=== PATIENT | female | born 1930 | race Caucasian/White ===

== ENCOUNTER 2016-12-04 17:34 | Inpatient (IN) | payer OTHER ==
[~2016-12-04] VITALS: Ht 157.5 cm; Wt 87.0 kg
[~2016-12-04 17:34] MED LIST: CHOL1TAB4 PO; FURO-85 PO; LOSA100T26 PO; MULT-506 PO; POTA10CA28 PO; PRED1SUS3; ZOLE5INJ SC
[2016-12-04] MEDS ORDERED: ACETAMINOPHEN 500 MG TAB PO STA (17:54)
[2016-12-04] MEDS ORDERED: SODIUM CHLORIDE 0.9% 1000ML 1,000 ML IV ONE (17:54)
[2016-12-04 18:06] LABS: URINE APPEARANCE CLEAR (CLEAR); URINE BILIRUBIN NEG (NEG); URINE COLOR DK YELLOW; URINE NITRITE NEG (NEG); URINE SPECIFIC GRAVITY 1.019 (1.000-1.030); UROBILINOGEN NEG (NEG); ZZURINE CULT IF INDIC CATH NO
[2016-12-04 18:07] LABS: MANUAL MICROSCOPIC REQUIRED? NO; REVIEW REQ? NO
[2016-12-04 18:23] LABS: VEN BLD GAS O2 SATURATION < 60.0 %; VEN BLOOD GAS BASE EXCESS -0.9 mmol/L; VENOUS BLOOD GAS PCO2 30 mmHg (38.0-50.0); VENOUS BLOOD GAS PO2 29 mmHg
--- NOTE | 2016-12-04 18:29 | DIAGNOSTIC IMAGING REPORT ---
SINGLE VIEW CHEST CLINICAL HISTORY: Sepsis. Vomiting. FINDINGS: An AP, portable, upright chest radiograph is compared to study dated 02/28/2012 and correlated with chest CT dated 12/13/11. The examination is degraded by portable technique and patient rotation. The heart is enlarged and there is atherosclerotic calcification of the thoracic aorta. There is prominence of the central pulmonary vessels. No airspace consolidation or large pleural effusion is identified. Minimal dependent atelectasis is observed. No pneumothorax is seen. The skeletal structures are osteopenic. The bony thorax is grossly intact. Arthritic change is present in the shoulders. IMPRESSION: 1. Cardiomegaly with prominence of the central pulmonary vessels. Correlate clinically for evidence of mild congestive failure. 2. No airspace consolidation or large pleural effusion is seen. Electronically signed by: Pablo Yeung M.D. 12/04/2016 6:28 PM Dictated Date/Time: 12/04/2016 6:26 PM
[2016-12-04] MEDS ORDERED: OSELTAMIVIR PHOSPHATE 75 MG CAP PO STA (18:43)
[2016-12-04 18:47] LABS: INR 1.3 (0.9-1.1); PROTHROMBIN TIME (PATIENT) 13.6 SECONDS (9.0-12.0)
[2016-12-04 18:55] LABS: ALT/SGPT 26 U/L (12-78); BLOOD UREA NITROGEN 25 mg/dl (7-18); C-REACTIVE PROTEIN 1.36 mg/dl (0-0.29); CALCIUM 8.7 mg/dl (8.5-10.1); CARBON DIOXIDE 21 mmol/L (21-32); CHLORIDE 106 mmol/L (98-107); GLUCOSE 212 mg/dl (70-99); MAGNESIUM 1.4 mg/dl (1.8-2.4); POTASSIUM 4.2 mmol/L (3.5-5.1); SODIUM 138 mmol/L (136-145)
[2016-12-04 18:58] LABS: ALB/GLOB RATIO 0.9 (0.9-2); ALKALINE PHOSPHATASE 130 U/L (45-117); AST/SGOT 32 U/L (15-37); PHOSPHORUS 1.6 mg/dl (2.5-4.9)
[2016-12-04 19:05] LABS: HEMATOCRIT 28.7 % (37-47); MEAN CELL VOLUME 78.2 fL (80-100); MEAN CORPUSCULAR HEMOGLOBIN 24.8 pg (25-34); MEAN CORPUSCULAR HGB CONC 31.7 g/dl (32-36); PLATELET COUNT 29 K/uL (130-400); RED BLOOD COUNT 3.67 M/uL (4.2-5.4); WHITE BLOOD COUNT 6.79 K/uL (4.8-10.8)
[2016-12-04 19:06] LABS: COMPLETE YES; IG% 0.3 %; LYMPH % 3.8 %; LYMPH ABS # 0.26 K/uL (1.2-3.4); MICROCYTOSIS PRESENT; MONO % 7.1 %; NEUT % 88.8 %; OVALOCYTES 1+; PLT ESTIMATE DECREASED; POLYCHROMASIA 1+
[2016-12-04] MEDS ORDERED: MAGNESIUM SULFATE 1GM / D5W 1 GM BAG IV STA (19:10)
[2016-12-04] MEDS ORDERED: MULTIVITAMIN IV (19:29)
[2016-12-04] MEDS ORDERED: PHYTONADIONE IV (19:29)
[2016-12-04] MEDS ORDERED: ALBINS/ INH (19:29)
[2016-12-04] MEDS ORDERED: GLIM2TAB2 PO (19:29)
[2016-12-04] MEDS ORDERED: DENO60SO INH (19:29)
[2016-12-04] MEDS ORDERED: CHOL1TAB42 PO (19:29)
[2016-12-04] MEDS ORDERED: ALUMINUM/MAGNESIUM/SIMETH (MAALOX MAX) 30 ML UDC PO PRN (20:30)
[2016-12-04] MEDS ORDERED: ONDANSETRON INJ 2 MG/ML 2 ML VIAL IV PRN (20:30)
[2016-12-04] MEDS ORDERED: ENOXAPARIN 40 MG/0.4 ML SYR SQ SCH (20:30)
--- NOTE | 2016-12-04 20:34 | EMERGENCY ROOM VISIT NOTE ---
History Report prepared by Lisseth: Tamra Tbaor Under the Supervision of: Dr. Wily Tenorio D.O. First contact with patient: 17:43 Chief Complaint: ILLNESS Stated Complaint: ILLNESS, VOMITING History of Present Illness The patient is an 85 year old female who presents to the Emergency Room via EMS to be evaluated for a persistent fever and weakness with onset 17 hours ago. The patient is a resident at [facility]. From midnight onward, the patient has been short of breath and nursing staff at [facility] reported that she had a fever of 103.1. The patient states that she has been having mid-back pain. She notes that she has not had much to eat or drink today. The patient has a history of diabetes and liver issues, per daughters. They note that the patient is coughing frequently but that this is not new for the patient. The patient denies vomiting, nausea, chest pain. Source of History: patient, family Onset: 17 hours ago Position: other (global) Quality: other (fever) Timing: other (persistent) Associated Symptoms: + SOB, + back pain, No chest pain, No nausea, No vomiting Review of Systems See HPI for pertinent positives & negatives. A total of 10 systems reviewed and were otherwise negative. Past Medical & Surgical Medical Problems: (1) NGHIA (acute kidney injury) (2) Benign hypertension (3) Hyperlipidemia (4) Influenza (5) Osteoporosis Family History No pertinent family history Social History Smoking Status: Never Smoker Alcohol Use: none Drug Use: none Marital Status: Housing Status: lives with family Occupation Status: retired Current/Historical Medications Scheduled Cholecalciferol (Vitamin D), 5,000 UNITS PO DAILY Denosumab (Prolia), 1 DOSE INH [id number] Furosemide (Lasix), 20 MG PO QAM Glimepiride (Glimepiride), 1 TAB PO BID Losartan Potassium & Hydrochlo (Losartan Potassium/Hydroc), 1 TAB PO QAM Potassium Chloride (Micro-K Ext Rel), 10 MEQ PO BID [Mvi, Vit K], 1 DOSE IV DAILY Scheduled PRN Albuterol Sulf (Proventil 0.083% 2.5MG/3ML), 2.5 MG INH QID PRN for COUGH, WHEEZE Allergies Coded Allergies: Alendronate (Verified Adverse Reaction, Unknown, dizziness, 01/09/16) Uncoded Allergies: SEAFOOD (Allergy, Unknown, GI UPSET, 09/12/15) Physical Exam Vital Signs Date Time Temp Pulse Resp B/P Pulse Ox O2 Delivery O2 Flow Rate FiO2 12/04/16 20:46 38.0 79 26 126/44 96 Room Air 12/04/16 19:03 39.5 86 28 139/57 97 Room Air 12/04/16 17:56 80 12/04/16 17:56 96 Room Air 12/04/16 17:42 39.3 82 30 160/55 96 Room Air Physical Exam GENERAL: Patient is awake, alert, and in no acute distress. Patient is resting comfortably and showing no signs of anxiety EYES: The conjunctivae are clear. The pupils are round and reactive. EARS, NOSE, MOUTH AND THROAT: The nose is without any evidence of any deformity. Mucous membranes are dry, tongue is midline NECK: The neck is nontender and supple. RESPIRATORY: Lung sounds are diminished throughout with scattered rhonchi, some diminished breath sounds in the left base. CARDIOVASCULAR: Regular rate and rhythm noted there no murmurs rubs or gallops normal S1 normal S2 GASTROINTESTINAL: The abdomen is soft. Bowel sounds are present in all quadrants. Abdomen is nontender MUSCULOSKELETAL/EXTREMITIES: There is no evidence of gross deformity full range of motion is noted in the hips and shoulders, trace pedal edema in the bilateral lower extremities SKIN: There is no obvious evidence of any rash. There are no petechiae, pallor or cyanosis noted. NEUROLOGIC: Patient is awake alert, answering questions, appears to be at baseline according to family members Medical Decision & Procedures ER Provider Diagnostic Interpretation: X-ray results as stated below per interpretation by me and the radiologist. SINGLE VIEW CHEST CLINICAL HISTORY: Sepsis. Vomiting. FINDINGS: An AP, portable, upright chest radiograph is compared to study dated 02/28/2012 and correlated with chest CT dated 12/13/11. The examination is degraded by portable technique and patient rotation. The heart is enlarged and there is atherosclerotic calcification of the thoracic aorta. There is prominence of the central pulmonary vessels. No airspace consolidation or large pleural effusion is identified. Minimal dependent atelectasis is observed. No pneumothorax is seen. The skeletal structures are osteopenic. The bony thorax is grossly intact. Arthritic change is present in the shoulders. IMPRESSION: 1. Cardiomegaly with prominence of the central pulmonary vessels. Correlate clinically for evidence of mild congestive failure. 2. No airspace consolidation or large pleural effusion is seen. Electronically signed by: Pablo Yeung M.D. 12/04/2016 6:28 PM Dictated Date/Time: 12/04/2016 6:26 PM Laboratory Results 12/04/16 18:12 Red Blood Count 3.67, Mean Corpuscular Volume 78.2, Mean Corpuscular Hemoglobin 24.8, Mean Corpuscular Hemoglobin Concent 31.7, Neutrophils (%) (Auto) 88.8, Lymphocytes (%) (Auto) 3.8, Monocytes (%) (Auto) 7.1, Eosinophils (%) (Auto) 0.0 , Basophils (%) (Auto) 0.0, Neutrophils # (Auto) 6.03, Lymphocytes # (Auto) 0.26 , Monocytes # (Auto) 0.48, Eosinophils # (Auto) 0.00, Basophils # (Auto) 0.00 12/04/16 18:12 Test 12/04/16 17:55 12/04/16 18:00 12/04/16 18:11 12/04/16 18:12 Urine Color DK YELLOW Urine Appearance CLEAR (CLEAR) Urine pH 5.0 (4.5-7.5) Urine Specific [place] 1.019 (1.000-1.030) Urine Protein NEG (NEG) Urine Glucose (UA) NEG (NEG) Urine Ketones NEG (NEG) Urine Occult Blood 1+ (NEG) Urine Nitrite NEG (NEG) Urine Bilirubin NEG (NEG) Urine Urobilinogen NEG (NEG) Urine Leukocyte Esterase NEG (NEG) Urine WBC (Auto) 1-5 /hpf (0-5) Urine RBC (Auto) 5-10 /hpf (0-4) Urine Hyaline Casts (Auto) 1-5 /lpf (0-5) Urine Epithelial Cells (Auto) 10-20 /lpf (0-5) Urine Bacteria (Auto) NEG (NEG) Influenza Type A Antigen POS for Influ A (NEG) Influenza Type B Antigen Neg for Influ B (NEG) Bedside Lactic Acid Venous 3.00 mmol/L (0.90-1.70) White Blood Count 6.79 K/uL (4.8-10.8) Red Blood Count 3.67 M/uL (4.2-5.4) Hemoglobin 9.1 g/dL (12.0-16.0) Hematocrit 28.7 % (37-47) Mean Corpuscular Volume 78.2 fL (80-100) Mean Corpuscular Hemoglobin 24.8 pg (25-34) Mean Corpuscular Hemoglobin Concent 31.7 g/dl (32-36) Platelet Count 29 K/uL (130-400) Neutrophils (%) (Auto) 88.8 % Lymphocytes (%) (Auto) 3.8 % Monocytes (%) (Auto) 7.1 % Eosinophils (%) (Auto) 0.0 % Basophils (%) (Auto) 0.0 % Neutrophils # (Auto) 6.03 K/uL (1.4-6.5) Lymphocytes # (Auto) 0.26 K/uL (1.2-3.4) Monocytes # (Auto) 0.48 K/uL (0.11-0.59) Eosinophils # (Auto) 0.00 K/uL (0-0.5) Basophils # (Auto) 0.00 K/uL (0-0.2) RDW Standard Deviation 48.1 fL (36.4-46.3) RDW Coefficient of Variation 16.8 % (11.5-14.5) Immature Granulocyte % (Auto) 0.3 % Immature Granulocyte # (Auto) 0.02 K/uL (0.00-0.02) Platelet Estimate DECREASED Polychromasia 1+ Microcytosis PRESENT Ovalocytes 1+ Erythrocyte Sedimentation Rate 10 mm/hr (0-21) Prothrombin Time 13.6 SECONDS (9.0-12.0) Prothromb Time International Ratio 1.3 (0.9-1.1) Activated Partial Thromboplast Time 27.2 SECONDS (21.0-31.0) Partial Thromboplastin Ratio 1.0 Venous Blood pH 7.48 (7.36-7.41) Venous Blood Partial Pressure CO2 30 mmHg (38.0-50.0) Venous Blood Partial Pressure O2 29 mmHg Venous Blood HCO3 22 meq/L Venous Blood Oxygen Saturation < 60.0 % Venous Blood Base Excess -0.9 mmol/L Anion Gap 11.0 mmol/L (3-11) Est Creatinine Clear Calc Drug Dose 33.4 ml/min Estimated GFR () 43.9 Estimated GFR (Non- 37.9 BUN/Creatinine Ratio 19.0 (10-20) Calcium Level 8.7 mg/dl (8.5-10.1) Phosphorus Level 1.6 mg/dl (2.5-4.9) Magnesium Level 1.4 mg/dl (1.8-2.4) Total Bilirubin 2.2 mg/dl (0.2-1) Aspartate Amino Transf (AST/SGOT) 32 U/L (15-37) Alanine Aminotransferase (ALT/SGPT) 26 U/L (12-78) Alkaline Phosphatase 130 U/L (45-117) Total Creatine Kinase 55 U/L (26-192) Creatine Kinase MB < 0.5 ng/ml (0.5-3.6) Creatine Kinase MB Ratio (0-3.0) Troponin I 0.030 ng/ml (0-0.045) C-Reactive Protein 1.36 mg/dl (0-0.29) Pro-B-Type Natriuretic Peptide 712 pg/ml (0-1800) Total Protein 6.4 gm/dl (6.4-8.2) Albumin 3.1 gm/dl (3.4-5.0) Globulin 3.3 gm/dl (2.5-4.0) Albumin/Globulin Ratio 0.9 (0.9-2) Lipase 242 U/L (73-393) Test 12/04/16 20:19 Laboratory results per my review. Medications Administered Medications (Trade) Dose Ordered Sig/Anibal Route Start Time Stop Time Status Last Admin Dose Admin Sodium Chloride (Nss 1000ml) 1,000 ml @ 999 mls/hr Q1H1M ONCE IV 12/04/16 17:54 12/04/16 18:56 DC 12/04/16 18:28 999 MLS/HR Acetaminophen (Tylenol Tab) 1,000 mg NOW STAT PO 12/04/16 17:54 12/04/16 17:55 DC 12/04/16 18:16 1,000 MG Oseltamivir Phosphate (Tamiflu Cap) 75 mg NOW STAT PO 12/04/16 18:43 12/04/16 18:44 DC 12/04/16 18:43 75 MG Magnesium Sulfate (Magnesium Sulfate) 1 gm NOW STAT IV 12/04/16 19:10 12/04/16 19:11 DC 12/04/16 19:31 1 GM ECG Indication: SOB/dyspnea Rate (beats per minute): 79 Rhythm: normal sinus Findings: ST depression (lateral and inferior ), no ectopy, other (LVH by voltage criteria ) Comparison ECG Date: February 28, 2012 Change: no significant change ED Course 1750: The patient was evaluated in room B9. A complete history and physical examination were performed. 1753: Tylenol Tab 1000 mg PO, NSS 1,000 ml @ 999 mls/hr IV 1842: Tamiflu Cap 75 mg PO 1909: Magnesium Sulfate 1 gm IV 1939: Upon reevaluation, the patient is resting. I discussed results and treatment plan with the patient and her family. They verbalize agreement and understanding. The patient will be evaluated for further management and care. 1950: I discussed the case with Dr. Huber ([facility]); he will further evaluate the patient. Medical Decision Differential diagnosis: Etiologies such as viral syndrome, otitis, pharyngitis, pneumonia, influenza, meningitis, urinary tract infection, sepsis, bacteremia, as well as others were entertained. Nursing notes reviewed. Additional history is obtained from the patient's family members. The patient is an 85-year-old female who presented to the emergency department for an evaluation of fever and cough. The patient did not have significant hypoxia but she did have significant tachypnea. She was treated with IV fluids in the emergency department. She was also given Tamiflu when her flu swab came back positive. She was treated with IV magnesium as well for a low magnesium level. She was reevaluated multiple times. She continued. I discussed patient's laboratory and radiographic studies with her and her family members. Because of her age and other comorbidities I discussed her case with the on-call [facility] hospitalist as well. They've agreed to evaluate the patient in the emergency department for further management and disposition. Consults Time Called: 1947 Consulting Physician: Dr. Huber ([facility]) Returned Call: 1950 I discussed the case with Dr. Huber ([facility]); he will further evaluate the patient. Impression Primary Impression: Fever Additional Impressions: Influenza Tachypnea Dehydration Acute kidney injury Hypomagnesemia Scribe Attestation The scribe's documentation has been prepared under my direction and personally reviewed by me in its entirety. I confirm that the note above accurately reflects all work, treatment, procedures, and medical decision making performed by me. Departure Information Dispostion Being Evaluated By Hospitalist Referrals Jj Bryan (PCP) Patient Instructions My [facility] Problem Qualifiers
--- NOTE | 2016-12-04 21:06 | History and Physical ---
History & Physical Date & Time of Service: Dec 04, 2016 at 20:33 Chief Complaint: Illness, Vomiting Primary Care Physician: Jj Bryan History of Present Illness Source: patient, family, clinic records This is an 85 yo f that is presented to us with fever, positive influenza. She states that for approx two days she has been having increasing fatigue and a very poor appetite. She has been suffering from a dry cough however this has been ongoing for a month and she states it is her typical "winter cough" .As she was feeling unwell it was decided she would be sent to the ED for further evaluation. She was found to have a positive influenza A swab. She was also found to have thrombocytopenia which was actually BL for the patient. She does have a h/o DM and supposed fatty liver disease. She also has a h/o esophageal polyps which did cause internal bleeding in the past. She also notes that she does have a known murmur but has never had an echo per the patient. Past Medical/Surgical History Medical Problems: (1) Benign hypertension Status: Chronic (2) Hyperlipidemia Status: Chronic (3) Osteoporosis Status: Chronic Family History Diabetes mellitus MOTHER Social History Smoking Status: Never Smoker Smokeless Tobacco Use: No Alcohol Use: none Drug Use: none Marital Status: Housing status: lives with family Occupational Status: retired Immunizations History of Influenza Vaccine: Yes History of Tetanus Vaccine?: Yes History of Pneumococcal: Yes History of Hepatitis B Vaccine: No Multi-Drug Resistant Organisms History of MDRO: No Allergies Coded Allergies: Alendronate (Verified Adverse Reaction, Unknown, dizziness, 01/09/16) Uncoded Allergies: SEAFOOD (Allergy, Unknown, GI UPSET, 09/12/15) Home Medications Scheduled Cholecalciferol (Vitamin D), 5,000 UNITS PO DAILY Denosumab (Prolia), 1 DOSE INH [id number] Furosemide (Lasix), 20 MG PO QAM Glimepiride (Glimepiride), 1 TAB PO BID Losartan Potassium & Hydrochlo (Losartan Potassium/Hydroc), 1 TAB PO QAM Potassium Chloride (Micro-K Ext Rel), 10 MEQ PO BID [Mvi, Vit K], 1 DOSE IV DAILY Scheduled PRN Albuterol Sulf (Proventil 0.083% 2.5MG/3ML), 2.5 MG INH QID PRN for COUGH, WHEEZE Review of Systems Constitutional: + chills, + fever, + sweats Eyes: No worsening of vision ENT: No hearing loss Respiratory: + cough, No dyspnea at rest, No dyspnea on exertion, No shortness of breath, No sputum, No wheezing Cardiovascular: No chest pain Abdomen: No constipation, No diarrhea, No nausea, No pain, No vomiting Musculoskeletal: No joint pain, No muscle pain Neurologic: + balance problems, + weakness, No memory loss, No numbness/ tingling Endocrine: + fatigue Integumentary: No rash Physical Exam Vital Signs Date Time Temp Pulse Resp B/P Pulse Ox O2 Delivery O2 Flow Rate FiO2 12/04/16 19:03 39.5 86 28 139/57 97 Room Air 12/04/16 17:56 80 12/04/16 17:56 96 Room Air 12/04/16 17:42 39.3 82 30 160/55 96 Room Air General Appearance: WD/WN, no apparent distress, + pertinent finding (flushed and diaphoretic) Head: normocephalic, atraumatic Eyes: normal inspection ENT: hearing grossly normal Neck: supple Respiratory/Chest: lungs clear, normal breath sounds, no respiratory distress, no accessory muscle use Cardiovascular: + systolic murmur (4/6), + pertinent finding (4:1 rhythm ) Abdomen/GI: normal bowel sounds, non tender, soft Back: normal inspection Extremities/Musculoskelatal: no calf tenderness, no pedal edema, normal range of motion Neurologic/Psych: alert, normal mood/affect, oriented x 3 Skin: normal color, warm/dry, no rash Lymphatic: no adenopathy Diagnostics Laboratory Results Results Past 24 Hours Test 12/04/16 17:55 12/04/16 18:00 12/04/16 18:11 12/04/16 18:12 Range/Units Urine Color DK YELLOW Urine Appearance CLEAR CLEAR Urine pH 5.0 4.5-7.5 Urine Specific [place] 1.019 1.000-1.030 Urine Protein NEG NEG Urine Glucose (UA) NEG NEG Urine Ketones NEG NEG Urine Occult Blood 1+ NEG Urine Nitrite NEG NEG Urine Bilirubin NEG NEG Urine Urobilinogen NEG NEG Urine Leukocyte Esterase NEG NEG Urine WBC (Auto) 1-5 0-5 /hpf Urine RBC (Auto) 5-10 0-4 /hpf Urine Hyaline Casts (Auto) 1-5 0-5 /lpf Urine Epithelial Cells (Auto) 10-20 0-5 /lpf Urine Bacteria (Auto) NEG NEG Influenza Type A Antigen POS for Influ A NEG Influenza Type B Antigen Neg for Influ B NEG Bedside Lactic Acid Venous 3.00 0.90-1.70 mmol/L White Blood Count 6.79 4.8-10.8 K/uL Red Blood Count 3.67 4.2-5.4 M/uL Hemoglobin 9.1 12.0-16.0 g/dL Hematocrit 28.7 37-47 % Mean Corpuscular Volume 78.2 80-100 fL Mean Corpuscular Hemoglobin 24.8 25-34 pg Mean Corpuscular Hemoglobin Concent 31.7 32-36 g/dl Platelet Count 29 130-400 K/uL Neutrophils (%) (Auto) 88.8 % Lymphocytes (%) (Auto) 3.8 % Monocytes (%) (Auto) 7.1 % Eosinophils (%) (Auto) 0.0 % Basophils (%) (Auto) 0.0 % Neutrophils # (Auto) 6.03 1.4-6.5 K/uL Lymphocytes # (Auto) 0.26 1.2-3.4 K/uL Monocytes # (Auto) 0.48 0.11-0.59 K/uL Eosinophils # (Auto) 0.00 0-0.5 K/uL Basophils # (Auto) 0.00 0-0.2 K/uL RDW Standard Deviation 48.1 36.4-46.3 fL RDW Coefficient of Variation 16.8 11.5-14.5 % Immature Granulocyte % (Auto) 0.3 % Immature Granulocyte # (Auto) 0.02 0.00-0.02 K/uL Platelet Estimate DECREASED Polychromasia 1+ Microcytosis PRESENT Ovalocytes 1+ Erythrocyte Sedimentation Rate 10 0-21 mm/hr Prothrombin Time 13.6 9.0-12.0 SECONDS Prothromb Time International Ratio 1.3 0.9-1.1 Activated Partial Thromboplast Time 27.2 21.0-31.0 SECONDS Partial Thromboplastin Ratio 1.0 Venous Blood pH 7.48 7.36-7.41 Venous Blood Partial Pressure CO2 30 38.0-50.0 mmHg Venous Blood Partial Pressure O2 29 mmHg Venous Blood HCO3 22 meq/L Venous Blood Oxygen Saturation < 60.0 % Venous Blood Base Excess -0.9 mmol/L Sodium Level 138 136-145 mmol/L Potassium Level 4.2 3.5-5.1 mmol/L Chloride Level 106 98-107 mmol/L Carbon Dioxide Level 21 21-32 mmol/L Anion Gap 11.0 3-11 mmol/L Blood Urea Nitrogen 25 7-18 mg/dl Creatinine 1.30 0.60-1.20 mg/dl Est Creatinine Clear Calc Drug Dose 33.4 ml/min Estimated GFR () 43.9 Estimated GFR (Non- 37.9 BUN/Creatinine Ratio 19.0 10-20 Random Glucose 212 70-99 mg/dl Calcium Level 8.7 8.5-10.1 mg/dl Phosphorus Level 1.6 2.5-4.9 mg/dl Magnesium Level 1.4 1.8-2.4 mg/dl Total Bilirubin 2.2 0.2-1 mg/dl Aspartate Amino Transf (AST/SGOT) 32 15-37 U/L Alanine Aminotransferase (ALT/SGPT) 26 12-78 U/L Alkaline Phosphatase 130 45-117 U/L Total Creatine Kinase 55 26-192 U/L Creatine Kinase MB < 0.5 0.5-3.6 ng/ml Creatine Kinase MB Ratio 0-3.0 Troponin I 0.030 0-0.045 ng/ml C-Reactive Protein 1.36 0-0.29 mg/dl Pro-B-Type Natriuretic Peptide 712 0-1800 pg/ml Total Protein 6.4 6.4-8.2 gm/dl Albumin 3.1 3.4-5.0 gm/dl Globulin 3.3 2.5-4.0 gm/dl Albumin/Globulin Ratio 0.9 0.9-2 Lipase 242 73-393 U/L Test 12/04/16 20:19 Range/Units Microbiology Results 12/04/16 Blood Culture, Received Pending 12/04/16 Blood Culture, Received Pending Diagnostic Radiology SINGLE VIEW CHEST CLINICAL HISTORY: Sepsis. Vomiting. FINDINGS: An AP, portable, upright chest radiograph is compared to study dated 02/28/2012 and correlated with chest CT dated 12/13/11. The examination is degraded by portable technique and patient rotation. The heart is enlarged and there is atherosclerotic calcification of the thoracic aorta. There is prominence of the central pulmonary vessels. No airspace consolidation or large pleural effusion is identified. Minimal dependent atelectasis is observed. No pneumothorax is seen. The skeletal structures are osteopenic. The bony thorax is grossly intact. Arthritic change is present in the shoulders. IMPRESSION: 1. Cardiomegaly with prominence of the central pulmonary vessels. Correlate clinically for evidence of mild congestive failure. 2. No airspace consolidation or large pleural effusion is seen. EKG NSR, no ectopic beats or ischemia noted Impression Assessment and Plan Documented By: Michael Huber This is an 85 yo f with influenza A as well as NGHIA. Treat with Tamiflu and rehydration. Fever meeting SIRS criteria most likely secondary to influenza A - Tamiflu bid - hemodynamically stable- med surg - blood cx pending - repeat lactate ordered - Tylenol for fever/ pain control NGHIA most likely secondary to dehydration from secondary losses (diaphoresis) - NSS @ 100cc/h - unsure of EF at this time - recheck of BMP in the am Thrombocytopenia - stable - CBC serial Systolic murmur - echo ordered - intake and outpt - daily weight HTN - Lasix held because of NGHIA - Losartan/ HCTZ cont'd but will monitor because of NGHIA DVt Prophylaxis - SCD FULL CODE Resident Physician Supervision Note: I was present with [Name of resident] during the history and exam. I discussed the case with the resident and agree with the findings and plan as documented in the note. Any exceptions or clarifications are listed here Pt seen / examined - + influ and related symptoms in addition to NGHIA on labs P: 1) Influ A - Tamiflu started - supportive care, IVF, antipyretics - PT/OT after 1-2 days 2) NGHIA - IVF - repeat labs AM - lytes and nephrology if no improvement 3) Echo ordered by resident can likely be deferred to outpt setting as does not figure into current complaint/presentation Level of Care Med/Surg Advanced Directives Existing Advance Directive: Yes Resuscitation Status FULL RESUSCITATION VTE Prophylaxis VTE Risk Assessment Done? Y/N: Yes Risk Level: Moderate Given or contraindicated: SCD's Social Service Consult Lives in Shelter Additional Copies To Jj Bryan
[2016-12-04] MEDS ORDERED: GLUCOSE 40% GEL 15 GM TUBE PO PRN (22:00)
[2016-12-04] MEDS ORDERED: GLUCOSE 10 TABS/TUBE PO PRN (22:00)
[2016-12-04] MEDS ORDERED: DEXTROSE 50% 50 ML SYR IV PRN (22:00)
[2016-12-04] MEDS ORDERED: GLUCAGON FOR INJ 1 MG VIAL SQ PRN (22:00)
[2016-12-04 22:14] VITALS: BP 123/69; PULSE 81; TEMP 36.8; O2SAT 93
[2016-12-04] MEDS: SODIUM CHLORIDE 0.9% 1000ML 1,000 ML IV SCH (22:18)
[2016-12-04 22:31] VITALS: BP 123/69; PULSE 81; TEMP 36.8; O2SAT 93; BMI 34.8
[2016-12-05] VITALS (12 sets, daily range): BP systolic 118–145; BP diastolic 57–76; PULSE 64–112; TEMP 36.8–39.1; O2SAT 93–97
[2016-12-05] MEDS: ACETAMINOPHEN 325 MG TAB PO PRN ×3 (00:16→16:49)
[2016-12-05] MEDS: POTASSIUM CHLORIDE 10 MEQ TABCR PO SCH ×3 (00:16→20:51)
[2016-12-05] MEDS: OSELTAMIVIR PHOSPHATE SUSP 30 MG/5 ML UDP PO SCH ×3 (00:17→20:51)
[2016-12-05] MEDS: INSULIN ASPART 100 UNITS/ML 3 ML PEN SC SCH ×5 (00:21→21:00)
[2016-12-05] MEDS ORDERED: MAGNESIUM CHLORIDE 64MG DELAYED REL TAB PO ONE (01:30)
[2016-12-05] MEDS ORDERED: POT PHOSPHATE MONOBASIC W/ SOD TAB PO ONE (01:30)
[2016-12-05] MEDS: SODIUM CHLORIDE 0.9% 1000ML 1,000 ML IV SCH (06:09)
[2016-12-05] MEDS ORDERED: PIPERACILL/TAZOBAC IV 2.25 GM in DEXTROSE 5% 100ML 100 ML IV SCH (07:00)
[2016-12-05] MEDS ORDERED: PIPERACILL/TAZOBAC CONSULT ACTIVE PRN (07:15)
[2016-12-05] MEDS ORDERED: VANCOMYCIN CONSULT ACTIVE PRN (07:15)
[2016-12-05] MEDS ORDERED: PIPERACILL/TAZOBAC IV 3.375 GM in DEXTROSE 5% 100ML IV ONE (07:15)
[2016-12-05] MEDS ORDERED: VANCOMYCIN INJ 2,100 MG in SODIUM CHLORIDE 0.9% 500ML 500 ML IV SCH (07:30)
[2016-12-05 08:15] LABS: BUN/CREATININE RATIO 20.8 (10-20); CALCIUM 8.3 mg/dl (8.5-10.1); CREATININE 1.4 mg/dl (0.60-1.20); POTASSIUM 4.3 mmol/L (3.5-5.1)
[2016-12-05 08:22] LABS: HEMATOCRIT 26.7 % (37-47); MEAN CELL VOLUME 79.2 fL (80-100); MEAN CORPUSCULAR HEMOGLOBIN 24.6 pg (25-34); MEAN CORPUSCULAR HGB CONC 31.1 g/dl (32-36); PLATELET COUNT 22 K/uL (130-400); PLT ESTIMATE SIGNIFIC DECREASED; RED BLOOD COUNT 3.37 M/uL (4.2-5.4); WHITE BLOOD COUNT 4.68 K/uL (4.8-10.8)
[2016-12-05] MEDS: MAGNESIUM CHLORIDE 64MG DELAYED REL TAB PO SCH (08:36)
[2016-12-05] MEDS: POT PHOSPHATE MONOBASIC W/ SOD TAB PO SCH ×4 (08:36→20:52)
[2016-12-05] MEDS: CHOLECALCIFEROL 1000 INTER.UNIT TAB PO SCH (08:44)
[2016-12-05] MEDS: MULTIVITAMIN TAB PO SCH (08:44)
--- NOTE | 2016-12-05 08:52 | Medical Student: [facility] ---
Med Student History & Physical Date & Time of Service: Dec 05, 2016 at 08:52 Chief Complaint: Marlon (Acute Kidney Injury) Primary Care Physician: Jj Bryan History of Present Illness Source: patient This is an 85 year old who presented yesterday evening to the ED after several days of fever, weakness, and loss of appetite. Upon arrival she tested positive for Influenza A and was found to have signs of acute kidney injury. Past Medical/Surgical History Medical Problems: (1) Acute kidney injury Status: Acute (2) Dehydration Status: Acute (3) Fever Status: Acute (4) Hypomagnesemia Status: Acute (5) Tachypnea Status: Acute Social History Smoking Status: Never Smoker Smokeless Tobacco Use: No Alcohol Use: none Drug Use: none Marital Status: Housing status: lives with family Occupational Status: retired Immunizations History of Influenza Vaccine: Yes History of Tetanus Vaccine?: Yes History of Pneumococcal: Yes History of Hepatitis B Vaccine: No Allergies Coded Allergies: Alendronate (Verified Adverse Reaction, Unknown, dizziness, 01/09/16) Uncoded Allergies: SEAFOOD (Allergy, Unknown, GI UPSET, 09/12/15) Medications Albuterol Sulf (Proventil 0.083% 2.5MG/3ML), 2.5 MG INH QID PRN for COUGH, WHEEZE Cholecalciferol (Vitamin D), 5,000 UNITS PO DAILY Denosumab (Prolia), 1 DOSE INH [id number] Furosemide (Lasix), 20 MG PO QAM Glimepiride (Glimepiride), 1 TAB PO BID Losartan Potassium & Hydrochlo (Losartan Potassium/Hydroc), 1 TAB PO QAM Potassium Chloride (Micro-K Ext Rel), 10 MEQ PO BID [Mvi, Vit K], 1 DOSE IV DAILY Review of Systems Constitutional: + chills, + fever, + sweats, + weakness Respiratory: + cough Abdomen: No nausea, No pain, No vomiting Musculoskeletal: + joint pain (Right knee) Endocrine: + fatigue Hematologic / Lymphatic: No abnormal bleeding/bruising, No clotting problems Integumentary: No bleeding Physical Exam Vital Signs (24 Hours) Date Time Temp Pulse Resp B/P Pulse Ox O2 Delivery O2 Flow Rate FiO2 12/05/16 08:00 38.2 78 22 142/57 97 Room Air 12/05/16 07:17 37.2 77 18 134/68 94 Room Air 12/05/16 03:00 36.8 12/05/16 01:27 37.9 12/05/16 00:08 37.8 64 18 145/69 93 Room Air 12/05/16 00:00 Room Air 12/04/16 22:31 36.8 81 20 123/69 93 Room Air 12/04/16 22:14 36.8 81 20 123/69 93 Room Air 12/04/16 20:46 38.0 79 26 126/44 96 Room Air 12/04/16 19:03 39.5 86 28 139/57 97 Room Air 12/04/16 17:56 80 12/04/16 17:56 96 Room Air 12/04/16 17:42 39.3 82 30 160/55 96 Room Air General Appearance: + mild distress Head: normocephalic, atraumatic ENT: normal ENT inspection Neck: supple, no adenopathy, thyroid normal Respiratory/Chest: chest non-tender, lungs clear, normal breath sounds Cardiovascular: regular rate, rhythm Diagnostics Laboratory Results Results Past 24 Hours Test 12/04/16 17:55 12/04/16 18:00 12/04/16 18:11 12/04/16 18:12 Range/Units Urine Color DK YELLOW Urine Appearance CLEAR CLEAR Urine pH 5.0 4.5-7.5 Urine Specific [place] 1.019 1.000-1.030 Urine Protein NEG NEG Urine Glucose (UA) NEG NEG Urine Ketones NEG NEG Urine Occult Blood 1+ NEG Urine Nitrite NEG NEG Urine Bilirubin NEG NEG Urine Urobilinogen NEG NEG Urine Leukocyte Esterase NEG NEG Urine WBC (Auto) 1-5 0-5 /hpf Urine RBC (Auto) 5-10 0-4 /hpf Urine Hyaline Casts (Auto) 1-5 0-5 /lpf Urine Epithelial Cells (Auto) 10-20 0-5 /lpf Urine Bacteria (Auto) NEG NEG Influenza Type A Antigen POS for Influ A NEG Influenza Type B Antigen Neg for Influ B NEG Bedside Lactic Acid Venous 3.00 0.90-1.70 mmol/L White Blood Count 6.79 4.8-10.8 K/uL Red Blood Count 3.67 4.2-5.4 M/uL Hemoglobin 9.1 12.0-16.0 g/dL Hematocrit 28.7 37-47 % Mean Corpuscular Volume 78.2 80-100 fL Mean Corpuscular Hemoglobin 24.8 25-34 pg Mean Corpuscular Hemoglobin Concent 31.7 32-36 g/dl Platelet Count 29 130-400 K/uL Neutrophils (%) (Auto) 88.8 % Lymphocytes (%) (Auto) 3.8 % Monocytes (%) (Auto) 7.1 % Eosinophils (%) (Auto) 0.0 % Basophils (%) (Auto) 0.0 % Neutrophils # (Auto) 6.03 1.4-6.5 K/uL Lymphocytes # (Auto) 0.26 1.2-3.4 K/uL Monocytes # (Auto) 0.48 0.11-0.59 K/uL Eosinophils # (Auto) 0.00 0-0.5 K/uL Basophils # (Auto) 0.00 0-0.2 K/uL RDW Standard Deviation 48.1 36.4-46.3 fL RDW Coefficient of Variation 16.8 11.5-14.5 % Immature Granulocyte % (Auto) 0.3 % Immature Granulocyte # (Auto) 0.02 0.00-0.02 K/uL Platelet Estimate DECREASED Polychromasia 1+ Microcytosis PRESENT Ovalocytes 1+ Erythrocyte Sedimentation Rate 10 0-21 mm/hr Prothrombin Time 13.6 9.0-12.0 SECONDS Prothromb Time International Ratio 1.3 0.9-1.1 Activated Partial Thromboplast Time 27.2 21.0-31.0 SECONDS Partial Thromboplastin Ratio 1.0 Venous Blood pH 7.48 7.36-7.41 Venous Blood Partial Pressure CO2 30 38.0-50.0 mmHg Venous Blood Partial Pressure O2 29 mmHg Venous Blood HCO3 22 meq/L Venous Blood Oxygen Saturation < 60.0 % Venous Blood Base Excess -0.9 mmol/L Sodium Level 138 136-145 mmol/L Potassium Level 4.2 3.5-5.1 mmol/L Chloride Level 106 98-107 mmol/L Carbon Dioxide Level 21 21-32 mmol/L Anion Gap 11.0 3-11 mmol/L Blood Urea Nitrogen 25 7-18 mg/dl Creatinine 1.30 0.60-1.20 mg/dl Est Creatinine Clear Calc Drug Dose 33.4 ml/min Estimated GFR () 43.9 Estimated GFR (Non- 37.9 BUN/Creatinine Ratio 19.0 10-20 Random Glucose 212 70-99 mg/dl Calcium Level 8.7 8.5-10.1 mg/dl Phosphorus Level 1.6 2.5-4.9 mg/dl Magnesium Level 1.4 1.8-2.4 mg/dl Total Bilirubin 2.2 0.2-1 mg/dl Aspartate Amino Transf (AST/SGOT) 32 15-37 U/L Alanine Aminotransferase (ALT/SGPT) 26 12-78 U/L Alkaline Phosphatase 130 45-117 U/L Total Creatine Kinase 55 26-192 U/L Creatine Kinase MB < 0.5 0.5-3.6 ng/ml Creatine Kinase MB Ratio 0-3.0 Troponin I 0.030 0-0.045 ng/ml C-Reactive Protein 1.36 0-0.29 mg/dl Pro-B-Type Natriuretic Peptide 712 0-1800 pg/ml Total Protein 6.4 6.4-8.2 gm/dl Albumin 3.1 3.4-5.0 gm/dl Globulin 3.3 2.5-4.0 gm/dl Albumin/Globulin Ratio 0.9 0.9-2 Lipase 242 73-393 U/L Test 12/04/16 22:07 12/04/16 22:29 12/05/16 07:04 12/05/16 07:49 Range/Units Bedside Glucose 186 210 70-90 mg/dl Lactic Acid Level 2.9 0.4-2.0 mmol/L White Blood Count 4.68 4.8-10.8 K/uL Red Blood Count 3.37 4.2-5.4 M/uL Hemoglobin 8.3 12.0-16.0 g/dL Hematocrit 26.7 37-47 % Mean Corpuscular Volume 79.2 80-100 fL Mean Corpuscular Hemoglobin 24.6 25-34 pg Mean Corpuscular Hemoglobin Concent 31.1 32-36 g/dl RDW Standard Deviation 49.8 36.4-46.3 fL RDW Coefficient of Variation 17.4 11.5-14.5 % Platelet Count 22 130-400 K/uL Platelet Estimate SIGNIFIC DECREASED Sodium Level 139 136-145 mmol/L Potassium Level 4.3 3.5-5.1 mmol/L Chloride Level 108 98-107 mmol/L Carbon Dioxide Level 19 21-32 mmol/L Anion Gap 12.0 3-11 mmol/L Blood Urea Nitrogen 29 7-18 mg/dl Creatinine 1.40 0.60-1.20 mg/dl Est Creatinine Clear Calc Drug Dose 30.8 ml/min Estimated GFR () 40.2 Estimated GFR (Non- 34.7 BUN/Creatinine Ratio 20.8 10-20 Random Glucose 195 70-99 mg/dl Calcium Level 8.3 8.5-10.1 mg/dl Microbiology Results 12/04/16 Blood Culture - Preliminary, Resulted Gram Positive Cocci 12/04/16 Blood Culture - Preliminary, Resulted Gram Positive Cocci Impression Advanced Directives Existing Advance Directive: Yes Existing Living Will: Yes Existing Power of Drafter Apprentice: Yes
--- NOTE | 2016-12-05 09:03 | Pharmacy Progress Note ---
Pharmacy Antibiotic Consult Date of Service: Dec 05, 2016. Pharmacy Dosing Scope Pharmacy is consulted to initiate VANCOMYCIN and ZOSYN IV dosing therapy, order appropriate labs and adjust drug dose/frequency. Subjective The patient is a 85 year old female admitted on Dec 04, 2016 at 20:24. Objective Height (Feet): 5 Height (Inches): 2.00 Weight (Kilograms): 85.200 Lab Results (24hrs): Laboratory Tests Test 12/04/16 18:12 12/05/16 07:04 BUN/Creatinine Ratio 19.0 20.8 Blood Urea Nitrogen 25 mg/dl 29 mg/dl Creatinine 1.30 mg/dl 1.40 mg/dl White Blood Count 6.79 K/uL 4.68 K/uL Red Blood Count 3.67 M/uL Hemoglobin 9.1 g/dL Hematocrit 28.7 % Mean Corpuscular Volume 78.2 fL Mean Corpuscular Hemoglobin 24.8 pg Mean Corpuscular Hemoglobin Concent 31.7 g/dl Platelet Count 29 K/uL Neutrophils (%) (Auto) 88.8 % Lymphocytes (%) (Auto) 3.8 % Monocytes (%) (Auto) 7.1 % Eosinophils (%) (Auto) 0.0 % Basophils (%) (Auto) 0.0 % Neutrophils # (Auto) 6.03 K/uL Lymphocytes # (Auto) 0.26 K/uL Monocytes # (Auto) 0.48 K/uL Eosinophils # (Auto) 0.00 K/uL Basophils # (Auto) 0.00 K/uL Micro Results: * 12/04/16 -- (+) influenza A (-) influenza B * 12/04/16 -- Blood Cx x 2 -- GPC x 2 Recent Pertinent Medications Item Value Date Time Oseltamivir 30 mg 12/04/16 2230 Phosphate BID/PO 12/05/16 0844 (Tamiflu Susp) Assessment & Plan 85yo female resident at [facility], admitted with influenza and also found to have 2/2 blood cx growing GPC. Patient admitted with NGHIA (baseline Scr ~0.9 , Scr today = 1.4). VANCOMYCIN: * Loading dose: VANCOMYCIN 2100mg (~25mg/kg) IV X 1 dose then VANCOMYCIN 1200mg (~14mg/kg) IV every 24 hours. * Estimated Pk parameters: Vd ~0.7 L/kg ke ~0.03 t1/2 ~23 hours * Goal trough level estimate: between 15 - 20 mcg/mL. * Will be somewhat more aggressive with initial dosing, as renal function is anticipated to improve. Will adjust daily accordingly. * Trough level has been ordered for: . Pharmacy will continue to follow and will adjust dose/frequency as necessary. Thank you
--- NOTE | 2016-12-05 09:36 | Family Medicine Progress Note ---
Progress Note Date of Service Dec 05, 2016. Subjective reports feeling fatigued, Body aches Constitutional: + chills, + fatigue, + fever, + sweats, + weakness Respiratory: + cough, No dyspnea on exertion, No shortness of breath, No sputum, No wheezing Cardiovascular: No chest pain Abdomen: No nausea, No pain, No vomiting Musculoskeletal: No joint pain, No muscle pain Female : No dysuria Objective Physical Exam General Appearance: + mild distress Eyes: PERRL, EOMI ENT: hearing grossly normal Neck: supple, no adenopathy Respiratory/Chest: no respiratory distress, no accessory muscle use, + decreased breath sounds Cardiovascular: regular rate, rhythm, no edema, + systolic murmur Abdomen: normal bowel sounds, non tender, soft Extremities: non-tender Neurologic/Psychiatric: no motor/sensory deficits, alert, normal mood/affect Assessment and Plan This is an 85 yo f with influenza A as well as NGHIA. Started on Calli flu. Later in the day, prelim blood cultures showed gram positive cocci (spoke to lab and it is possibly strep pneumonia). Febrile but hemodnycamically stable. Continue to monitor for instability/ shortness of breath. patient denies shortness of breath thus far. Had conversation with granddaughter who is a hospitalist and conveyed our findings thus far. Also spent time with daughter answering all her questions. Influenza A +'ve + Gram +'ve bacteremia - Tamiflu bid - started empirically on Vanc and Zosyn - hemodynamically stable thus far - blood cx - gram +'ve cocci - Tylenol for fever/ pain control - patient refusing Tylenol because of Fatty liver disease. If fever over 39.5 or patient is uncomfortable, would encourage Tylenol. few doses unlikely to worsen fatty liver disease but concern is noted. NGHIA 2/2 dehydration - NSS @ 100cc/h - recheck of BMP in the am Thrombocytopenia - stable - CBC serial Systolic murmur - echo pending - I/O, Daily weights HTN - Lasix held because of NGHIA - Losartan/ HCTZ cont'd DVt Prophylaxis - SCD FULL CODE History Resident Physician Supervision Note: I was present with Dr. Murillo during the history and exam. I discussed the case with the resident and agree with the findings and plan as documented in the note. Any exceptions or clarifications are listed here. Patient states that her shortness of breath has improved somewhat since admission, though she still feels very tired and is sleeping frequently. She reports no RATLIFF, lightheadedness, chest pain, nausea, abd pain, numbness/tingling, urinary complaints. Her daughters are present and their questions about influenza, potential pneumonia and their mother's treatment were answered to their satisfaction. General Appearance: WD/WN, mild distress (respiratory), obese Neck: non-tender, full range of motion, supple Respiratory: chest non-tender, respiratory distress (visibly tachypnic, which improved throughout the course of the day), decreased breath sounds, rhonchi (b/ l bases, mildly) Cardiovascular: normal peripheral pulses, regular rate, rhythm, no edema, no murmur Assessment/Plan 85 y/o female h/o ?thrombocytopenia presents with sepsis, influenza A and gram + ve cocci in BCx Sepsis 2/2 gram +ve cocci of unknown origin, likely PNA 2/2 influenza though neg CXR - continue vanc/zosyn, f/u C/S, repeat ABG and CBC. Persistent fevers will be within 24 hour window of initiation of ABx until 0730 on 12.06.2016- if fevers persist, t/c changing abx for increased coverage v. fever 2/2 influenza A Influenza A - droplet precautions, tamiflu. Precautions reiterated to family in room. NGHIA - continue hydration at this time, repeat BMP in AM Thrombocytopenia (as well as depressed WBC) - obtain outside records re: baseline for review, trend CBC Murmur - chronic, but no previous evaluation - echocardiogram (to assess for cause and ?EF), trend I/O and weight HTN - hold lasix, continue HCTZ/losartan for now DVT PPX - SCD
[2016-12-05] MEDS ORDERED: INSULIN ASPART 100 UNITS/ML 3 ML PEN SC SCH (11:00)
[2016-12-05] MEDS ORDERED: NURSING VERBAL MED ORDER ONE (13:45)
[2016-12-05] MEDS: PIPERACILL/TAZOBAC IV 3.375 GM in DEXTROSE 5% 100ML IV SCH ×2 (16:42→23:51)
[2016-12-05 18:07] LABS: ARTERIAL BLD GAS O2 SATURATION 95.4 % (90-95); ARTERIAL BLOOD GAS BASE EXCESS -3.5 mEq/L (-9-1.8); ARTERIAL BLOOD GAS HCO3 19 mmol/L (19-24); ARTERIAL BLOOD GAS PO2 81 mm/Hg (80-95); ARTERIAL BLOOD GAS pH 7.49 (7.35-7.45)
[2016-12-05 18:08] LABS: ALLEN TEST POS (POS); O2 ADMINISTRATION ROOM AIR
[2016-12-06] MEDS: SODIUM CHLORIDE 0.9% 1000ML 1,000 ML IV SCH (02:24)
[2016-12-06 07:15] LABS: HEMATOCRIT 25.6 % (37-47); MEAN CELL VOLUME 79.8 fL (80-100); MEAN CORPUSCULAR HEMOGLOBIN 24.9 pg (25-34); MEAN CORPUSCULAR HGB CONC 31.3 g/dl (32-36); PLATELET COUNT 26 K/uL (130-400); RED BLOOD COUNT 3.21 M/uL (4.2-5.4); WHITE BLOOD COUNT 2.57 K/uL (4.8-10.8)
[2016-12-06 07:18] LABS: BUN/CREATININE RATIO 22.1 (10-20); CALCIUM 7.4 mg/dl (8.5-10.1); CREATININE 1.4 mg/dl (0.60-1.20); PLT ESTIMATE SIGNIFIC DECREASED; POTASSIUM 3.9 mmol/L (3.5-5.1)
[2016-12-06 07:31] LABS: PHOSPHORUS 2.5 mg/dl (2.5-4.9)
[2016-12-06 07:54] VITALS: BP 120/74; PULSE 70; TEMP 37; O2SAT 97
[2016-12-06] MEDS: MAGNESIUM CHLORIDE 64MG DELAYED REL TAB PO SCH (09:14)
[2016-12-06] MEDS: MULTIVITAMIN TAB PO SCH (09:14)
[2016-12-06] MEDS: PIPERACILL/TAZOBAC IV 3.375 GM in DEXTROSE 5% 100ML IV SCH (09:15)
[2016-12-06] MEDS: POT PHOSPHATE MONOBASIC W/ SOD TAB PO SCH ×4 (09:15→21:03)
[2016-12-06] MEDS: CHOLECALCIFEROL 1000 INTER.UNIT TAB PO SCH (09:15)
[2016-12-06] MEDS: POTASSIUM CHLORIDE 10 MEQ TABCR PO SCH ×2 (09:15→21:03)
[2016-12-06] MEDS: OSELTAMIVIR PHOSPHATE SUSP 30 MG/5 ML UDP PO SCH ×2 (09:15→21:09)
[2016-12-06] MEDS: INSULIN ASPART 100 UNITS/ML 3 ML PEN SC SCH ×4 (09:23→21:09)
--- NOTE | 2016-12-06 11:01 | DIAGNOSTIC IMAGING REPORT ---
RIGHT SHOULDER MIN 2 VIEWS ROUTINE CLINICAL HISTORY: Limited range of motion. COMPARISON: Chest x-ray dated 02/28/2012 DISCUSSION: There is a proximal right humeral deformity unchanged the prior study. There are mild degenerative changes. There are no acute fractures. There are no subluxations. No destructive lesions are visualized. IMPRESSION: Chronic proximal right humeral deformity. No acute fractures or subluxations. Electronically signed by: Ambrose Jenkins M.D. 12/06/2016 11:00 AM Dictated Date/Time: 12/06/2016 10:59 AM
[2016-12-06] MEDS: VANCOMYCIN INJ 1,200 MG in SODIUM CHLORIDE 0.9% 250ML 250 ML IV SCH (11:15)
[2016-12-06 11:28] VITALS: BP 126/76; PULSE 79; TEMP 37; O2SAT 98
--- NOTE | 2016-12-06 13:50 | ECHOCARDIOGRAM REPORT ---
*NOTICE TO RECEIVING [employer]Y This information is strictly Confidential and protected under [place] law. [place] law prohibits you from making any further disclosure of this information unless further disclosure is expressly permitted by the written consent of the person to whom it pertains or is authorized by law. A general authorization for the release of medical or other information is not sufficient for this purpose. Hospital accepts no responsibility if the information is made available to any other person, INCLUDING THE PATIENT. Interpretation Summary * Name: MARINA JOLLY Study Date: 12/06/2016 07:06 AM BP: 120/74 mmHg * Patient Location: .4E\S\E415\S\1 HR: 70 * : 1930 (M/d/yyyy) Gender: Female Height: 62 in * Age: 85 yrs Ethnicity: CA Weight: 187 lb * Ordering Physician: Dia Murillo * Referring Physician: Jj Bryan * Performed By: Sang Lebron RCS * * Reason For Study: Murmurs * BSA: 1.9 m2 * -- Conclusions -- * The left ventricle is normal in size. * There is moderate concentric left ventricular hypertrophy. * Left ventricular systolic function is low normal. * Ejection Fraction = 65-70%. * Grade I diastolic dysfunction, (abnormal relaxation pattern). * Moderate valvular aortic stenosis. * There is moderate to severe mitral annular calcification. * Mitral stenosis is absent. * There is moderate mitral regurgitation. * There is mild tricuspid regurgitation. * Right ventricular systolic pressure is elevated at 40-50mmHg. Procedure Details * A complete two-dimensional transthoracic echocardiogram was performed (2D, M-mode, Doppler and color flow Doppler). Left Ventricle * The left ventricle is normal in size. * There is moderate concentric left ventricular hypertrophy. * Ejection Fraction = 65-70%. * Left ventricular systolic function is low normal. Right Ventricle * The right ventricle is normal in size and function. Atria * The left atrium is moderately dilated. * Right atrial size is normal. * The interatrial septum is intact with no evidence for an atrial septal defect. Mitral Valve * There is moderate to severe mitral annular calcification. * Mitral stenosis is absent. * There is moderate mitral regurgitation. Tricuspid Valve * The tricuspid valve is normal in structure and function. * There is mild tricuspid regurgitation. * Right ventricular systolic pressure is elevated at 40-50mmHg. Aortic Valve * The aortic valve is trileaflet. * Moderate valvular aortic stenosis. * Aortic valve area was calculated at 1.4 cm\S\2 using the continuity equation. * There is no significant aortic regurgitation. Pulmonic Valve * The pulmonic valve is not well seen, but is grossly normal. * There is no significant pulmonary regurgitation. Great Vessels * The aortic root is normal size. * Aortic arch of normal dimension. * No obvious dissection could be visualized. * The pulmonary artery is normal size. Pericardium/Pleural * There is no pericardial effusion. Great Vessels * Normal inferior vena cava diameter and respiratory variation suggests normal central venous pressure. Left Ventricular Diastolic Function * Grade I diastolic dysfunction, (abnormal relaxation pattern). MMode 2D Measurements and Calculations IVSd 1.1 cm IVSs 1.3 cm LVIDd 4.6 cm LVIDs 2.9 cm LVPWd 1.1 cm LVPWs 1.3 cm IVS/LVPW 0.96 FS 37.2 % EDV(Teich) 98.0 ml ESV(Teich) 32.1 ml EF(Teich) 67.2 % EDV(cubed) 98.2 ml ESV(cubed) 24.3 ml EF(cubed) 75.3 % % IVS thick 17.9 % % LVPW thick 18.8 % LV mass(C)d 179.0 grams LV mass(C)dI 96.3 grams/m\S\2 LV mass(C)s 116.5 grams LV mass(C)sI 62.7 grams/m\S\2 CO(Teich) 4.9 l/min CI(Teich) 2.6 l/min/m\S\2 SV(Teich) 65.9 ml SI(Teich) 35.5 ml/m\S\2 CO(cubed) 5.5 l/min CI(cubed) 2.9 l/min/m\S\2 SV(cubed) 73.9 ml SI(cubed) 39.8 ml/m\S\2 Ao root diam 3.3 cm Ao root area 8.8 cm\S\2 ACS 1.3 cm LA dimension 3.6 cm LA/Ao 1.1 LVOT diam 2.0 cm LVOT area 3.3 cm\S\2 LVAd ap4 34.1 cm\S\2 LVLd ap4 8.1 cm EDV(MOD-sp4) 120.0 ml LVAs ap4 16.6 cm\S\2 LVLs ap4 5.9 cm ESV(MOD-sp4) 40.0 ml EF(MOD-sp4) 66.7 % LVAd ap2 39.8 cm\S\2 LVLd ap2 8.9 cm EDV(MOD-sp2) 148.0 ml LVAs ap2 19.6 cm\S\2 LVLs ap2 6.5 cm ESV(MOD-sp2) 49.0 ml EF(MOD-sp2) 66.9 % CO(MOD-sp4) 5.9 l/min CI(MOD-sp4) 3.2 l/min/m\S\2 SV(MOD-sp4) 80.0 ml SI(MOD-sp4) 43.1 ml/m\S\2 CO(MOD-sp2) 7.3 l/min CI(MOD-sp2) 3.9 l/min/m\S\2 SV(MOD-sp2) 99.0 ml SI(MOD-sp2) 53.3 ml/m\S\2 Doppler Measurements and Calculations MV E max leoncio 111.9 cm/sec MV A max leoncio 109.7 cm/sec MV E/A 1.0 MV P1/2t max leoncio 123.8 cm/sec MV P1/2t 82.9 msec MVA(P1/2t) 2.7 cm\S\2 MV dec slope 437.2 cm/sec\S\2 MV dec time 0.24 sec Ao V2 max 345.9 cm/sec Ao max PG 48.0 mmHg Ao max PG (full) 39.7 mmHg Ao V2 mean 215.6 cm/sec Ao mean PG 22.0 mmHg Ao mean PG (full) 18.2 mmHg Ao V2 VTI 68.0 cm CHIDI(I,A) 1.5 cm\S\2 CHIDI(I,D) 1.5 cm\S\2 CHIDI(V,A) 1.4 cm\S\2 CHIDI(V,D) 1.4 cm\S\2 LV V1 max PG 8.4 mmHg LV V1 mean PG 3.8 mmHg LV V1 max 144.8 cm/sec LV V1 mean 89.6 cm/sec LV V1 VTI 30.3 cm SV(Ao) 596.5 ml SI(Ao) 321.1 ml/m\S\2 SV(LVOT) 99.9 ml SI(LVOT) 53.8 ml/m\S\2 PA V2 max 131.9 cm/sec PA max PG 7.0 mmHg TR max leoncio 276.5 cm/sec
[2016-12-06 15:54] VITALS: BP 138/75; PULSE 69; TEMP 36.7; O2SAT 97
--- NOTE | 2016-12-06 16:36 | DIAGNOSTIC IMAGING REPORT ---
ULTRASOUND VENOUS DOPPLER ULTRASOUND OF THE RIGHT UPPER EXTREMITY CLINICAL HISTORY: Right upper extremity swelling COMPARISON STUDY: No previous studies for comparison. FINDINGS: No intraluminal thrombus was visualized. The internal jugular, subclavian, axillary, cephalic, brachial, basilic, radial, and ulnar veins were patent. IMPRESSION: No evidence of right upper extremity DVT Electronically signed by: Ambrose Jenkins M.D. 12/06/2016 4:35 PM Dictated Date/Time: 12/06/2016 4:34 PM
--- NOTE | 2016-12-06 17:16 | Family Medicine Progress Note ---
Progress Note Date of Service Dec 06, 2016. Subjective Pt evaluation today including: conversation w/ patient, conversation w/ family Pain: 5/10 REports feelingmuch better today, Less body aches Does have right shoulder pain- which apparently started after being in the hospital. She is unable to move her Right shoulder Does have a problem chronically with this shoulder but this is acutely worse. Denies numbness/tingling Denies chest pain, shortness of breath Constitutional: No chills, No fever, No sweats Respiratory: No cough, No dyspnea on exertion, No shortness of breath, No sputum, No wheezing Cardiovascular: No chest pain Abdomen: No diarrhea, No nausea, No pain, No vomiting Musculoskeletal: + joint pain Neurologic: No numbness/tingling, No weakness Objective Physical Exam General Appearance: no apparent distress ENT: hearing grossly normal Neck: supple, trachea midline Respiratory/Chest: lungs clear, normal breath sounds, no respiratory distress, no accessory muscle use Cardiovascular: regular rate, rhythm, no edema, + diastolic murmur Abdomen: normal bowel sounds, non tender, soft Extremities: no pedal edema, no calf tenderness, + pertinent finding (tender at anterior and posterior right shoulder. Limited ROM at shoulder. Wrist supination and pronation intact. normal sensation) Neurologic/Psychiatric: alert, normal mood/affect, oriented x 3 Assessment and Plan This is an 85 yo f with influenza A as well as NGHIA. Started on Calli flu. LBlood cultures today showing gamma hemolytic strep species, likely enterococci. Afebrile today and hemodynamically stable. Continue to monitor for instability / shortness of breath. patient denies shortness of breath thus far. Today, she reports having shoulder pain and inability to move her right shoulder Influenza A +'ve + Gram +'ve bacteremia - Tamiflu bid - Continue Vanc, D/C zosyn - hemodynamically stable thus far - blood cx - Gamma hemolytic strep species - Tylenol for fever/ pain control - patient refusing Tylenol because of Fatty liver disease. If fever over 39.5 or patient is uncomfortable, would encourage Tylenol. few doses unlikely to worsen fatty liver disease but concern is noted. NGHIA 2/2 dehydration - D/C IV fluids due to diastolic dysfunction - recheck of BMP in the am Right shoulder pain - Xray without acute fractures - USG- no DVT - Consult ortho- she sees [facility] outpatient Thrombocytopenia - stable - CBC serial Systolic murmur - echo: * There is moderate concentric left ventricular hypertrophy. * Left ventricular systolic function is low normal. * Ejection Fraction = 65-70%. * Grade I diastolic dysfunction, (abnormal relaxation pattern). * Moderate valvular aortic stenosis. * There is moderate to severe mitral annular calcification. * Mitral stenosis is absent. * There is moderate mitral regurgitation. * There is mild tricuspid regurgitation. * Right ventricular systolic pressure is elevated at 40-50mmHg. - I/O, Daily weights HTN - Lasix held because of NGHIA - Losartan/ HCTZ held - B/p stable DVt Prophylaxis - SCD due to low platelet count FULL CODE History Resident Physician Supervision Note: I was present with Dr. Murillo during the history and exam. I discussed the case with the resident and agree with the findings and plan as documented in the note. Any exceptions or clarifications are listed here. Pt seen and examined at bedside. Patient now complains of severe right shoulder pain which is inhibiting her movement of the affected extremity. She states that this has been present chronically, but has since initial emergent evaluation been more severe and limiting her range of motion completely. She has a history of fracture of the proximal humerus remotely with visible deformity on XR, and is a patient of [facility]. She states that her SOB has been gradually improving and she no longer feels fatigued. She reports no fever at present. General Appearance: no apparent distress, obese Neck: non-tender, full range of motion, supple Respiratory: chest non-tender, no respiratory distress, decreased breath sounds (b/l bases), rhonchi (b/l bases) Cardiovascular: normal peripheral pulses, regular rate, rhythm, no edema, systolic murmur (2-3/6 POPEYE) Gastrointestinal: normal bowel sounds, non tender, soft, no organomegaly Extremities: swelling (diffuse swelling of the UE c/w 3rd spacing), other ( limited ROM of the RUE 2/2 pain at the shoulder near the head of the humerus) Assessment/Plan 85 y/o female h/o thrombocytopenia presents with sepsis, influenza A and gram + ve cocci in BCx R shoulder pain w/ deficit of ROM - consult for UOC at this time per family request Sepsis 2/2 gram +ve cocci of unknown origin, likely PNA 2/2 influenza though neg CXR - continue vanc/zosyn, f/u C/S, Influenza A - droplet precautions, tamiflu. Precautions reiterated to family in room. NGHIA - d/c hydration 2/2 3rd spacing, monitor BMP Thrombocytopenia - Stable. Murmur - echocardiogram complete HTN - hold lasix 2/2 NGHIA, t/c small IV dose depending on I/Os; continue HCTZ/ losartan for now DVT PPX - SCD
[2016-12-06] MEDS: INSULIN GLARGINE SOLOSTAR 100 UNITS/ML 3 ML PEN SC SCH (23:33)
[2016-12-07 00:40] VITALS: BP 150/68; PULSE 71; TEMP 37.3; O2SAT 97
[2016-12-07 07:02] LABS: ESTIMATED AVERAGE GLUCOSE 214 mg/dl; HA1C FLAG Normal (Normal)
[2016-12-07 07:17] LABS: BUN/CREATININE RATIO 24.4 (10-20); CALCIUM 7.7 mg/dl (8.5-10.1); POTASSIUM 4.2 mmol/L (3.5-5.1)
[2016-12-07 07:18] LABS: HEMATOCRIT 25.6 % (37-47); MEAN CORPUSCULAR HEMOGLOBIN 24.4 pg (25-34); MEAN CORPUSCULAR HGB CONC 30.9 g/dl (32-36); PLATELET COUNT 26 K/uL (130-400); PLT ESTIMATE SIGNIFIC DECREASED; RED BLOOD COUNT 3.24 M/uL (4.2-5.4); WHITE BLOOD COUNT 2.89 K/uL (4.8-10.8)
[2016-12-07 08:11] VITALS: BP 136/75; PULSE 72; TEMP 36.5; O2SAT 96
[2016-12-07] MEDS: MAGNESIUM CHLORIDE 64MG DELAYED REL TAB PO SCH (09:09)
[2016-12-07] MEDS: MULTIVITAMIN TAB PO SCH (09:09)
[2016-12-07] MEDS: POT PHOSPHATE MONOBASIC W/ SOD TAB PO SCH ×4 (09:09→21:17)
[2016-12-07] MEDS: POTASSIUM CHLORIDE 10 MEQ TABCR PO SCH ×2 (09:10→21:17)
[2016-12-07] MEDS: CHOLECALCIFEROL 1000 INTER.UNIT TAB PO SCH (09:10)
[2016-12-07] MEDS: OSELTAMIVIR PHOSPHATE SUSP 30 MG/5 ML UDP PO SCH ×2 (09:14→21:17)
[2016-12-07] MEDS: INSULIN ASPART 100 UNITS/ML 3 ML PEN SC SCH ×4 (09:14→21:31)
[2016-12-07] MEDS ORDERED: VANCOMYCIN TROUGH SCH (09:30)
[2016-12-07] MEDS: VANCOMYCIN INJ 1,200 MG in SODIUM CHLORIDE 0.9% 250ML 250 ML IV SCH (10:54)
[2016-12-07 14:38] VITALS: Ht 157.5 cm; Wt 87.0 kg
[2016-12-07] MEDS ORDERED: ALBUTEROL 0.083% NEBU SOLN 3 ML VIAL INH STA (15:32)
[2016-12-07 15:41] VITALS: BP 144/67; PULSE 78; TEMP 36.9; O2SAT 99
--- NOTE | 2016-12-07 15:41 | Progress Note ---
Progress Note ID Consult Dictated #[id number] A/P: 1. S. bovis Septicemia 2. Influenza A 3. Fever -resolved 4. Pancytopenia -Continue ctx, she had negative echo but recently diagnosed with hear murmur (3 months ago per grand daughter), declined GARY, family would like to treat as IE with 6 weeks IV abx -Repeat blood cultures, place picc, will need 6 weeks, tentative stop on 01/18 -Continue tamiflu, droplet isolation -Long discussion with pt and family regarding relationship between S. bovis and underlying GI malignancy, at this time the patient and family state they do not wish to undergo any additional workup with regards to malignancy as she would not likely undergo surgical resection/chemo/xrt if malignancy is found. Additionally, they are concerned regarding her low platelets and safety of biopsy. Daughter states they will discuss privately as a family. -Discussed with nursing, will attempt to place picc today and arrange home abx. awaiting insurance coverage info, also discussed option of MTU with family if needed. -Will need follow up with ID as outpt and weekly labs while on IV abx. -Thank you
[2016-12-07] MEDS ORDERED: NURSING VERBAL MED ORDER ONE (15:45)
[2016-12-07] MEDS ORDERED: ETHYL CHLORIDE AER SPR 100 ML CAN EXT ONE (15:45)
[2016-12-07] MEDS ORDERED: ALBUTEROL 0.083% NEBU SOLN 3 ML VIAL INH PRN (15:45)
[2016-12-07] MEDS ORDERED: METHYLPREDNISOLONE ACETATE 80 MG/ML VIAL IA ONE (16:00)
[2016-12-07] MEDS ORDERED: BUPIVACAINE/EPINEPHRINE 0.5% MPF 1:200,000 30 ML VIAL INFIL ONE (16:00)
[2016-12-07] MEDS ORDERED: ETHYL CHLORIDE AER SPR 100 ML CAN EXT SCH (16:00)
[2016-12-07] MEDS ORDERED: OPTIRAY 320 IV PRN (16:15)
[2016-12-07 16:30] VITALS: PULSE 80
--- NOTE | 2016-12-07 16:56 | INFECT. DISEASE CONSULTATION ---
DATE OF CONSULTATION: 12/07/2016 REQUESTING PHYSICIAN: Dr. Michael Huber. HISTORY OF PRESENT ILLNESS: This is an 85-year-old female who was admitted from a local nursing facility after she had a 2-day history of increasing fatigue, weakness, poor appetite and cough. She then developed a fever of 103 degrees. For this reason, she was brought to the Emergency Room. In the ER, she did have an influenza swab that was positive for influenza A. She was started on Tamiflu and has been tolerating well. As part of her workup, she did have blood cultures obtained on the 04 December. Two out of 2 bottles are positive for strep bovis. This is pansensitive. She was initially on vancomycin and Zosyn and has been transitioned to ceftriaxone 2 grams every 24 hours. She is completing a course of Tamiflu and currently is on respiratory precautions. Her , daughter and granddaughter are in the room, but not wearing masks. They are feeling well. She has no other sick contacts. She did receive a flu shot earlier this year. No repeat blood cultures have been obtained. She did lose IV access today and is awaiting her daily dose of Rocephin. A request for PICC line has been given by the patient's family. She did have intermittent fevers upon admission to the hospital. Review of her temperature reveals a T-max of 39.5 on the . On the , her T-max was 39.1. She was afebrile on the and she has been afebrile so far today. Overall, she states she is feeling significantly better. On my examination today, she is out of bed to chair and is talking without dyspnea. She does have occasional dry cough during examination. She denies any chest pain or vomiting associated with her cough. She denies any headache. She denies any shortness of breath currently. She is not on any oxygen at this time. She denies any abdominal pain, nausea, vomiting or diarrhea. She has no urinary symptoms. Overall, she states she is feeling better. Her appetite is returning, but she is currently n.p.o. Her granddaughter states that on Saturday she was bedridden and slept all day and that has improved significantly yesterday afternoon into today. Infectious diseases was asked to see this patient in consultation for Strep bovis septicemia. She does not have any history of colonoscopy in the past. She denies any family history of cancer of any type. She did have a transthoracic echocardiogram during this admission which was negative for vegetation; however, she is not interested in a GARY secondary to her underlying thrombocytopenia. PAST MEDICAL HISTORY: Significant for hypertension, hyperlipidemia, and osteoporosis. PAST SURGICAL HISTORY: Unremarkable. FAMILY HISTORY: Unremarkable. SOCIAL HISTORY: Negative for alcohol use, tobacco use or drug use. She is and lives with her at an assisted living facility. She has no sick contacts. She did have a flu shot. ALLERGIES: INCLUDE ALENDRONATE AND IODINE. CURRENT MEDICATIONS: Include Rocephin, insulin, vitamin D, multivitamins, phosphorus, Tamiflu, potassium, Tylenol, Maalox, Zofran and Ventolin. PHYSICAL EXAMINATION: VITAL SIGNS: She is afebrile in the last 24 hours, pulse 72, respiratory rate is 20, blood pressure is 136/75, and oxygen saturation is 96-97% on room air. GENERAL: She is awake, alert and oriented x3. She is in no acute distress on my examination. HEENT: Mucous membranes are moist. Extraocular muscles are intact. HEART: Does reveal systolic ejection murmur. LUNGS: Clear bilaterally. There is no wheezing or rhonchi. ABDOMEN: Soft and nontender. EXTREMITIES: There is bilateral lower extremity pitting edema. SKIN: Without rash. Her right upper extremity is in a brace secondary to shoulder pain. LABORATORY AND IMAGING STUDIES: CBC today reveals a white blood cell count of 2.8 down from 6.7 on admission, hemoglobin is 7.9 down from 9.1 on admission, hematocrit is 25.6, and platelets are 26 down from 29 on admission. Chemistry panel today reveals sodium of 142, potassium 4.2, chloride 111, bicarbonate 24, BUN 24, creatinine 1.0, glucose is 203. Lactic acid was 2.9 on admission. This has not been repeated. LFTs were within normal limits on admission. Urinalysis in the ER had 1-5 WBCs with no bacteria. Again, her flu swab was positive for influenza. Blood cultures from the grew pansensitive Strep bovis. No repeat blood cultures were obtained. An upper extremity ultrasound was negative for clot. A shoulder x-ray showed humeral deformity with no fracture or subluxation. A chest x-ray done in the Emergency Room showed no airspace consolidation. ASSESSMENT AND PLAN: 1. Streptococcus bovis septicemia. 2. Influenza A. 3. Fever, resolved. 4. Pancytopenia. At this time, she should continue her course of Tamiflu to completion and remain in droplet precautions. She will remain on Rocephin for a 6-week course. Her stop date is tentatively January 18. Because she has lost IV access, a peripherally inserted central catheter line will be placed. Repeat blood cultures will be obtained. An echocardiogram was negative; however, she has a significant systolic ejection murmur and certainly a transthoracic echocardiogram could have small vegetation. Her family is agreeable to treating empirically for longer course for suspected endocarditis. I did have a long discussion with the patient and her family regarding the relationship between Streptococcus bovis bloodstream infections and colon carcinoma. She has not had a screening colonoscopy in the past; however, she does not carry a family history. My strong recommendation was to undergo colonoscopy when deemed safe with regards to her anemia and thrombocytopenia. At this time, the patient states that she does not wish to undergo colonoscopy. She feels she would not want to undergo a surgical resection of the tumor and/or radiation and chemotherapy if that were needed. For this reason at this time, she has elected not to move forward with colonoscopy screening in the presence of Streptococcus bovis septicemia. Her granddaughter does work as a chain puller and was researching on the Internet. I have encouraged them to do additional research on their own if they have additional questions regarding this relationship and plans for colonoscopy can be made if they do have a change in their decision with regards to how conservative they would like to be with her care moving forward. At this time, the plan will be to place her on 6-week course of antibiotics with either infusions at home or to medical therapy unit depending on insurance coverage. She can follow up with infectious diseases in the office prior to the completion of her antibiotic therapy. She should undergo weekly laboratory studies while on antibiotics. Thank you for this consultation. SHIRA
--- NOTE | 2016-12-07 17:31 | Discharge Instructions ---
Discharge Instructions Admission Reason for Admission: Marlon (Acute Kidney Injury) Discharge Goals Goal(s): Improve function, Increase independence, Learn about illness, Diagnostic testing, Therapeutic intervention, Prevent Disease Progression Activity Recommendations Activity Limitations: as noted below Lifting Limitations: gradually increase as tolerated Exercise/Sports Limitations: gradually increase as tolerated Shower/Bathe: no limitations Driving or Machine Use: no limitations . Instructions / Follow-Up Instructions / Follow-Up Dear Mrs. Berman, You were admitted to the hospital for fatigue and weakness and were found to be Influenza A positive. Upon admission, we tested your blood for bacteria and this resulted as positive as well. While we were waiting for further identification of the specific bacteria, we were treating you with Anti-viral for the Flu and Anti-biotics for the bacteria. Clinically, you were improving. We heard a heart murmur that your family reported was relatively new in the last 3 months. We did a regular ultrasound of your heart ( echocardiogram ) that showed evidence of some heart failure but no other findings. In the interim, you were complaining of right shoulder pain and inability to move this. X-ray did not find anything new or acute. Ultrasound did not show evidence of a blood clot. We consulted orthopedics for further evaluation. Your blood cultures came back positive for a bacteria called Strep Bovis. This was concerning for possible infection of your heart valves (or endocarditis) but also we were worried about possible infection of your right shoulder joint by this same bacteria. In order for us to completely rule out endocarditis we would need an ultrasound of the heart that uses a more invasive approach, called a GARY. We discussed about this in detail. We asked cardiology about this , however, given that you have a history of chronically low platelets as well a esophageal varices, cardiology thought the procedure would be too high risk. We then explained that Strep Bovis is often associated with Colon Cancer. Together, with your family, we discussed all the options and opted to treat the bacterial infection with 6 weeks of IV antibiotics. Infectious disease was also consulted and suggested the same. We did a CT scan of the abdomen which showed Together with your family, you decided against any invasive procedures. Dr. Astorga did do an Aspiration of your Right Joint but did not find any fluid. He opted to do an MRI of the shoulder which showed In addition, it seems that your diabetes is not well managed. We have started you on Insulin to mange this better. Please follow up with your PCP and Infectious disease as scheduled. Thank you for allowing us to participate in your care. Current Hospital Diet Patient's current hospital diet: Diabetes Type 2 Diet, AHA Diet (Heart Healthy) Discharge Diet Recommended Diet: Regular Diet Fluid Restriction: None Laboratory Results Hemoglobin A1c Test 12/07/16 06:25 Range/Units Estimated Average Glucose 214 mg/dl Hemoglobin A1c 9.1 H 4.5-5.6 % Medical Emergencies . Who to Call and When: Medical Emergencies: If at any time you feel your situation is an emergency, please call 911 immediately. . Non-Emergent Contact . . "Provider Documentation" section prepared by Dia Galvan. VTE Core Measure Inpt VTE Proph given/why not?: SCD's
[2016-12-07] MEDS: CEFTRIAXONE SOD INJ 2,000 MG in DEXTROSE 5% 50ML 50 ML IV SCH (17:49)
--- NOTE | 2016-12-07 18:54 | DIAGNOSTIC IMAGING REPORT ---
ABDOMEN AND PELVIS CT WITH IV AND ORAL CONTRAST CT DOSE: 1216.29 mGy.cm HISTORY: Pain. Bleeding. look for colonic abnormalities, Strep Bovis Positive BC TECHNIQUE: Multiaxial CT images of the abdomen and pelvis were performed following the use of intravenous and oral contrast. COMPARISON STUDY: None. FINDINGS: Small bilateral pleural effusions. Mild bibasilar atelectasis. Moderate splenomegaly. Potential early hepatic cirrhotic change. Kidneys negative for hydronephrosis. Bowel pattern is nonobstructive. Small anterior abdominal wall periumbilical fat-containing hernia. No evidence of bowel containment or obstructive characteristics. 1.5 cm left ovarian cyst. Right ovary appears to be retrouterine location and prominent at 4 x 3 cm for age. IMPRESSION: 1. Splenomegaly. 2. Double early hepatic cirrhotic change. 3. Nonobstructive bowel pattern. 4. Mild bilateral ovarian prominence for age with endometrial thickening at 12 mm. These findings are considered abnormal for age with follow-up suggested. 5. Small bibasilar pleural effusions with bibasilar superimposed infiltrative change Electronically signed by: Damian Ford M.D. 12/07/2016 6:52 PM Dictated Date/Time: 12/07/2016 6:49 PM
--- NOTE | 2016-12-07 19:27 | Family Medicine Progress Note ---
Progress Note Date of Service Dec 07, 2016. Subjective Pt evaluation today including: conversation w/ patient, conversation w/ family , chart review, lab review, review of studies, conversation w/ wedding consultant Continues to complain of inability to move right shoulder Arm in a sling makes pain better Denies shortness of breath, chest pain. Constitutional: No chills, No fever Respiratory: No cough, No dyspnea on exertion, No shortness of breath, No sputum, No wheezing Cardiovascular: No chest pain Abdomen: No constipation, No diarrhea, No nausea, No pain, No vomiting Musculoskeletal: + joint pain Female : No dysuria, No urinary frequency Objective Physical Exam General Appearance: no apparent distress Eyes: PERRL, EOMI Neck: supple, no adenopathy Respiratory/Chest: lungs clear, normal breath sounds, no respiratory distress, no accessory muscle use Cardiovascular: regular rate, rhythm, no edema Extremities: no calf tenderness, + pedal edema (trace), + pertinent finding ( limited ROm at Right shoulder, Tender to palpation at the joint and posteriorly/ anteriorly, Pronation and supination intact, ) Neurologic/Psychiatric: alert, normal mood/affect, oriented x 3 Assessment and Plan This is an 85 yo f who presented influenza A as well as NGHIA. Started on Calli flu. Final Blood cultures today showing Strep Bovis. Remains Afebrile today and hemodynamically stable. Multiple Family meetings during the day today. After the Strep Bovis discovery this morning, we proposed doing a GARY to completely rule out endocarditis and with the relatively new shoulder pain, to r/o septic emboli to the joint as well. However, the patient has chronic severe thrombocytopenia as well as a history of esophageal varices. We spoke to Cardiology and they were not willing to do a GARY given her risk factors. We decided that she would likely need 6 weeks of IV antibiotics regardless of confirmation of endocarditis or septic joint. In addition, Strep Bovis is concerning for an underlying malignancy. We discussed this with the family and again she is high risk for a colonoscopy as well. Ultimately the family decided against any invasive interventions as it would not change her personal choice of treatment in the long run. If she did have a malignancy, it would likely not be the cause of mortality in her case. She did agree to CT abd. We consulted Infectious Disease who also recommended 6 weeks of IV antibiotics. Dr. Astorga was kind enough to see the patient as he sees her outpatient. He did an aspiration and did not have any aspirates. MRI of the shoulder is pending. Influenza A +'ve - Tamiflu bid day 3/5 - Clinically improving - Tylenol for fever/ pain control - patient refusing Tylenol because of Fatty liver disease. If fever over 39.5 or patient is uncomfortable, would encourage Tylenol. few doses unlikely to worsen fatty liver disease but concern is noted. has not been afebrile in the past 24 hours. Strep Bovis Bacteremia GARY cannot be done to rule out endocarditis because of severe thrombocytopenia concern for septic emboli to right shoulder- being evaluated by Orthopedics Antibiotics de-escalated to IV Rocephin - matute sensitive bovis- will need 6 weeks. ID consulted- PICC line placed Discussion about underlying pathology- too high risk of colonoscopy- has never had one in the past Hemoccult negative, stool FIT test pending, denies changes in bowel habits. CT abd/pelvis with evidence of Endometrial thickening of 12 mm. Right shoulder pain - X-ray without acute fractures - USG- no DVT - Consult ortho- she sees [facility] outpatient - appreciate recommendations - Aspiration not successful today - MRI Shoulder pending NGHIA 2/2 dehydration- resolved - D/C IV fluids due to diastolic dysfunction - recheck of BMP in the am Thrombocytopenia - stable - CBC serial Anemia- chronic, stable Chronic disease vs. iron deficiency Can evaluate outpatient. Systolic murmur - echo * There is moderate concentric left ventricular hypertrophy. * Left ventricular systolic function is low normal. * Ejection Fraction = 65-70%. * Grade I diastolic dysfunction, (abnormal relaxation pattern). * Moderate valvular aortic stenosis. * There is moderate to severe mitral annular calcification. * Mitral stenosis is absent. * There is moderate mitral regurgitation. * There is mild tricuspid regurgitation. * Right ventricular systolic pressure is elevated at 40-50mmHg. - I/O, Daily weights HTN - Lasix held because of NGHIA - Losartan/ HCTZ held - B/p stable Diabetes type 2, uncontrolled Elevated blood sugars here, A1C noted to be 9.1 patient only on glimepiride outpatient started on Lantus here Diabetes education Recommend insulin outpatient or metformin - based on patient preference DVt Prophylaxis - SCD due to low platelet count FULL CODE Dispo: anticipate DC tomorrow Needs follow up with ID, PCP, Ortho History Resident Physician Supervision Note: I was present with Dr. Murillo during the history and exam. I discussed the case with the resident and agree with the findings and plan as documented in the note. Any exceptions or clarifications are listed here. Pt seen and examined at bedside. Right shoulder pain persists unchanged -aching nonradiating anterior pain which worsens with abduction of the arm and direct pressure. Persistent nonproductive cough. Improving SOB and fatigue. Reports no fever, Cp/SOB, palpitations, nausea, abd pain, distention, diarrhea/ constipation. General Appearance: no apparent distress, obese Respiratory: chest non-tender, no respiratory distress, decreased breath sounds , wheezing Cardiovascular: normal peripheral pulses, regular rate, rhythm, systolic murmur (3/6 POPEYE), other (trace edema b/l LE) Gastrointestinal: normal bowel sounds, non tender, soft, no organomegaly Assessment/Plan 85 y/o female h/o thrombocytopenia presents with sepsis, influenza A and gram + ve cocci in BCx Strep bovis bacteremia - CT abd w/w ordered and reviewed. Not a good candidate for GARY. ID consulted, recommendations appreciated, narrow to Rocephin. PICC today R shoulder pain w/ deficit of ROM - f/u MRI - unproductive R shoulder aspiration Influenza A - droplet precautions, tamiflu. Precautions reiterated to family in room. NGHIA - improved, monitor BMP, avoid nephrotoxic medications where able Thrombocytopenia - Stable at baseline Murmur - echocardiogram complete HTN - IV lasix today w/ improvement; continue HCTZ/losartan DVT PPX - SCD 45 minutes were spent face to face with family and patient reviewing in detail results of present evaluation, impact of +ve strep bovis culture, intervention choices to further assess risk in light of age, status and thrombocytopenia and to set up for outpatient treatment of bovis sepsis w/ PICC. At the time of conversation, the family would not like to pursue any overtly invasive interventions to assess for the possibility of underlying disease as they would not likely undergo treatment. However, they would like the noninvasive testing ( MRI, CT) to be done to provide more accurate prognostic markers to understand future course. Involvement of specialists and their contributions are greatly appreciated in this time.
--- NOTE | 2016-12-07 21:22 | DIAGNOSTIC IMAGING REPORT ---
MRI right shoulder RIGHT UPPER EXT JOINT WITHOUT CLINICAL HISTORY: r/o rotator cuff injury Right pain TECHNIQUE: Multiaxial MRI acquisition COMPARISON STUDY: None FINDINGS: Limited study due to considerable patient motion. Moderate angulation deformity humeral neck felt to be secondary to old posttraumatic change. Degenerative and hypertrophic changes of the acromioclavicular joint. Moderate degenerative change glenohumeral joint. Joint effusion. Findings consistent with a tear of the supraspinatus tendon has mid to anterior aspect. Moderate musculotendinous retraction indicating a component of component of chronic change. The infraspinatus tendon appears to be generally intact. Partial tear subscapularis tendon. Moderate superimposed subscapularis tendinitis. Glenoid labrum is grossly intact. Hypertrophic and bony changes to the level of the bicipital groove. Biceps tendon is not well-defined in part due to patient motion. IMPRESSION: 1. Limited study due to considerable patient motion. 2. Chronic deformity humeral neck. 3. Joint effusion with findings consistent with a tear and retraction at the anterior and middle aspect of the supraspinatus tendon. 3. Moderate tendinopathy of the subscapularis with a partial superimposed tear. Electronically signed by: Damian Ford M.D. 12/07/2016 9:21 PM Dictated Date/Time: 12/07/2016 9:17 PM
[2016-12-07] MEDS: INSULIN GLARGINE SOLOSTAR 100 UNITS/ML 3 ML PEN SC SCH (21:32)
[2016-12-07 22:07] VITALS: PULSE 68
[2016-12-07] MEDS: ALBUTEROL 0.083% NEBU SOLN 3 ML VIAL INH PRN (22:07)
[2016-12-08 00:05] VITALS: BP 153/73; PULSE 73; TEMP 37; O2SAT 96
[2016-12-08] MEDS: CHOLECALCIFEROL 1000 INTER.UNIT TAB PO SCH (07:23)
[2016-12-08] MEDS: MAGNESIUM CHLORIDE 64MG DELAYED REL TAB PO SCH (07:23)
[2016-12-08] MEDS: POT PHOSPHATE MONOBASIC W/ SOD TAB PO SCH ×2 (07:23→11:32)
[2016-12-08] MEDS: MULTIVITAMIN TAB PO SCH (07:23)
[2016-12-08] MEDS: POTASSIUM CHLORIDE 10 MEQ TABCR PO SCH (07:23)
[2016-12-08] MEDS: OSELTAMIVIR PHOSPHATE SUSP 30 MG/5 ML UDP PO SCH (07:26)
[2016-12-08 07:28] VITALS: BP 126/70; PULSE 63; TEMP 37; O2SAT 96
[2016-12-08] MEDS ORDERED: ETHYL CHLORIDE AER SPR 100 ML CAN EXT SCH (09:00)
[2016-12-08] MEDS ORDERED: METHYLPREDNISOLONE ACETATE 80 MG/ML VIAL IA SCH (09:00)
[2016-12-08] MEDS ORDERED: BUPIVACAINE/EPINEPHRINE 0.5% MPF 1:200,000 30 ML VIAL INFIL SCH (09:00)
[2016-12-08] MEDS: INSULIN ASPART 100 UNITS/ML 3 ML PEN SC SCH ×2 (09:18→12:37)
--- NOTE | 2016-12-08 10:10 | Orthopedic Progress Note ---
Orthopedic Progress Note Date of Service Dec 08, 2016. Objective Date Time Temp Pulse Resp B/P Pulse Ox O2 Delivery O2 Flow Rate FiO2 12/08/16 08:49 Room Air 12/08/16 07:28 37.0 63 18 126/70 96 Room Air 12/08/16 00:05 37.0 73 20 153/73 96 Room Air 12/07/16 23:59 Room Air 12/07/16 22:07 68 18 Room Air 12/07/16 20:00 Room Air 12/07/16 16:30 80 22 Room Air 12/07/16 15:41 36.9 78 16 144/67 99 Room Air 12/07/16 15:06 Room Air Inhouse Planning Additional Notes: ASPIRATION UNSUCCESSFUL, MRI OF THE SHOULDER REVEALS A ROTATOR CUFF TEAR. DR. SANTO RECOMMENDS CORTICOSTEROID INJECTION. WOULD NOT RECOMMEND DOING THIS NOW , THE PATIENT IS BEING TREATED FOR SEPSIS. PREFER TO HOLD OFF UNTIL PATIENT IS NO LONGER SEPTIC AND CLEARED BY MEDICINE FOR INJECTION.
[2016-12-08 10:38] VITALS: PULSE 77; O2SAT 98
[2016-12-08] MEDS: ALBUTEROL 0.083% NEBU SOLN 3 ML VIAL INH PRN (10:38)
[2016-12-08] MEDS: CEFTRIAXONE SOD INJ 2,000 MG in DEXTROSE 5% 50ML 50 ML IV SCH (13:27)
[2016-12-08 13:34] VITALS: BP 126/70; PULSE 77; TEMP 37; O2SAT 98
[2016-12-08] MEDS ORDERED: TMFUDL30 PO (14:59)
[2016-12-08] MEDS ORDERED: FUROSEMIDE 20 MG TAB PO ONE (15:00)
[2016-12-08] MEDS ORDERED: RCPI2 IV (15:20)
[2016-12-08] MEDS ORDERED: INSDGIPEN SC ×2 (15:20→15:56)
[2016-12-08] MEDS ORDERED: NVLGIPEN SC (15:20)
--- NOTE | 2016-12-08 15:24 | Discharge Instructions ---
Discharge Instructions Admission Reason for Admission: Marlon (Acute Kidney Injury) Discharge Discharge Diagnosis / Problem: Influenza, S.Bovis bacteremia, possible colon cancer Discharge Goals Goal(s): Improve function, Increase independence, Learn about illness, Diagnostic testing, Therapeutic intervention, Prevent Disease Progression Activity Recommendations Activity Limitations: as noted below Lifting Limitations: gradually increase as tolerated Exercise/Sports Limitations: gradually increase as tolerated Shower/Bathe: no limitations Driving or Machine Use: no limitations Gentle stretching with right shoulder and elbow initially. If significant discomfort, cease activity Instructions / Follow-Up Instructions / Follow-Up Dear Mrs. Berman, You were admitted to the hospital for fatigue and weakness and were found to be Influenza A positive. Upon admission, we tested your blood for bacteria and this resulted as positive as well. While we were waiting for further identification of the specific bacteria, we were treating you with Anti-viral for the Flu and Anti-biotics for the bacteria. Clinically, you were improving. Continue three more doses of the anti-viral, Tamiflu for a total 5 day course. We heard a heart murmur that your family reported was relatively new in the last 3 months. We did a regular ultrasound of your heart (echocardiogram) that showed evidence of some heart failure but no other findings. In the interim, you were complaining of right shoulder pain and inability to move this. X-ray did not find anything new or acute. Ultrasound did not show evidence of a blood clot. We consulted orthopedics for further evaluation. Your blood cultures came back positive for a bacteria called Strep Bovis. This was concerning for possible infection of your heart valves (or endocarditis) but also we were worried about possible infection of your right shoulder joint by this same bacteria. In order for us to completely rule out endocarditis we would need an ultrasound of the heart that uses a more invasive approach, called a GARY. We discussed about this in detail. We asked cardiology about this , however, given that you have a history of chronically low platelets as well a esophageal varices, cardiology thought the procedure would be too high risk. We then explained that Strep Bovis is often associated with Colon Cancer. Together, with your family, we discussed all the options and opted to treat the bacterial infection with 6 weeks of IV antibiotic, ceftriaxone. Infectious disease was also consulted and suggested the same. We did a CT scan of the abdomen which showed an enlarged spleen, some early hepatic cirrhotic change, no obstruction of your bowels, mild bilateral ovarian prominence for age and small bibasilar pleural effusions with bibasilar superimposed infiltrative change. Together with your family, you decided against any invasive procedures. However, we would recommend follow up with GI in the near future to discuss your health and the value of a colonoscopy. Dr. Astorga did do an Aspiration of your Right Joint but did not find any fluid. He opted to do an MRI of the shoulder which showed chronic deformity of the humeral neck, joint effusion with findings consistent with a tear and retraction of portions of the supraspinatus tendon, and moderate tendinopathy of the subscapularis with a partial superimposed tear. Corticosteroid injections were discussed, and follow up with Dr. Astorga is advised to determine ideal timing of this as you continue to recover from you current health concerns In addition, it seems that your diabetes is not well managed. We have started you on Insulin to mange this better. This will be continued in the nursing facility. Recent adjustment in your regimen entails the followinunits of glargine (Lantus) SC qPM + 1unit aspart (Novolog) per every 10.0g of carbohydrates with correction factor 30mg/dL/unit. Target glucose range is 120- 180. Your blood pressure medication was held in view of stable pressures during admission. However, the Losartan/ HCTZ can be restarted low and titrated up if your blood pressure begins to increase. Please follow up with your PCP and Infectious disease as scheduled. Thank you for allowing us to participate in your care. Current Hospital Diet Patient's current hospital diet: Diabetes Type 2 Diet, AHA Diet (Heart Healthy) Discharge Diet Recommended Diet: AHA Diet (Heart Healthy), Diabetes Type 2 Diet Pending Studies Studies pending at discharge: no Laboratory Results Hemoglobin A1c Test 12/07/16 06:25 Range/Units Estimated Average Glucose 214 mg/dl Hemoglobin A1c 9.1 H 4.5-5.6 % Medical Emergencies . Who to Call and When: Medical Emergencies: If at any time you feel your situation is an emergency, please call 911 immediately. . Non-Emergent Contact Non-Emergency issues call your: Primary Care Provider . . "Provider Documentation" section prepared by Ellen Hernandes. VTE Core Measure Inpt VTE Proph given/why not?: SCD's
--- NOTE | 2016-12-08 15:30 | Discharge Summary ---
Discharge Summary Admission Date: Dec 04, 2016 at 20:24 Discharge Date: Dec 08, 2016 Discharge Disposition: [facility] facility Principal Diagnosis: Acute Kidney injury, influenza, strep bovis bateremia, possible colon cancer Immunizations: Have You Had Influenza Vaccine: Yes History of Tetanus Vaccine?: Yes History of Pneumococcal: Yes History of Hepatitis B Vaccine: No (Alka. Hernandes MD) Medication Reconciliation New Medications: Ceftriaxone Sod (Ceftriaxone Sodium) 2 Gm Inj 2000 MG IV Q24H for 40 Days Insulin Aspart (Novolog Flexpen) 100 Units/Ml Inj 0 UNITS SC ACHS for 30 Days Insulin Glargine (Lantus Solostar) 100 Unit/Ml Inj 15 UNIT SC QPM for 30 Days Oseltamivir Phosphate (Tamiflu) 6 Mg/Ml Sofiay 30 MG PO BID for 2 Days, #15 ML 0 Refills Continued Medications: Albuterol Sulf (Proventil 0.083% 2.5MG/3ML) 2.5 Mg/3 Ml Nebu 2.5 MG INH QID PRN for COUGH, WHEEZE, EA Cholecalciferol (Vitamin D) 5,000 Unit Tab 5000 UNITS PO DAILY Denosumab (Prolia) 60 Mg/Ml Abby 1 DOSE INH [id number] Furosemide (Lasix) 20 Mg Tab 20 MG PO QAM, TAB Potassium Chloride (Micro-K Ext Rel) 10 Meq Capcr 10 MEQ PO BID, CAP [Mvi, Vit K] () 1 DOSE IV DAILY Discontinued Medications: Glimepiride (Glimepiride) 2 Mg Tab 1 TAB PO BID for 90 Days, #180 TAB 3 Refills Losartan Potassium & Hydrochlo (Losartan Potassium/Hydroc) 1 Tab Tab 1 TAB PO QAM, TAB Discharge Exam Patient feels that she is back to baseline at rest, aside from inability to move right shoulder and associated pain. She still feels short of breath and finds benefit from resp therapy. Denies chest, fatigue, lightheaded or dizziness. Decreased appetite for hospital food, but tolerating food such as raspberries brought from home with out issue. Slept comfortably overnight. Review of Systems: Constitutional: No chills, No fatigue, No fever, No weakness Respiratory: + shortness of breath, No cough, No wheezing Cardiovascular: No chest pain, No palpitations Abdomen: No constipation, No diarrhea, No nausea, No pain, No vomiting Musculoskeletal: + joint pain, No muscle pain, No swelling Genitourinary - Female: No dysuria Neurologic: No numbness/tingling Physical Exam: General Appearance: WD/WN, no apparent distress Neck: supple, no adenopathy Respiratory/Chest: lungs clear, normal breath sounds, no respiratory distress Cardiovascular: regular rate, rhythm, no edema, normal peripheral pulses Abdomen / GI: normal bowel sounds, non tender, soft, no organomegaly Extremities: no calf tenderness, no pedal edema Neurologic/Psychiatric: alert, normal mood/affect, oriented x 3 Skin: normal color, warm/dry, no rash (Alka. Hernandes MD) Hospital Course 85 year old female who presented influenza A and NGHIA. Started on Tamiflu. Final Blood cultures showing Strep Bovis. Family mentions new onset murmur as of the past few months. GARY requested to completely rule out endocarditis and with the relatively new shoulder pain, to rule out septic emboli to the joint as well. However, the patient has chronic severe thrombocytopenia as well as a history of esophageal varices. We spoke to Cardiology and they were not willing to do a GARY given her risk factors. Infectious Disease consulted and recommended 6 weeks of IV antibiotics via PICC regardless of confirmation of endocarditis or septic joint. Given Strep Bovis is concerning for an underlying malignancy, discussed with family that she is high risk and would recommend a colonoscopy as well. Ultimately the family decided against any invasive interventions as it would not change her personal choice of treatment in the long run. Remains Afebrile today and hemodynamically stable. CT abdo/pelvis warrants outpatient GI consult. Dr. Astorga was kind enough to see the patient as he sees her outpatient. He did an aspiration and did not have any aspirates. MRI shoulder performed shower rotator cuff tears. Corticosteroid injections will be considered in outpatient setting. Follow up with your PCP and Infectious disease as scheduled. Influenza A +'ve - Tamiflu bid day 4/5 - Clinically improved - Tylenol for fever/ pain control - patient refusing Tylenol because of Fatty liver disease. If fever over 39.5 or patient is uncomfortable, would encourage Tylenol. few doses unlikely to worsen fatty liver disease but concern is noted. - However, patient remains afebrile Strep Bovis Bacteremia GARY cannot be done to rule out endocarditis because of severe thrombocytopenia Concern for septic emboli to right shoulder- being evaluated by Orthopedics Antibiotics de-escalated to IV Rocephin - matute sensitive bovis- will need 6 weeks. ID consulted- PICC line placed Discussion about underlying pathology- too high risk of colonoscopy- has never had one in the past Hemoccult negative, stool FIT test pending, denies changes in bowel habits. CT abd/pelvis with evidence of Endometrial thickening of 12 mm. GI consult recommended Right shoulder pain - X-ray without acute fractures - USG- no DVT - Consult ortho- she sees [facility] outpatient - appreciate recommendations - Aspiration not successful today - MRI shows rotator cuff tears - Outpatient orthopedic follow up NGHIA 2/2 dehydration- resolved - D/C IV fluids due to diastolic dysfunction - BMP within normal range Thrombocytopenia - stable - CBC shows stable Anemia- chronic, stable Chronic disease vs. iron deficiency Can evaluate outpatient. Systolic murmur - echo * There is moderate concentric left ventricular hypertrophy. * Left ventricular systolic function is low normal. * Ejection Fraction = 65-70%. * Grade I diastolic dysfunction, (abnormal relaxation pattern). * Moderate valvular aortic stenosis. * There is moderate to severe mitral annular calcification. * Mitral stenosis is absent. * There is moderate mitral regurgitation. * There is mild tricuspid regurgitation. * Right ventricular systolic pressure is elevated at 40-50mmHg. - I/O, Daily weights HTN - Lasix held because of NGHIA - Losartan/ HCTZ held - B/p stable Diabetes type 2, uncontrolled Elevated blood sugars here, A1C noted to be 9.1 patient only on glimepiride outpatient started on Lantus here Diabetes education Recommend insulin outpatient in SNF DVt Prophylaxis - SCD due to low platelet count FULL CODE Total Time Spent: Greater than 30 minutes This includes examination of the patient, discharge planning, medication reconciliation, and communication with other providers. (Alka. Hernandes MD) Total Time Spent: Less than 30 minutes (Jean-Pierre Montez MD) Discharge Instructions Please refer to the electronic Patient Visit Report (Discharge Instructions) for additional information. (Alka. Hernandes MD) Resident Involvement: Resident Care Provided Care Provided: Adult Hospital Medicine (Alka. Hernandes MD) History Resident Physician Supervision Note: I was present with Dr. Hernandes during the history and exam. I discussed the case with the resident and agree with the findings and plan as documented in the note. Any exceptions or clarifications are listed here. Pt seen and examined at bedside. No acute events overnight. Right shoulder pain stable while in sling. SOB and fatigue continue to improve. Nonproductive cough still persists. Reports no abd pain, hematochezia/melena, palpitations, CP. Time spent: < 30 minutes (Jean-Pierre Montez MD) General Appearance: WD/WN, no apparent distress Neck: non-tender, full range of motion, supple, normal inspection Respiratory: chest non-tender, lungs clear, normal breath sounds, no respiratory distress Cardiovascular: normal peripheral pulses, regular rate, rhythm, no edema, systolic murmur (2-3/6 POPEYE) Gastrointestinal: normal bowel sounds, non tender, soft, no organomegaly (Jean-Pierre Montez MD) Assessment/Plan 85 y/o female h/o thrombocytopenia presents with sepsis, influenza A and gram + ve cocci in BCx Strep bovis bacteremia - PICC for 6 wks of IV rocephin - concerning for underlying GI pathology but refusing colonoscopy at this time, open to outpatient GI C/S which we recommend R shoulder pain w/ deficit of ROM - s/p MRI and R shoulder aspiration - f/u with Dr. Astorga Influenza A - droplet precautions, tamiflu. Precautions reiterated to family in room. NGHIA - recheck BMP, avoid nephrotoxic medications where able Thrombocytopenia - Stable at baseline HTN - continue HCTZ/losartan (Jean-Pierre Montez MD)
[2016-12-09] MEDS ORDERED: FUROSEMIDE 20 MG TAB PO SCH (08:00)
--- NOTE | 2016-12-10 10:41 | EDITING REQUIRED CODING QUERY ---
SEPSIS To promote full compliance with coding requirements relating to patient care, physician participation is requested in all cases of rag washer uncertainty. Please assist us with the question(s) below: In responding to this query, please exercise your independent professional judgement. The fact that a question is asked does not imply that any particular answer is desired or expected. We appreciate your clarification on this issue. Throughout the medical record, you have clearly documented a localized infection and your patient has clinical evidence of a generalized sepsis or severe sepsis. The term urosepsis is a nonspecific entity and is coded as an UTI. If the patient has sepsis, severe sepsis, from an urinary source or some other source, please clarify in your response below. The medical record reflects the following clinical findings: (With dates as appropriate) (Body temperature of >38.3 C(101 F) or <36 C(96.8F), pulse >90/minute, respirations >20/minute, WBC count >12,000 or <4,000, altered mental status, significant edema or positive fluid balance, hyperglycemia without diabetes, hypotension, metabolic acidosis (elev. lactate level, anion gap or reduced blood pH), shock, positive blood culture (enter organism) ()Bacteremia (Nonspecific laboratory finding of bacteria in the blood) Specify Organism () Present on Admission () Not present on admission () Unable to clinically determine (x) Septicemia (Systemic disease associated with the presence of pathogenic microorganisms in the blood): Specify Organism strep bovis (x) Present on Admission () Not present on admission () Unable to clinically determine () Sepsis Specify Organism Specify Associated Condition/Diagnosis () Present on Admission () Not present on admission () Unable to clinically determine () Severe Sepsis (Sepsis associated with acute organ dysfunction) Specify Organism Specify Associated Condition/Diagnosis () Present on Admission () Not present on admission () Unable to clinically determine () Septic Shock (Severe sepsis with acute circulatory failure, unexplained by other causes) () Present on Admission () Not present on admission () Unable to clinically determine () Other, patient has:
[2016-12-27] MEDS ORDERED: iron liquid PO (08:58)
[2016-12-27] MEDS ORDERED: MULT-506 PO (08:58)
[2017-01-17] MEDS ORDERED: [UNRECOGNIZED DRUG - REMARK] PO (08:25)
== END 2016-12-08 16:48 | DRG 872 ==
LOC: ENRESERVDT → ENRESERVTM → EDBD 17:34 → C.EDB 17:35 → C.MED 20:24 → C.4E 12-05 07:33
PROVIDERS: ADMIT Internal Medicine; ATTEND Family Medicine
DX: A41.9 Sepsis, unspecified organism (principal); N17.9 Acute kidney failure, unspecified; C18.9 Malignant neoplasm of colon, unspecified; J11.1 Influenza due to unidentified influenza virus with other respiratory manifestations; E86.0 Dehydration; M25.511 Pain in right shoulder; E83.42 Hypomagnesemia; E78.5 Hyperlipidemia, unspecified; M81.0 Age-related osteoporosis without current pathological fracture; Z79.899 Other long term (current) drug therapy; E11.9 Type 2 diabetes mellitus without complications; I10 Essential (primary) hypertension; B95.4 Other streptococcus as the cause of diseases classified elsewhere; D69.6 Thrombocytopenia, unspecified; D50.9 Iron deficiency anemia, unspecified; D63.8 Anemia in other chronic diseases classified elsewhere

== ENCOUNTER → 2016-12-31 | Outpatient (CLI) | payer OTHER ==
[~2016-12-31] MED LIST changes: -CHOL1TAB4 PO; +CHOL1TAB42 PO; +CHOLCAP5 PO; +DABI1CAP PO; +FERR300S PO; +INSDGI SC; +INSDGIPEN SC; -LOSA100T26 PO; +NVLG SC; +NVLGI/PEN SC; +NVLGIPEN SC; -PRED1SUS3; +RCPI2 IV; -ZOLE5INJ SC; +[UNRECOGNIZED DRUG - CODE] PO; +[UNRECOGNIZED DRUG - REMARK] PO; +iron liquid PO
[2016-12-31 10:54] LABS: HEMATOCRIT 29.4 % (37-47); MEAN CELL VOLUME 78.8 fL (80-100); MEAN CORPUSCULAR HEMOGLOBIN 24.7 pg (25-34); MEAN CORPUSCULAR HGB CONC 31.3 g/dl (32-36); PLATELET COUNT 30 K/uL (130-400); RED BLOOD COUNT 3.73 M/uL (4.2-5.4); WHITE BLOOD COUNT 2.86 K/uL (4.8-10.8)
[2016-12-31 10:55] LABS: PLT ESTIMATE SIGNIFIC DECREASED
[2016-12-31 11:59] LABS: BLOOD UREA NITROGEN 28 mg/dl (7-18); BUN/CREATININE RATIO 29.9 (10-20); CALCIUM 8.8 mg/dl (8.5-10.1); CARBON DIOXIDE 25 mmol/L (21-32); CHLORIDE 108 mmol/L (98-107); CREATININE 0.94 mg/dl (0.60-1.20); GLUCOSE 123 mg/dl (70-99); POTASSIUM 3.9 mmol/L (3.5-5.1); SODIUM 141 mmol/L (136-145)
== END | disposition home or self-care (01) ==
LOC: C.LABFOXAN 09:15
PROVIDERS: ATTEND Family Medicine
DX: I33.9 Acute and subacute endocarditis, unspecified (principal)

== ENCOUNTER → 2017-01-01 | Outpatient (CLI) | payer OTHER ==
[2017-01-01 10:30] LABS: MEAN CORPUSCULAR HGB CONC 30.9 g/dl (32-36)
[2017-01-01 10:46] LABS: FERRITIN 15.7 ng/ml (8.0-388.0)
[2017-01-01 10:50] LABS: HEMATOCRIT 28.2 % (37-47); MEAN CORPUSCULAR HEMOGLOBIN 24.4 pg (25-34); RED BLOOD COUNT 3.57 M/uL (4.2-5.4)
[2017-01-01 11:14] LABS: PLATELET COUNT 31 K/uL (130-400)
[2017-01-01 11:15] LABS: BASO % 0.4 %; BASO ABS # 0.01 K/uL (0-0.2); COMPLETE YES; EOS % 3.5 %; LARGE PLATELETS 1+; LYMPH % 23.5 %; LYMPH ABS # 0.61 K/uL (1.2-3.4); MONO % 10.8 %; NEUT % 61.8 %; PLT ESTIMATE DECREASED; TEAR DROP CELLS 1+
== END | disposition home or self-care (01) ==
LOC: C.LABFOXMH 10:04
PROVIDERS: ATTEND Internal Medicine
DX: D64.9 Anemia, unspecified (principal)

== ENCOUNTER → 2017-01-07 | Outpatient (CLI) | payer OTHER ==
[2017-01-07 10:14] LABS: MEAN CORPUSCULAR HGB CONC 30.2 g/dl (32-36)
[2017-01-07 10:23] LABS: BLOOD UREA NITROGEN 21 mg/dl (7-18); BUN/CREATININE RATIO 23.3 (10-20); CALCIUM 8.9 mg/dl (8.5-10.1); CARBON DIOXIDE 22 mmol/L (21-32); CHLORIDE 112 mmol/L (98-107); CREATININE 0.88 mg/dl (0.60-1.20); GLUCOSE 154 mg/dl (70-99); POTASSIUM 4.6 mmol/L (3.5-5.1); SODIUM 144 mmol/L (136-145)
[2017-01-07 10:36] LABS: HEMATOCRIT 29.5 % (37-47); MEAN CELL VOLUME 82.9 fL (80-100); RED BLOOD COUNT 3.56 M/uL (4.2-5.4); WHITE BLOOD COUNT 2.19 K/uL (4.8-10.8)
[2017-01-07 10:40] LABS: PLATELET COUNT 34 K/uL (130-400)
--- NOTE | 2017-01-08 14:11 | CODING QUERY NO DIAGNOSIS ---
TREATMENT RENDERED WITHOUT A DIAGNOSIS 32 To promote full compliance with coding requirements relating to patient care, physician participation is requested in all cases of paper tube machine operator uncertainty. Please assist us with providing a diagnosis/symptom for the test(s) below: A diagnosis/symptom was not documented on your Order. A valid diagnosis/symptom is required to bill all insurances. Please remember that we are unable to code a diagnosis of rule out, probable, possible, questionable, or suspected. DOS 01/07/17 Tests that require a diagnosis: * PARTIAL RENAL PROFILE DIAGNOSIS: * CBC W/O DIFF DIAGNOSIS: * ESR DIAGNOSIS: *ON YOUR ORDER YOU HAVE DX CODE I33, THAT IS AN INVALID CODE, CAN YOU PLEASE ADD THE CORRECT DX CODE Provider Signature: Date: Thank you [facility] Once completed, please kindly fax back to [phone] For questions please call [phone]
== END ==
LOC: C.LABFOXAN 09:31
PROVIDERS: ATTEND Internal Medicine
DX: R78.81 Bacteremia (principal)

== ENCOUNTER 2017-02-27 14:24 | Emergency (ER) | payer OTHER ==
[~2017-02-27] VITALS: Ht 152.4 cm; Wt 82.1 kg
[~2017-02-27 14:24] MED LIST changes: -CHOLCAP5 PO; -DABI1CAP PO; -FERR300S PO; -INSDGI SC; -NVLG SC; -NVLGI/PEN SC; -[UNRECOGNIZED DRUG - CODE] PO
[2017-02-27 14:42] VITALS: Ht 152.4 cm; Wt 82.1 kg
[2017-02-27 15:41] LABS: INR 1.2 (0.9-1.1); PROTHROMBIN TIME (PATIENT) 13.3 SECONDS (9.0-12.0)
[2017-02-27] MEDS ORDERED: NVLG SC (15:43)
[2017-02-27] MEDS ORDERED: [UNRECOGNIZED DRUG - CODE] PO (15:43)
[2017-02-27] MEDS ORDERED: INSDGI SC (15:43)
[2017-02-27] MEDS ORDERED: CHOLCAP5 PO (15:43)
[2017-02-27] MEDS ORDERED: NVLGI/PEN SC (15:45)
[2017-02-27 15:57] LABS: BUN/CREATININE RATIO 10.2 (10-20); CALCIUM 8.8 mg/dl (8.5-10.1); CREATININE 1.4 mg/dl (0.60-1.20); POTASSIUM 4.2 mmol/L (3.5-5.1)
[2017-02-27] MEDS ORDERED: FERR300S PO (16:15)
[2017-02-27 16:36] LABS: PLATELET COUNT 27 K/uL (130-400)
[2017-02-27 16:40] LABS: COMPLETE YES; EOS % 1.3 %; HEMATOCRIT 32.2 % (37-47); LARGE PLATELETS 2+; LYMPH ABS # 0.45 K/uL (1.2-3.4); MEAN CELL VOLUME 82.1 fL (80-100); MEAN CORPUSCULAR HEMOGLOBIN 25.3 pg (25-34); MEAN CORPUSCULAR HGB CONC 30.7 g/dl (32-36); MONO % 11.1 %; NEUT % 67.6 %; PLT ESTIMATE DECREASED; RED BLOOD COUNT 3.92 M/uL (4.2-5.4); WHITE BLOOD COUNT 2.25 K/uL (4.8-10.8)
[2017-02-27] MEDS ORDERED: DABIGATRAN ELEXILATE 75 MG CAP PO ONE (17:00)
[2017-02-27] MEDS ORDERED: DABI1CAP PO (17:08)
--- NOTE | 2017-02-27 17:09 | EMERGENCY ROOM VISIT NOTE ---
History Report prepared by Lisseth: Cari Dye Under the Supervision of: Dr. Tiburcio Arango D.O. First contact with patient: 14:47 Chief Complaint: LEG PAIN,LEG INJURY Stated Complaint: R LOWER LEG PAIN History of Present Illness The patient is an 86 year old female who presents to the Emergency Room with complaints of persistent right leg pain that began two days ago. She currently rates her discomfort as a 2/10 in severity. Per the patient's daughter, the patient had an ultrasound today that was ordered by her PCP. She notes that the patient was found to have a DVT in her right lower leg. The patient's daughter notes that the patient cannot be placed on blood thinners due to low platelet counts and hemoglobin levels. The patient states that her last platelet count was 34 and her last hemoglobin was 9.5. The patient states that she was evaluated in the hospital with the flu and sepsis. She states that she recently had a colonoscopy and endoscopy. The patient denies any chest pain or shortness of breath. Source of History: patient, family (daughter) Onset: two days ago Position: leg (right) Symptom Intensity: 2/10 Timing: other (persistent) Associated Symptoms: No SOB, No chest pain Review of Systems See HPI for pertinent positives & negatives. A total of 10 systems reviewed and were otherwise negative. Past Medical & Surgical Medical Problems: (1) NGHIA (acute kidney injury) (2) Benign hypertension (3) Hyperlipidemia (4) Influenza (5) Osteoporosis Family History Diabetes mellitus MOTHER Social History Smoking Status: Never Smoker Alcohol Use: none Drug Use: none Marital Status: Housing Status: lives with family Occupation Status: retired Current/Historical Medications Scheduled Cholecalciferol (Vitamin D3), 5,000 UNITS PO DAILY Dabigatran Etexilate Mesylate (Pradaxa), 1 CAP PO BID Ferrous Sulfate (Ferrous Sulfate), 5 ML PO DAILY Furosemide (Lasix), 20 MG PO QAM Insulin Aspart (Novolog Flexpen), Unknown Dose SC ACHS Insulin Glargine (Lantus), 28 UNITS SC QPM Multivitamin (Multivitamin), 1 TAB PO DAILY Allergies Coded Allergies: Shellfish (Verified Allergy, Severe, ANAPHYLAXIS, 02/27/17) Alendronate (Verified Adverse Reaction, Unknown, dizziness, 02/27/17) Uncoded Allergies: ALL CREATURES THAT LIVE IN WATER (Allergy, Severe, ANAPHYLAXIS, 4/26/17) Physical Exam Vital Signs Date Time Temp Pulse Resp B/P Pulse Ox O2 Delivery O2 Flow Rate FiO2 02/27/17 16:35 69 02/27/17 16:27 67 20 165/67 97 Room Air 02/27/17 14:42 36.7 71 18 151/78 96 Room Air Physical Exam CONSTITUTIONAL/VITAL SIGNS: Reviewed / noted above. GENERAL: Non-toxic in appearance. INTEGUMENTARY: Warm, dry, and [place]. HEAD: Normocephalic. EYES: without scleral icterus or trauma. ENT/OROPHARYNX: clear and moist. LYMPHADENOPATHY/NECK: Is supple without lymphadenopathy or meningismus. RESPIRATORY: Lungs clear and equal. CARDIOVASCULAR: Regular rate and rhythm. GI/ABDOMEN: Soft and nontender. No organomegaly or pulsatile mass. No rebound or guarding. Normal bowel sounds. RECTAL: Light brown guaiac positive. EXTREMITIES: Mild right lower extremity edema and erythema. BACK: No CVA tenderness. NEUROLOGICAL: Intact without focal deficits. PSYCHIATRIC: normal affect. MUSCULOSKELETAL: Normally developed with good muscle tone. Medical Decision & Procedures Laboratory Results 02/27/17 15:19 Red Blood Count 3.92, Mean Corpuscular Volume 82.1, Mean Corpuscular Hemoglobin 25.3, Mean Corpuscular Hemoglobin Concent 30.7, Neutrophils (%) (Auto) 67.6, Lymphocytes (%) (Auto) 20.0, Monocytes (%) (Auto) 11.1, Eosinophils (%) (Auto) 1.3, Basophils (%) (Auto) 0.0, Neutrophils # (Auto) 1.52, Lymphocytes # (Auto) 0.45, Monocytes # (Auto) 0.25, Eosinophils # (Auto) 0.03, Basophils # (Auto) 0.00 02/27/17 15:19 Test 02/27/17 15:19 White Blood Count 2.25 K/uL (4.8-10.8) Red Blood Count 3.92 M/uL (4.2-5.4) Hemoglobin 9.9 g/dL (12.0-16.0) Hematocrit 32.2 % (37-47) Mean Corpuscular Volume 82.1 fL (80-100) Mean Corpuscular Hemoglobin 25.3 pg (25-34) Mean Corpuscular Hemoglobin Concent 30.7 g/dl (32-36) Platelet Count 27 K/uL (130-400) Neutrophils (%) (Auto) 67.6 % Lymphocytes (%) (Auto) 20.0 % Monocytes (%) (Auto) 11.1 % Eosinophils (%) (Auto) 1.3 % Basophils (%) (Auto) 0.0 % Neutrophils # (Auto) 1.52 K/uL (1.4-6.5) Lymphocytes # (Auto) 0.45 K/uL (1.2-3.4) Monocytes # (Auto) 0.25 K/uL (0.11-0.59) Eosinophils # (Auto) 0.03 K/uL (0-0.5) Basophils # (Auto) 0.00 K/uL (0-0.2) RDW Standard Deviation 56.7 fL (36.4-46.3) RDW Coefficient of Variation 19.0 % (11.5-14.5) Immature Granulocyte % (Auto) 0.0 % Immature Granulocyte # (Auto) 0.00 K/uL (0.00-0.02) Platelet Estimate DECREASED Large Platelets 2+ Prothrombin Time 13.3 SECONDS (9.0-12.0) Prothromb Time International Ratio 1.2 (0.9-1.1) Activated Partial Thromboplast Time 26.7 SECONDS (21.0-31.0) Partial Thromboplastin Ratio 1.0 Anion Gap 6.0 mmol/L (3-11) Est Creatinine Clear Calc Drug Dose 28.4 ml/min Estimated GFR () 39.9 Estimated GFR (Non- 34.4 BUN/Creatinine Ratio 10.2 (10-20) Calcium Level 8.8 mg/dl (8.5-10.1) Laboratory results as stated above per my review. ED Course 1449: Previous medical records were reviewed. The patient was evaluated in room B11B. A complete history and physical examination was performed. 1634: I discussed the patients case with Deysi Coyne PA-C. She states that she will have Dr. Mazariegos call back. 1650: I discussed the patients case with Dr. Mazariegos. We decided to place the patient on Pradaxa and let the patient go home. 1700: Ordered Pradaxa Cap 75 mg PO. 1710: I reevaluated the patient and she is doing well. I discussed the exam findings with her and I discussed the treatment plan. She verbalized complete understanding and agreement. She is ready to go home. Medical Decision Differential includes acute coronary syndrome, myocardial infarction, CVA, TIA, anemia, infection, pneumonia, UTI, pyelonephritis, poor nutrition, dehydration, electrolyte disturbance,hypoglycemia. This is a 86-year-old female who presents to the ED with a chief complaint of right lower extremity discomfort. The patient had an outpatient ultrasound that showed a DVT of the right popliteal vein. The patient has a history of thrombocytopenia and anemia. She was sent here for evaluation. Platelet count was 27. Hemoglobin is 9.9. Creatinine is 1.4. After discussing the case with Dr. Mazariegos, we decided to place the patient on Pradaxa. The patient was started on 75 mg twice a day. She is felt to be stable for discharge. Consults Time Called: 1631 Consulting Physician: Dr. Mazariegos'Deysi brantley PA-C Returned Call: 1633 I discussed the patients case with Deysi Coyne PA-C. She states that she will have Dr. Mazariegos call back. Impression Primary Impression: Deep vein thrombosis Scribe Attestation The scribe's documentation has been prepared under my direction and personally reviewed by me in its entirety. I confirm that the note above accurately reflects all work, treatment, procedures, and medical decision making performed by me. Departure Information Dispostion Home / Self-Care Prescriptions Dabigatran Etexilate Mesylate (PRADAXA) 75 Mg Cap 1 CAP PO BID for 90 Days, #180 CAP 1 Refill Prov: Tiburcio Arango D.O. 02/27/17 Referrals Juanito Mazariegos M.D. (PCP) Forms HOME CARE DOCUMENTATION FORM, IMPORTANT VISIT INFORMATION Patient Instructions DVT, My [facility] 123 Additional Instructions Pradaxa twice a day as prescribed. Watch for intestinal bleeding. Return for chest pains or shortness of breath. Follow-up with your doctor for recheck later this week or early next week.
[2017-02-27 17:44] VITALS: BP 159/96; PULSE 67; TEMP 36.7; O2SAT 98
== END 2017-02-27 17:40 | disposition home or self-care (01) ==
LOC: C.EDB 14:26
DX: I82.4Z1 Acute embolism and thrombosis of unspecified deep veins of right distal lower extremity (principal); I10 Essential (primary) hypertension; E78.5 Hyperlipidemia, unspecified; M19.90 Unspecified osteoarthritis, unspecified site; Z83.3 Family history of diabetes mellitus; Z79.4 Long term (current) use of insulin; I82.431 Acute embolism and thrombosis of right popliteal vein

== ENCOUNTER → 2017-02-27 | Outpatient (CLI) | payer OTHER ==
--- NOTE | 2017-02-27 13:41 | DIAGNOSTIC IMAGING REPORT ---
ULTRASOUND RIGHT LOWER EXTREMITY VENOUS CLINICAL HISTORY: Right leg pain and swelling. COMPARISON STUDY: No priors. TECHNIQUE: Real-time, grayscale, and color Doppler sonography of the deep veins of the right lower extremity was performed from the inguinal crease to the calf. Compression and augmentation were utilized. FINDINGS: There is nearly occlusive deep venous thrombosis identified within the right popliteal vein. The common femoral and superficial femoral veins veins are patent and normally compressible. The greater saphenous vein and the profunda femoris vein at the junction with the common femoral vein are clear. The visualized calf veins are patent. IMPRESSION: There is nearly occlusive deep venous thrombosis identified within the right popliteal vein as above. Electronically signed by: Pablo Yeung M.D. 02/27/2017 1:39 PM Dictated Date/Time: 02/27/2017 1:38 PM
== END ==
LOC: C.ULTRBC 13:11
PROVIDERS: ATTEND Nurse Practitioner Family
DX: I82.431 Acute embolism and thrombosis of right popliteal vein (principal)

== ENCOUNTER → 2017-05-10 | Outpatient (CLI) | payer OTHER ==
[~2017-05-10] MED LIST changes: -CHOL1TAB42 PO; +CHOLCAP5 PO; +DABI1CAP PO; +FERR300S PO; +INSDGI SC; -INSDGIPEN SC; +NVLGI/PEN SC; -NVLGIPEN SC; -POTA10CA28 PO; -RCPI2 IV; -[UNRECOGNIZED DRUG - REMARK] PO; -iron liquid PO
--- NOTE | 2017-05-10 12:07 | DIAGNOSTIC IMAGING REPORT ---
EXAMINATION: PELVIC ULTRASOUND CLINICAL HISTORY: POSTMENOPAUSAL BLEEDING BLEEDING COMPARISON STUDY: 02/29/2012 FINDINGS: The uterus measured 7.4 cm. The endometrial stripe measured thickened at 12 mm. Small contained cystic component at the level of the uterine fundal region. The right ovary measured enlarged with a greatest dimension of 3.7 x 4.0 cm.. The left ovary measured 2.1 cm.. 1.5 cm follicular cyst There is no ultrasonographic evidence of ovarian torsion. It should be noted that ovarian torsion can be present with normal Doppler ultrasonographic findings. There was no evidence of pathologic free pelvic fluid. IMPRESSION: Abnormal enlargement of the uterus, abnormal thickening of the endometrium, with abnormal prominence of the right ovary. ADOLESCENT SPECIALIST consultation is suggested given the history of bleeding given the patient's age category Electronically signed by: Damian Ford M.D. 05/10/2017 12:06 PM Dictated Date/Time: 05/10/2017 12:02 PM
--- NOTE | 2017-05-14 12:32 | DIAGNOSTIC IMAGING REPORT ---
EXAMINATION: PELVIC ULTRASOUND CLINICAL HISTORY: POSTMENOPAUSAL BLEEDING BLEEDING COMPARISON STUDY: 02/29/2012 FINDINGS: The uterus measured 7.4 cm. The endometrial stripe measured thickened at 12 mm. Small contained cystic component at the level of the uterine fundal region. The right ovary measured enlarged with a greatest dimension of 3.7 x 4.0 cm.. The left ovary measured 2.1 cm.. 1.5 cm follicular cyst There is no ultrasonographic evidence of ovarian torsion. It should be noted that ovarian torsion can be present with normal Doppler ultrasonographic findings. There was no evidence of pathologic free pelvic fluid. IMPRESSION: Abnormal enlargement of the uterus, abnormal thickening of the endometrium, with abnormal prominence of the right ovary. ELEMENTARY SCHOOL BAND DIRECTOR consultation is suggested given the history of bleeding given the patient's age category Electronically signed by: Damian Ford M.D. 05/10/2017 12:06 PM Dictated Date/Time: 05/10/2017 12:02 PM
== END | disposition home or self-care (01) ==
LOC: C.ULTRBC 09:18
PROVIDERS: ATTEND Internal Medicine
DX: N95.0 Postmenopausal bleeding (principal); N85.2 Hypertrophy of uterus

== ENCOUNTER 2021-10-12 08:39 | Inpatient (IN) ==
--- NOTE | 2021-10-12 09:10 | Emergency Department Note ---
Impression & Plan Fall, Laceration of scalp, Multiple fractures of ribs, Thrombocytopenia, Fracture of lumbar spine ED Provider Note Provider: Isaac Dietrich MD DATE OF SERVICE: 10/12/2021 CHIEF COMPLAINT: Fall HISTORY OF PRESENT ILLNESS: Patient is an 89 year old female with a past medical history of type 2 diabetes, thrombocytopenia, anemia, hypertension, and liver cirrhosis presenting here today via ambulance from [facility]. Patient states that she had gotten up and had breakfast and was walking with a close basket when she stumbled and fell onto her buttocks on the floor. She did this and hit the wall on the way down and dislodged the patient was on the wall that then fell and cut the back of her right head. Patient denies loss of consciousness. Please have little stinging pain around the head wound but denies any significant headache, visual change, nausea, or dizziness. Denies si gnificant chest pain or difficulty breathing. Denies abdominal pain. Patient reports that she is able to crawl and get help fairly quickly. Patient states she is a history of low platelets and is not on any other blood thinners at this time. Patient reports she does have some pain in her low back and has a history of low back issues. Reports she had pain with walking here. States she saw her doctor a day or 2 ago and was started back on some Lasix that she had some leg swelling. She denies feeling lightheaded or dizzy prior to falling per her recollection. Patient denies any neck pain or any new numbness or tingling in her extremities. REVIEW OF SYSTEMS: A total of 10 review of systems was obtained and negative except as stated above in the HPI. PAST MEDICAL HISTORY: As noted above MEDICATIONS: Reviewed home medications SOCIAL HISTORY: Lives at [facility] with her PHYSICAL EXAM: GENERAL: alert and oriented in no acute distress on stretcher Head: Some dried blood present behind the right ear with an approximately 1.5 cm laceration behind the right mastoid prominence without crepitus or foreign body noted. EYES: No injection, discharge or icterus. NECK: Trachea midline. Supple. ENT: Mucous membranes pink and moist. LUNGS: Airway patent. No retractions. Breath sounds clear with good air entry bilaterally. HEART: Regular rate and rhythm. No chest wall tenderness ABDOMEN: Soft and non-tender, without guarding or rebound. SKIN: Acyanotic, warm, dry EXTREMITIES: Bilateral lower extremities with 1-2+ swelling. No significant tenderness to the bilateral lower legs and soft bilateral calf. Patient has no significant tenderness of the upper extremities on exam or obvious deformity. NEUROLOGICAL: No focal deficits. No aphasia. No facial droop or slurred speech. Normal strength and tone in the extremities. Sensation to gross touch normal in the lower extremities EK bpm appears to be a possible junctional rhythm with occasional PVC. QTC 464. No acute ST segment elevation noted in comparison to previous from December [id number], do not see the clear P waves at this time and appears to be more junctional rhythm. CONTINUOUS CARDIAC MONITORING: was ordered and showed a heart rate of 90s bpm in what appears to be a junctional rhythm LACERATION REPAIR: Performed by myself Patient, procedure, and site were verified immediately before the procedure. Appropriate neurovascular exam was performed to test sensation, motor function and perfusion. The skin around the wound was prepped with Betadine. Wound was washed with saline. Wound was explored to its base. There was no visible foreign body in the wound. The laceration was repaired by means of a single layer closure. Skin was closed with four skin danny Total wound length was 1.5 cm. Good hemostasis and cosmetic result. Patient tolerated the procedure well. Patient's laboratory studies and imaging reviewed. Differential includes Fracture, dislocation, contusion, intra-abdominal, pneumothorax, intrathoracic, intracranial, neurologic, compartment syndrome, rhabdomyolysis, as well as other pathologies. IMPRESSION/MEDICAL DECISION MAKING: Patient presents after what sounds like a mechanical type fall landing on her buttock with some back pain. Patient states her tetanus is up-to-date within the last year and has a small cut behind the scalp of the right ear. This was closed with danny by myself as above. Patient does not appear altered in any way. Has a history of thrombocytopenia and given this imaging will be completed. Complains of some mid to low back pain and has history of some back issues. Neurologically intact. Some swelling noted lower extremity has been restarted on Lasix after seeing her doctor over the last several days. Patient declined pain medication here initially later given some fentanyl. Imaging with evidence of likely 3 rib fractures and the lumbar endplate fracture. Incidental pancreas cyst and right ovarian mass noted. Patient made aware of these. Not singly hypoxic but given her age and comorbidities as well as a low platelet count feel that further observation here is warranted. Discussed with her primary care doctor who was in agreement. Patient agreeable given this. She currently is independent living and likely will need a short rehab stay and optimization of pain control at this time. Hospitalist contacted. DIAGNOSIS: Fall, scalp laceration, multiple rib fractures, lumbar endplate fracture DISPOSITION: Hospitalist will evaluate Patient was agreeable with this plan. Past Med/Surg History Social History Smoking Status: Never smoker Feels Safe at Home: Yes Allergies Allergies Allergy/AdvReac Type Severity Reaction Status Date / Time shellfish derived Allergy Severe ANAPHYLAXIS Verified 10/12/21 10:00 AGGIE Inhibitors AdvReac Mild Cough Unverified 10/12/21 10:00 alendronate sodium AdvReac Unknown dizziness Verified 10/12/21 10:00 ALL CREATURES THAT LIVE IN Allergy Severe ANAPHYLAXIS Uncoded 10/12/21 10:00 WATER Home Meds Home Medications Medication Instructions Recorded Confirmed cholecalciferol (vitamin D3) 125 125 mcg PO DAILY 10/12/21 10/12/21 mcg (5,000 unit) tablet (Vitamin D3) furosemide 20 mg tablet 20 mg PO DAILY 10/12/21 10/12/21 insulin aspart U-100 100 unit/mL 1 sliding scale dose SUBCUT ACHS 10/12/21 10/12/21 (3 mL) subcutaneous pen (Novolog Flexpen U-100 Insulin aspart) insulin glargine 100 unit/mL (3 25 unit SUBCUT HS 10/12/21 10/12/21 mL) subcutaneous pen (Lantus Solostar U-100 Insulin) multivitamin 1 tab PO QAM 10/12/21 10/12/21 spironolactone 50 mg tablet 50 mg PO DAILY 10/12/21 10/12/21 Results & Data (ED) Vital Signs Vital Signs - 24 hr 10/12/21 08:43 10/12/21 08:46 10/12/21 09:08 Temperature 36.5 C Temperature Source Oral Pulse Rate 70 94 H Pulse Rate [Apical] 70 Pulse Rate from SpO2 Sensor Pulse Rhythm [Apical] Respiratory Rate 24 18 24 Respiratory Effort / Characteristics Non-Labored Spontaneous Respiratory Depth Normal Respiratory Pattern Regular Blood Pressure 170/50 H Blood Pressure [Right Arm] 170/50 H Blood Pressure Mean 90 Blood Pressure Mean [Right Arm] 90 Blood Pressure Position [Right Arm] Sitting Pulse Oximetry 98 97 94 Oxygen Delivery Method Room Air Room Air Room Air Sepsis Recent Fever Within 48 Hours No Sepsis New/Unexplained Change in Mental Status N/A Sepsis Action Taken by Nursing No Action Required 10/12/21 09:13 10/12/21 09:20 10/12/21 09:30 Temperature Temperature Source Pulse Rate 94 H 94 H 93 H Pulse Rate [Apical] Pulse Rate from SpO2 Sensor 92 H 96 H Pulse Rhythm [Apical] Respiratory Rate 25 H 26 H 35 H Respiratory Effort / Characteristics Respiratory Depth Respiratory Pattern Blood Pressure Blood Pressure [Right Arm] Blood Pressure Mean Blood Pressure Mean [Right Arm] Blood Pressure Position [Right Arm] Pulse Oximetry 99 99 Oxygen Delivery Method Sepsis Recent Fever Within 48 Hours Sepsis New/Unexplained Change in Mental Status Sepsis Action Taken by Nursing 10/12/21 09:48 10/12/21 09:50 10/12/21 10:00 Temperature Temperature Source Pulse Rate 70 70 92 H Pulse Rate [Apical] 65 Pulse Rate from SpO2 Sensor 68 73 92 H Pulse Rhythm [Apical] Regular Respiratory Rate 47 H 28 H 23 Respiratory Effort / Characteristics Non-Labored Spontaneous Respiratory Depth Normal Respiratory Pattern Blood Pressure 140/68 Blood Pressure [Right Arm] 140/68 Blood Pressure Mean 92 Blood Pressure Mean [Right Arm] 92 Blood Pressure Position [Right Arm] Semi-fowlers Pulse Oximetry 97 90 98 Oxygen Delivery Method Room Air Sepsis Recent Fever Within 48 Hours Sepsis New/Unexplained Change in Mental Status Sepsis Action Taken by Nursing 10/12/21 10:10 10/12/21 10:20 10/12/21 10:30 Temperature Temperature Source Pulse Rate 95 H 65 92 H Pulse Rate [Apical] Pulse Rate from SpO2 Sensor 89 65 92 H Pulse Rhythm [Apical] Respiratory Rate 24 21 45 H Respiratory Effort / Characteristics Respiratory Depth Respiratory Pattern Blood Pressure Blood Pressure [Right Arm] Blood Pressure Mean Blood Pressure Mean [Right Arm] Blood Pressure Position [Right Arm] Pulse Oximetry 97 95 97 Oxygen Delivery Method Sepsis Recent Fever Within 48 Hours Sepsis New/Unexplained Change in Mental Status Sepsis Action Taken by Nursing 10/12/21 10:40 10/12/21 10:50 10/12/21 11:00 Temperature Temperature Source Pulse Rate 66 92 H 93 H Pulse Rate [Apical] Pulse Rate from SpO2 Sensor 73 93 H 96 H Pulse Rhythm [Apical] Respiratory Rate 29 H 22 30 H Respiratory Effort / Characteristics Respiratory Depth Respiratory Pattern Blood Pressure Blood Pressure [Right Arm] Blood Pressure Mean Blood Pressure Mean [Right Arm] Blood Pressure Position [Right Arm] Pulse Oximetry 96 98 95 Oxygen Delivery Method Sepsis Recent Fever Within 48 Hours Sepsis New/Unexplained Change in Mental Status Sepsis Action Taken by Nursing 10/12/21 11:04 10/12/21 11:10 10/12/21 11:20 Temperature Temperature Source Pulse Rate 70 68 Pulse Rate [Apical] 70 Pulse Rate from SpO2 Sensor 69 71 Pulse Rhythm [Apical] Respiratory Rate 26 H 20 20 Respiratory Effort / Characteristics Spontaneous Respiratory Depth Respiratory Pattern Blood Pressure Blood Pressure [Right Arm] 148/72 H Blood Pressure Mean Blood Pressure Mean [Right Arm] 97 Blood Pressure Position [Right Arm] Semi-fowlers Pulse Oximetry 97 92 94 Oxygen Delivery Method Room Air Sepsis Recent Fever Within 48 Hours Sepsis New/Unexplained Change in Mental Status Sepsis Action Taken by Nursing 10/12/21 11:30 10/12/21 11:40 10/12/21 11:50 Temperature Temperature Source Pulse Rate 95 H 94 H 93 H Pulse Rate [Apical] Pulse Rate from SpO2 Sensor 95 H 95 H 93 H Pulse Rhythm [Apical] Respiratory Rate 24 23 27 H Respiratory Effort / Characteristics Respiratory Depth Respiratory Pattern Blood Pressure Blood Pressure [Right Arm] Blood Pressure Mean Blood Pressure Mean [Right Arm] Blood Pressure Position [Right Arm] Pulse Oximetry 95 98 97 Oxygen Delivery Method Sepsis Recent Fever Within 48 Hours Sepsis New/Unexplained Change in Mental Status Sepsis Action Taken by Nursing 10/12/21 12:00 10/12/21 12:10 10/12/21 12:20 Temperature Temperature Source Pulse Rate 96 H 94 H 74 Pulse Rate [Apical] Pulse Rate from SpO2 Sensor 108 H 95 H 74 Pulse Rhythm [Apical] Respiratory Rate 28 H 36 H 22 Respiratory Effort / Characteristics Respiratory Depth Respiratory Pattern Blood Pressure Blood Pressure [Right Arm] Blood Pressure Mean Blood Pressure Mean [Right Arm] Blood Pressure Position [Right Arm] Pulse Oximetry 90 98 98 Oxygen Delivery Method Sepsis Recent Fever Within 48 Hours Sepsis New/Unexplained Change in Mental Status Sepsis Action Taken by Nursing 10/12/21 12:30 10/12/21 12:40 10/12/21 12:50 Temperature Temperature Source Pulse Rate 69 97 H 94 H Pulse Rate [Apical] Pulse Rate from SpO2 Sensor 69 97 H 93 H Pulse Rhythm [Apical] Respiratory Rate 26 H 28 H 26 H Respiratory Effort / Characteristics Respiratory Depth Respiratory Pattern Blood Pressure Blood Pressure [Right Arm] Blood Pressure Mean Blood Pressure Mean [Right Arm] Blood Pressure Position [Right Arm] Pulse Oximetry 97 98 98 Oxygen Delivery Method Sepsis Recent Fever Within 48 Hours Sepsis New/Unexplained Change in Mental Status Sepsis Action Taken by Nursing 10/12/21 13:00 10/12/21 13:10 10/12/21 13:20 Temperature Temperature Source Pulse Rate 74 75 71 Pulse Rate [Apical] Pulse Rate from SpO2 Sensor 69 75 71 Pulse Rhythm [Apical] Respiratory Rate 28 H 23 30 H Respiratory Effort / Characteristics Respiratory Depth Respiratory Pattern Blood Pressure Blood Pressure [Right Arm] Blood Pressure Mean Blood Pressure Mean [Right Arm] Blood Pressure Position [Right Arm] Pulse Oximetry 94 97 97 Oxygen Delivery Method Sepsis Recent Fever Within 48 Hours Sepsis New/Unexplained Change in Mental Status Sepsis Action Taken by Nursing 10/12/21 13:30 10/12/21 13:40 10/12/21 13:53 Temperature Temperature Source Pulse Rate 72 98 H Pulse Rate [Apical] Pulse Rate from SpO2 Sensor 72 97 H Pulse Rhythm [Apical] Respiratory Rate 30 H 25 H Respiratory Effort / Characteristics Respiratory Depth Respiratory Pattern Blood Pressure Blood Pressure [Right Arm] Blood Pressure Mean Blood Pressure Mean [Right Arm] Blood Pressure Position [Right Arm] Pulse Oximetry 97 98 Oxygen Delivery Method Room Air Sepsis Recent Fever Within 48 Hours Sepsis New/Unexplained Change in Mental Status Sepsis Action Taken by Nursing Laboratory Data Result diagrams: 10/12/21 09:05 10/12/21 09:05 Lab Results 10/12/21 10/12/21 10/12/21 Range/Units 09:05 09:05 09:15 WBC 3.45 L (4.8-10.8) K/uL RBC 3.80 L (4.2-5.4) M/uL Hgb 12.4 (12.0-16.0) g/dL Hct 37.2 (37-47) % MCV 97.9 (80-100) fL MCH 32.6 (25-34) pg MCHC 33.3 (32-36) g/dL RDW Std Deviation 54.6 H (36.4-46.3) fL RDW Coeff of Jacqueline 15.2 H (11.5-14.5) % Plt Count 31 L (130-400) K/uL MPV 13.4 H (7.4-10.4) fL Immature Gran % (Auto) 0.0 % Neut % (Auto) 84.6 % Lymph % (Auto) 9.0 % [place] % (Auto) 5.8 % Eos % (Auto) 0.6 % Baso % (Auto) 0.0 % Neut # (Auto) 2.92 (1.4-6.5) K/uL Lymph # (Auto) 0.31 L (1.2-3.4) K/uL [place] # (Auto) 0.20 (0.11-0.59) K/uL Eos # (Auto) 0.02 (0-0.5) K/uL Baso # (Auto) 0.00 (0-0.2) K/uL Immature Gran # (Auto) 0.00 (0.00-0.02) K/uL Platelet Estimate SIGNIFIC DECREASED (Normal) RBC Morphology Unremarkable PT 14.0 H (9.0-12.0) Seconds INR 1.4 H (0.9-1.1) Sodium 141 (136-145) mmol/L Potassium 5.1 (3.5-5.1) mmol/L Chloride 113 H (98-107) mmol/L Carbon Dioxide 21 (21-32) mmol/L Anion Gap 7.0 (3-11) BUN 25 H (7-18) mg/dl Creatinine 1.21 H (0.6-1.2) mg/dl Est Cr Clr Drug Dosing 32.9 ml/min Est GFR ( Amer) 46.3 ml/min Est GFR (Non-Af Amer) 39.9 ml/min BUN/Creatinine Ratio 20.6 H (10-20) Glucose 171 H (70-99) mg/dl Calcium 9.0 (8.5-10.1) mg/dl Total Bilirubin 3.9 H (0.2-1) mg/dl AST 45 H (15-37) U/L ALT 33 (12-78) Alkaline Phosphatase 120 H (45-117) U/L Troponin I 0.027 (0-0.045) ng/ml Total Protein 6.0 L (6.4-8.2) gm/dl Albumin 2.7 L (3.4-5.0) gm/dl Globulin 3.3 (2.5-4.0) gm/dl Albumin/Globulin Ratio 0.8 L (0.9-2) SARS-CoV-2, RNA, NAAT (NEGATIVE) 10/12/21 Range/Units 11:05 WBC (4.8-10.8) K/uL RBC (4.2-5.4) M/uL Hgb (12.0-16.0) g/dL Hct (37-47) % MCV (80-100) fL MCH (25-34) pg MCHC (32-36) g/dL RDW Std Deviation (36.4-46.3) fL RDW Coeff of Jacqueline (11.5-14.5) % Plt Count (130-400) K/uL MPV (7.4-10.4) fL Immature Gran % (Auto) % Neut % (Auto) % Lymph % (Auto) % [place] % (Auto) % Eos % (Auto) % Baso % (Auto) % Neut # (Auto) (1.4-6.5) K/uL Lymph # (Auto) (1.2-3.4) K/uL [place] # (Auto) (0.11-0.59) K/uL Eos # (Auto) (0-0.5) K/uL Baso # (Auto) (0-0.2) K/uL Immature Gran # (Auto) (0.00-0.02) K/uL Platelet Estimate (Normal) RBC Morphology PT (9.0-12.0) Seconds INR (0.9-1.1) Sodium (136-145) mmol/L Potassium (3.5-5.1) mmol/L Chloride (98-107) mmol/L Carbon Dioxide (21-32) mmol/L Anion Gap (3-11) BUN (7-18) mg/dl Creatinine (0.6-1.2) mg/dl Est Cr Clr Drug Dosing ml/min Est GFR ( Amer) ml/min Est GFR (Non-Af Amer) ml/min BUN/Creatinine Ratio (10-20) Glucose (70-99) mg/dl Calcium (8.5-10.1) mg/dl Total Bilirubin (0.2-1) mg/dl AST (15-37) U/L ALT (12-78) Alkaline Phosphatase (45-117) U/L Troponin I (0-0.045) ng/ml Total Protein (6.4-8.2) gm/dl Albumin (3.4-5.0) gm/dl Globulin (2.5-4.0) gm/dl Albumin/Globulin Ratio (0.9-2) SARS-CoV-2, RNA, NAAT NEGATIVE (NEGATIVE) Administered Medications Discontinued Medications Fentanyl Citrate (Fentanyl Citrate 100 Mcg/2 Ml Vial) 50 mcg IV NOW STA Stop: 10/12/21 10:56 Last Admin: 10/12/21 11:03 Dose: 50 mcg Documented by: [id number] Imaging Data Radiologist's Impression: Abdomen/Pelvis CT 10/12/21 08:[address] WITHOUT CONTRAST CT DOSE: HISTORY: fall, back pain low platlets TECHNIQUE: Multiaxial CT images of the abdomen and pelvis were performed without contrast. A dose lowering technique was utilized adhering to the principles of ALARA. COMPARISON STUDY: Abdomen and pelvis CT 12/07/2016. FINDINGS: There is an acute fracture through the superior endplate of L4 demonstrating approximately 10% loss of height. This is not clearly extend to the posterior elements. No associated retropulsion. There is no moderate super endplate compression deformity at L1. Old, healed right pubic ring fracture. No pneumoperitoneum. No pneumatosis. There is mild motion artifact. No retroperitoneal hematoma. Small bilateral pleural effusions and patchy bibasilar densities within the lungs. This favors compressive atelectasis. The heart is mildly enlarged. Nodular contour to the unenhanced liver consistent with cirrh osis. The liver is atrophic. The spleen is enlarged measuring 16 cm in length. The adrenal glands and kidneys appear grossly unremarkable. No hydronephrosis. Medial deviation of the left kidney due to mass effect from the enlarged spleen. Multiple paraesophageal and perisplenic varicosities secondary to the cirrhosis. This likely represents portal hypertension. The unenhanced bladder is unremarkab le. There is a 2.3 cm hypodense lesion within the head of the pancreas. This previously measured 2.1 cm. Midline diastases with associated small fat- containing periumbilical hernia. Evidence for prior mesh repair of an umbilical hernia. This outpouching at the mid abdomen remains unchanged and contains a few loops of bowel. Trace pelvic free fluid. Increase in size in the right ovary which measures 4.7 x 3.1 cm. This producing measured 3.9 cm. There is a small amount of fluid surrounding the right ovary. Normal left ovary and uterus. The bladder is unremarkable. Suboptimal evaluation for bowel pathology due to the lack of intravenous and oral contrast. However, there is no definite bowel wall thickening or obstruction. Normal appendix. IMPRESSION: 1. An acute fracture through the superior endplate of L4 demonstrating approximately 10% loss of height. No associated retropulsion. 2. There is an old moderate super endplate compression fracture at L1. 3. Cirrhotic liver with evidence of portal hypertension tension demonstrated by splenomegaly and the upper abdominal/paraesophageal varicosities. 4. Small bilateral pleural effusions. 5. Increase in size in a 2.3 cm hypodense lesion within the pancreatic head. 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 6. Increase in size in the enlarged right ovary which currently measures 4.7 x 3.1 cm. This is concerning for an ovarian mass. 7. Additional findings as described above. ACT 112: Negative or not required by law. Electronically signed by: Justin Canseco M.D. 10/12/2021 10:[address] 10/12/21 08:59 CT cervical spine wo con CLINICAL HISTORY: fall TECHNIQUE: Multidetector row helical CT of the cervical spine was performed without administration of intravenous contrast. Coronal and sagittal reformations were obtained. Automated dose lowering techniques and/or adjustment according to patient size were utilized for this exam. Comparison: None available at the time of this dictation. FINDINGS: No acute fractures or subluxations are identified. The alignment is normal. Degenerative changes are seen in the visualized spine. The prevertebral soft tissues are unremarkable. IMPRESSION: No evidence of acute bony injury. ACT 112: Negative or not required by law. Electronically signed by: Nash Hinds M.D. 10/12/2021 10:[address] 10/12/21 08:59 CT chest diagnostic wo con CLINICAL HISTORY: fall, pain back low platlets TECHNIQUE: Multidetector row helical CT of the chest was performed. Coronal and sagittal reformations were obtained. Automated dose lowering techniques and/or adjustment according to patient size were utilized for this exam. Comparison: Comparison is made to CT chest 12/13/2011 FINDINGS: Lungs and pleura: Small bilateral pleural effusions are seen with underlying atelectasis. Heart and pericardium: There is cardiomegaly without evidence of pericardial effusion. Vessels: Unremarkable. Mediastinum and shellie: Unremarkable. Chest wall and lower neck: Unremarkable. Abdomen: For findings below the diaphragm, please refer to CT of the abdomen dated the same. Bones: Evaluation is limited by patient motion, however there is suggestion of multiple anterior right rib fractures involving the fourth, fifth, and sixth ribs. IMPRESSION: Limited evaluation due to patient motion, however likely nondisplaced fractures of the fourth, fifth, and sixth right ribs. ACT 112: Negative or not required by law. Electronically signed by: Nash Hinds M.D. 10/12/2021 10:[address] 10/12/21 08:[address] DOSE: HISTORY: fall, scalp lac TECHNIQUE: Multiaxial CT images of the head were performed without the use of intravenous contrast. Automated exposure control was utilized for this study. A dose lowering technique was utilized adhering to the principles of ALARA. Comparison: None. Findings: The paranasal sinuses and mastoid air cells are clear. The calvarium and skull base are intact. There is no mass, hematoma, midline shift, acute infarct. White matter hypodensity is nonspecific but suggestive of microvascular ischemic change. The ventricles and sulci demonstrate mild age-related involutional changes. Right posterior lateral scalp swelling with associated skin danny. 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 Impression: No acute intracranial abnormality. Atrophy and microvascular ischemic changes. Right posterior lateral scalp injury. ACT 112: Negative or not required by law. Electronically signed by: Justin Canseco M.D. 10/12/2021 9:[address] 10/12/21 08:59 CT lumbar spine wo con CLINICAL HISTORY: fall, back pain TECHNIQUE: Multidetector row helical CT of the lumbar spine was performed without administration of intravenous contrast. Coronal and sagittal reformations were obtained. Automated dose lowering techniques and/or adjustment according to patient size were utilized for this exam. Comparison: None available at the time of this dictation. FINDINGS: For counting purposes, the last complete intervertebral disc space is considered L5-S1. There is a mildly comminuted fracture of the superior endplate of L4. Degenerative changes are noted in the visualized spine. Vertebral body alignment is within normal limits. Surrounding soft tissues are unremarkable. IMPRESSION: Mildly comminuted acute fracture of the superior endplate of L4. No involvement of the posterior elements is seen. ACT 112: Negative or not required by law. Electronically signed by: Nash Hinds M.D. 10/12/2021 10:13 AM Discharge Plan Visit Data Chief Complaint: Fall Stated Complaint: FALL, LAC. BEHIND EAR ED Provider: Isaac Dietrich Discharge Problem: Fall, Laceration of scalp, Multiple fractures of ribs, Thrombocytopenia, Fracture of lumbar spine Patient Disposition: Being Evaluated by Hospitalist Discharge Instructions Interventions: ED Discharge Assessment Last Done: 10/12/21 13:53 Forms Stand Alone Forms: [facility] Prescriptions Prescriptions: No Action multivitamin Tablet 1 tab PO QAM RF: 0 furosemide 20 mg tablet 20 mg PO DAILY RF: 0 spironolactone 50 mg tablet 50 mg PO DAILY RF: 0 insulin aspart U-100 [Novolog Flexpen U-100 Insulin] 100 unit/mL (3 mL) insulin pen 1 sliding scale dose SUBCUT ACHS RF: 0 Lantus Solostar U-100 Insulin 100 unit/mL (3 mL) insulin pen 25 unit subcut HS RF: 0 cholecalciferol (vitamin D3) [Vitamin D3] 125 mcg (5,000 unit) Tablet 125 mcg PO DAILY RF: 0 Referrals Referrals: Juanito Mazariegos MD [Primary Care Provider] -
[2021-10-12 09:43] LABS: Hematocrit (blood only) 37.2 % (37-47); Hemoglobin 12.4 g/dL (12.0-16.0); Mean Corpuscular Hemoglobin 32.6 pg (25-34); Mean Corpuscular Hgb Conc 33.3 g/dL (32-36); Mean Corpuscular Volume 97.9 fL (80-100); Mean Platelet Volume 13.4 fL (7.4-10.4); Platelet Count 31 K/uL (130-400); RDW Coefficient of Variation 15.2 % (11.5-14.5); RDW Standard Deviation 54.6 fL (36.4-46.3); White Blood Count 3.45 K/uL (4.8-10.8)
[2021-10-12 09:44] LABS: Eosinophils # (auto) 0.02 K/uL (0-0.5); Eosinophils % (auto) 0.6 %; Lymphocytes # (auto) 0.31 K/uL (1.2-3.4); Monocytes % (auto) 5.8 %; Neutrophils # (auto) 2.92 K/uL (1.4-6.5); Neutrophils % (auto) 84.6 %; Platelet Estimate SIGNIFIC DECREASED (Normal); RBC Morphology Unremarkable
[2021-10-12 09:47] LABS: Albumin Level 2.7 gm/dl (3.4-5.0); BUN Creatinine Ratio 20.6 (10-20); Creatinine Clr Calc Pharmacy 32.9 ml/min; Est GFR (African American) 46.3 ml/min; Est GFR (Non-African American) 39.9 ml/min; Potassium 5.1 mmol/L (3.5-5.1)
[2021-10-12 09:52] LABS: Albumin Globulin Ratio 0.8 (0.9-2); Bilirubin,Total 3.9 mg/dl (0.2-1); Globulin 3.3 gm/dl (2.5-4.0); Troponin I 0.027 ng/ml (0-0.045)
--- NOTE | 2021-10-12 10:01 | CT Scan Report ---
HEAD CT NONCONTRAST CT DOSE: HISTORY: fall, scalp lac TECHNIQUE: Multiaxial CT images of the head were performed without the use of intravenous contrast. A utomated exposure control was utilized for this study. A dose lowering technique was utilized adheri ng to the principles of ALARA. Comparison: None. Findings: The paranasal sinuses and mastoid air cells are clear. The calvarium and skull base are int act. There is no mass, hematoma, midline shift, acute infarct. White matter hypodensity is nonspecifi c but suggestive of microvascular ischemic change. The ventricles and sulci demonstrate mild age-rela kaitlin involutional changes. Right posterior lateral scalp swelling with associated skin danny. 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 Impression: No acute intracranial abnormality. Atrophy and microvascular ischemic changes. Right posterior latera l scalp injury. ACT 112: Negative or not required by law. Electronically signed by: Justin Canseco M.D. 10/12/2021 9:59 AM
--- NOTE | 2021-10-12 10:06 | CT Scan Report ---
CT cervical spine wo con CLINICAL HISTORY: fall TECHNIQUE: Multidetector row helical CT of the cervical spine was performed without administration of intravenous contrast. Coronal and sagittal reformations were obtained. Automated dose lowering techn iques and/or adjustment according to patient size were utilized for this exam. Comparison: None available at the time of this dictation. FINDINGS: No acute fractures or subluxations are identified. The alignment is normal. Degenerative changes are seen in the visualized spine. The prevertebral soft tissues are unremarkable. IMPRESSION: No evidence of acute bony injury. ACT 112: Negative or not required by law. Electronically signed by: Nash Hinds M.D. 10/12/2021 10:05 AM
--- NOTE | 2021-10-12 10:13 | CT Scan Report ---
ABDOMEN AND PELVIS CT WITHOUT CONTRAST CT DOSE: HISTORY: fall, back pain low platlets TECHNIQUE: Multiaxial CT images of the abdomen and pelvis were performed without contrast. A dose lo wering technique was utilized adhering to the principles of ALARA. COMPARISON STUDY: Abdomen and pelvis CT 12/07/2016. FINDINGS: There is an acute fracture through the superior endplate of L4 demonstrating approximately 10% loss of height. This is not clearly extend to the posterior elements. No associated retropulsion. There is no moderate super endplate compression deformity at L1. Old, healed right pubic ring fractu re. No pneumoperitoneum. No pneumatosis. There is mild motion artifact. No retroperitoneal hematoma. Small bilateral pleural effusions and patchy bibasilar densities within the lungs. This favors compre ssive atelectasis. The heart is mildly enlarged. Nodular contour to the unenhanced liver consistent w ith cirrhosis. The liver is atrophic. The spleen is enlarged measuring 16 cm in length. The adrenal g lands and kidneys appear grossly unremarkable. No hydronephrosis. Medial deviation of the left kidney due to mass effect from the enlarged spleen. Multiple paraesophageal and perisplenic varicosities se condary to the cirrhosis. This likely represents portal hypertension. The unenhanced bladder is unrem arkable. There is a 2.3 cm hypodense lesion within the head of the pancreas. This previously measured 2.1 cm. Midline diastases with associated small fat-containing periumbilical hernia. Evidence for pr ior mesh repair of an umbilical hernia. This outpouching at the mid abdomen remains unchanged and con tains a few loops of bowel. Trace pelvic free fluid. Increase in size in the right ovary which measur es 4.7 x 3.1 cm. This producing measured 3.9 cm. There is a small amount of fluid surrounding the rig ht ovary. Normal left ovary and uterus. The bladder is unremarkable. Suboptimal evaluation for bowel pathology due to the lack of intravenous and oral contrast. However, there is no definite bowel wall thickening or obstruction. Normal appendix. IMPRESSION: 1. An acute fracture through the superior endplate of L4 demonstrating approximately 10% loss of heig ht. No associated retropulsion. 2. There is an old moderate super endplate compression fracture at L1. 3. Cirrhotic liver with evidence of portal hypertension tension demonstrated by splenomegaly and the upper abdominal/paraesophageal varicosities. 4. Small bilateral pleural effusions. 5. Increase in size in a 2.3 cm hypodense lesion within the pancreatic head. 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 6. Increase in size in the enlarged right ovary which currently measures 4.7 x 3.1 cm. This is concer jordan for an ovarian mass. 7. Additional findings as described above. ACT 112: Negative or not required by law. Electronically signed by: Justin Canseco M.D. 10/12/2021 10:12 AM
--- NOTE | 2021-10-12 10:14 | CT Scan Report ---
CT lumbar spine wo con CLINICAL HISTORY: fall, back pain TECHNIQUE: Multidetector row helical CT of the lumbar spine was performed without administration of i ntravenous contrast. Coronal and sagittal reformations were obtained. Automated dose lowering techniq ues and/or adjustment according to patient size were utilized for this exam. Comparison: None available at the time of this dictation. FINDINGS: For counting purposes, the last complete intervertebral disc space is considered L5-S1. There is a mildly comminuted fracture of the superior endplate of L4. Degenerative changes are noted in the visualized spine. Vertebral body alignment is within normal limits. Surrounding soft tissues a re unremarkable. IMPRESSION: Mildly comminuted acute fracture of the superior endplate of L4. No involvement of the posterior [place] ents is seen. ACT 112: Negative or not required by law. Electronically signed by: Nash Hinds M.D. 10/12/2021 10:13 AM
--- NOTE | 2021-10-12 10:37 | CT Scan Report ---
CT chest diagnostic wo con CLINICAL HISTORY: fall, pain back low platlets TECHNIQUE: Multidetector row helical CT of the chest was performed. Coronal and sagittal reformations were obtained. Automated dose lowering techniques and/or adjustment according to patient size were u tilized for this exam. Comparison: Comparison is made to CT chest 12/13/2011 FINDINGS: Lungs and pleura: Small bilateral pleural effusions are seen with underlying atelectasis. Heart and pericardium: There is cardiomegaly without evidence of pericardial effusion. Vessels: Unremarkable. Mediastinum and shellie: Unremarkable. Chest wall and lower neck: Unremarkable. Abdomen: For findings below the diaphragm, please refer to CT of the abdomen dated the same. Bones: Evaluation is limited by patient motion, however there is suggestion of multiple anterior righ t rib fractures involving the fourth, fifth, and sixth ribs. IMPRESSION: Limited evaluation due to patient motion, however likely nondisplaced fractures of the fourth, fifth, and sixth right ribs. ACT 112: Negative or not required by law. Electronically signed by: Nash Hinds M.D. 10/12/2021 10:36 AM
[2021-10-12] MEDS ORDERED: fentaNYL citrate 100 MCG/2 ML VIAL IV STA (10:55)
--- NOTE | 2021-10-12 12:37 | History & Physical Report ---
Date of Service October 12, 2021 Assessment & Plan (1) Fall: Plan: Patient will be admitted to the hospital proceeding as follows: From the patient's description it appears that the patient's fall was merely mechanical While she is in the hospital we will get PT and OT evaluations We will involve discharge planning as patient resides alone and she may benefit from rehab of some type. This will be dependent on patient's PT and OT evaluations (2) Rib fractures: Plan: I have counseled the patient on the use of her incentive spirometry. We will implement pain control measures so that patient can adequately take deep breaths We will repeat a chest x-ray in the morning to ensure she does not develop a pleural effusion (3) Compression fracture of L4 vertebra: Plan: Will implement pain control measures (4) Ovarian mass: Plan: We will check a Ca1 25 with further recommendations to follow based on the results of this (5) Thrombocytopenia: Plan: There is no signs of active bleeding at this time so we will follow serial labs The patient's records were reviewed and she does have a history of hepatic fibrosis, esophageal varices, and thrombocytopenia. Plan: I discussed CODE STATUS with the patient and she notes she wishes to be a level 1 full code We will use SCDs for DVT prevention. We will not use chemical means at this time due to her thrombocytopenia and recent fall. History of Present Illness Chief Complaint: "I fell and injured myself." Primary Care Provider: Juanito Mazariegos MD This is an 89-year-old female who resides at [facility] in the [facility]. Patient notes that she administers all her medicines and prepares her own meals. She says that she was carrying a laundry basket earlier today when she tripped and fell against a wall. After the fall a picture fell from the wall and struck her on the head. Prior to falling the patient denied any chest pain, shortness of breath, lightheadedness, or dizziness. Patient sa ys that she did not lose consciousness at any time. She was ultimately brought to the [facility] emergency department for further evaluation. In the emergency department the patient had labs and imaging which independent reviewed. A CBC showed a white blood cell count was 3.4. Her hemoglobin and hematocrit are both noted to be normal. Platelet count was noted to be 31,000. Chemistry profile showed her sodium and potassium were both noted be within normal range. Her BUN and creatinine were both slightly elevated at 25 and 1.2. Patient was noted to have some elevation of her LFTs with a bilirubin of 3.9, and AST of 45, and an alkaline phosphatase of 120. His ALT was noted to be normal. Cardiac enzymes were checked and were noted to be negative. Did have an EKG that was initially showed a concern for junctional rhythm. This however was repeated and it appeared patient was in a sinus rhythm. A Covid test was performed and was noted to be negative. An abdominal CT scan did show the patient had an acute fracture of the L4 superior endplate. There is no retropulsion of this study. Patient was noted to have a cirrhotic liver with evidence of portal hypertension and splenomegaly. She had small bilateral pleural effusions. 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 Patient was also noted to have an enlarged right ovary measuring 4.7 x 3.1 cm concerning for a mass. A cervical spine CT scan showed no evidence of acute bony injuries or subluxations. CT scan of the chest showed the patient did have fractures that were nondisplaced of the right fourth, fifth, and sixth ribs. CT scan of the head showed no acute intracranial abnormalities or intracranial bleed. There is a right posterior s calp injury noted. Lumbar spine CT scan again noted the superior endplate L4 fracture as noted previously. Visit with the patient at bedside and currently she says her pain is well controlled. She denies any headache. She denies any nausea or vomiting. She denies any blurry or double vision. She denies any shortness of breath. She does note occasional pleuritic chest pain on the right side near her rib fractures with deep inspiration. She denies any abdominal pain. She denies any pain in her arms or legs. Since admission to the emergency department she has had a right posterior scalp laceration repaired by the treating emergency room physician.She has been given 50 mcg of fentanyl for pain control which seems to be effective. At the time of my interview she was resting comfortably in bed in no distress. Allergies Allergy/AdvReac Type Severity Reaction Status Date / Time shellfish derived Allergy Severe ANAPHYLAXIS Verified 10/12/21 10:00 AGGIE Inhibitors AdvReac Mild Cough Unverified 10/12/21 10:00 alendronate sodium AdvReac Unknown dizziness Verified 10/12/21 10:00 ALL CREATURES THAT LIVE IN Allergy Severe ANAPHYLAXIS Uncoded 10/12/21 10:00 WATER Home Medications Medication Instructions Recorded Confirmed Type cholecalciferol (vitamin D3) 125 125 mcg PO DAILY 10/12/21 10/12/21 History mcg (5,000 unit) tablet (Vitamin D3) furosemide 20 mg tablet 20 mg PO DAILY 10/12/21 10/12/21 History insulin aspart U-100 100 unit/mL 1 sliding scale dose SUBCUT ACHS 10/12/21 10/12/21 History (3 mL) subcutaneous pen (Novolog Flexpen U-100 Insulin aspart) insulin glargine 100 unit/mL (3 25 unit SUBCUT HS 10/12/21 10/12/21 History mL) subcutaneous pen (Lantus Solostar U-100 Insulin) multivitamin 1 tab PO QAM 10/12/21 10/12/21 History spironolactone 50 mg tablet 50 mg PO DAILY 10/12/21 10/12/21 History cephalexin 750 mg capsule (Keflex) 750 mg PO BID 3 Days #6 cap 10/14/21 Rx Past Med/Surg History Social History Smoking Status: Never smoker Second Hand Exposure: No; Hx Alcohol Use: No Hx Substance Use: No Preferred Language: Grenadian Communication Ability: Effective 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 Beliefs That Will Affect Care: None Current Living Situation: Spouse Current Living Situation Comment: [facility] independent living Feels Safe at Home: Yes Assistive Devices: Walker Review of Systems Constitutional: no fever, no chills and no weakness Eyes: + corrective lenses; no diplopia Ear, Nose, Mouth, Throat: no ear pain, no tinnitus and no sore throat Respiratory: + pain on inspiration; no cough and no dyspnea Cardiovascular: no chest pain and no syncope Gastrointestinal: no abdominal pain, no nausea and no vomiting Genitourinary: no dysuria Musculoskeletal: + back pain Integumentary: no rash Neurologic: no localized weakness, no dizziness and no abnormal speech Physical Exam Constitutional: well developed and well nourished; no acute distress Eyes: PERRL, conjunctivae normal, anicteric sclerae no conjunctival abnormality ENMT: Ears: no hearing impairment and no external ear abnormality Mouth: no oropharynx abnormality Neck: trachea midline Cervical spine is nontender to palpation Respiratory: Lungs are slightly decreased at the bases. Respiratory effort is limited due to pain from rib fractures. No wheezing noted. No use of accessory muscles noted. Cardiovascular: Rate/Rhythm: regular rate and regular rhythm Gastrointestinal (Abdomen): Soft, nontender, nondistended. There is no ecchymosis on the patient's abdominal wall Musculoskeletal: No calf tenderness. 1+ lower extremity edema noted bilaterally Skin: no rashes Neurologic: moves all extremities Psychiatric: A+Ox3, euthymic affect Results & Data Results & Data ([facility]) Vital Signs (Past 12 Hours) Vital Signs Temp Pulse Pulse Resp BP BP Pulse Ox 10/12/21 12:00 96 H 28 H 90 10/12/21 11:50 93 H 27 H 97 10/12/21 11:40 94 H 23 98 10/12/21 11:30 95 H 24 95 10/12/21 11:20 68 20 94 10/12/21 11:10 70 20 92 10/12/21 11:04 70 26 H 148/72 H 97 10/12/21 11:00 93 H 30 H 95 10/12/21 10:50 92 H 22 98 10/12/21 10:40 66 29 H 96 10/12/21 10:30 92 H 45 H 97 10/12/21 10:20 65 21 95 10/12/21 10:10 95 H 24 97 10/12/21 10:00 92 H 65 23 140/68 140/68 98 10/12/21 09:50 70 28 H 90 10/12/21 09:48 70 47 H 97 10/12/21 09:30 93 H 35 H 99 10/12/21 09:20 94 H 26 H 99 10/12/21 09:13 94 H 25 H 10/12/21 09:08 94 H 24 94 10/12/21 08:46 36.5 C 70 18 170/50 H 97 10/12/21 08:43 70 24 170/50 H 98 Supervising Physician Co-Signing Physician Notes I personally saw and examined the patient. I verified all rios points and agree with Lawson Figueroa PA-C with the following exceptions and/or additions: Labs, EKG and imaging was independently reviewed 89 year old female admission for a mechanical fall. Rib fractures as above following the fall. O/E no acute distress, right sided chest pain on palpation over concerning site for rib fractures on imaging, abdomen SNT A/P Rib fractures - incentive spirometry, pain management L4 compression fracture - PT/OT evals Liver cirrhosis - suspected based on thrombocytopenia, bilirubin, elevated INR and imaging. MELD score 16, 6.0% 3-month mortality - this does not appear to be acute but patient did not have any knowledge of this. Consider outpatient GI follow up. No ductal dilatation on CT or abdominal pain on exam. Repeat CMP in AM Otherwise plan as above PG Care Time/CCT Total # of Minutes Spent Total Time Spent with Patient: Total time spent is greater than 50% in coordination of care (as documented) at patient's floor/unit and/or counseling patient: Coding Level of Care Code 38408 Initial Inpt Care Lvl 3 Diagnoses Fall W19.XXXA Encounter type: initial encounter Rib fractures S22.49XA Compression fracture of L4 vertebra S32.040A Ovarian mass N83.8 Thrombocytopenia D69.6 (1) Fall Encounter type: initial encounter Qualified Code(s): W19.XXXA - Unspecified fall, initial encounter
[2021-10-12 12:41] LABS: INR 1.4 (0.9-1.1)
[2021-10-12] MEDS ORDERED: ACETAMINOPHEN 1,000 MG/100 ML VIAL IV SCH (16:17)
[2021-10-12] MEDS ORDERED: GLUCAGON FOR INJ 1 MG VIAL IM PRN (17:00)
[2021-10-12] MEDS ORDERED: DEXTROSE 50% 50 ML SYRINGE IV PRN (17:00)
[2021-10-12] MEDS ORDERED: GLUCOSE 40% GEL 15 GM TUBE PO PRN (17:00)
[2021-10-12] MEDS ORDERED: GLUCOSE 10 TABS/TUBE PO PRN (17:00)
[2021-10-12] MEDS ORDERED: CARBOHYDRATES FOR HYPOGLYCEMIA PO PRN (17:00)
[2021-10-12] MEDS: oxyCODONE HCL IR 5 MG TAB (IMMEDIATE RELEASE) PO PRN (18:21)
[2021-10-12] MEDS: INSULIN GLARGINE SOLOSTAR 100 UNITS/ML 3 ML PEN SQ SCH (21:51)
[2021-10-12] MEDS: ACETAMINOPHEN 500 MG TAB PO SCH (21:53)
[2021-10-13] MEDS: INSULIN HUMAN REGULAR SC SCH ×6 (03:33→22:12)
--- NOTE | 2021-10-13 06:16 | Electrocardiogram Report ---
Test Reason : Blood Pressure : / mmHG Vent. Rate : 095 BPM Atrial Rate : 234 BPM P-R Int : 000 ms QRS Dur : 090 ms QT Int : 370 ms P-R-T Axes : 000 -12 106 degrees QTc Int : 464 ms Accelerated Junctional rhythm with occasional Premature ventricular complexes Septal infarct , age undetermined T wave abnormality, consider lateral ischemia Abnormal ECG When compared with ECG of 04-DEC-2016 17:47, Junctional rhythm has replaced Sinus rhythm QRS duration has increased Septal infarct is now Present Premature ventricular complexes are now Present Confirmed by Jovan Cifuentes ([id number]) on 10/13/2021 6:16:25 AM Referred By: REFERRED SELF Confirmed By:Jovan Cifuentes
[2021-10-13 07:35] LABS: Albumin Globulin Ratio 0.8 (0.9-2); Albumin Level 2.4 gm/dl (3.4-5.0); BUN Creatinine Ratio 24.3 (10-20); Bilirubin,Total 5.1 mg/dl (0.2-1); Creatinine Clr Calc Pharmacy 28.3 ml/min; Est GFR (African American) 42.8 ml/min; Est GFR (Non-African American) 36.9 ml/min; Globulin 2.9 gm/dl (2.5-4.0); Potassium 4.8 mmol/L (3.5-5.1); Total Protein 5.3 gm/dl (6.4-8.2)
[2021-10-13 07:37] LABS: Hematocrit (blood only) 34.1 % (37-47); Hemoglobin 11.5 g/dL (12.0-16.0); Mean Corpuscular Hemoglobin 32.2 pg (25-34); Mean Corpuscular Hgb Conc 33.7 g/dL (32-36); Mean Corpuscular Volume 95.5 fL (80-100); Mean Platelet Volume 12.5 fL (7.4-10.4); Platelet Count 27 K/uL (130-400); RDW Coefficient of Variation 15.1 % (11.5-14.5); RDW Standard Deviation 52.9 fL (36.4-46.3); Red Blood Count 3.57 M/uL (4.2-5.4); White Blood Count 5.36 K/uL (4.8-10.8)
[2021-10-13 07:38] LABS: Eosinophils # (auto) 0.07 K/uL (0-0.5); Eosinophils % (auto) 1.3 %; Lymphocytes % (auto) 11.2 %; Monocytes # (auto) 0.49 K/uL (0.11-0.59); Monocytes % (auto) 9.1 %; Neutrophils % (auto) 78.4 %; Platelet Estimate SIGNIFIC DECREASED (Normal)
[2021-10-13] MEDS ORDERED: SODIUM CHLORIDE 0.9% 250 ML IV PRN (07:53)
[2021-10-13 08:34] LABS: Appearance Urine Clear (Clear); Bacteria Urine Automated Negative (Negative); Bilirubin Urine 1+ (Negative); Blood Urine 2+ (Negative); Color Urine Orange; Epithelial Cell Urine Auto >30 /lpf (0-5); Glucose Urine UA Negative (Negative); Ketones Urine Trace (Negative); Leukocyte Esterase Urine Trace (Negative); Nitrite Urine Positive (Negative); Protein Urine Negative (Negative); RBC Urine Automated 0-4 /hpf (0-4); Urobilinogen Urine Negative (Negative)
--- NOTE | 2021-10-13 09:16 | XRay Report ---
XR chest 2V PA/lateral CLINICAL HISTORY: Follow-up rib fractures. Chest pain. COMPARISON STUDY: CT chest from 10/12/2021 TECHNIQUE: 2 views of the chest FINDINGS: Frontal and lateral radiographs of the chest demonstrates the heart to be enlarged. The lungs are radha ar of alveolar opacities. There are small bilateral pleural effusions seen. There is no evidence for vascular congestion. Left-sided rib fractures identified on CT are not well seen radiographically. Th ere is no other acute osseous pathology. IMPRESSION: Left-sided rib fracture not well seen radiographically. There are small bilateral pleural effusions. ACT 112: Negative or not required by law. Electronically signed by: Son Nugent M.D. 10/13/2021 9:14 AM
[2021-10-13] MEDS: ACETAMINOPHEN 500 MG TAB PO SCH ×2 (09:29→22:11)
[2021-10-13] MEDS: FUROSEMIDE 20 MG TAB PO SCH (09:30)
[2021-10-13] MEDS: MULTIVITAMIN TAB PO SCH (09:30)
[2021-10-13] MEDS: SPIRONOLACTONE 25 MG TAB PO SCH (09:30)
[2021-10-13] MEDS: CHOLECALCIFEROL 5,000 UNITS 125 MCG TAB PO SCH (09:31)
[2021-10-13] MEDS: LIDOCAINE 5% 1 PATCH TD SCH (09:31)
[2021-10-13] MEDS ORDERED: cefTRIAXone SODIUM 1,000 MG in DEXTROSE 5% 50 ML IV SCH (11:45)
[2021-10-13] MEDS ORDERED: cefTRIAXone SODIUM 2,000 MG in DEXTROSE 5% 50 ML IV SCH (13:00)
--- NOTE | 2021-10-13 13:33 | Orthopedic Consultation ---
Date of Consultation October 13, 2021 Assessment & Plan (1) Compression fracture of L4 vertebra: At this time we will continue to recommend activity as tolerated. I have ordered an LSO brace to be worn to assist in pain control when out of bed. If this compresses her ribs to a great extent and causes pain she does not need to wear it. At this point she is improving appropriately and I suspect she would not require any surgical invention. History of Present Illness Reason for Consultation: L4 compression fracture Attending Physician: Carmen Yun MD History of Present Illness This is a very pleasant 89-year-old female presents status post fall. She sustained both rib fractures and L4 compression fracture. She states that her pain is in across the lumbosacral junction. He denies any numbness or tingling down the legs. She does describe numbness in her feet that has been present for over a year. She states she is already been up and ambulating the halls with relative comfort. Allergies Allergy/AdvReac Type Severity Reaction Status Date / Time shellfish derived Allergy Severe ANAPHYLAXIS Verified 10/12/21 10:00 AGGIE Inhibitors AdvReac Mild Cough Unverified 10/12/21 10:00 alendronate sodium AdvReac Unknown dizziness Verified 10/12/21 10:00 ALL CREATURES THAT LIVE IN Allergy Severe ANAPHYLAXIS Uncoded 10/12/21 10:00 WATER Home Medications Medication Instructions Recorded Confirmed Type cholecalciferol (vitamin D3) 125 125 mcg PO DAILY 10/12/21 10/12/21 History mcg (5,000 unit) tablet (Vitamin D3) furosemide 20 mg tablet 20 mg PO DAILY 10/12/21 10/12/21 History insulin aspart U-100 100 unit/mL 1 sliding scale dose SUBCUT ACHS 10/12/21 10/12/21 History (3 mL) subcutaneous pen (Novolog Flexpen U-100 Insulin aspart) insulin glargine 100 unit/mL (3 25 unit SUBCUT HS 10/12/21 10/12/21 History mL) subcutaneous pen (Lantus Solostar U-100 Insulin) multivitamin 1 tab PO QAM 10/12/21 10/12/21 History spironolactone 50 mg tablet 50 mg PO DAILY 10/12/21 10/12/21 History Patient History Social History Smoking Status: Never smoker Second Hand Exposure: No; Do You Dip or Chew Tobacco: No; Tobacco Cessation Education Requested by Patient: No Hx Alcohol Use: No Hx Substance Use: No Preferred Language: Korean Communication Ability: Effective Communication Ability Comment: hard of hearing Roof Tile Layer Required: No Beliefs That Will Affect Care: None Current Living Situation: Spouse Current Living Situation Comment: [address] independent living Feels Safe at Home: Yes Assistive Devices: None Physical Exam Physical Exam: On exam this time she is in bed. She exhibits good strength testing lower extremities. Sensory is intact. She appears comfortable. Results & Data ([facility]) Vital Signs (Past 12 Hours) Vital Signs Temp Pulse Pulse Resp BP BP Pulse Ox 10/13/21 12:36 36.7 C 69 18 159/72 H 96 10/13/21 12:19 36.8 C 69 16 153/68 H 95 10/13/21 11:42 36.8 C 65 18 155/68 H 97 10/13/21 11:35 36.8 C 65 18 155/68 H 97 10/13/21 11:05 36.4 C L 70 18 174/64 H 95 10/13/21 10:50 37.1 C 71 18 150/69 H 10/13/21 10:47 37.1 C 71 18 150/69 H 10/13/21 10:40 36.7 C 72 18 157/57 H 10/13/21 07:09 36.6 C 73 14 147/81 H 93 10/13/21 04:08 36.6 C 66 18 127/67 93
--- NOTE | 2021-10-13 14:49 | Electrocardiogram Report ---
Test Reason : Blood Pressure : / mmHG Vent. Rate : 073 BPM Atrial Rate : 073 BPM P-R Int : 190 ms QRS Dur : 090 ms QT Int : 380 ms P-R-T Axes : 060 -14 100 degrees QTc Int : 418 ms Normal sinus rhythm Left ventricular hypertrophy with repolarization abnormality Cannot rule out Septal infarct (cited on or before 12-OCT-2021) Abnormal ECG When compared with ECG of 12-OCT-2021 09:08, (unconfirmed) Sinus rhythm has replaced Junctional rhythm QT has shortened Confirmed by Wily Cerda ([id number]) on 10/13/2021 2:48:40 PM Referred By: REFERRED SELF Confirmed By:Wily Cerda
--- NOTE | 2021-10-13 15:37 | Hospitalist Progress Note ---
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 Physical Exam Physical Exam: The patient is awake, alert and oriented 3, well developed and well nourished, normocephalic and atraumatic, lying in bed and in no acute distress. HEENT--PERRL, EOMI, mucous membranes and oropharynx mildly dry Neck--supple. No JVD. No bruits. Thyroid normal, trachea midline, no adenopathy. Heart--normal S1 and S2. No murmurs, rubs or gallops. Lungs--clear bilaterally, no respiratory distress, no accessory muscle use. Abdomen--normal bowel sounds and soft. Mild epigastric and left sided abdominal pain Extremities--no cyanosis or clubbing. No edema. Dermatologic--normal skin turgor, normal color, no abnormal lymph nodes, no rash. Neurologic--cranial nerves II through XII grossly intact. Rheumatologic--normal range of motion. Psychiatric--normal affect. Results & Data Results & Data ([facility]) Vital Signs (Past 12 Hours) Vital Signs Temp Pulse Pulse Resp BP BP Pulse Ox 10/13/21 14:53 10/13/21 12:36 98.1 F 69 18 159/72 H 96 10/13/21 12:19 98.2 F 69 16 153/68 H 95 10/13/21 11:42 98.2 F 65 18 155/68 H 97 10/13/21 11:35 98.2 F 65 18 155/68 H 97 10/13/21 11:05 97.5 F L 70 18 174/64 H 95 10/13/21 10:50 98.8 F 71 18 150/69 H 10/13/21 10:47 98.8 F 71 18 150/69 H 10/13/21 10:40 98.1 F 72 18 157/57 H 10/13/21 07:09 97.9 F 73 14 147/81 H 93 10/13/21 04:08 97.9 F 66 18 127/67 93 Pulse Ox Pulse Ox 10/13/21 14:53 97 94 10/13/21 12:36 10/13/21 12:19 10/13/21 11:42 10/13/21 11:35 10/13/21 11:05 10/13/21 10:50 10/13/21 10:47 10/13/21 10:40 10/13/21 07:09 10/13/21 04:08 Laboratory Results Laboratory Results - last 24 hr 10/12/21 10/12/21 10/13/21 09:15 20:50 06:38 WBC 5.36 RBC 3.57 L Hgb 11.5 L Hct 34.1 L MCV 95.5 MCH 32.2 MCHC 33.7 RDW Std Deviation 52.9 H RDW Coeff of Jacqueline 15.1 H Plt Count 27 L* MPV 12.5 H Immature Gran % (Auto) 0.0 Neut % (Auto) 78.4 Lymph % (Auto) 11.2 Fountain % (Auto) 9.1 Eos % (Auto) 1.3 Baso % (Auto) 0.0 Neut # (Auto) 4.20 Lymph # (Auto) 0.60 L Fountain # (Auto) 0.49 Eos # (Auto) 0.07 Baso # (Auto) 0.00 Immature Gran # (Auto) 0.00 Platelet Estimate SIGNIFIC DECREASED Sodium Potassium Chloride Carbon Dioxide Anion Gap BUN Creatinine Est Cr Clr Drug Dosing Est GFR ( Amer) Est GFR (Non-Af Amer) BUN/Creatinine Ratio Glucose POC Glucose 178 H Calcium Total Bilirubin AST ALT Alkaline Phosphatase Total Protein Albumin Globulin Albumin/Globulin Ratio CA 125 Antigen 246 H Urine Color Urine Appearance Urine pH Ur Specific [place] Urine Protein Urine Glucose (UA) Urine Ketones Urine Blood Urine Nitrite Urine Bilirubin Urine Urobilinogen Ur Leukocyte Esterase Urine WBC (Auto) Urine RBC (Auto) U Hyaline Cast (Auto) U Epithel Cells (Auto) Urine Bacteria (Auto) Blood Type Antibody Screen 10/13/21 10/13/21 10/13/21 06:38 08:05 08:11 WBC RBC Hgb Hct MCV MCH MCHC RDW Std Deviation RDW Coeff of Jacqueline Plt Count MPV Immature Gran % (Auto) Neut % (Auto) Lymph % (Auto) [place]ountain % (Auto) Eos % (Auto) Baso % (Auto) Neut # (Auto) Lymph # (Auto) Fountain # (Auto) Eos # (Auto) Baso # (Auto) Immature Gran # (Auto) Platelet Estimate Sodium 139 Potassium 4.8 Chloride 111 H Carbon Dioxide 23 Anion Gap 5.0 BUN 31 H Creatinine 1.29 H Est Cr Clr Drug Dosing 28.3 Est GFR ( Amer) 42.8 Est GFR (Non-Af Amer) 36.9 BUN/Creatinine Ratio 24.3 H Glucose 115 H POC Glucose 102 H Calcium 9.0 Total Bilirubin 5.1 H AST 30 ALT 27 Alkaline Phosphatase 90 Total Protein 5.3 L Albumin 2.4 L Globulin 2.9 Albumin/Globulin Ratio 0.8 L CA 125 Antigen Urine Color [place] Urine Appearance Clear Urine pH 5.0 Ur Specific [place] 1.020 Urine Protein Negative Urine Glucose (UA) Negative Urine Ketones Trace H Urine Blood 2+ H Urine Nitrite Positive A Urine Bilirubin 1+ H Urine Urobilinogen Negative Ur Leukocyte Esterase Trace H Urine WBC (Auto) 1-5 Urine RBC (Auto) 0-4 U Hyaline Cast (Auto) 1-5 U Epithel Cells (Auto) >30 H Urine Bacteria (Auto) Negative Blood Type Antibody Screen 10/13/21 10/13/21 08:18 12:34 WBC RBC Hgb Hct MCV MCH MCHC RDW Std Deviation RDW Coeff of Jacqueline Plt Count MPV Immature Gran % (Auto) Neut % (Auto) Lymph % (Auto) [place] % (Auto) Eos % (Auto) Baso % (Auto) Neut # (Auto) Lymph # (Auto) [place] # (Auto) Eos # (Auto) Baso # (Auto) Immature Gran # (Auto) Platelet Estimate Sodium Potassium Chloride Carbon Dioxide Anion Gap BUN Creatinine Est Cr Clr Drug Dosing Est GFR ( Amer) Est GFR (Non-Af Amer) BUN/Creatinine Ratio Glucose POC Glucose 167 H Calcium Total Bilirubin AST ALT Alkaline Phosphatase Total Protein Albumin Globulin Albumin/Globulin Ratio CA 125 Antigen Urine Color Urine Appearance Urine pH Ur Specific [place] Urine Protein Urine Glucose (UA) Urine Ketones Urine Blood Urine Nitrite Urine Bilirubin Urine Urobilinogen Ur Leukocyte Esterase Urine WBC (Auto) Urine RBC (Auto) U Hyaline Cast (Auto) U Epithel Cells (Auto) Urine Bacteria (Auto) Blood Type O Negative Antibody Screen NEGATIVE PG Care Time/CCT Total # of Minutes Spent Total Time Spent with Patient: Total time spent is greater than 50% in coordination of care (as documented) at patient's floor/unit and/or counseling patient: Coding Level of Care Code 03567 Subseq Hosp Care Lvl 2 Diagnoses Multiple fractures of ribs S22.41XA Encounter type: initial encounter Fracture type: closed Laterality: right Fracture of lumbar spine S32.048A Encounter type: initial encounter Fracture morphology: other fracture Fracture type: closed Lumbar vertebra fracture level: L4 Thrombocytopenia D69.6 Ovarian mass N83.8 Laceration of scalp S01.01XA Encounter type: initial encounter UTI (urinary tract infection) N39.0 (1) Multiple fractures of ribs Encounter type: initial encounter Fracture type: closed Laterality: right Qualified Code(s): S22.41XA - Multiple fractures of ribs, right side, initial encounter for closed fracture (2) Fracture of lumbar spine Encounter type: initial encounter Fracture morphology: other fracture Fracture type: closed Lumbar vertebra fracture level: L4 Qualified Code(s): S32.048A - Other fracture of fourth lumbar vertebra, initial encounter for closed fracture (3) Laceration of scalp Encounter type: initial encounter Qualified Code(s): S01.01XA - Laceration without foreign body of scalp, initial encounter
[2021-10-13] MEDS: oxyCODONE HCL IR 5 MG TAB (IMMEDIATE RELEASE) PO PRN (17:50)
[2021-10-13] MEDS: INSULIN GLARGINE SOLOSTAR 100 UNITS/ML 3 ML PEN SQ SCH (22:12)
[2021-10-14 09:29] LABS: Hematocrit (blood only) 36.2 % (37-47); Hemoglobin 12.5 g/dL (12.0-16.0); Mean Corpuscular Hemoglobin 32.9 pg (25-34); Mean Corpuscular Hgb Conc 34.5 g/dL (32-36); Mean Corpuscular Volume 95.3 fL (80-100); Mean Platelet Volume 12.8 fL (7.4-10.4); Platelet Count 37 K/uL (130-400); Platelet Estimate SIGNIFIC DECREASED (Normal); RDW Coefficient of Variation 14.9 % (11.5-14.5); RDW Standard Deviation 51.9 fL (36.4-46.3); White Blood Count 7.17 K/uL (4.8-10.8)
[2021-10-14] MEDS: ACETAMINOPHEN 500 MG TAB PO SCH (09:33)
[2021-10-14] MEDS: INSULIN HUMAN REGULAR SC SCH ×2 (09:33→12:38)
[2021-10-14] MEDS: FUROSEMIDE 20 MG TAB PO SCH (09:34)
[2021-10-14] MEDS: MULTIVITAMIN TAB PO SCH (09:34)
[2021-10-14] MEDS: LIDOCAINE 5% 1 PATCH TD SCH (09:34)
[2021-10-14] MEDS: CHOLECALCIFEROL 5,000 UNITS 125 MCG TAB PO SCH (09:34)
[2021-10-14] MEDS: SPIRONOLACTONE 25 MG TAB PO SCH (09:34)
--- NOTE | 2021-10-14 10:03 | Ultrasound Report ---
US pelvic complete CLINICAL HISTORY: Follow-up enlarged right ovary by CT. Evaluate for ovarian mass. TECHNIQUE: Transabdominal sonogram of the pelvis is performed. COMPARISON: CT of the abdomen and pelvis from 10/12/2021 and previous pelvic ultrasound from 05/10/2017 FINDINGS: Uterus: The uterus is anteverted and normal in size. It measures 5.5 x 3.1 x 3.9 cm. Endometrial stripe: There is abnormal thickening of the endometrium and for a patient of this age teresa suring 6 mm. No endometrial fluid collection is seen. Right ovary: The right ovary is again enlarged for a patient of this age. Anatomic Doppler flow is d emonstrated. Hypoechoic cystic areas present within the ovary measuring 3.7 x 3.1 x 3.7 cm. The overa ll ovarian size is 4.7 x 4.0 x 4.6 cm which is enlarged when compared to the previous ultrasound. The re is no evidence for right adnexal mass or cyst. Left ovary: The left ovary is also prominent size for a postmenopausal patient. Anatomic Doppler verna w was demonstrated. There is a small cystic area present measuring 1.9 x 1.5 x 1.4 cm. The ovary brian ures 2.4 x 1.9 x 2.3 cm. There is no evidence for left adnexal mass or cyst. Cul de sac: There is no free fluid noted in the cul-de-sac. IMPRESSION: 1. Compared to the previous CT and previous ultrasound, there is again enlargement of the right ovary with evidence for a right ovarian cyst. 2. There is also mild enlargement of the left ovary with small left ovarian cyst. 3. Of greater concern is abnormal thickening of the endometrium for a patient of this age measuring 6 mm. Follow-up pathologic evaluation is necessary. ACT 112: Positive. There are findings on this exam that require communication between the performing entity and the patient following Patient Test Result Information Act ([place] Act 112) guidelines. Electronically signed by: Son Nugent M.D. 10/14/2021 10:01 AM
--- NOTE | 2021-10-14 11:34 | Discharge Summary ---
Date of Service October 14, 2021 Admission HPI Per Admitting Provider This is an 89-year-old female who resides at [facility] in the [facility] section. Patient notes that she administers all her medicines and prepares her own meals. She says that she was carrying a laundry basket earlier today when she tripped and fell against a wall. After the fall a picture fell from the wall and struck her on the head. Prior to falling the patient denied any chest pain, shortness of breath, lightheadedness, or dizziness. Patient says that she did not lose consciousness at any time. She was ultimately brought to the [facility] emergency department for further evaluation. In the emergency department the patient had labs and imaging which independent reviewed. A CBC showed a white blood cell count was 3.4. Her hemoglobin and hematocrit are both noted to be normal. Platelet count was noted to be 31,000. Chemistry profile showed her sodium and potassium were both noted be within normal range. Her BUN and creatinine were both slightly elevated at 25 and 1.2. Patient was noted to have some elevation of her LFTs with a bilirubin of 3.9, and AST of 45, and an alkaline phosphatase of 120. His ALT was noted to be normal. Cardiac enzymes were checked and were noted to be negative. Did have an EKG that was initially showed a concern for junctional rhythm. This however was repeated and it appeared patient was in a sinus rhythm. A Covid test was performed and was noted to be negative. An abdominal CT scan did show the patient had an acute fracture of the L4 superior endplate. There is no retropulsion of this study. Patient was noted to have a cirrhotic liver with evidence of portal hypertension and splenomegaly. She had small bilateral pleural effusions. 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 Patient was also noted to have an enlarged right ovary measuring 4.7 x 3.1 cm concerning for a mass. A cervical spine CT scan showed no evidence of acute bony injuries or subluxations. CT scan of the chest showed the patient did have fractures that were nondisplaced of the right fourth, fifth, and sixth ribs. CT scan of the head showed no acute intracranial abnormalities or intracranial bleed. There is a right posterior scalp injury noted. Lumbar spine CT scan again noted the superior endplate L4 fracture as noted previously. Visit with the patient at bedside and currently she says her pain is well controlled. She denies any headache. She denies any nausea or vomiting. She denies any blurry or double vision. She denies any shortness of breath. She does note occasional pleuritic chest pain on the right side near her rib fractures with deep inspiration. She denies any abdominal pain. She denies any pain in her arms or legs. Since admission to the emergency department she has had a right posterior scalp laceration repaired by the treating emergency room physician.She has been given 50 mcg of fentanyl for pain control which seems to be effective. At the time of my interview she was resting comfortably in bed in no distress. Principal Diagnosis uti, lumbar compression fracture, rib fracture Discharge Exam The patient is awake, alert and oriented 3, well developed and well nourished, normocephalic and atraumatic, lying in bed and in no acute distress. HEENT--PERRL, EOMI, mucous membranes and oropharynx mildly dry Neck--supple. No JVD. No bruits. Thyroid normal, trachea midline, no adenopathy. Heart--normal S1 and S2. No murmurs, rubs or gallops. Lungs--clear bilaterally, no respiratory distress, no accessory muscle use. Abdomen--normal bowel sounds and soft. Mild epigastric and left sided abdominal pain Extremities--no cyanosis or clubbing. No edema. Dermatologic--normal skin turgor, normal color, no abnormal lymph nodes, no rash. Neurologic--cranial nerves II through XII grossly intact. Rheumatologic--normal range of motion. Psychiatric--normal affect. Discharge Data Allergies Allergy/AdvReac Type Severity Reaction Status Date / Time shellfish derived Allergy Severe ANAPHYLAXIS Verified 10/12/21 10:00 AGGIE Inhibitors AdvReac Mild Cough Unverified 10/12/21 10:00 alendronate sodium AdvReac Unknown dizziness Verified 10/12/21 10:00 ALL CREATURES THAT LIVE IN Allergy Severe ANAPHYLAXIS Uncoded 10/12/21 10:00 WATER Consultations 10/12/21 12:09 ED Decision to Admit Stat 10/13/21 08:12 Consult Orthopedic Surgery Routine Ordered Studies 10/12/21 08:59 CT abd pelvis wo con Stat CT cervical spine wo con Stat CT chest diagnostic wo con Stat CT head/brain wo con Stat CT lumbar spine wo con Stat 10/14/21 US pelvic complete Routine Hospital Course (1) Multiple fractures of ribs: sustained multiple rib fractures following mechanical fall conservative mgt pain control (2) Fracture of lumbar spine: L4 compression fracture sustained following a mechanical fall TLSO brace per ortho spine no need for surgery (3) Thrombocytopenia: chronic thrombocytopenia due to cirrhosis platelets down 27 today will transfuse 1 unit of platelets repeat paletelets 37 today (4) Ovarian mass: CT shows an increase in size of ovary suggestive of a mass will obtain an US to characterize US showed ovarian cyst and thickened endometrium Patient asked to follow up with her PCP and [employer] Folder (5) Laceration of scalp: sutured (6) UTI (urinary tract infection): urine cultures pending continue empiric IV ceftriaxone Discharge home to her independent living facility, which has a correction wing that she can access for physical therapy Total Time Total Time Spent Total Time Spent (In Minutes): 35 Discharge Plan Discharge Items Patient Disposition: Home - Self-Care Reason For Visit: FALL,RIB FX Discharge Diagnosis: UTU, Compression, and rib fracture Condition on Discharge: Fair Activity: Resume your previous activity Lifting: Gradually increase as tolerated Non-emergency contact: Primary Care Provider Call non-emergency contact if: you have any medication questions and your symptoms worsen Follow-up/Referrals: Juanito Mazariegos MD [Primary Care Provider] - Diet: Regular and Low Sodium (2gm) Addtl Attending Provider Instructions: please you can request the correction wing of [facility] for some physical therapy Pending Studies at Discharge: No Stand-Alone Forms: My [facility] Tigerlily, Smoking Cessation Medications and DC Order Prescriptions: New cephalexin [Keflex] 750 mg capsule 750 mg PO BID 3 Days Qty: 6 RF: 0 Continued multivitamin Tablet 1 tab PO QAM RF: 0 furosemide 20 mg tablet 20 mg PO DAILY RF: 0 spironolactone 50 mg tablet 50 mg PO DAILY RF: 0 insulin aspart U-100 [Novolog Flexpen U-100 Insulin] 100 unit/mL (3 mL) insulin pen 1 sliding scale dose SUBCUT ACHS RF: 0 Lantus Solostar U-100 Insulin 100 unit/mL (3 mL) insulin pen 25 unit subcut HS RF: 0 cholecalciferol (vitamin D3) [Vitamin D3] 125 mcg (5,000 unit) Tablet 125 mcg PO DAILY RF: 0 Discharge Orders: Discharge Order (Routine); Ordered 10/14/21 Ordered By: Carmen Yun Admission Data Admit Date/Time: 10/12/21 12:42 Attending Provider: Carmen Yun Admit Provider: Ethan Wahl Primary Care Provider: Juanito Mazariegos Other Providers: Ethan Wahl ; Seb Botello Coding Level of Care Code D/C DAY MANAGEMENT >30 MINS Diagnoses Multiple fractures of ribs S22.41XA Encounter type: initial encounter Fracture type: closed Laterality: right Fracture of lumbar spine S32.048A Encounter type: initial encounter Fracture morphology: other fracture Fracture type: closed Lumbar vertebra fracture level: L4 Thrombocytopenia D69.6 Ovarian mass N83.8 Laceration of scalp S01.01XA Encounter type: initial encounter UTI (urinary tract infection) N39.0
== END 2021-10-14 13:24 | DRG 184 ==
LOC: ED 08:39 → SUATTDRO 12:42 → 3N 12:42

== ENCOUNTER 2022-06-04 13:58 | Inpatient (IN) ==
--- NOTE | 2022-06-04 16:55 | Emergency Department Note ---
History of Present Illness General Chief complaint: Fall Stated complaint: FELL SATURDAY, HIT HEAD Time Seen by Provider: 06/04/22 16:40 Source: patient, family, RN notes reviewed and old records reviewed Mode of arrival: ambulatory Limitations: no limitations History of Present Illness Maximum Pain Intensity: 2 This patient is a 89-year-old female who fell . She suffered a mechanical fall she was trying to pick some tomatoes and fell rolled down a hill. Denies that she hit her head she has chronic ITP and low platelets. She was seen on Saturday at [facility] and they did some x-rays however the results are not back yet she refused to get any further treatment at the time. The final family finally convinced her to come today. She has pain in her right lower rib. He has a history of rib fractures and spine fractures in December from a fall she also history of chronic [place]. She has a history of having renal problems related to the Lasix and they apparently just restarted her Lasix according to her granddaughter who is a nurse. She denies any headache or neck pain the daughter did notice a bump on her head today from the fall. She has some bruises on her right leg and right elbow. She has difficulty walking secondary to the pain Home Medications Medication Instructions Recorded Confirmed Type cholecalciferol (vitamin D3) 125 125 mcg PO DAILY 10/12/21 06/04/22 History mcg (5,000 unit) tablet (Vitamin D3) insulin aspart U-100 100 unit/mL 1 sliding scale dose subcut ACHS 10/12/21 06/04/22 History (3 mL) subcutaneous pen (Novolog Flexpen U-100 Insulin aspart) insulin glargine 100 unit/mL (3 25 unit subcut HS 10/12/21 06/04/22 History mL) subcutaneous pen (Lantus Solostar U-100 Insulin) multivitamin 1 tab PO QAM 10/12/21 06/04/22 History spironolactone 50 mg tablet 50 mg PO DAILY 10/12/21 06/04/22 History furosemide 40 mg tablet (Lasix) 80 mg PO QAM 06/04/22 06/04/22 History Allergies Allergy/AdvReac Type Severity Reaction Status Date / Time shellfish derived Allergy Severe ANAPHYLAXIS Verified 06/04/22 18:03 AGGIE Inhibitors AdvReac Intermediate Cough Verified 06/04/22 18:03 alendronate sodium AdvReac Intermediate dizziness Verified 06/04/22 18:03 ALL CREATURES THAT LIVE IN Allergy Severe ANAPHYLAXIS Uncoded 06/04/22 18:03 WATER Past Med/Surg History Social History Smoking Status: Never smoker Second Hand Exposure: No; Hx Alcohol Use: No Hx Substance Use: No Preferred Language: Faroese Communication Ability: Effective Speech And Hearing Director Required: No Beliefs That Will Affect Care: None Current Living Situation: Spouse Current Living Situation Comment: [facility] independent living Feels Safe at Home: Yes Assistive Devices: Walker Immunizations: Past medical historychronic ITP, chronic [place] Social historyshe [facility]. According to her granddaughter she cannot have IV contrast Physical Exam Vital Signs Vital Signs - 24 hr 06/04/22 14:20 06/04/22 17:18 06/04/22 17:50 Temperature 36.4 C L Temperature Source Temporal Artery Scan Pulse Rate 81 Pulse Rate [Apical] Pulse Rate from SpO2 Sensor Pulse Rhythm Regular Pulse Strength Normal Respiratory Rate 18 Respiratory Effort / Characteristics Non-Labored Spontaneous Respiratory Depth Normal Respiratory Pattern Regular Blood Pressure 127/66 135/55 L Blood Pressure [Left Arm] Blood Pressure Mean 86 81 Blood Pressure Mean [Left Arm] Blood Pressure Position Sitting Pulse Oximetry 97 Oxygen Delivery Method Room Air Room Air Sepsis Recent Fever Within 48 Hours No Sepsis New/Unexplained Change in Mental Status No Sepsis Action Taken by Nursing No Action Required 06/04/22 17:50 06/04/22 18:00 06/04/22 18:01 Temperature Temperature Source Pulse Rate 83 77 Pulse Rate [Apical] Pulse Rate from SpO2 Sensor 64 75 Pulse Rhythm Pulse Strength Respiratory Rate 19 20 Respiratory Effort / Characteristics Respiratory Depth Respiratory Pattern Blood Pressure 149/77 H Blood Pressure [Left Arm] Blood Pressure Mean 101 Blood Pressure Mean [Left Arm] Blood Pressure Position Pulse Oximetry 98 99 Oxygen Delivery Method Sepsis Recent Fever Within 48 Hours Sepsis New/Unexplained Change in Mental Status Sepsis Action Taken by Nursing 06/04/22 18:01 06/04/22 18:10 06/04/22 18:20 Temperature Temperature Source Pulse Rate 77 83 82 Pulse Rate [Apical] Pulse Rate from SpO2 Sensor 73 83 80 Pulse Rhythm Pulse Strength Respiratory Rate 23 20 19 Respiratory Effort / Characteristics Respiratory Depth Respiratory Pattern Blood Pressure Blood Pressure [Left Arm] Blood Pressure Mean Blood Pressure Mean [Left Arm] Blood Pressure Position Pulse Oximetry 97 98 98 Oxygen Delivery Method Sepsis Recent Fever Within 48 Hours Sepsis New/Unexplained Change in Mental Status Sepsis Action Taken by Nursing 06/04/22 19:13 Temperature Temperature Source Pulse Rate Pulse Rate [Apical] 84 Pulse Rate from SpO2 Sensor Pulse Rhythm Pulse Strength Respiratory Rate 18 Respiratory Effort / Characteristics Respiratory Depth Respiratory Pattern Blood Pressure Blood Pressure [Left Arm] 134/57 L Blood Pressure Mean Blood Pressure Mean [Left Arm] 82 Blood Pressure Position Pulse Oximetry 100 Oxygen Delivery Method Room Air Sepsis Recent Fever Within 48 Hours Sepsis New/Unexplained Change in Mental Status Sepsis Action Taken by Nursing General: Well developed well nourished older female who appears in no acute distress, breathing comfortably on room air. Normal speech HEENT: Normal cephalic atraumatic. Sclera anicteric. Pupils are equal round and reactive to light. Extraocular movements are intact. Oropharynx is pink with moist mucous membranes. No swelling of the mouth lips or tongue. Small bruise in left posterior scalp Neck: Supple with a midline trachea. No meningeal signs or stiffness, no JVD or bruits. No Stridor. Chest: Clear to auscultation bilaterally. No wheezes or rhonchi. No increased work of breathing. Heart: Regular rate and rhythm without murmurs or gallops. Abdomen: Soft nontender, nondistended without rebound guarding or rigidity. Extremities: No cyanosis clubbing or edema. No calf tenderness or assymetry. There is bruising to the right arm and leg. Spine/Back. Non tender to palpation. No CVA tenderness Skin: Good turgor without rashes. Neurologic exam: Cranial nerves two through 12 are intact. Motor and sensation are intact and symmetrical throughout. Medical Decision Making Differential Diagnosis Traumatic injuries, internal injury, intracranial hemorrhage, orthopedic injuries, pneumothorax, rib fractures, spinal fracture, thrombocytopenia, internal bleeding, cardiac disease Medical Records Attestation: I reviewed the patient's medical records. Home Medications Current Medication List: was personally reviewed by me Laboratory Data Attestation: I reviewed the patient's lab results. Result diagrams: 06/04/22 17:10 06/04/22 17:10 Lab Results 06/04/22 06/04/22 06/04/22 Range/Units 17:10 17:10 17:10 WBC 7.66 (4.8-10.8) K/ul RBC 3.74 L (3.93-5.22) M/uL Hgb 12.2 (12.0-16.0) g/dl Hct 33.7 L (34.1-44.9) % MCV 90.1 (80.0-100.0) fL MCH 32.6 (25.0-34.0) pg MCHC 36.2 H (32.0-36.0) g/dL RDW Std Deviation 45.1 (36.4-46.3) fL RDW Coeff of Jacqueline 14.1 (11.5-14.5) % Plt Count 43 L (130-400) K/uL MPV 12.3 (9.4-12.3) fL Immature Gran % (Auto) 0.5 % Neut % (Auto) 77.2 % Lymph % (Auto) 10.6 % [place] % (Auto) 10.7 % Eos % (Auto) 0.9 % Baso % (Auto) 0.1 % Neut # (Auto) 5.91 (1.4-6.5) K/uL Lymph # (Auto) 0.81 L (1.2-3.4) K/uL [place] # (Auto) 0.82 (0.24-0.82) K/uL Eos # (Auto) 0.07 (0-0.50) K/uL Baso # (Auto) 0.01 (0-0.2) K/uL Immature Gran # (Auto) 0.04 H (0.00-0.02) K/uL Polychromasia 1+ Sodium 125 L (136-145) mmol/L Potassium 4.5 (3.5-5.1) mmol/L Chloride 92 L (98-107) mmol/L Carbon Dioxide 28 (21-32) mmol/L Anion Gap 5 (3-11) BUN 34 H (6-23) mg/dl Creatinine 1.38 H (0.6-1.2) mg/dl Est Cr Clr Drug Dosing 24.0 ml/min Est GFR ( Amer) 39.2 ml/min Est GFR (Non-Af Amer) 33.8 ml/min BUN/Creatinine Ratio 24.6 H (10-20) Glucose 159 H (70-99(Fasting)) mg/dl Calcium 9.7 (8.5-10.1) mg/dl Total Bilirubin 5.0 H (0.2-1.0) mg/dl AST 39 (13-39) U/L ALT 25 (7-52) U/L Alkaline Phosphatase 130 H (34-104) U/L Total Protein 6.2 (6.0-8.3) gm/dl Albumin 3.2 L (3.4-5.0) gm/dl Globulin 3.0 (2.5-4.0) gm/dl Albumin/Globulin Ratio 1.1 (0.9-2) Lipase 102 H (11-82) U/L Blood Type O Negative Antibody Screen NEGATIVE Imaging Data Attestation: I personally reviewed and interpreted this imaging study as follows: My Impression: CT of the headno acute intracranial hemorrhage or mass-effect seen Radiologist's Impression: Cervical Spine CT 06/04/22 15:48 CT cervical spine wo con CT DOSE: 389.08 mGycm CLINICAL HISTORY: 89 years-old Female with fall, hit head. Acute head and neck injury status post fall COMPARISON: CT cervical spine 10/12/2021 TECHNIQUE: Multiple axial CT images of the cervical spine were obtained without contrast. A dose lowering technique was utilized adhering to the principles of ALARA. FINDINGS: Demineralized appearance of the bones with multilevel degenerative changes. Mild levoscoliosis. No acute fracture or subluxation. Calcified plaque of the carotid arteries. No prevertebral edema. Multinodular thyroid. Lung apices are clear without pneumothorax. IMPRESSION: No acute cervical spine fracture or subluxation. ACT 112: Negative or not required by law. The above report was generated using voice recognition software. It may contain grammatical, syntax or spelling errors. Electronically signed by: Miguel Wagner M.D. 06/04/2022 5:[address] 06/04/22 15:48 CT head/brain wo con CLINICAL HISTORY: 89 years-old Female with fall, hit head, low platelets. Acute head injury status post fall TECHNIQUE: Multiple axial CT images of the head were obtained without contrast. A dose lowering technique was utilized adhering to the principles of ALARA. CT DOSE: 638.56 mGycm COMPARISON: None. FINDINGS: No acute intracranial hemorrhage, midline shift, intracranial mass, hydrocephal us, territorial ischemia or abnormal extra-axial collection. Age-related involutional changes. White matter hypodensities suggest chronic microvascular ischemic disease. Cerebral vascular calcifications. No acute calvarial fracture. Scattered tiny lucent foci of the skull r edemonstrated. Small left parietal scalp contusion. Prior bilateral lens repair. The paranasal sinuses, mastoid air cells, and middle ear cavities are clear. IMPRESSION: 1. No acute intracranial abnormality or calvarial fracture. 2. Small left parietal scalp contusion. ACT 112: Negative or not required by law. The above report was generated using voice recognition software. It may contain grammatical, syntax or spelling errors. Electronically signed by: Miguel Wagner M.D. 06/04/2022 5:38 PM Abdomen/Pelvis CT 06/04/22 16:[address] WITHOUT CONTRAST CT DOSE: 811.54 mGycm HISTORY: Acute chest and abdominal trauma status post fall fall TECHNIQUE: Multiaxial CT images of the abdomen and pelvis were performed without contrast. A dose lowering technique was utilized adhering to the principles of ALARA. COMPARISON STUDY: Chest CT of same day, CT abdomen and pelvis 01/16/2022 FINDINGS: Cardiomegaly with mitral annular calcifications. Trace pleural effusions. Limited exam secondary to lack of contrast, upper extremity positioning and respiratory motion artifact. No pneumatosis or pneumoperitoneum identified. The spleen is enlarged measuring up to 17.7 cm in length. Calcifications of the pancreatic head redemonstrated. 2.4 cm stable hypodense lesion within the matute creatic head/uncinate process. Contracted gallbladder. Cirrhotic liver. 1.8 cm focal hypodensity of the hepatic dome on image 7 series 2 similar to prior suggestive of scarring versus focal lesion. 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 No hydronephrosis. There is mild nonspecific circumferential wall thickening of the urinary bladder. Unremarkable uterus. Atherosclerosis of the aorta without aneurysm. No lymphadenopathy identified. Moderate sized hiatal hernia with distal esophageal wall thickening. Upper abdominal/paraesophageal varicosities. There is moderate fecal retention. Normal appendix. Prior ventral abdominal wall herniorrhaphy. There is a small fat filled right paracentral hernia superior to the mesh with diastases of 3.1 cm on image 207. Degenerative changes of the spine, pelvis and hips. Healed chronic fracture deformity of the right inferior pubic ramus. Chronic burst fracture of L4 with unchanged retropulsion. Chronic L1 compression deformity with 2 mm retropulsion. No acute fracture identified. IMPRESSION: 1. No acute posttraumatic intra-abdominal or intrapelvic abnormality. 2. Chronic L1 and L4 compression deformities with retropulsion. No acute fracture is identified. 3. 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 4. Unchanged scarring versus focal lesion of the hepatic dome, 1.8 cm. 5. Trace pleural effusions. 6. Additional findings as above. ACT 112: Negative or not required by law. The above report was generated using voice recognition software. It may contain grammatical, syntax or spelling errors. Electronically signed by: Miguel Wagner M.D. 06/04/2022 5:[address] 06/04/22 16:50 CT OF THE CHEST WITHOUT IV CONTRAST CLINICAL HISTORY: Fall. COMPARISON STUDY: Chest CT October 12, 2021. CT DOSE: 505.24 mGycm TECHNIQUE: Axial images of the chest were obtained without IV contrast. Images were reviewed in the axial, sagittal, and coronal planes. IV contrast was not administered for this examination. Automated exposure control was utilized for the study. A dose lowering technique was utilized adhering to the principles of ALARA. FINDINGS: Thoracic aorta is suboptimally assessed on this unenhanced exam but there is no mediastinal hematoma. There is mild dilatation of the central pulmonary arteries. Moderate cardiomegaly is noted. There is a hiatal hernia. Note is made of a 2.1 cm masslike abnormality within the upper inner quadrant of the left breast shown on axial image 148 of 256. There is no pneumothorax. Trace left pleural effusion is noted. Multiple left-sided rib fractures are likely old. There are multiple right-sided rib fractures. Evaluation is difficult given motion artifact. However, several of these fractures are likely acute, including a nondisplaced fractures of the lateral right second and third ribs. There is a mildly displaced anterior right third rib fracture which is likely acute. Anterior right fourth rib fracture is probably acute as well. Several right- sided rib fractures are present. Abdomen and pelvis CT will be reported separately. Cirrhosis with splenomegaly and varices are better depicted on that exam. No acute thoracic spine fracture. IMPRESSION: 1. Exam compromised by motion artifact. Multiple suspected acute right-sided rib fractures, including a mildly displaced anterior right third rib fracture. No pneumothorax. Multiple old bilateral rib fractures. 2. No mediastinal hematoma. 3. 2.1 cm mass-like abnormality within the upper inner quadrant of the left breast. Nonemergent mammogram and ultrasound are recommended to exclude a neoplasm. 4. No acute thoracic spine fracture. ACT 112: Negative or not required by law. Electronically signed by: Omer Aldana M.D. 06/04/2022 5:55 PM MDM Narrative This patient comes in as described above. She was placed on a utility technician in room A3. She is here for treatment and evaluation of a fall on . She has low platelets and the family has been trying to convince her to come to get seen. I did order IV access CAT scans of the head neck chest abdomen and pelvis. These were done without contrast that she is allergic and also has renal problems and her granddaughter says she cannot have contrast. Multiple blood testing was obtained she was reassessed frequently. Her platelets were 43,000 which sounds higher than her baseline. She has been typed and crossed. She has no significant acute anemia. She does have hyponatremia with a sodium of 125 this is new. She has been given IV normal saline bolus and will need further work-up for this. CAT scan of her head neck abdomen pelvis were unremarkable. CAT scan of the chest did show multiple acute rib fractures but no pneumothorax. I talked the patient at length she strongly desires to go back to [facility] but I told her that I think she should stay here for further inpatient treatment and evaluation. COVID testing was also ordered.. I did talk to Dr. Huitron and he will admit/observe the patient Continuous cardiac monitoring: Orders placed in EMR for continuous cardiac monitoring. Upon my interpretation the patient was noted to be in normal sinus rhythm with a rate of 80 with frequent PACs Impression & Plan Rib fractures, NGHIA (acute kidney injury), Fall, Thrombocytopenia, Acute hyponatremia Discharge Plan Visit Data Chief Complaint: Fall Stated Complaint: FELL SATURDAY, HIT HEAD ED Provider: Heath Matamoros Discharge Problem: Rib fractures, NGHIA (acute kidney injury), Fall, Thrombocytopenia, Acute hyponatremia Forms Stand Alone Forms: My [facility] Prescriptions Prescriptions: No Action multivitamin Tablet 1 tab PO QAM spironolactone 50 mg tablet 50 mg PO DAILY insulin aspart U-100 [Novolog Flexpen U-100 Insulin] 100 unit/mL (3 mL) insulin pen 1 sliding scale dose SUBCUT ACHS Rx Instructions: 1 UNIT PER 8 GRAMS OF CARBS. insulin glargine [Lantus Solostar U-100 Insulin] 100 unit/mL (3 mL) insulin pen 25 unit subcut HS cholecalciferol (vitamin D3) [Vitamin D3] 125 mcg (5,000 unit) Tablet 125 mcg PO DAILY furosemide [Lasix] 40 mg Tablet 80 mg PO QAM Rx Instructions: PER MED LIST---TAKE 60 MG AT LUNCH, PER PT-- "CUT THIS DOSE OUT". Referrals Referrals: Irvin Gardner [Primary Care Provider] -
[2022-06-04 17:27] LABS: Hematocrit (blood only) 33.7 % (34.1-44.9); Hemoglobin 12.2 g/dl (12.0-16.0); Mean Corpuscular Hemoglobin 32.6 pg (25.0-34.0); Mean Corpuscular Hgb Conc 36.2 g/dL (32.0-36.0); Mean Corpuscular Volume 90.1 fL (80.0-100.0); Mean Platelet Volume 12.3 fL (9.4-12.3); Platelet Count 43 K/uL (130-400); RDW Coefficient of Variation 14.1 % (11.5-14.5); RDW Standard Deviation 45.1 fL (36.4-46.3); Red Blood Count 3.74 M/uL (3.93-5.22); White Blood Count 7.66 K/ul (4.8-10.8)
--- NOTE | 2022-06-04 17:40 | CT Scan Report ---
CT head/brain wo con CLINICAL HISTORY: 89 years-old Female with fall, hit head, low platelets. Acute head injury status p ost fall TECHNIQUE: Multiple axial CT images of the head were obtained without contrast. A dose lowering tech nique was utilized adhering to the principles of ALARA. CT DOSE: 638.56 mGycm COMPARISON: None. FINDINGS: No acute intracranial hemorrhage, midline shift, intracranial mass, hydrocephalus, territorial ischem ia or abnormal extra-axial collection. Age-related involutional changes. White matter hypodensities s uggest chronic microvascular ischemic disease. Cerebral vascular calcifications. No acute calvarial fracture. Scattered tiny lucent foci of the skull redemonstrated. Small left parie namrata scalp contusion. Prior bilateral lens repair. The paranasal sinuses, mastoid air cells, and midd le ear cavities are clear. IMPRESSION: 1. No acute intracranial abnormality or calvarial fracture. 2. Small left parietal scalp contusion. ACT 112: Negative or not required by law. The above report was generated using voice recognition software. It may contain grammatical, syntax o r spelling errors. Electronically signed by: Miguel Wagner M.D. 06/04/2022 5:38 PM
[2022-06-04 17:43] LABS: Basophils # (auto) 0.01 K/uL (0-0.2); Basophils % (auto) 0.1 %; Eosinophils # (auto) 0.07 K/uL (0-0.50); Eosinophils % (auto) 0.9 %; Immature Granulocytes # (auto) 0.04 K/uL (0.00-0.02); Immature Granulocytes % (auto) 0.5 %; Lymphocytes # (auto) 0.81 K/uL (1.2-3.4); Lymphocytes % (auto) 10.6 %; Monocytes # (auto) 0.82 K/uL (0.24-0.82); Monocytes % (auto) 10.7 %; Neutrophils # (auto) 5.91 K/uL (1.4-6.5); Neutrophils % (auto) 77.2 %; Polychromasia 1+
--- NOTE | 2022-06-04 17:43 | CT Scan Report ---
CT cervical spine wo con CT DOSE: 389.08 mGycm CLINICAL HISTORY: 89 years-old Female with fall, hit head. Acute head and neck injury status post fa ll COMPARISON: CT cervical spine 10/12/2021 TECHNIQUE: Multiple axial CT images of the cervical spine were obtained without contrast. A dose low ering technique was utilized adhering to the principles of ALARA. FINDINGS: Demineralized appearance of the bones with multilevel degenerative changes. Mild levoscolio sis. No acute fracture or subluxation. Calcified plaque of the carotid arteries. No prevertebral edema. Multinodular thyroid. Lung apices ar e clear without pneumothorax. IMPRESSION: No acute cervical spine fracture or subluxation. ACT 112: Negative or not required by law. The above report was generated using voice recognition software. It may contain grammatical, syntax o r spelling errors. Electronically signed by: Miguel Wganer M.D. 06/04/2022 5:41 PM
--- NOTE | 2022-06-04 17:53 | CT Scan Report ---
ABDOMEN AND PELVIS CT WITHOUT CONTRAST CT DOSE: 811.54 mGycm HISTORY: Acute chest and abdominal trauma status post fall fall TECHNIQUE: Multiaxial CT images of the abdomen and pelvis were performed without contrast. A dose lo wering technique was utilized adhering to the principles of ALARA. COMPARISON STUDY: Chest CT of same day, CT abdomen and pelvis 01/16/2022 FINDINGS: Cardiomegaly with mitral annular calcifications. Trace pleural effusions. Limited exam seco ndary to lack of contrast, upper extremity positioning and respiratory motion artifact. No pneumatosi s or pneumoperitoneum identified. The spleen is enlarged measuring up to 17.7 cm in length. Calcifications of the pancreatic head redem onstrated. 2.4 cm stable hypodense lesion within the pancreatic head/uncinate process. Contracted gal lbladder. Cirrhotic liver. 1.8 cm focal hypodensity of the hepatic dome on image 7 series 2 similar t o prior suggestive of scarring versus focal lesion. 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 No hydronephrosis. There is mild nonspecific circumfe rential wall thickening of the urinary bladder. Unremarkable uterus. Atherosclerosis of the aorta wit hout aneurysm. No lymphadenopathy identified. Moderate sized hiatal hernia with distal esophageal wall thickening. Upper abdominal/paraesophageal v aricosities. There is moderate fecal retention. Normal appendix. Prior ventral abdominal wall hernior rhaphy. There is a small fat filled right paracentral hernia superior to the mesh with diastases of 3 .1 cm on image 207. Degenerative changes of the spine, pelvis and hips. Healed chronic fracture defor mity of the right inferior pubic ramus. Chronic burst fracture of L4 with unchanged retropulsion. Chr onic L1 compression deformity with 2 mm retropulsion. No acute fracture identified. IMPRESSION: 1. No acute posttraumatic intra-abdominal or intrapelvic abnormality. 2. Chronic L1 and L4 compression deformities with retropulsion. No acute fracture is identified. 3. 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 4. Unchanged scarring versus focal lesion of the hepatic dome, 1.8 cm. 5. Trace pleural effusions. 6. Additional findings as above. ACT 112: Negative or not required by law. The above report was generated using voice recognition software. It may contain grammatical, syntax o r spelling errors. Electronically signed by: Miguel Wagner M.D. 06/04/2022 5:51 PM
--- NOTE | 2022-06-04 17:57 | CT Scan Report ---
CT OF THE CHEST WITHOUT IV CONTRAST CLINICAL HISTORY: Fall. COMPARISON STUDY: Chest CT October 12, 2021. CT DOSE: 505.24 mGycm TECHNIQUE: Axial images of the chest were obtained without IV contrast. Images were reviewed in the axial, sagittal, and coronal planes. IV contrast was not administered for this examination. Automat ed exposure control was utilized for the study. A dose lowering technique was utilized adhering to t principles of ALARA. FINDINGS: Thoracic aorta is suboptimally assessed on this unenhanced exam but there is no mediastina l hematoma. There is mild dilatation of the central pulmonary arteries. Moderate cardiomegaly is note d. There is a hiatal hernia. Note is made of a 2.1 cm masslike abnormality within the upper inner saira drant of the left breast shown on axial image 148 of 256. There is no pneumothorax. Trace left pleura l effusion is noted. Multiple left-sided rib fractures are likely old. There are multiple right-sided rib fractures. Evaluation is difficult given motion artifact. However, several of these fractures ar e likely acute, including a nondisplaced fractures of the lateral right second and third ribs. There is a mildly displaced anterior right third rib fracture which is likely acute. Anterior right fourth rib fracture is probably acute as well. Several right-sided rib fractures are present. Abdomen and pe lvis CT will be reported separately. Cirrhosis with splenomegaly and varices are better depicted on t hat exam. No acute thoracic spine fracture. IMPRESSION: 1. Exam compromised by motion artifact. Multiple suspected acute right-sided rib fractures, including a mildly displaced anterior right third rib fracture. No pneumothorax. Multiple old bilateral rib fr actures. 2. No mediastinal hematoma. 3. 2.1 cm mass-like abnormality within the upper inner quadrant of the left breast. Nonemergent mammo gram and ultrasound are recommended to exclude a neoplasm. 4. No acute thoracic spine fracture. ACT 112: Negative or not required by law. Electronically signed by: Omer Aldana M.D. 06/04/2022 5:55 PM
[2022-06-04 18:00] LABS: Albumin Globulin Ratio 1.1 (0.9-2); Albumin Level 3.2 gm/dl (3.4-5.0); BUN Creatinine Ratio 24.6 (10-20); Calcium 9.7 mg/dl (8.5-10.1); Est GFR (African American) 39.2 ml/min; Est GFR (Non-African American) 33.8 ml/min; Potassium 4.5 mmol/L (3.5-5.1); Total Protein 6.2 gm/dl (6.0-8.3)
--- NOTE | 2022-06-04 20:35 | History & Physical Report ---
Date of Service June 04, 2022 Assessment & Plan (1) Acute hyponatremia: Plan: - Na 125, with serum osm 281. Urine osmolality 353. - Etiology of hyponatremia may be multifactorial, possibly due to spironolactone and Lasix use which was apparently recently reintroduced per patient. It is also possible that patient had hit her head previously from fall and developed SIADH causing her hyponatremia. She also has underlying Rodriguez cirrhosis. - For now, will start patient on NS at 100 cc/hour. - Recheck sodium in AM. (2) NGHIA (acute kidney injury): Plan: - Cr mildly elevated from baseline ~1.2 to 1.4 today. - Hydrate with IVF, NS at 100 cc/hr as above for hyponatremia. - Avoid nephrotoxins, renally dose medications as able. - BMP with AM labs. (3) Multiple fractures of ribs: Plan: - Multiple acute right-sided rib fractures, including a mildly displaced anterior right third rib fracture. No pneumothorax. Multiple old bilateral rib fractures. - Will order lidocaine patches. Need to avoid opioids and NSAIDs given renal function, and Tylenol for her function. Patient states she would like to avoid pain medications if possible. 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 Hyponatremia is new. - Hold Lasix and spironolactone. (5) Thrombocytopenia: Plan: - No signs of active bleeding today. Platelets at about baseline--30. - DVT chemoprophylaxis contraindicated. (6) Fall: Plan: - ? if fall is due to low sodium or if fall and head injury caused SIADH. - Will have PT/OT evaluate. (7) Breast mass: Plan: - 2.1 cm mass-like abnormality within the upper inner quadrant of the left breast. New finding for patient. This is in the setting of an ovarian mass and thickened endometrium that was noted in October 2021 admission. Patient denies having follow-up for this. - Recommend patient follow-up with outpatient PCP record pressman for follow-up if she would want to pursue diagnosis and treatment. (8) DM2 (diabetes mellitus, type 2): Plan: - Continue Lantus 25 units at bedtime. - Accu-Cheks with sliding scale insulin. - Diabetic diet. Plan - Admit to med/tele. - SCDs for VTE ppx. - Full Code. History of Present Illness Chief Complaint: right rib pain after a mechanical fall 5 days ago Primary Care Provider: [facility] Cecily Berman is an 89 y/o female with a PMH of hypertension, DM2, and RODRIGUEZ cirrhosis with thrombocytopenia who presents today for a fall that occurred 5 days ago on , 05/31. Patient was picking tomatoes and was on uneven ground, lost her balance and fell, rolling down a hill approximately 20 feet. She initially did not seek medical treatment because her pain was "not that bad". X-rays were ordered [facility] where she resides on Saturday, however they are not accurate. She is having too much pain to ambulate, therefore family finally convinced her to present to the ED for further evaluation today. She denies hitting her head, but does have a bruise on the left side of her head. She has bruises elsewhere, as she has thrombocytopenia with platelet count of 30, however pain other than at the site of her rib fractures on the right side. In ED, VS are within normal limits. Labs significant for PLTs are 43, sodium 125, creatinine slightly elevated at 1.38, t bili 5.0, alk phos 130, lipase 102. Chest CT with a 2.1 cm mass-like abnormality within the upper inner quadrant of the left breast and multiple suspected acute right-sided rib fractures, including a mildly displaced anterior right third rib fracture. No pneumothorax. Multiple old bilateral rib fractures. CT A/P with no acute posttraumatic intra- abdominal or intrapelvic abnormality. Chronic L1 and L4 compression deformities with retropulsion. No acute fracture is identified. 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 Head and c spine CT without evidence of acute fracture or acute process. Allergies Allergy/AdvReac Type Severity Reaction Status Date / Time shellfish derived Allergy Severe ANAPHYLAXIS Verified 06/04/22 18:03 AGGIE Inhibitors AdvReac Intermediate Cough Verified 06/04/22 18:03 alendronate sodium AdvReac Intermediate dizziness Verified 06/04/22 18:03 ALL CREATURES THAT LIVE IN Allergy Severe ANAPHYLAXIS Uncoded 06/04/22 18:03 WATER Home Medications Medication Instructions Recorded Confirmed Type cholecalciferol (vitamin D3) 125 125 mcg PO DAILY 10/12/21 06/04/22 History mcg (5,000 unit) tablet (Vitamin D3) insulin aspart U-100 100 unit/mL 1 sliding scale dose subcut ACHS 10/12/21 06/04/22 History (3 mL) subcutaneous pen (Novolog Flexpen U-100 Insulin aspart) insulin glargine 100 unit/mL (3 25 unit subcut HS 10/12/21 06/04/22 History mL) subcutaneous pen (Lantus Solostar U-100 Insulin) multivitamin 1 tab PO QAM 10/12/21 06/04/22 History spironolactone 50 mg tablet 50 mg PO DAILY 10/12/21 06/04/22 History furosemide 40 mg tablet (Lasix) 80 mg PO QAM 06/04/22 06/04/22 History Past Med/Surg History Medical History Benign hypertension (02/28/12) Breast mass DM2 (diabetes mellitus, type 2) Hyperlipidemia (02/28/12) Ovarian mass Surgical History No significant past surgical history Family History Other Family history non-contributory Social History Smoking Status: Former smoker Second Hand Exposure: No; Do You Dip or Chew Tobacco: No; Tobacco Cessation Education Requested by Patient: No Hx Alcohol Use: No Hx Substance Use: No Preferred Language: Setswana Communication Ability: Effective Record Label Intern Required: No Beliefs That Will Affect Care: None Current Living Situation: Spouse Current Living Situation Comment: [facility] independent [facility] Other Information That Helps Us Care for You: No Feels Safe at Home: Yes Safety Concerns: Feels Safe At This Time Assistive Devices: Walker and Wheelchair Review of Systems Review of Systems: Constitutional: No fever/chills, weakness, fatigue, myalgias, anorexia, night sweats Eyes: No diplopia, no worsening or blurred vision ENT: normal hearing, no trouble swallowing Respiratory: No cough, sputum, dyspnea at rest or on exertion Cardiovascular: No chest pain, tightness or palpitations Abdomen: No pain, nausea, vomiting, diarrhea or constipation : Denies dysuria, hematuria, increased urgency/frequency, urinary retention Musculoskeletal: right sided rib pain with palpation and ambulation; No other joint pain, calf pain, swelling Neurologic: No weakness, numbness/tingling, or balance problems Psychiatric: No anxiety or depression Skin: No rash or itch Physical Exam Physical Exam: General: awake, alert, no apparent distress Head: quarter sized bruise on left parietal region of scalp ENT: PERRL, EOMI, no pharyngeal exudate, mucous membranes moist Chest: TTP along R lateral chest wall at site of rib fractures; Clear to auscultation, on room air, no adventitious breath sounds Cardiac: Regular rate and rhythm, systolic murmur consistent with ; no JVD, normal peripheral pulses, good capillary refill Abdominal: NABS x 4 quadrants, soft, nontender to palpation, no rebound, guarding or tenderness Extremities: Normal inspection, no peripheral edema or erythema, calfs nontender to palpation Psych: Normal mood and affect Neuro: AAO x 3, strength intact bilaterally and rated 5/5, no motor deficits, speech is clear, no peripheral sensory deficits Skin: no rash or erythema Results & Data Results & Data ([facility]) Vital Signs (Past 12 Hours) Vital Signs Temp Pulse Pulse Resp BP BP Pulse Ox 06/04/22 19:13 84 18 134/57 L 100 06/04/22 18:20 82 19 98 06/04/22 18:10 83 20 98 06/04/22 18:01 77 23 97 06/04/22 18:01 149/77 H 06/04/22 18:00 77 20 99 06/04/22 17:50 83 19 98 06/04/22 17:50 135/55 L 06/04/22 17:18 06/04/22 14:20 36.4 C L 81 18 127/66 97 O2 Del Method 06/04/22 19:13 Room Air 06/04/22 18:20 06/04/22 18:10 06/04/22 18:01 06/04/22 18:01 06/04/22 18:00 06/04/22 17:50 06/04/22 17:50 06/04/22 17:18 Room Air 06/04/22 14:20 Room Air Laboratory Results Abnormal lab results 06/04/22 06/04/22 Range/Units 17:10 17:10 RBC 3.74 L (3.93-5.22) M/uL Hct 33.7 L (34.1-44.9) % MCHC 36.2 H (32.0-36.0) g/dL Plt Count 43 L (130-400) K/uL Lymph # (Auto) 0.81 L (1.2-3.4) K/uL Immature Gran # (Auto) 0.04 H (0.00-0.02) K/uL Sodium 125 L (136-145) mmol/L Chloride 92 L (98-107) mmol/L BUN 34 H (6-23) mg/dl Creatinine 1.38 H (0.6-1.2) mg/dl BUN/Creatinine Ratio 24.6 H (10-20) Glucose 159 H (70-99(Fasting)) mg/dl Total Bilirubin 5.0 H (0.2-1.0) mg/dl Alkaline Phosphatase 130 H (34-104) U/L Albumin 3.2 L (3.4-5.0) gm/dl Lipase 102 H (11-82) U/L Diagnostic Findings Cervical Spine CT 06/04/22 15:48 CT cervical spine wo con CT DOSE: 389.08 mGycm CLINICAL HISTORY: 89 years-old Female with fall, hit head. Acute head and neck injury status post fall COMPARISON: CT cervical spine 10/12/2021 TECHNIQUE: Multiple axial CT images of the cervical spine were obtained without contrast. A dose lowering technique was utilized adhering to the principles of ALARA. FINDINGS: Demineralized appearance of the bones with multilevel degenerative changes. Mild levoscoliosis. No acute fracture or subluxation. Calcified plaque of the carotid arteries. No prevertebral edema. Multinodular thyroid. Lung apices are clear without pneumothorax. IMPRESSION: No acute cervical spine fracture or subluxation. ACT 112: Negative or not required by law. The above report was generated using voice recognition software. It may contain grammatical, syntax or spelling errors. Electronically signed by: Miguel Wagner M.D. 06/04/2022 5:[address] 06/04/22 15:48 CT head/brain wo con CLINICAL HISTORY: 89 years-old Female with fall, hit head, low platelets. Acute head injury status post fall TECHNIQUE: Multiple axial CT images of the head were obtained without contrast. A dose lowering technique was utilized adhering to the principles of ALARA. CT DOSE: 638.56 mGycm COMPARISON: None. FINDINGS: No acute intracranial hemorrhage, midline shift, intracranial mass, hydrocephalus, territorial ischemia or abnormal extra-axial collection. Age- related involutional changes. White matter hypodensities suggest chronic microvascular ischemic disease. Cerebral vascular calcifications. No acute calvarial fracture. Scattered tiny lucent foci of the skull redemonstrated. Small left parietal scalp contusion. Prior bilateral lens repair. The paranasal sinuses, mastoid air cells, and middle ear cavities are clear. IMPRESSION: 1. No acute intracranial abnormality or calvarial fracture. 2. Small left parietal scalp contusion. ACT 112: Negative or not required by law. The above report was generated using voice recognition software. It may contain grammatical, syntax or spelling errors. Electronically signed by: Miguel Wagner M.D. 06/04/2022 5:38 PM Abdomen/Pelvis CT 06/04/22 16:[address] WITHOUT CONTRAST CT DOSE: 811.54 mGycm HISTORY: Acute chest and abdominal trauma status post fall fall TECHNIQUE: Multiaxial CT images of the abdomen and pelvis were performed without contrast. A dose lowering technique was utilized adhering to the principles of ALARA. COMPARISON STUDY: Chest CT of same day, CT abdomen and pelvis 01/16/2022 FINDINGS: Cardiomegaly with mitral annular calcifications. Trace pleural effusions. Limited exam secondary to lack of contrast, upper extremity positioning and respiratory motion artifact. No pneumatosis or pneumoperitoneum identified. The spleen is enlarged measuring up to 17.7 cm in length. Calcifications of the pancreatic head redemonstrated. 2.4 cm stable hypodense lesion within the pancreatic head/uncinate process. Contracted gallbladder. Cirrhotic liver. 1.8 cm focal hypodensity of the hepatic dome on image 7 series 2 similar to prior suggestive of scarring versus focal lesion. 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 No hydronephrosis. There is mild nonspecific circumferential wall thickening of the urinary bladder. Unremarkable uterus. Atherosclerosis of the aorta without aneurysm. No lymphadenopathy identified. Moderate sized hiatal hernia with distal esophageal wall thickening. Upper abdominal/paraesophageal varicosities. There is moderate fecal retention. Normal appendix. Prior ventral abdominal wall herniorrhaphy. There is a small fat filled right paracentral hernia superior to the mesh with diastases of 3.1 cm on image 207. Degenerative changes of the spine, pelvis and hips. Healed chronic fracture deformity of the right inferior pubic ramus. Chronic burst fracture of L4 with unchanged retropulsion. Chronic L1 compression deformity with 2 mm retropulsion. No acute fracture identified. IMPRESSION: 1. No acute posttraumatic intra-abdominal or intrapelvic abnormality. 2. Chronic L1 and L4 compression deformities with retropulsion. No acute fracture is identified. 3. 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 4. Unchanged scarring versus focal lesion of the hepatic dome, 1.8 cm. 5. Trace pleural effusions. 6. Additional findings as above. ACT 112: Negative or not required by law. The above report was generated using voice recognition software. It may contain grammatical, syntax or spelling errors. Electronically signed by: Miguel Wagner M.D. 06/04/2022 5:[address] 06/04/22 16:50 CT OF THE CHEST WITHOUT IV CONTRAST CLINICAL HISTORY: Fall. COMPARISON STUDY: Chest CT October 12, 2021. CT DOSE: 505.24 mGycm TECHNIQUE: Axial images of the chest were obtained without IV contrast. Images were reviewed in the axial, sagittal, and coronal planes. IV contrast was not administered for this examination. Automated exposure control was utilized for the study. A dose lowering technique was utilized adhering to the principles of ALARA. FINDINGS: Thoracic aorta is suboptimally assessed on this unenhanced exam but there is no mediastinal hematoma. There is mild dilatation of the central pulmonary arteries. Moderate cardiomegaly is noted. There is a hiatal hernia. Note is made of a 2.1 cm masslike abnormality within the upper inner quadrant of the left breast shown on axial image 148 of 256. There is no pneumothorax. Trace left pleural effusion is noted. Multiple left-sided rib fractures are likely old. There are multiple right-sided rib fractures. Evaluation is difficult given motion artifact. However, several of these fractures are likely acute, including a nondisplaced fractures of the lateral right second and third ribs. There is a mildly displaced anterior right third rib fracture which is likely acute. Anterior right fourth rib fracture is probably acute as well. Several right- sided rib fractures are present. Abdomen and pelvis CT will be reported separately. Cirrhosis with splenomegaly and varices are better depicted on that exam. No acute thoracic spine fracture. IMPRESSION: 1. Exam compromised by motion artifact. Multiple suspected acute right-sided rib fractures, including a mildly displaced anterior right third rib fracture. No pneumothorax. Multiple old bilateral rib fractures. 2. No mediastinal hematoma. 3. 2.1 cm mass-like abnormality within the upper inner quadrant of the left breast. Nonemergent mammogram and ultrasound are recommended to exclude a neoplasm. 4. No acute thoracic spine fracture. ACT 112: Negative or not required by law. Electronically signed by: Omer Aldana M.D. 06/04/2022 5:55 PM Code Status & VTE Plan Code Status Full Code. Supervising Physician Co-Signing Physician Notes Attending addendum: I have physically seen this patient, have supervised the MERLENE's activities, and agree with the H&P unless as otherwise noted. Assessment and Plan: Acute hyponatremia- Sodium 125, serum osmolality 281, urine osmolality 353 Hold spironolactone and Lasix as potential contributing causes May be an element of SIADH associated with recent head trauma Placed on NSS at 100 mils per hour Recheck basic metabolic panel in a.m. May need to add sodium chloride tablets 1 g p.o. 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- Monitor contribution to hyponatremia Liver tests near baseline Thrombocytopenia- Platelets 43, with range 27-37 Follow serially Remaining orders and notations as noted PG Care Time/CCT Total # of Minutes Spent Total Time Spent with Patient: Total time spent is greater than 50% in coordination of care (as documented) at patient's floor/unit and/or counseling patient: Coding Level of Care Code 28811 Initial Inpt Care Lvl 2 Diagnoses Acute hyponatremia E87.1 NGHIA (acute kidney injury) N17.9 Multiple fractures of ribs S22.49XA 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
[2022-06-04] MEDS ORDERED: CARBOHYDRATES FOR HYPOGLYCEMIA PO PRN (21:27)
[2022-06-04] MEDS ORDERED: GLUCAGON FOR INJ 1 MG VIAL SQ PRN (21:27)
[2022-06-04] MEDS ORDERED: DEXTROSE 50% 50 ML SYRINGE IV PRN (21:27)
[2022-06-04] MEDS ORDERED: GLUCOSE 10 TAB/TUBE PO PRN (21:27)
[2022-06-04] MEDS ORDERED: ACETAMINOPHEN 325 MG TAB PO PRN (21:27)
[2022-06-04] MEDS ORDERED: GLUCOSE 40% GEL 15 GM TUBE PO PRN (21:27)
[2022-06-04] MEDS ORDERED: ONDANSETRON INJ 2 MG/ML 2 ML VIAL IV PRN (21:27)
[2022-06-04 21:50] LABS: Appearance Urine Clear (Clear); Bacteria Urine Automated Negative (Negative); Bilirubin Urine Negative (Negative); Blood Urine 1+ (Negative); Color Urine Yellow; Glucose Urine UA Negative (Negative); Ketones Urine Negative (Negative); Leukocyte Esterase Urine Negative (Negative); Nitrite Urine Negative (Negative); Protein Urine Negative (Negative); Specific Gravity Urine 1.012 (1.000-1.030); Urobilinogen Urine Negative (Negative)
[2022-06-04] MEDS: LANTUS PER UNIT CHARGE SQ SCH (22:05)
[2022-06-04] MEDS: INSULIN ASPART PER UNIT SC SCH (23:35)
[2022-06-04] MEDS: SODIUM CHLORIDE 0.9% 1000ML 1,000 ML IV SCH (23:41)
[2022-06-05 08:22] LABS: Basophils # (auto) 0.02 K/uL (0-0.2); Basophils % (auto) 0.4 %; Eosinophils # (auto) 0.07 K/uL (0-0.50); Eosinophils % (auto) 1.4 %; Hematocrit (blood only) 34.2 % (34.1-44.9); Hemoglobin 12.1 g/dl (12.0-16.0); Immature Granulocytes # (auto) 0.04 K/uL (0.00-0.02); Immature Granulocytes % (auto) 0.8 %; Lymphocytes % (auto) 9.9 %; Mean Corpuscular Hgb Conc 35.4 g/dL (32.0-36.0); Mean Corpuscular Volume 90.5 fL (80.0-100.0); Mean Platelet Volume 12.7 fL (9.4-12.3); Monocytes % (auto) 9.9 %; Neutrophils # (auto) 3.91 K/uL (1.4-6.5); Neutrophils % (auto) 77.6 %; Platelet Count 35 K/uL (130-400); RDW Coefficient of Variation 14.1 % (11.5-14.5); RDW Standard Deviation 46.1 fL (36.4-46.3); Red Blood Count 3.78 M/uL (3.93-5.22); White Blood Count 5.04 K/ul (4.8-10.8)
[2022-06-05] MEDS: CHOLECALCIFEROL 5,000 UNITS 125 MCG TAB PO SCH (08:26)
[2022-06-05] MEDS: INSULIN ASPART PER UNIT SC SCH ×5 (08:31→21:56)
[2022-06-05] MEDS: SODIUM CHLORIDE 0.9% 1000ML 1,000 ML IV SCH ×2 (08:31→19:39)
[2022-06-05 08:43] LABS: BUN Creatinine Ratio 27.5 (10-20); Calcium 9.4 mg/dl (8.5-10.1); Est GFR (African American) 52.1 ml/min; Potassium 4.8 mmol/L (3.5-5.1)
[2022-06-05] MEDS ORDERED: SPIRONOLACTONE 25 MG TAB PO SCH (09:00)
[2022-06-05 13:06] LABS: Estimated Average Glucose 91 mg/dl; Hemoglobin A1C 4.8 % (4.5-5.6)
[2022-06-05] MEDS: LIDOCAINE 5% 1 PATCH TD SCH (16:58)
--- NOTE | 2022-06-05 18:10 | Hospitalist Progress Note ---
Date of Service June 05, 2022 Assessment & Plan (1) Acute hyponatremia: Plan: - Na 125, with serum osm 281. Urine osmolality 353. - Etiology of hyponatremia may be multifactorial, possibly due to spironolactone and Lasix use which was apparently recently reintroduced per patient. It is also possible that patient had hit her head previously from fall and developed SIADH causing her hyponatremia. She also has underlying Rodriguez cirrhosis. - For now, will start patient on NS at 100 cc/hour. - Recheck sodium in AM. 06/05 Improving to 126. agree with above that this may be multipfactorial currently improving. will need to be careful with fluid. (2) NGHIA (acute kidney injury): Plan: - Cr mildly elevated from baseline ~1.2 to 1.4 today. - Hydrate with IVF, NS at 100 cc/hr as above for hyponatremia. -will continue IVF for now. Likely discontinue in AM. - Avoid nephrotoxins, renally dose medications as able. - BMP with AM labs. (3) Multiple fractures of ribs: Plan: - Multiple acute right-sided rib fractures, including a mildly displaced anterior right third rib fracture. No pneumothorax. Multiple old bilateral rib fractures. -Lidocaine patches ordered on 06/05/22 . Need to avoid opioids and NSAIDs given renal function, and Tylenol for her function. Patient states she would like to avoid pain medications if possible. 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 Hyponatremia is new. - Hold Lasix and spironolactone. (5) Thrombocytopenia: Plan: - No signs of active bleeding today. Platelets at about baseline--30. - DVT chemoprophylaxis contraindicated. (6) Fall: Plan: - ? if fall is due to low sodium or if fall and head injury caused SIADH. - Will have PT/OT evaluate. (7) Breast mass: Plan: - 2.1 cm mass-like abnormality within the upper inner quadrant of the left breast. New finding for patient. This is in the setting of an ovarian mass and thickened endometrium that was noted in October 2021 admission. Patient denies having follow-up for this. - Recommend patient follow-up with outpatient PCP supervisor order takers for follow-up if she would want to pursue diagnosis and treatment. (8) DM2 (diabetes mellitus, type 2): Plan: - Continue Lantus 25 units at bedtime. - Accu-Cheks with sliding scale insulin. - Diabetic diet. Plan - Admit to med/tele. - SCDs for VTE ppx. - Full Code. Admission and Anticipated Discharge Date Admission Date: June 04, 2022 Subjective Patient reports having right sided chest pain. Asking for topical anesthetic. Review of Systems Review of Systems: All systems reviewed & are unremarkable except as noted in HPI & below Physical Exam Physical Exam: General: awake, alert, no apparent distress Head: quarter sized bruise on left parietal region of scalp ENT: PERRL, EOMI, no pharyngeal exudate, mucous membranes moist Chest: TTP along R lateral chest wall at site of rib fractures; Clear to auscultation, on room air, no adventitious breath sounds Cardiac: Regular rate and rhythm, systolic murmur consistent with ; no JVD, normal peripheral pulses, good capillary refill Abdominal: NABS x 4 quadrants, soft, nontender to palpation, no rebound, guarding or tenderness Extremities: Normal inspection, no peripheral edema or erythema, calfs no ntender to palpation Psych: Normal mood and affect Neuro: AAO x 3, strength intact bilaterally and rated 5/5, no motor deficits, speech is clear, no peripheral sensory deficits Skin: no rash or erythema Results & Data Results & Data ([facility]) Vital Signs (Past 12 Hours) Vital Signs Temp Pulse Pulse Resp BP Pulse Ox O2 Del Method 06/05/22 16:00 83 06/05/22 17:03 36.6 C 88 18 153/76 H 99 Room Air 06/05/22 08:00 88 06/05/22 08:32 36.4 C L 75 18 129/81 99 PG Care Time/CCT Total # of Minutes Spent Total Time Spent with Patient: Total time spent is greater than 50% in coordination of care (as documented) at patient's floor/unit and/or counseling patient: Coding Level of Care Code 74890 Subseq Hosp Care Lvl 3 Diagnoses Acute hyponatremia E87.1 NGHIA (acute kidney injury) N17.9 Multiple fractures of ribs S22.49XA 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
[2022-06-05] MEDS: LANTUS PER UNIT CHARGE SQ SCH (21:56)
[2022-06-06] MEDS: SODIUM CHLORIDE 0.9% 1000ML 1,000 ML IV SCH ×2 (06:27→15:46)
[2022-06-06] MEDS: INSULIN ASPART PER UNIT SC SCH ×4 (07:30→20:34)
[2022-06-06] MEDS: LIDOCAINE 5% 1 PATCH TD SCH (07:41)
[2022-06-06] MEDS: CHOLECALCIFEROL 5,000 UNITS 125 MCG TAB PO SCH (07:41)
--- NOTE | 2022-06-06 09:59 | Nephrology Consultation ---
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 Uosm elevated in the setting of hyponatremia is suggestive of ADH effect. Patient is asymptomatic. She does not require 3% NaCl at this time. Stop IV saline infusion. Patient appears clinically euvolemic. Will resume furosemide 20 mg po BID to promote free water excretion and schedule NaCl 2 g po BID. Monitor PRP. History of Present Illness Reason for Consultation: Hyponatremia Attending Physician: Jose Gleason History of Present Illness Mrs. Berman is an 89 year old white female who is seen at the request of Dr. Gleason for evaluation of hyponatremia. Medical records in the EMR were reviewed today and are summarized as follows: Mrs. Chand has a h/o HTN, AODM, DOMINGUEZ cirrhosis and ITP. Her BP has been managed w/ a combination of Furosemide and Spironolactone. She is not on a thiazide diuretic. Mrs. Berman is a resident of [facility]. 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 Recently Mrs. Berman suffered a mechanical fall and fractured two ribs. Evaluation at the [facility] EMD revealed Na 127, Cr 1.4 (baseline 1.0), 2.1 cm mass-like density of the L breast seen on chest CT along with multiple old bilateral rib fractures. Mrs. Berman denies thyroid disease, h/o CHF. She is frail but denies RATLIFF or new focal weakness. Allergies Allergy/AdvReac Type Severity Reaction Status Date / Time shellfish derived Allergy Severe ANAPHYLAXIS Verified 06/04/22 18:03 AGGIE Inhibitors AdvReac Intermediate Cough Verified 06/04/22 18:03 alendronate sodium AdvReac Intermediate dizziness Verified 06/04/22 18:03 ALL CREATURES THAT LIVE IN Allergy Severe ANAPHYLAXIS Uncoded 06/04/22 18:03 WATER Home Medications Medication Instructions Recorded Confirmed Type cholecalciferol (vitamin D3) 125 125 mcg PO DAILY 10/12/21 06/04/22 History mcg (5,000 unit) tablet (Vitamin D3) insulin aspart U-100 100 unit/mL 1 sliding scale dose subcut ACHS 10/12/21 06/04/22 History (3 mL) subcutaneous pen (Novolog Flexpen U-100 Insulin aspart) insulin glargine 100 unit/mL (3 25 unit subcut HS 10/12/21 06/04/22 History mL) subcutaneous pen (Lantus Solostar U-100 Insulin) multivitamin 1 tab PO QAM 10/12/21 06/04/22 History spironolactone 50 mg tablet 50 mg PO DAILY 10/12/21 06/04/22 History furosemide 40 mg tablet (Lasix) 80 mg PO QAM 06/04/22 06/04/22 History Patient History Medical History Benign hypertension (02/28/12) Breast mass DM2 (diabetes mellitus, type 2) Hyperlipidemia (02/28/12) Ovarian mass Surgical History No significant past surgical history Family History Other Family history non-contributory Social History Smoking Status: Former smoker Second Hand Exposure: No; Do You Dip or Chew Tobacco: No; Tobacco Cessation Education Requested by Patient: No Hx Alcohol Use: No Hx Substance Use: No Preferred Language: Filipino Communication Ability: Effective Mlt Required: No Beliefs That Will Affect Care: None Current Living Situation: Sp[facility] Other Information That Helps Us Care for You: No Feels Safe at Home: Yes Safety Concerns: Feels Safe At This Time Assistive Devices: Walker and Wheelchair Review of Systems Constitutional: + weakness; no fever Eyes: no problem reported Ear, Nose, Mouth, Throat: no problem reported Respiratory: no cough and no dyspnea Cardiovascular: no chest pain Gastrointestinal: no abdominal pain, no vomiting and no diarrhea/loose stools Genitourinary: no dysuria Neurologic: no confusion Physical Exam Constitutional: + frail appearing; not in distress Eyes: PERRL, conjunctivae normal, anicteric sclerae ENMT: external ear and nose normal, oropharynx normal Neck: trachea midline, no thyromegaly Respiratory: normal respiratory effort, lungs clear to auscultation Cardiovascular: RRR, no murmur, no edema Gastrointestinal (Abdomen): normal bowel sounds, soft, nontender, no hepatosplenomegaly Neurologic: awake; not confused Results & Data ([place]) Vital Signs (Past 12 Hours) Vital Signs Temp Pulse Pulse Resp BP Pulse Ox O2 Del Method 06/06/22 08:00 84 06/06/22 07:56 36.5 C 86 18 137/80 97 Room Air 06/06/22 04:00 36.4 C L 82 18 120/75 96 Room Air 06/06/22 00:42 83 06/05/22 22:55 36.9 C 90 22 127/74 96 Room Air Laboratory Results Laboratory Tests 01/16/22 01/16/22 06/04/22 15:13 15:27 05:50 WBC Hgb Hct Plt Count Sodium 137 124 L Potassium Chloride Carbon Dioxide BUN Creatinine Glucose Hemoglobin A1c Calcium Urine Color Urine pH Ur Specific [place] Urine Protein Urine Glucose (UA) Urine Blood Urine Nitrite Urine RBC (Auto) 0-4 U Hyaline Cast (Auto) Urine Osmolality 06/04/22 06/04/22 06/05/22 21:09 21:09 07:36 WBC Hgb Hct Plt Count Sodium Potassium Chloride Carbon Dioxide BUN Creatinine Glucose Hemoglobin A1c 4.8 Calcium Urine Color Yellow Urine pH 7.0 Ur Specific [place] 1.012 Urine Protein Negative Urine Glucose (UA) Negative Urine Blood 1+ H Urine Nitrite Negative Urine RBC (Auto) 10-30 H U Hyaline Cast (Auto) 1-5 Urine Osmolality 353 L 06/05/22 06/05/22 06/06/22 07:36 07:36 07:55 WBC 5.04 Hgb 12.1 Hct 34.2 Plt Count 35 L Sodium 126 L Potassium 4.8 Chloride 96 L Carbon Dioxide 25 BUN 30 H Creatinine 1.09 Glucose 136 H Hemoglobin A1c Calcium 9.4 Urine Color Urine pH Ur Specific [place] Urine Protein Urine Glucose (UA) Urine Blood Urine Nitrite Urine RBC (Auto) U Hyaline Cast (Auto) Urine Osmolality 542 PG Care Time/CCT Total # of Minutes Spent Total Time Spent with Patient: Total time spent is greater than 50% in coordination of care (as documented) at patient's floor/unit and/or counseling patient: Coding Level of Care Code 02833 Inpt Consult Level 5 Diagnoses Acute hyponatremia E87.1
[2022-06-06 10:25] LABS: Hematocrit (blood only) 33.2 % (34.1-44.9); Hemoglobin 11.6 g/dl (12.0-16.0); Mean Corpuscular Hemoglobin 32.6 pg (25.0-34.0); Mean Corpuscular Hgb Conc 34.9 g/dL (32.0-36.0); Mean Corpuscular Volume 93.3 fL (80.0-100.0); Mean Platelet Volume 12.2 fL (9.4-12.3); Platelet Count 38 K/uL (130-400); RDW Coefficient of Variation 14.6 % (11.5-14.5); RDW Standard Deviation 47.9 fL (36.4-46.3); Red Blood Count 3.56 M/uL (3.93-5.22)
[2022-06-06 10:47] LABS: Albumin Level 2.7 gm/dl (3.4-5.0); Bilirubin,Total 4.5 mg/dl (0.2-1.0); Calcium 9.2 mg/dl (8.5-10.1); Creatinine Clr Calc Pharmacy 27.9 ml/min; Est GFR (African American) 45.9 ml/min; Est GFR (Non-African American) 39.6 ml/min; Globulin 2.6 gm/dl (2.5-4.0); Potassium 5.1 mmol/L (3.5-5.1); Total Protein 5.3 gm/dl (6.0-8.3)
[2022-06-06] MEDS: SODIUM CHLORIDE 1 GM TABLET PO SCH ×2 (12:00→20:33)
[2022-06-06 15:15] LABS: BUN Creatinine Ratio 28.3 (10-20); Calcium 8.9 mg/dl (8.5-10.1); Creatinine Clr Calc Pharmacy 31.9 ml/min; Est GFR (African American) 53.9 ml/min; Est GFR (Non-African American) 46.5 ml/min
[2022-06-06] MEDS: FUROSEMIDE 20 MG TAB PO SCH (16:40)
--- NOTE | 2022-06-06 17:33 | XRay Report ---
XR chest 1V portable CLINICAL HISTORY: increased SOB COMPARISON STUDY: Chest CT June 04, 2022. FINDINGS: Old deformity of the proximal humerus is incidentally noted. Several acute right-sided rib fractures are better depicted on prior chest CT. Additional old bilateral rib fractures are present. Small bilateral pleural effusions have developed. There is no pneumothorax. There is cardiomegaly. Pu lmonary vascular congestion without overt pulmonary edema.. Linear left basilar opacity represents at electasis. No consolidation to suggest pneumonia. IMPRESSION: 1. Interval development of small bilateral pleural effusions. No pneumothorax. 2. Several acute right-sided rib fractures, better depicted on prior chest CT. 3. Cardiomegaly. Pulmonary vascular congestion without overt pulmonary edema. ACT 112: Negative or not required by law. Electronically signed by: Omer Aldana M.D. 06/06/2022 5:32 PM
[2022-06-06] MEDS: LANTUS PER UNIT CHARGE SQ SCH (20:34)
--- NOTE | 2022-06-06 21:56 | Hospitalist Progress Note ---
Date of Service June 06, 2022 Assessment & Plan (1) Acute hyponatremia: Plan: - Na 125, with serum osm 281. Urine osmolality 353. - Etiology of hyponatremia may be multifactorial, possibly due to spironolactone and Lasix use which was apparently recently reintroduced per patient. It is also possible that patient had hit her head previously from fall and developed SIADH causing her hyponatremia. She also has underlying Rodriguez cirrhosis. - For now, will start patient on NS at 100 cc/hour. - Recheck sodium in AM. 06/05 Improving to 126. agree with above that this may be multipfactorial currently improving. will need to be careful with fluid. 06/06 Improved to 129 and 127 in the PM. appreciate input from nephro. will continue to monitor. Will resume furosemide 20 mg po BID to promote free water excretion and schedule NaCl 2 g po BID (2) NGHIA (acute kidney injury): Plan: - Cr mildly elevated from baseline ~1.2 to 1.4 today. - Hydrate with IVF, NS at 100 cc/hr as above for hyponatremia. -stopped IVF on 06/06 - Avoid nephrotoxins, renally dose medications as able. - BMP with AM labs. (3) Multiple fractures of ribs: Plan: - Multiple acute right-sided rib fractures, including a mildly displaced anterior right third rib fracture. No pneumothorax. Multiple old bilateral rib fractures. -Lidocaine patches ordered on 06/05/22 . Need to avoid opioids and NSAIDs given renal function, and Tylenol for her function. Patient states she would like to avoid pain medications if possible. 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 Hyponatremia is new. - Hold Lasix and spironolactone. (5) Thrombocytopenia: Plan: - No signs of active bleeding today. Platelets at about baseline--30. - DVT chemoprophylaxis contraindicated. (6) Fall: Plan: - ? if fall is due to low sodium or if fall and head injury caused SIADH. - Will have PT/OT evaluate. (7) Breast mass: Plan: - 2.1 cm mass-like abnormality within the upper inner quadrant of the left breast. New finding for patient. This is in the setting of an ovarian mass and thickened endometrium that was noted in October 2021 admission. Patient denies having follow-up for this. - Recommend patient follow-up with outpatient PCP washer off for follow-up if she would want to pursue diagnosis and treatment. (8) DM2 (diabetes mellitus, type 2): Plan: - Continue Lantus 25 units at bedtime. - Accu-Cheks with sliding scale insulin. - Diabetic diet. Plan - Admit to med/tele. - SCDs for VTE ppx. - Full Code. Admission and Anticipated Discharge Date Admission Date: June 04, 2022 Subjective Patient reports feeling more comfortable. Patient wants her to continue lidoderm patches. She does not want to add NSAIDs or tylenol due to her comorbidities. Review of Systems Review of Systems: All systems reviewed & are unremarkable except as noted in HPI & below Physical Exam Physical Exam: General: awake, alert, no apparent distress Head: quarter sized bruise on left parietal region of scalp ENT: PERRL, EOMI, no pharyngeal exudate, mucous membranes moist Chest: TTP along R lateral chest wall at site of rib fractures; Clear to auscultation, on room air, no adventitious breath sounds Cardiac: Regular rate and rhythm, systolic murmur consistent with ; no JVD, normal peripheral pulses, good capillary refill Abdominal: NABS x 4 quadrants, soft, nontender to palpation, no rebound, guarding or tenderness Extremities: Normal inspection, no peripheral edema or erythema, calfs nontender to palpation Psych: Normal mood and affect Neuro: AAO x 3, strength intact bilaterally and rated 5/5, no motor deficits, speech is clear, no peripheral sensory deficits Skin: no rash or erythema Results & Data Results & Data ([facility]) Vital Signs (Past 12 Hours) Vital Signs Temp Pulse Pulse Resp BP Pulse Ox O2 Del Method 06/06/22 20:06 36.8 C 91 H 18 140/75 97 Room Air 06/06/22 16:54 79 06/06/22 15:33 36.7 C 83 18 147/80 H 100 Room Air 06/06/22 11:24 36.3 C L 85 20 141/83 H 98 Room Air PG Care Time/CCT Total # of Minutes Spent Total Time Spent with Patient: Total time spent is greater than 50% in coordination of care (as documented) at patient's floor/unit and/or counseling patient: Coding Level of Care Code 32783 Subseq Hosp Care Lvl 2 Diagnoses Acute hyponatremia E87.1 NGHIA (acute kidney injury) N17.9 Multiple fractures of ribs S22.49XA 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
[2022-06-07 07:15] LABS: Calcium 9.4 mg/dl (8.5-10.1); Creatinine Clr Calc Pharmacy 33.8 ml/min; Est GFR (African American) 57.8 ml/min; Est GFR (Non-African American) 49.9 ml/min; Potassium 4.9 mmol/L (3.5-5.1)
[2022-06-07] MEDS: INSULIN ASPART PER UNIT SC SCH ×2 (07:39→11:33)
[2022-06-07] MEDS: CHOLECALCIFEROL 5,000 UNITS 125 MCG TAB PO SCH (07:39)
[2022-06-07] MEDS: LIDOCAINE 5% 1 PATCH TD SCH (07:39)
[2022-06-07] MEDS: FUROSEMIDE 20 MG TAB PO SCH (07:39)
[2022-06-07] MEDS: SODIUM CHLORIDE 1 GM TABLET PO SCH (07:39)
--- NOTE | 2022-06-07 09:09 | Nephrology Progress Note ---
Date of Service June 07, 2022 Assessment & Plan (1) Acute hyponatremia: Plan: Hyponatremia related to high ADH associated with back/rib pain. Uosm elevated in the setting of hyponatremia is suggestive of ADH effect. Patient is asymptomatic. She does not require 3% NaCl. IV saline infusion has been stopped. Patient remains clinically euvolemic. Continue NaCl 2 g po BID and furosemide 20 mg po BID. Monitor PRP. Admission and Anticipated Discharge Date Admission Date: June 04, 2022 Subjective Mrs. Berman was evaluated in her hospital room this morning. She is still having significant discomfort related to her rib and vertebral fractures. She is tolerating NaCl tablets without side effect. Review of Systems Constitutional: + weakness; no fever Eyes: no problem reported Ear, Nose, Mouth, Throat: no problem reported Respiratory: no cough and no dyspnea Cardiovascular: no chest pain Gastrointestinal: no abdominal pain, no vomiting and no diarrhea/loose stools Genitourinary: no dysuria Neurologic: no confusion Physical Exam Constitutional: + frail appearing; not in distress Eyes: PERRL, conjunctivae normal, anicteric sclerae ENMT: external ear and nose normal, oropharynx normal Neck: trachea midline, no thyromegaly Respiratory: normal respiratory effort, lungs clear to auscultation Cardiovascular: RRR, no murmur, no edema Gastrointestinal (Abdomen): normal bowel sounds, soft, nontender, no hepatosplenomegaly Neurologic: awake; not confused Results & Data ([facility]) Vital Signs (Past 12 Hours) Vital Signs Temp Pulse Pulse Resp BP Pulse Ox O2 Del Method 06/07/22 08:20 36.4 C L 79 18 143/75 H 99 Room Air 06/07/22 08:10 85 06/07/22 05:19 37.0 C 94 H 18 148/60 H 97 Room Air 06/07/22 00:13 86 06/06/22 23:05 36.6 C 88 18 150/65 H 98 Room Air Laboratory Results Laboratory Tests 06/07/22 05:46 Sodium 130 L Potassium 4.9 Chloride 105 Carbon Dioxide 21 BUN 29 H Creatinine 1.00 Glucose 154 H PG Care Time/CCT Total # of Minutes Spent Total Time Spent with Patient: Total time spent is greater than 50% in coordination of care (as documented) at patient's floor/unit and/or counseling patient: Coding Level of Care Code 77731 Subseq Hosp Care Lvl 3 Diagnoses Acute hyponatremia E87.1
--- NOTE | 2022-06-07 14:15 | Discharge Summary ---
Date of Service June 07, 2022 Admission HPI Per Admitting Provider Cecily Berman is an 89 y/o female with a PMH of hypertension, DM2, and RODRIGUEZ cirrhosis with thrombocytopenia who presents today for a fall that occurred 5 days ago on , 05/31. Patient was picking tomatoes and was on uneven ground, lost her balance and fell, rolling down a hill approximately 20 feet. She initially did not seek medical treatment because her pain was "not that bad". X-rays were ordered [facility] where she resides on Saturday, however they are not accurate. She is having too much pain to ambulate, therefore family finally convinced her to present to the ED for further evaluation today. She denies hitting her head, but does have a bruise on the left side of her head. She has bruises elsewhere, as she has thrombocytopenia with platelet count of 30, however pain other than at the site of her rib fractures on the right side. In ED, VS are within normal limits. Labs significant for PLTs are 43, sodium 125, creatinine slightly elevated at 1.38, t bili 5.0, alk phos 130, lipase 102. Chest CT with a 2.1 cm mass-like abnormality within the upper inner quadrant of the left breast and multiple suspected acute right-sided rib fractures, including a mildly displaced anterior right third rib fracture. No pneumothorax. Multiple old bilateral rib fractures. CT A/P with no acute posttraumatic intra- abdominal or intrapelvic abnormality. Chronic L1 and L4 compression deformities with retropulsion. No acute fracture is identified. 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 Head and c spine CT without evidence of acute fracture or acute process. Principal Diagnosis hyponatremia Discharge Exam The patient is awake, alert and oriented 3, well developed and well nourished, normocephalic and atraumatic, lying in bed and in no acute distress. HEENT--PERRL, EOMI, mucous membranes and oropharynx mildly dry Neck--supple. No JVD. No bruits. Thyroid normal, trachea midline, no adenopathy. Heart--normal S1 and S2. No murmurs, rubs or gallops. Lungs--clear bilaterally, no respiratory distress, no accessory muscle use. Abdomen--normal bowel sounds and soft. Mild epigastric and left sided abdominal pain Extremities--no cyanosis or clubbing. No edema. Dermatologic--normal skin turgor, normal color, no abnormal lymph nodes, no rash. Neurologic--cranial nerves II through XII grossly intact. Rheumatologic--normal range of motion. Psychiatric--normal affect. Discharge Data Allergies Allergy/AdvReac Type Severity Reaction Status Date / Time shellfish derived Allergy Severe ANAPHYLAXIS Verified 06/04/22 18:03 AGGIE Inhibitors AdvReac Intermediate Cough Verified 06/04/22 18:03 alendronate sodium AdvReac Intermediate dizziness Verified 06/04/22 18:03 ALL CREATURES THAT LIVE IN Allergy Severe ANAPHYLAXIS Uncoded 06/04/22 18:03 WATER Consultations 06/04/22 19:23 ED Decision to Admit Stat 06/06/22 09:05 Consult Nephrology Routine Ordered Studies 06/04/22 15:48 CT cervical spine wo con Stat CT head/brain wo con Stat 06/04/22 16:50 CT abd pelvis wo con Stat CT chest diagnostic wo con Stat Hospital Course (1) Acute hyponatremia: - Na 125, with serum osm 281. Urine osmolality 353. - Etiology of hyponatremia may be multifactorial, possibly due to spironolactone and Lasix use which was apparently recently reintroduced per patient. It is also possible that patient had hit her head previously from fall and developed SIADH causing her hyponatremia. She also has underlying Rodriguez cirrhosis. - For now, will start patient on NS at 100 cc/hour. - Recheck sodium in AM. 06/05 Improving to 126. agree with above that this may be multipfactorial currently improving. will need to be careful with fluid. 06/06 Improved to 129 and 127 in the PM. appreciate input from nephro. will continue to monitor. Will resume furosemide 20 mg po BID to promote free water excretion and schedule NaCl 2 g po BID 06/07 Serum Na 130 today (2) NGHIA (acute kidney injury): - Cr mildly elevated from baseline ~1.2 to 1.4 today. - Hydrate with IVF, NS at 100 cc/hr as above for hyponatremia. -stopped IVF on 06/06 - Avoid nephrotoxins, renally dose medications as able. - BMP with AM labs. (3) Multiple fractures of ribs: - Multiple acute right-sided rib fractures, including a mildly displaced anterior right third rib fracture. No pneumothorax. Multiple old bilateral rib fractures. -Lidocaine patches ordered on 06/05/22 . Need to avoid opioids and NSAIDs given renal function, and Tylenol for her function. Patient states she would like to avoid pain medications if possible. 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 Hyponatremia is new. - Hold Lasix and spironolactone. (5) Thrombocytopenia: - No signs of active bleeding today. Platelets at about baseline--30. - DVT chemoprophylaxis contraindicated. (6) Fall: - ? if fall is due to low sodium or if fall and head injury caused SIADH. - Will have PT/OT evaluate. (7) Breast mass: - 2.1 cm mass-like abnormality within the upper inner quadrant of the left breast. New finding for patient. This is in the setting of an ovarian mass and thickened endometrium that was noted in October 2021 admission. Patient denies having follow-up for this. - Recommend patient follow-up with outpatient PCP top carrier for follow-up if she would want to pursue diagnosis and treatment. (8) DM2 (diabetes mellitus, type 2): - Continue Lantus 25 units at bedtime. - Accu-Cheks with sliding scale insulin. - Diabetic diet. Plan - Admit to med/tele. - SCDs for VTE ppx. - Full Code. Total Time Total Time Spent Total Time Spent (In Minutes): 35 Discharge Plan Discharge Items Patient Disposition: Personal Senior Living Reason For Visit: HYPONATREMIA, FALL Discharge Diagnosis: hyponatremia Activity: Resume your previous activity Non-emergency contact: Primary Care Provider Call non-emergency contact if: you have any medication questions Follow-up/Referrals: Irvin Gardner [Primary Care Provider] - Diet: Regular Addtl Attending Provider Instructions: please make appointment to follow up with your regular PCP, also make appointment to follow up with nephrology in 1 week Pending Studies at Discharge: No Stand-Alone Forms: My [employer], Smoking Cessation Skilled Items Patient informed of condition?: Yes DNR: No Discharge Level of Care: Other Communicable Disease: No Discharge Prognosis: Improving Lines: None Urinary Catheter: No Medications and DC Order Prescriptions: New furosemide 20 mg Tablet 20 mg PO BID17 30 Days Qty: 30 0RF sodium chloride 1 gram Tablet 2 g PO BID 10 Days Qty: 40 0RF Continued multivitamin Tablet 1 tab PO QAM spironolactone 50 mg tablet 50 mg PO DAILY insulin aspart U-100 [Novolog Flexpen U-100 Insulin] 100 unit/mL (3 mL) insulin pen 1 sliding scale dose SUBCUT ACHS Rx Instructions: 1 UNIT PER 8 GRAMS OF CARBS. insulin glargine [Lantus Solostar U-100 Insulin] 100 unit/mL (3 mL) insulin pen 25 unit subcut HS cholecalciferol (vitamin D3) [Vitamin D3] 125 mcg (5,000 unit) Tablet 125 mcg PO DAILY Discontinued furosemide [Lasix] 40 mg Tablet 80 mg PO QAM Rx Instructions: PER MED LIST---TAKE 60 MG AT LUNCH, PER PT-- "CUT THIS DOSE OUT". 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
--- NOTE | 2022-06-08 17:34 | Electrocardiogram Report ---
Test Reason : Blood Pressure : / mmHG Vent. Rate : 085 BPM Atrial Rate : 073 BPM P-R Int : 000 ms QRS Dur : 108 ms QT Int : 378 ms P-R-T Axes : 000 -23 087 degrees QTc Int : 449 ms Probably sinus with PVCs although atrial fibrillation with aberrancy cannot be excluded Incomplete right bundle branch block Left ventricular hypertrophy with repolarization abnormality Abnormal ECG Confirmed by Jean-Pierre Ramos ([id number] on 06/08/2022 5:34:04 PM Referred By: Irvin Gardner Confirmed By:Johnny Ramos
== END 2022-06-07 13:14 | disposition home or self-care (01) | DRG 644 ==
LOC: ED 13:58 → SUATTDRO 21:03 → EDINP 21:03 → 2S 21:30
DX: I10 Essential (primary) hypertension; K75.81 Nonalcoholic steatohepatitis (NASH); Z20.822 Contact with and (suspected) exposure to COVID-19; N17.9 Acute kidney failure, unspecified; W17.81XA Fall down embankment (hill), initial encounter; K76.6 Portal hypertension; Z79.4 Long term (current) use of insulin; N63.22 Unspecified lump in the left breast, upper inner quadrant; G47.62 Sleep related leg cramps; S22.41XA Multiple fractures of ribs, right side, initial encounter for closed fracture; E11.9 Type 2 diabetes mellitus without complications; D69.6 Thrombocytopenia, unspecified; Z87.891 Personal history of nicotine dependence; Y92.74 Orchard as the place of occurrence of the external cause; E22.2 Syndrome of inappropriate secretion of antidiuretic hormone

== ENCOUNTER 2022-09-09 00:13 | Inpatient (IN) ==
[2022-09-09 01:01] LABS: Albumin Level 3.1 gm/dl (3.4-5.0); BUN Creatinine Ratio 24.8 (10-20); Bilirubin Direct 0.6 mg/dl (0-0.2); Bilirubin,Total 3.6 mg/dl (0.2-1.0); Calcium 9.8 mg/dl (8.5-10.1); Creatinine Clr Calc Pharmacy 25.8 ml/min; Est GFR (African American) 35.7 ml/min; Est GFR (Non-African American) 30.8 ml/min; Magnesium 1.9 mg/dl (1.7-2.4); Potassium 4.4 mmol/L (3.5-5.1); Total Protein 6.2 gm/dl (6.0-8.3)
[2022-09-09 01:05] LABS: Troponin I High Sensitivity 47.2 pg/ml (0-14)
[2022-09-09 01:16] LABS: Hematocrit (blood only) 33.1 % (34.1-44.9); Hemoglobin 10.8 g/dl (12.0-16.0); Mean Corpuscular Hemoglobin 30.2 pg (25.0-34.0); Mean Corpuscular Hgb Conc 32.6 g/dL (32.0-36.0); Mean Corpuscular Volume 92.5 fL (80.0-100.0); Platelet Count 26 K/uL (130-400); RDW Coefficient of Variation 14.8 % (11.5-14.5); RDW Standard Deviation 49.8 fL (36.4-46.3); Red Blood Count 3.58 M/uL (3.93-5.22); White Blood Count 4.14 K/ul (4.8-10.8)
[2022-09-09 01:17] LABS: Basophils % (auto) 0.2 %; Eosinophils # (auto) 0.03 K/uL (0-0.50); Eosinophils % (auto) 0.7 %; Immature Granulocytes % (auto) 0.2 %; Lymphocytes # (auto) 0.46 K/uL (1.2-3.4); Lymphocytes % (auto) 11.1 %; Monocytes # (auto) 0.38 K/uL (0.24-0.82); Monocytes % (auto) 9.2 %; Neutrophils # (auto) 3.25 K/uL (1.4-6.5); Neutrophils % (auto) 78.6 %
--- NOTE | 2022-09-09 01:17 | Emergency Department Note ---
History of Present Illness General Chief complaint: Shortness of Breath/Dyspnea Time Seen by Provider: 09/09/22 00:30 History of Present Illness Maximum Pain Intensity: 4 89-year-old female presents emergency department 1 day history of increasing shortness of breath. Patient had an outpatient chest x-ray 2 days ago reportedly had left pleural effusion and CHF. Patient is currently on Lasix she states she has been taking it. Patient is also in need of a heart valve and she has a history of low platelets. Patient denies significant cough does state shortness of breath denies hemoptysis denies pleuritic chest pain. There are no other mitigating or alleviating factors Home Medications Medication Instructions Recorded Confirmed Type cholecalciferol (vitamin D3) 125 125 mcg PO QAM 10/12/21 09/09/22 History mcg (5,000 unit) tablet (Vitamin D3) insulin aspart U-100 100 unit/mL 4 unit subcut WM 10/12/21 09/09/22 History (3 mL) subcutaneous pen (Novolog Flexpen U-100 Insulin aspart) insulin glargine 100 unit/mL (3 25 unit subcut HS 10/12/21 09/09/22 History mL) subcutaneous pen (Lantus Solostar U-100 Insulin) coenzyme Q10 200 mg chewable tablet 200 mg PO DAILY 09/09/22 09/09/22 History furosemide 20 mg tablet 60 mg PO BID 09/09/22 09/09/22 History lactulose 20 gram/30 mL oral 20 g PO BID PRN Constipation 09/09/22 09/09/22 History solution lidocaine 4 % topical patch 1 patch topical .EVERY 24 HOURS 09/09/22 09/09/22 History (Lidocaine Pain Relief) PRN .mod-sever pain magnesium 250 mg tablet 500 mg PO QAM 09/09/22 09/09/22 History olqzemcorxjs-Gx-bzxs-minerals 1 tab PO QAM 09/09/22 09/09/22 History spironolactone 25 mg tablet 12.5 mg PO DAILY 09/09/22 09/09/22 History tramadol 50 mg tablet 25 mg PO Q4 PRN Pain any level 09/09/22 09/09/22 History Allergies Allergy/AdvReac Type Severity Reaction Status Date / Time shellfish derived Allergy Severe ANAPHYLAXIS Verified 06/04/22 18:03 AGGIE Inhibitors AdvReac Intermediate Cough Verified 06/04/22 18:03 alendronate sodium AdvReac Intermediate dizziness Verified 09/09/22 00:36 ALL CREATURES THAT LIVE IN Allergy Severe ANAPHYLAXIS Uncoded 06/04/22 18:03 WATER Past Med/Surg History Medical History (Reviewed 09/09/22 @ 01:16 EDT by Kobi Mayberry DO) NGHIA (acute kidney injury) Benign hypertension (02/28/12) Breast mass DM2 (diabetes mellitus, type 2) Hyperlipidemia (02/28/12) Ovarian mass Surgical History (Reviewed 09/09/22 @ 01:16 EDT by Kobi Mayberry DO) No significant past surgical history Family History (Reviewed 09/09/22 @ 01:16 EDT by Kobi Mayberry DO) Other Family history non-contributory Social History (Reviewed 09/09/22 @ 01:16 EDT by Kobi Mayberry DO) Smoking Status: Never smoker Second Hand Exposure: No; Hx Alcohol Use: No Hx Substance Use: No Preferred Language: Yemeni Communication Ability: Effective Assistant Golf Professional Required: No Beliefs That Will Affect Care: None Current Living Situation: Spouse Current Living Situation Comment: [facility] independent living Feels Safe at Home: Yes Assistive Devices: Walker and Wheelchair Review of Systems A total of 10 systems reviewed and were otherwise negative Constitutional: no fever Respiratory: + dyspnea; no cough Cardiovascular: no chest pain Physical Exam Vital Signs Vital Signs - 24 hr 09/09/22 00:25 09/09/22 00:25 09/09/22 00:25 Temperature 36.8 C Temperature Source Oral Pulse Rate 73 Pulse Rate from SpO2 Sensor Pulse Rhythm Irregular Pulse Strength Normal Respiratory Rate 24 Respiratory Effort / Characteristics Non-Labored Short of Breath Spontaneous Short of Breath Respiratory Depth Normal Normal Respiratory Pattern Regular Regular Blood Pressure 150/60 H Blood Pressure Mean 90 Blood Pressure Position Sitting Pulse Oximetry 96 Oxygen Delivery Method Room Air Room Air Room Air Sepsis Recent Fever Within 48 Hours No Sepsis New/Unexplained Change in Mental Status N/A Sepsis Action Taken by Nursing No Action Required 09/09/22 00:32 Temperature Temperature Source Pulse Rate 63 Pulse Rate from SpO2 Sensor 88 Pulse Rhythm Pulse Strength Respiratory Rate 29 H Respiratory Effort / Characteristics Respiratory Depth Respiratory Pattern Blood Pressure 150/58 H Blood Pressure Mean 88 Blood Pressure Position Pulse Oximetry 98 Oxygen Delivery Method Room Air Sepsis Recent Fever Within 48 Hours Sepsis New/Unexplained Change in Mental Status Sepsis Action Taken by Nursing GENERAL: Patient is awake alert in no acute distress patient is resting comfortably and showing no signs of anxiety EYES: The conjunctivae are clear. The pupils are round and reactive. EARS, NOSE, MOUTH AND THROAT: The nose is without any evidence of any deformity. Mucous membranes are moist. Tongue is midline. NECK: The neck is nontender and supple. RESPIRATORY: Normal respiratory effort is noted there is no evidence of wheezing rhonchi or rales CARDIOVASCULAR: Regular rate and rhythm noted there is a systolic murmur present GASTROINTESTINAL: The abdomen is soft. Abdomen is nontender. BACK: No midline tenderness or or step-off noted range of motion in flexion extension as well as rotation no signs of muscle spasm noted MUSCULOSKELETAL/EXTREMITIES: There is no evidence of gross deformity full range of motion is noted in the hips and shoulders. SKIN bilateral lower extremity pitting edema with erythema and blistering NEUROLOGIC: Patient is awake alert and oriented x3 strength is symmetric Psych normal affect Course Reevaluation(s) Reevaluation #1: Patient is resting in no distress was given IV Lasix Time: 01:35 Consultations Consultation #1: [facility] hospitalist Time: 01:35 Administered Medications Discontinued Medications Furosemide (Furosemide 40 Mg/4 Ml Vial) 40 mg IV ONE ONE Stop: 09/09/22 01:20 EST Last Admin: 09/09/22 01:24 EDT Dose: 40 mg Documented By: ESME Medical Decision Making Medical Records Attestation: I reviewed the patient's medical records. Home Medications Current Medication List: was personally reviewed by me Laboratory Data Attestation: I reviewed the patient's lab results. History of low platelets, history of CKD Result diagrams: 09/09/22 00:25 09/09/22 00:25 Lab Results 09/09/22 09/09/22 09/09/22 Range/Units 00:25 00:25 00:25 WBC 4.14 L (4.8-10.8) K/ul RBC 3.58 L (3.93-5.22) M/uL Hgb 10.8 L (12.0-16.0) g/dl Hct 33.1 L (34.1-44.9) % MCV 92.5 (80.0-100.0) fL MCH 30.2 (25.0-34.0) pg MCHC 32.6 (32.0-36.0) g/dL RDW Std Deviation 49.8 H (36.4-46.3) fL RDW Coeff of Jacqueline 14.8 H (11.5-14.5) % Plt Count 26 L* (130-400) K/uL MPV 14.0 H (9.4-12.3) fL Immature Gran % (Auto) 0.2 % Neut % (Auto) 78.6 % Lymph % (Auto) 11.1 % Cocke % (Auto) 9.2 % Eos % (Auto) 0.7 % Baso % (Auto) 0.2 % Neut # (Auto) 3.25 (1.4-6.5) K/uL Lymph # (Auto) 0.46 L (1.2-3.4) K/uL Cocke # (Auto) 0.38 (0.24-0.82) K/uL Eos # (Auto) 0.03 (0-0.50) K/uL Baso # (Auto) 0.01 (0-0.2) K/uL Immature Gran # (Auto) 0.01 (0.00-0.02) K/uL RBC Morphology Unremarkable Sodium 138 (136-145) mmol/L Potassium 4.4 (3.5-5.1) mmol/L Chloride 104 (98-107) mmol/L Carbon Dioxide 29 (21-32) mmol/L Anion Gap 5 (3-11) BUN 37 H (6-23) mg/dl Creatinine 1.49 H (0.6-1.2) mg/dl Est Cr Clr Drug Dosing 25.8 ml/min Est GFR ( Amer) 35.7 ml/min Est GFR (Non-Af Amer) 30.8 ml/min BUN/Creatinine Ratio 24.8 H (10-20) Glucose 154 H (70-99(Fasting)) mg/dl Lactate (0.4-2.0) mmol/L Calcium 9.8 (8.5-10.1) mg/dl Magnesium 1.9 (1.7-2.4) mg/dl Total Bilirubin 3.6 H (0.2-1.0) mg/dl Direct Bilirubin 0.6 H (0-0.2) mg/dl AST 34 (13-39) U/L ALT 18 (7-52) U/L Alkaline Phosphatase 173 H (34-104) U/L Troponin I High Sens 47.2 H (0-14) pg/ml Total Protein 6.2 (6.0-8.3) gm/dl Albumin 3.1 L (3.4-5.0) gm/dl Procalcitonin 0.40 (0-0.5) ng/ml Urine Color Urine Appearance (Clear) Urine pH (4.5-7.5) Ur Specific Searcy (1.000-1.030) Urine Protein (Negative) Urine Glucose (UA) (Negative) Urine Ketones (Negative) Urine Blood (Negative) Urine Nitrite (Negative) Urine Bilirubin (Negative) Urine Urobilinogen (Negative) Ur Leukocyte Esterase (Negative) Urine WBC (Auto) (0-5) /hpf Urine RBC (Auto) (0-4) /hpf U Hyaline Cast (Auto) (0-5) /lpf U Epithel Cells (Auto) (0-5) /lpf Urine Bacteria (Auto) (Negative) SARS-CoV-2 (PCR) (Negative) Influenza Type A (PCR) (Neg) Influenza Type B (PCR) (Neg) RSV (RT-PCR) (Neg) 09/09/22 09/09/22 09/09/22 Range/Units 01:05 EST 01:05 EST 01:15 EST WBC (4.8-10.8) K/ul RBC (3.93-5.22) M/uL Hgb (12.0-16.0) g/dl Hct (34.1-44.9) % MCV (80.0-100.0) fL MCH (25.0-34.0) pg MCHC (32.0-36.0) g/dL RDW Std Deviation (36.4-46.3) fL RDW Coeff of Jacqueline (11.5-14.5) % Plt Count (130-400) K/uL MPV (9.4-12.3) fL Immature Gran % (Auto) % Neut % (Auto) % Lymph % (Auto) % Cocke % (Auto) % Eos % (Auto) % Baso % (Auto) % Neut # (Auto) (1.4-6.5) K/uL Lymph # (Auto) (1.2-3.4) K/uL Cocke # (Auto) (0.24-0.82) K/uL Eos # (Auto) (0-0.50) K/uL Baso # (Auto) (0-0.2) K/uL Immature Gran # (Auto) (0.00-0.02) K/uL RBC Morphology Sodium (136-145) mmol/L Potassium (3.5-5.1) mmol/L Chloride (98-107) mmol/L Carbon Dioxide (21-32) mmol/L Anion Gap (3-11) BUN (6-23) mg/dl Creatinine (0.6-1.2) mg/dl Est Cr Clr Drug Dosing ml/min Est GFR ( Amer) ml/min Est GFR (Non-Af Amer) ml/min BUN/Creatinine Ratio (10-20) Glucose (70-99(Fasting)) mg/dl Lactate 1.2 (0.4-2.0) mmol/L Calcium (8.5-10.1) mg/dl Magnesium (1.7-2.4) mg/dl Total Bilirubin (0.2-1.0) mg/dl Direct Bilirubin (0-0.2) mg/dl AST (13-39) U/L ALT (7-52) U/L Alkaline Phosphatase (34-104) U/L Troponin I High Sens (0-14) pg/ml Total Protein (6.0-8.3) gm/dl Albumin (3.4-5.0) gm/dl Procalcitonin (0-0.5) ng/ml Urine Color Yellow Urine Appearance Clear (Clear) Urine pH 7.5 (4.5-7.5) Ur Specific Searcy 1.008 (1.000-1.030) Urine Protein Negative (Negative) Urine Glucose (UA) Negative (Negative) Urine Ketones Negative (Negative) Urine Blood 2+ H (Negative) Urine Nitrite Negative (Negative) Urine Bilirubin Negative (Negative) Urine Urobilinogen Negative (Negative) Ur Leukocyte Esterase Negative (Negative) Urine WBC (Auto) 1-5 (0-5) /hpf Urine RBC (Auto) 10-30 H (0-4) /hpf U Hyaline Cast (Auto) 0 (0-5) /lpf U Epithel Cells (Auto) 0-5 (0-5) /lpf Urine Bacteria (Auto) Negative (Negative) SARS-CoV-2 (PCR) NEGATIVE (Negative) Influenza Type A (PCR) Negative (Neg) Influenza Type B (PCR) Negative (Neg) RSV (RT-PCR) Negative (Neg) Imaging Data Attestation: I personally reviewed and interpreted this imaging study as follow s: My Impression: Chest x-ray interpreted by me increased left lower lobe pleural effusion ECG Data Attestation: I personally reviewed and interpreted this ECG as follows: MDM Narrative Medical decision making differential diagnosis CHF, pleural effusion, pneumonia, cardiac event; plan is to check labs, EKG, chest x-ray Patient was evaluated for shortness of breath patient was found to have a pleural effusion in the left lung, patient was given IV Lasix, patient has low platelets and has a history of the same, patient has an elevated creatinine that has a history of CKD; patient will be admitted to the hospitalist for further evaluation and treatment Impression & Plan CHF (congestive heart failure), Thrombocytopenia, Pleural effusion, CKD (chronic kidney disease) Discharge Plan Visit Data Chief Complaint: Shortness of Breath/Dyspnea ED Provider: Kobi Mayberry Discharge Problem: CHF (congestive heart failure), Thrombocytopenia, Pleural effusion, CKD (chronic kidney disease) Patient Disposition: Being Evaluated by Hospitalist Forms Stand Alone Forms: My [facility] [employer] Prescriptions Prescriptions: No Action insulin aspart U-100 [Novolog Flexpen U-100 Insulin] 100 unit/mL (3 mL) insulin pen 4 unit SUBCUT WM Rx Instructions: give if BSG>200 insulin glargine [Lantus Solostar U-100 Insulin] 100 unit/mL (3 mL) insulin pen 25 unit subcut HS cholecalciferol (vitamin D3) [Vitamin D3] 125 mcg (5,000 unit) Tablet 125 mcg PO QAM tramadol 50 mg Tablet 25 mg PO Q4 PRN (Reason: Pain any level) Rx Instructions: 1/2 tablet dose spironolactone 25 mg Tablet 12.5 mg PO DAILY Rx Instructions: 1/2 table dose magnesium 250 mg Tablet 500 mg PO QAM Rx Instructions: 2 TABLET DOSE furosemide 20 mg tablet 60 mg PO BID Rx Instructions: 3 tablet dose lidocaine [Lidocaine Pain Relief] 4 % Adhesive Patch,Medicated 1 patch TOPICAL .EVERY 24 HOURS MDD 1 patch PRN (Reason: .mod-sever pain) Rx Instructions: remove after 12 hours Multiple Vitamin, Womens Tablet 1 tab PO QAM coenzyme Q10 200 mg Tablet,Chewable 200 mg PO DAILY lactulose 20 gram/30 mL Solution 20 g PO BID PRN (Reason: Constipation) Referrals Referrals: Irvin Gardner [Primary Care Provider] -
[2022-09-09 01:18] LABS: Basophils # (auto) 0.01 K/uL (0-0.2); Immature Granulocytes # (auto) 0.01 K/uL (0.00-0.02); RBC Morphology Unremarkable
[2022-09-09] MEDS ORDERED: FUROSEMIDE 40 MG/4 ML VIAL IV ONE ×2 (01:19→07:00)
[2022-09-09 01:43] LABS: Appearance Urine Clear (Clear); Bacteria Urine Automated Negative (Negative); Bilirubin Urine Negative (Negative); Blood Urine 2+ (Negative); Cast Urine Automated 0 /lpf (0-5); Color Urine Yellow; Epithelial Cell Urine Auto 0-5 /lpf (0-5); Glucose Urine UA Negative (Negative); Ketones Urine Negative (Negative); Leukocyte Esterase Urine Negative (Negative); Nitrite Urine Negative (Negative); Protein Urine Negative (Negative); Specific Gravity Urine 1.008 (1.000-1.030); Urobilinogen Urine Negative (Negative); pH Urine 7.5 (4.5-7.5)
--- NOTE | 2022-09-09 01:56 | History & Physical Report ---
Date of Service September 09, 2022 Assessment & Plan (1) Shortness of breath: Plan: 89yo female with a PMH of HTN, IDDM2, CHF, CKD, and DOMINGUEZ cirrhosis with thrombocytopenia presents from [facility] with a two-day history of SOB. Shortness of breath, pleural effusions, CHF, valvular disease Patient with a two-day history of progressive SOB Tachypneic but VSS otherwise; spO2 adequate on room air CXR: bilateral pleural effusions (L>R) with bilateral patchy opacities Suspect SOB is secondary to pleural effusions which likely represent CHF exacerbation in the setting of valvular disease Low suspicion for pneumonia - no leukocytosis, no fever, no hypoxia, procalcitonin negative Admit to med/surg telemetry Lasix 40mg IV (x1) administered in ED Lasix 40mg IV ordered for AM; will defer decision re: further diuresis to day team given patient's NGHIA Echo ordered Cardiology consulted Continue spironolactone Supplemental oxygen prn Thrombocytopenia Chronic; 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 No sign of active bleeding Will hold off on VTE chemoprophylaxis given severity of thrombocytopenia No indication for platelet transfusion at this time Trend daily CBC Atrial fibrillation EKG on admission: atrial fibrillation with PVCs Unclear if this is new; not seen on prior EKGs at this facility Currently rate controlled Will hold off on VTE chemoprophylaxis given severity of thrombocytopenia Cardiology consulted as noted above DOMINGUEZ cirrhosis, hyperbilirubinemia, elevated alkaline phosphatase On admission, Tbili elevated to 3.6, direct bili elevated to 0.6, alk phos elevated to 173 In the setting of known DOMINGUEZ cirrhosis; alk phos and bilirubin elevations similar to prior values No acute intervention indicated at this time Trend CMP NGHIA on CKD On admission, creatinine elevated to 1.49 (baseline ~1.0) Avoid nephrotoxins when able, encourage PO intake Trend renal function IDDM2 HbA1c 4.8% (06/2022), repeat value ordered Patient's home regimen held on admission Continue BSG checks, sliding-scale insulin, hypoglycemic protocol Elevated troponin hsTroponin on admission elevated to 47.2; patient denies chest pain, EKG findings noted above Repeat value equivocal at 47.2 (of note, repeat value was accidentally drawn early, after only 55 minutes) Despite repeat value being drawn early, given that it did not increase, will hold off on ordering an additional repeat value Right breast mass, thickened endometrium, abnormally enlarged right ovary Breast mass incidentally found on imaging from 06/2022 Endometrium/right ovary abnormalities incidentally found on imaging from 01/2022 Patient has not followed up on these issues yet Outpatient follow-up recommended FEN: DM2 diet Code status: full code DVT ppx: SCDs Consults: cardiology PT/OT: ordered Dispo: med/surg telemetry 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 CXR performed at [facility] showed a left pleural effusion. Symptoms have been progressively worsening over the past day. Patient denies other symptoms including fever, chills, headache, vision changes, CP, palpitations, abdominal pain, nausea, vomiting, dysuria, hematochezia, melena, lightheadedness, dizziness, numbness, tingling, weakness, or other symptoms. Denies recent illness and recent travel. Of note, patient reports that she "needs a heart valve replacement" although she is unsure what her diagnosis is. 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 Patient is also unsure if she has a history of atrial fibrillation. Additionally, patient reports that a left breast mass was incidentally found on imaging during patient's last admission (06/2022), as well as a thickened endometrium and abnormal enlargement of the right ovary, both incidentally found on imaging during patient's prior admission (01/2022). Patient reports she has not followed up on these. Upon arrival, vitals were notable for elevated BP (150s/60s) and tachypnea (29); no tachycardia, patient afebrile, spO2 adequate on room air. Initial labs were notable for mild anemia (10.8), thrombocytopenia (26), elevated creatinine (1.49), elevated total bilirubin (3.6), elevated direct bilirubin (0.6), elevated alkphos (173), and elevated hsTroponin (47.2); no electrolyte abnormalities, AST/ALT wnl, procalcitonin negative, covid/influenza/RSV PCR negative. In the ED, patient received lasix 40mg IV (x1) which resulted in an improvement in SOB. EKG: atrial fibrillation with PVCs CXR: bilateral pleural effusions (L>R) with bilateral patchy opacities Surrogate decision-maker in case of an emergency: daughter Luz Person (cell: [phone]) Allergies Allergy/AdvReac Type Severity Reaction Status Date / Time shellfish derived Allergy Severe ANAPHYLAXIS Verified 06/04/22 18:03 AGGIE Inhibitors AdvReac Intermediate Cough Verified 06/04/22 18:03 alendronate sodium AdvReac Intermediate dizziness Verified 09/09/22 00:36 ALL CREATURES THAT LIVE IN Allergy Severe ANAPHYLAXIS Uncoded 06/04/22 18:03 WATER Home Medications Medication Instructions Recorded Confirmed Type cholecalciferol (vitamin D3) 125 125 mcg PO QAM 10/12/21 09/09/22 History mcg (5,000 unit) tablet (Vitamin D3) insulin aspart U-100 100 unit/mL 4 unit subcut WM 10/12/21 09/09/22 History (3 mL) subcutaneous pen (Novolog Flexpen U-100 Insulin aspart) insulin glargine 100 unit/mL (3 25 unit subcut HS 10/12/21 09/09/22 History mL) subcutaneous pen (Lantus Solostar U-100 Insulin) coenzyme Q10 200 mg chewable tablet 200 mg PO DAILY 09/09/22 09/09/22 History furosemide 20 mg tablet 60 mg PO BID 09/09/22 09/09/22 History lactulose 20 gram/30 mL oral 20 g PO BID PRN Constipation 09/09/22 09/09/22 History solution lidocaine 4 % topical patch 1 patch topical .EVERY 24 HOURS 09/09/22 09/09/22 History (Lidocaine Pain Relief) PRN .mod-sever pain magnesium 250 mg tablet 500 mg PO QAM 09/09/22 09/09/22 History fszxfvquqsdz-Vs-dxrw-minerals 1 tab PO QAM 09/09/22 09/09/22 History spironolactone 25 mg tablet 12.5 mg PO DAILY 09/09/22 09/09/22 History tramadol 50 mg tablet 25 mg PO Q4 PRN Pain any level 09/09/22 09/09/22 History Past Med/Surg History Medical History (Reviewed 09/09/22 @ 01:16 EDT by Kobi Mayberry DO) NGHIA (acute kidney injury) Benign hypertension (02/28/12) Breast mass DM2 (diabetes mellitus, type 2) Hyperlipidemia (02/28/12) Ovarian mass Surgical History (Reviewed 09/09/22 @ 01:16 EDT by Kobi Mayberry DO) No significant past surgical history Family History (Reviewed 09/09/22 @ 01:16 EDT by Kobi Mayberry DO) Other Family history non-contributory Social History (Reviewed 09/09/22 @ 01:16 EDT by Kobi Mayberry DO) Smoking Status: Former smoker Second Hand Exposure: No; Hx Alcohol Use: No Hx Substance Use: No Preferred Language: Turkish Communication Ability: Effective Marketing Regional Consultant Required: No Beliefs That Will Affect Care: None Current Living Situation: Spouse Current Living Situation Comment: Independent living at [facility] ([facility]) Feels Safe at Home: Yes Assistive Devices: Hospital Bed and Walker Physical Exam Physical Exam: Constitutional: well-appearing, no acute distress HEENT: NCAT, no conjunctival injection, MMM CV: regular rhythm, grade 4/6 systolic ejection murmur appreciated, extremities well-perfused, 1+ LE edema bilaterally Resp: tachypneic, lungs clear to auscultation, no crackles, no wheezes/rhonchi appreciated, no increased work of breathing GI: soft, nondistended, nontender, BS normoactive MSK: no gross deformities appreciated Skin: lower legs slightly erythematous bilaterally with a few scattered bullae; no ecchymosis, petechiae, or sign of active bleeding appreciated Neuro: alert, oriented, no focal neurologic deficit appreciated Results & Data Results & Data ([facility]) Vital Signs (Past 12 Hours) Vital Signs Temp Pulse Resp BP Pulse Ox O2 Del Method 09/09/22 00:32 63 29 H 150/58 H 98 Room Air 09/09/22 00:25 Room Air 09/09/22 00:25 36.8 C 73 24 150/60 H 96 Room Air 09/09/22 00:25 Room Air Supervising Physician Co-Signing Physician Notes Patient seen and examined, chart reviewed, case discussed with Dr. Reyez and I agree with the assessment and plan as above. Patient with valvular heart disease. Also with newly discovered breast lesion and ovarian lesion. Thrombocytopenia In the process of trying to see Hematology to discuss thrombocytopenia before she has biopsy of her breast lesion. They follow with a Resistor Testing Machine Operator in [place] Shortness of breath, volume overload and pleural effusion On exam she is tachypneic, HD stable Diminished breath sounds in bilateral bases 4/6 POPEYE on 2nd right ICS and apex Abdomen soft, NT/ND Ext warm, well perfused, edema Labs and images reviewed Assessment/Plan -Diuresis -Check 2D echo -Remainder as above Resident Activity Tracking Resident Involvement: Resident Care Provided and Tipple Mechanic Coverage Note Care Provided: Adult Hospital Medicine
[2022-09-09 01:59] LABS: Influenza A virus by PCR Negative (Neg); Influenza B virus by PCR Negative (Neg); RSV by PCR Negative (Neg); SARS CoV2 RNA(COVID-19)Cepheid NEGATIVE (Negative)
--- NOTE | 2022-09-09 01:59 | Billing Data ---
Date of Service September 09, 2022 Coding Level of Care Code 24195 Initial Inpt Care Lvl 3
[2022-09-09] MEDS ORDERED: DEXTROSE 50% 50 ML SYRINGE IV PRN (05:15)
[2022-09-09] MEDS ORDERED: CARBOHYDRATES FOR HYPOGLYCEMIA PO PRN (05:15)
[2022-09-09] MEDS ORDERED: GLUCAGON FOR INJ 1 MG VIAL SQ PRN (05:15)
[2022-09-09] MEDS ORDERED: GLUCOSE 10 TAB/TUBE PO PRN (05:15)
[2022-09-09] MEDS ORDERED: GLUCOSE 40% GEL 15 GM TUBE PO PRN (05:15)
[2022-09-09] MEDS: INSULIN ASPART PER UNIT SC SCH ×4 (08:21→20:25)
[2022-09-09] MEDS: SPIRONOLACTONE 12.5 MG TAB PO SCH (08:48)
--- NOTE | 2022-09-09 09:47 | XRay Report ---
XR chest 1V portable CLINICAL HISTORY: Sepsis. COMPARISON STUDY: Chest CT June 04, 2022. Chest radiograph June 06, 2022. FINDINGS: Multiple old right-sided rib fractures are incidentally noted. There is no pneumothorax. Sm all bilateral pleural effusions with bibasilar opacities have developed. Cardiomegaly is noted. There is pulmonary vascular congestion with possible mild pulmonary edema. IMPRESSION: 1. Prevascular congestion with possible mild pulmonary edema. 2. Small bilateral pleural effusions with bibasilar opacities which likely reflect atelectasis althou gh consolidation could appear similar. 3. Cardiomegaly. ACT 112: Negative or not required by law. Electronically signed by: Omer Aldana M.D. 09/09/2022 9:46 AM
--- NOTE | 2022-09-09 11:05 | Cardiology Consultation ---
Date of Consultation September 09, 2022 Assessment & Plan (1) Pleural effusion: (2) CKD (chronic kidney disease): (3) 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: (4) Severe aortic stenosis: (5) Thrombocytopenia: (6) Shortness of breath: Plan It was my pleasure to see Mrs. Berman in cardiac consultation today. Given her worsening shortness of breath and progressive pleural effusions on chest x-ray believe the most prudent course of action at this point would be for continued IV diuresis. Her renal function has bumped slightly so I will start her on Lasix 60 mg IV twice daily Strict I's and O's along with daily weights on the same standing scale Follow and replete electrolytes as necessary. Given her severe thrombocytopenia we are very limited in our options for any interventional procedures. She has been deemed too risky for thoracentesis in the past She has an outpatient appointment to discuss TAVR already but again, I doubt that she would be deemed a candidate but will obviously defer to our interventional colleagues History of Present Illness Reason for Consultation: CHF Requesting Physician: VARGHESE Attending Physician: Gurwinder Crenshaw MD History of Present Illness It is my pleasure to see Mrs. Beatty in cardiac consultation today September 09, 2022. She is a very pleasant 89-year-old woman who is been followed very closely with Maryuri of our cardiology practice for history of severe aortic stenosis and pleural effusions. She states that she was in her normal state of health until approximately 2 days ago. At that time, she started having more difficulty breathing with exertion and noticed lower extremity edema developing. The symptoms progressed over the next 2 days until she presented to the emergency department. She states that she is been compliant with her medical regimen as an outpatient and denies any abnormal salt intake or other dietary indiscretions as of late. Past medical history: 1. Severe aortic stenosis per echo 03/15/2022, deemed not a TAVR or SAVR candidate due to thrombocytopenia 2. ? TBS 3. Hyperlipidemia 4. History of pleural effusions and possible thoracentesis in the past, ? 2011 a. Moderate left pleural effusion and small right pleural effusion with right lung nodules- patient preferred to be treated conservatively 5. 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 Diabetes 7. Chronic thrombocytopenia Allergies Allergy/AdvReac Type Severity Reaction Status Date / Time shellfish derived Allergy Severe ANAPHYLAXIS Verified 06/04/22 18:03 Fish Containing Products Allergy Verified 09/09/22 09:54 fish derived Allergy Verified 09/09/22 09:54 fish oil Allergy Verified 09/09/22 09:54 AGGIE Inhibitors AdvReac Intermediate Cough Verified 06/04/22 18:03 alendronate sodium AdvReac Intermediate dizziness Verified 09/09/22 00:36 ALL CREATURES THAT LIVE IN Allergy Severe ANAPHYLAXIS Uncoded 06/04/22 18:03 WATER Home Medications Medication Instructions Recorded Confirmed Type cholecalciferol (vitamin D3) 125 125 mcg PO QAM 10/12/21 09/09/22 History mcg (5,000 unit) tablet (Vitamin D3) insulin aspart U-100 100 unit/mL 4 unit subcut WM 10/12/21 09/09/22 History (3 mL) subcutaneous pen (Novolog Flexpen U-100 Insulin aspart) insulin glargine 100 unit/mL (3 25 unit subcut HS 10/12/21 09/09/22 History mL) subcutaneous pen (Lantus Solostar U-100 Insulin) coenzyme Q10 200 mg chewable tablet 200 mg PO DAILY 09/09/22 09/09/22 History furosemide 20 mg tablet 60 mg PO BID 09/09/22 09/09/22 History lactulose 20 gram/30 mL oral 20 g PO BID PRN Constipation 09/09/22 09/09/22 History solution lidocaine 4 % topical patch 1 patch topical .EVERY 24 HOURS 09/09/22 09/09/22 History (Lidocaine Pain Relief) PRN .mod-sever pain magnesium 250 mg tablet 500 mg PO QAM 09/09/22 09/09/22 History zrtwfggkaapf-Hj-bxvl-minerals 1 tab PO QAM 09/09/22 09/09/22 History spironolactone 25 mg tablet 12.5 mg PO DAILY 09/09/22 09/09/22 History tramadol 50 mg tablet 25 mg PO Q4 PRN Pain any level 09/09/22 09/09/22 History Patient History Medical History NGHIA (acute kidney injury) Benign hypertension (02/28/12) Breast mass DM2 (diabetes mellitus, type 2) Hyperlipidemia (02/28/12) Ovarian mass Surgical History No significant past surgical history Family History Other Family history non-contributory Social History Smoking Status: Former smoker Second Hand Exposure: No; Hx Alcohol Use: No Hx Substance Use: No Preferred Language: Burkinan Communication Ability: Effective Video Operator Required: No Beliefs That Will Affect Care: None Current Living Situation: Spouse Current Living Situation Comment: Independent living at [facility] Feels Safe at Home: Yes Assistive Devices: Hospital Bed and Walker Review of Systems Review of Systems: All systems reviewed & are unremarkable except as noted in HPI & below Physical Exam Physical Exam: General: Awake, alert and oriented x 3. No acute distress. HEENT: Normocephalic, atraumatic. Pupils equal, round and reactive to light and accommodation. Extraocular muscles are intact. Anicteric sclera. Moist mucous membranes. Neck: No JVD. No bruit. Cardiovascular: irregularly irregular, unable to appreciate murmur, rub or gallop. Pulmonary: Scattered rhonchi with bibasilar rales Abdomen: Bowel sounds x 4, soft. No rebound, guarding or tenderness. No organomegaly. Extremities: No clubbing, cyanosis. +1 bilateral lower extremity pitting edema. +2 pedal pulses bilaterally. Skin: Warm and dry. Results & Data ([facility]) Vital Signs (Past 12 Hours) Vital Signs Temp Pulse Pulse Resp BP BP Pulse Ox 09/09/22 09:24 09/09/22 07:27 80 09/09/22 05:36 09/09/22 05:36 09/09/22 05:20 84 09/09/22 05:15 36.6 C 81 22 143/70 H 97 09/09/22 04:00 90 18 138/60 98 09/09/22 03:30 85 21 133/57 L 96 09/09/22 03:02 84 28 H 155/67 H 96 09/09/22 01:30 EST 86 23 138/66 92 09/09/22 01:00 EST 88 23 153/74 H 93 09/09/22 00:32 63 29 H 150/58 H 98 09/09/22 00:25 09/09/22 00:25 36.8 C 73 24 150/60 H 96 09/09/22 00:25 O2 Del Method 09/09/22 09:24 Room Air 09/09/22 07:27 09/09/22 05:36 Room Air 09/09/22 05:36 Room Air 09/09/22 05:20 09/09/22 05:15 Room Air 09/09/22 04:00 Room Air 09/09/22 03:30 Room Air 09/09/22 03:02 Room Air 09/09/22 01:30 EST Room Air 09/09/22 01:00 EST Room Air 09/09/22 00:32 Room Air 09/09/22 00:25 Room Air 09/09/22 00:25 Room Air 09/09/22 00:25 Room Air Medications Administered Echo 03/15/2022 The examination is adequate to evaluate the referral indication. There was sinus bradycardia during the examination. The LV wall thickness is mildly increased (concentric). The left ventricular wall motion is normal. The qualitative LV ejection fraction is 60-64% (normal). The left atrium is moderately enlarged. The aortic valve is severely calcified. Severe aortic valve stenosis is present. The maximum CW velocity across aortic valve= 4.3 m/s, mean gradient 40 mm Hg, CHIDI=0.8 cm2 Mild aortic valve regurgitation is present. There is severe mitral annular calcification. Mild mitral regurgitation is present. Mild tricuspid regurgitation is present. A large left plerual effusion is present. Compared to the previous study dated 10/11/2011, mild aortic stenosis was noted at that time. Result discussed by phone with referring provider, Dr Mazariegos with whom an upcoming follow up appoinmtment is planned
--- NOTE | 2022-09-09 14:00 | Electrocardiogram Report ---
Test Reason : Blood Pressure : / mmHG Vent. Rate : 096 BPM Atrial Rate : 066 BPM P-R Int : 000 ms QRS Dur : 100 ms QT Int : 370 ms P-R-T Axes : 000 -04 126 degrees QTc Int : 467 ms Atrial fibrillation with premature ventricular or aberrantly conducted complexes Minimal voltage criteria for LVH, may be normal variant Septal infarct (cited on or before 09-SEP-2022) Abnormal ECG When compared with ECG of 05-JUN-2022 00:23, Previous Rhythm probably Afib as well No significant change was found Confirmed by Bucky Mccray ([id number]) on 09/09/2022 1:59:56 PM Referred By: REFERRED SELF Confirmed By:Bucky Mccray
[2022-09-09] MEDS: FUROSEMIDE 40 MG/4 ML VIAL IV SCH (17:01)
--- NOTE | 2022-09-09 19:56 | Communication Note ---
Date of Service: September 09, 2022 The patient was admitted early this morning. I evaluated her in her room around 4 PM. The patient's grandson was visiting and she was in good spirits. She says she came in with shortness of breath last night and continues to be short of breath. Is ambulating on her own with walker prognosis. The patient had questions about Lasix affecting her kidney function. Earlier cardiology had started on 60 mg IV twice daily of Lasix. The patient has severe aortic stenosis and has been evaluated forTAVR. Troponin is elevated but no comments were made on . Also has a right breast mass incidentally found in June which needs follow-up as an outpatient. The patient lives in an assisted living facility called [facility]. Vitals reviewed. Discussed with nursing.
--- NOTE | 2022-09-10 07:57 | Electrocardiogram Report ---
Test Reason : Blood Pressure : / mmHG Vent. Rate : 082 BPM Atrial Rate : 083 BPM P-R Int : 000 ms QRS Dur : 098 ms QT Int : 404 ms P-R-T Axes : 000 -01 100 degrees QTc Int : 472 ms Atrial fibrillation with premature ventricular or aberrantly conducted complexes Old Septal infarct (cited on or before 09-SEP-2022) Abnormal ECG When compared with ECG of 09-SEP-2022 00:23, No significant change Confirmed by Nitin Valencia ([id number]) on 09/10/2022 7:56:43 AM Referred By: REFERRED SELF Confirmed By:Nitin Valencia
[2022-09-10] MEDS: INSULIN ASPART PER UNIT SC SCH ×4 (08:10→20:39)
[2022-09-10] MEDS: FUROSEMIDE 40 MG/4 ML VIAL IV SCH ×2 (08:11→17:06)
[2022-09-10] MEDS: SPIRONOLACTONE 12.5 MG TAB PO SCH (08:11)
[2022-09-10 08:52] LABS: Hematocrit (blood only) 33.1 % (34.1-44.9); Hemoglobin 10.5 g/dl (12.0-16.0); Mean Corpuscular Hemoglobin 30.1 pg (25.0-34.0); Mean Corpuscular Hgb Conc 31.7 g/dL (32.0-36.0); Mean Corpuscular Volume 94.8 fL (80.0-100.0); Mean Platelet Volume 12.7 fL (9.4-12.3); Platelet Count 25 K/uL (130-400); RDW Standard Deviation 51.8 fL (36.4-46.3); Red Blood Count 3.49 M/uL (3.93-5.22)
[2022-09-10 09:15] LABS: Platelet Estimate Signific. Decreased (Normal)
[2022-09-10 09:20] LABS: Albumin Level 2.9 gm/dl (3.4-5.0); BUN Creatinine Ratio 28.2 (10-20); Bilirubin,Total 4.9 mg/dl (0.2-1.0); Calcium 9.8 mg/dl (8.5-10.1); Creatinine Clr Calc Pharmacy 27.7 ml/min; Est GFR (African American) 44.6 ml/min; Est GFR (Non-African American) 38.5 ml/min; Globulin 2.9 gm/dl (2.5-4.0); Magnesium 1.8 mg/dl (1.7-2.4); Potassium 4.1 mmol/L (3.5-5.1); Total Protein 5.8 gm/dl (6.0-8.3)
[2022-09-10 09:47] LABS: Chol HDL Ratio 3.1 (0-5)
[2022-09-10 10:09] LABS: Estimated Average Glucose 103 mg/dl; Hemoglobin A1C 5.2 % (4.5-5.6)
[2022-09-10] MEDS: MAGNESIUM OXIDE 400 MG TAB PO SCH (12:39)
--- NOTE | 2022-09-10 13:12 | Cardiology Progress Note ---
Date of Service September 10, 2022 Assessment & Plan (1) Pleural effusion: (2) CKD (chronic kidney disease): (3) 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: (4) Severe aortic stenosis: (5) Thrombocytopenia: (6) Shortness of breath: Plan Patient diuresing well. Will continue twice daily IV Lasix today and her a.m. dose in the morning. We will then reassess her volume status clinically and likely DC to home. Strict I's and O's along with daily weights on the same standing scale Follow and replete electrolytes as necessary. Given her severe thrombocytopenia we are very limited in our options for any interventional procedures. She has been deemed too risky for thoracentesis in the past She has an outpatient appointment to discuss TAVR already but again, I doubt that she would be deemed a candidate but will obviously defer to our interventional colleagues Admission and Anticipated Discharge Date Admission Date: September 09, 2022 Subjective Patient seen and examined. Telemetry reviewed. Chart reviewed. States that she is feeling better today. Review of Systems Review of Systems: All systems reviewed & are unremarkable except as noted in HPI & below Physical Exam Physical Exam: General: Awake, alert and oriented x 3. No acute distress. HEENT: Normocephalic, atraumatic. Pupils equal, round and reactive to light and accommodation. Extraocular muscles are intact. Anicteric sclera. Moist mucous membranes. Neck: No JVD. No bruit. Cardiovascular: irregularly irregular, unable to appreciate murmur, rub or gallop. Pulmonary: Scattered rhonchi with bibasilar rales Abdomen: Bowel sounds x 4, soft. No rebound, guarding or tenderness. No organomegaly. Extremities: No clubbing, cyanosis. +1 bilateral lower extremity pitting edema. +2 pedal pulses bilaterally. Skin: Warm and dry. Results & Data ([facility]) Vital Signs (Past 12 Hours) Vital Signs Temp Pulse Pulse Resp BP Pulse Ox Pulse Ox 09/10/22 11:58 100 09/10/22 11:22 37.1 C 85 18 138/74 95 09/10/22 09:21 96 H 09/10/22 07:45 36.8 C 93 H 18 140/82 96 09/10/22 07:13 09/10/22 03:49 36.6 C 92 H 18 128/69 97 Pulse Ox O2 Del Method O2 Flow Rate O2 Flow Rate 09/10/22 11:58 99 0 0 09/10/22 11:22 Room Air 09/10/22 09:21 09/10/22 07:45 Room Air 09/10/22 07:13 Room Air 09/10/22 03:49 Room Air
--- NOTE | 2022-09-10 20:34 | Hospitalist Progress Note ---
Date of Service September 10, 2022 Assessment & Plan (1) Shortness of breath: Plan: 89yo female with a PMH of HTN, IDDM2, CHF, CKD, and DOMINGUEZ cirrhosis with thrombocytopenia presents from [facility] with a two-day history of SOB. Shortness of breath, pleural effusions, CHF, valvular disease Patient with a two-day history of progressive SOB on admission Tachypneic but VSS otherwise; spO2 adequate on room air CXR: bilateral pleural effusions (L>R) with bilateral patchy opacities Suspect SOB is secondary to pleural effusions which likely represent CHF exacerbation in the setting of valvular disease Low suspicion for pneumonia - no leukocytosis, no fever, no hypoxia, procalcitonin negative Admit to med/surg telemetry Diuresingcardiology following-renal function stablewe will stop doing labs. TTE showed severe aortic stenosis with right atrium and left atrium severely dilated, RV systolic function normal and severe mitral calcification, PA pressure 40 mm Continue spironolactone On room air doing well Thrombocytopenia Chronic; 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 No sign of active bleeding Will hold off on VTE chemoprophylaxis given severity of thrombocytopenia No indication for platelet transfusion at this time Stop daily CBCs Atrial fibrillation EKG on admission: atrial fibrillation with PVCs Unclear if this is new; not seen on prior EKGs at this facility Currently rate controlled- Will hold off on VTE chemoprophylaxis given severity of thrombocytopenia DOMINGUEZ cirrhosis, hyperbilirubinemia, elevated alkaline phosphatase On admission, Tbili elevated to 3.6, direct bili elevated to 0.6, alk phos elevated to 173 In the setting of known DOMINGUEZ cirrhosis; alk phos and bilirubin elevations similar to prior values No acute intervention indicated at this time Trend CMP NGHIA on CKD On admission, creatinine elevated to 1.49 (baseline ~1.0) Now 1.24. Stop Plavix IDDM2 Controlled without medications here and at home hemoglobin A1c 4.8% earlier this year Elevated troponin hsTroponin on admission elevated to 47.2; patient denies chest pain, EKG findings noted above Repeat value equivocal at 47.2 (of note, repeat value was accidentally drawn early, after only 55 minutes) Despite repeat value being drawn early, given that it did not increase, will hold off on ordering an additional repeat value Right breast mass, thickened endometrium, abnormally enlarged right ovary Breast mass incidentally found on imaging from 06/2022 Endometrium/right ovary abnormalities incidentally found on imaging from 01/2022 Patient has not followed up on these issues yet Outpatient follow-up recommended FEN: DM2 diet Code status: full code DVT ppx: SCDs Consults: cardiology PT/OT: ordered Dispo: med/surg telemetry (2) Thrombocytopenia: Plan: As above (3) Pleural effusion: Plan: As above (4) 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: Plan: As above (5) DM2 (diabetes mellitus, type 2): Plan: No medication (6) CKD (chronic kidney disease): (7) Cirrhosis of liver: (8) CHF (congestive heart failure): Admission and Anticipated Discharge Date Admission Date: September 09, 2022 Subjective The patient was seen at 11 AM this morning. She kept asking me when she is going back to her personal halfway. Did not voice any complaints. States she was breathing fine and was saturating 98% on room air Sitting in chair Physical Exam Physical Exam: Sitting in chair pleasant and repeatedly asking if she can go back to the personal-halfway, 98% on room air Voice hoarse today Chest is clear to auscultation abdomen is nontender CVS S1-S2 pansystolic murmur grade 3 Extremities 2+ pitting edema bilaterally Results & Data Results & Data ([facility]) Vital Signs (Past 12 Hours) Vital Signs Temp Pulse Pulse Resp BP Pulse Ox Pulse Ox 09/10/22 19:25 37.1 C 82 20 129/77 96 09/10/22 15:29 83 09/10/22 15:09 37.5 C 61 18 130/84 93 09/10/22 11:58 100 09/10/22 11:22 37.1 C 85 18 138/74 95 09/10/22 09:21 96 H Pulse Ox O2 Del Method O2 Flow Rate O2 Flow Rate 09/10/22 19:25 Room Air 09/10/22 15:29 09/10/22 15:09 Room Air 09/10/22 11:58 99 0 0 09/10/22 11:22 Room Air 09/10/22 09:21 Laboratory Results Abnormal lab results 09/10/22 09/10/22 09/10/22 Range/Units 07:29 08:23 08:23 RBC 3.49 L (3.93-5.22) M/uL Hgb 10.5 L (12.0-16.0) g/dl Hct 33.1 L (34.1-44.9) % MCHC 31.7 L (32.0-36.0) g/dL RDW Std Deviation 51.8 H (36.4-46.3) fL RDW Coeff of Jacqueline 15.0 H (11.5-14.5) % Plt Count 25 L* (130-400) K/uL MPV 12.7 H (9.4-12.3) fL Platelet Estimate Signific. Decreased L (Normal) BUN 35 H (6-23) mg/dl Creatinine 1.24 H (0.6-1.2) mg/dl BUN/Creatinine Ratio 28.2 H (10-20) Glucose 208 H (70-99(Fasting)) mg/dl POC Glucose 142 H (70-99) mg/dl Total Bilirubin 4.9 H (0.2-1.0) mg/dl Alkaline Phosphatase 132 H (34-104) U/L Total Protein 5.8 L (6.0-8.3) gm/dl Albumin 2.9 L (3.4-5.0) gm/dl 09/10/22 09/10/22 09/10/22 Range/Units 11: 16:20 20:16 RBC (3.93-5.22) M/uL Hgb (12.0-16.0) g/dl Hct (34.1-44.9) % MCHC (32.0-36.0) g/dL RDW Std Deviation (36.4-46.3) fL RDW Coeff of Jacqueline (11.5-14.5) % Plt Count (130-400) K/uL MPV (9.4-12.3) fL Platelet Estimate (Normal) BUN (6-23) mg/dl Creatinine (0.6-1.2) mg/dl BUN/Creatinine Ratio (10-20) Glucose (70-99(Fasting)) mg/dl POC Glucose 226 H 133 H 168 H (70-99) mg/dl Total Bilirubin (0.2-1.0) mg/dl Alkaline Phosphatase (34-104) U/L Total Protein (6.0-8.3) gm/dl Albumin (3.4-5.0) gm/dl PG Care Time/CCT Total # of Minutes Spent Total Time Spent with Patient: Total time spent is greater than 50% in coordination of care (as documented) at patient's floor/unit and/or counseling patient: Coding Level of Care Code 68700 Subseq Hosp Care Lvl 3 Diagnoses Shortness of breath R06.02 Thrombocytopenia D69.6 Pleural effusion J90 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
[2022-09-11] MEDS: FUROSEMIDE 40 MG/4 ML VIAL IV SCH ×2 (09:08→17:22)
[2022-09-11] MEDS: SPIRONOLACTONE 12.5 MG TAB PO SCH (09:09)
[2022-09-11] MEDS: MAGNESIUM OXIDE 400 MG TAB PO SCH (09:09)
[2022-09-11] MEDS: INSULIN ASPART PER UNIT SC SCH ×4 (09:15→20:52)
--- NOTE | 2022-09-11 20:07 | Hospitalist Progress Note ---
Date of Service September 11, 2022 Assessment & Plan (1) Shortness of breath: Plan: Severe aortic stenosisIV diuresis by cardiology. Not a candidate forTAVR on account of thrombocytopenia Telemetry seen at 930 revealed A. fib in the 80s and 90s (2) Thrombocytopenia: Plan: Stable, no abnormal bleeding at home or here CBC am (3) Pleural effusion: Plan: Due to low platelets therapeutic thoracentesis not being attempted (4) 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: (5) DM2 (diabetes mellitus, type 2): Plan: Hemoglobin A1c 4.8% in June. No medications. Blood sugars well controlled here- 168, 271, 144. (6) CKD (chronic kidney disease): Plan: CHECK bmp , Mg NEXT TWO DAYS (7) Cirrhosis of liver: Plan: due to DOMINGUEZ (8) CHF (congestive heart failure): Plan: Due to valvular heart disease, normal LVEF. Plan Goal of symptomatic improvement. Still getting IV diuresis. Admission and Anticipated Discharge Date Admission Date: September 09, 2022 Subjective still hoarse, no complaints. Appetite is okay she says. She is asked her daughter to get chicken soup and is waiting Shortness of breath unchanged. 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, good gait not tested Psych good insight, cheerful Results & Data Results & Data ([facility]) Vital Signs (Past 12 Hours) Vital Signs Temp Pulse Pulse Resp BP Pulse Ox O2 Del Method 09/11/22 16:04 36.8 C 89 18 112/54 L 96 Room Air 09/11/22 16:00 Room Air 09/11/22 11:26 37.3 C 94 H 19 135/60 94 Room Air 09/11/22 08:00 Room Air 09/11/22 08:00 88 09/11/22 08:12 36.8 C 88 19 140/55 L 96 Room Air Medications Administered Home Medications Medication Instructions Recorded Confirmed Last Taken cholecalciferol (vitamin D3) 125 125 mcg PO QAM 10/12/21 09/09/22 06/04/22 mcg (5,000 unit) tablet (Vitamin D3) insulin aspart U-100 100 unit/mL 4 unit subcut WM 10/12/21 09/09/22 Unknown (3 mL) subcutaneous pen (Novolog Flexpen U-100 Insulin aspart) insulin glargine 100 unit/mL (3 25 unit subcut HS 10/12/21 09/09/22 06/03/22 mL) subcutaneous pen (Lantus Solostar U-100 Insulin) coenzyme Q10 200 mg chewable tablet 200 mg PO DAILY 09/09/22 09/09/22 Unknown furosemide 20 mg tablet 60 mg PO BID 09/09/22 09/09/22 Unknown lactulose 20 gram/30 mL oral 20 g PO BID PRN Constipation 09/09/22 09/09/22 Unknown solution lidocaine 4 % topical patch 1 patch topical .EVERY 24 HOURS 09/09/22 09/09/22 Unknown (Lidocaine Pain Relief) PRN .mod-sever pain magnesium 250 mg tablet 500 mg PO QAM 09/09/22 09/09/22 Unknown oztqlqwagvqf-Oa-uxpg-minerals 1 tab PO QAM 09/09/22 09/09/22 Unknown spironolactone 25 mg tablet 12.5 mg PO DAILY 09/09/22 09/09/22 Unknown tramadol 50 mg tablet 25 mg PO Q4 PRN Pain any level 09/09/22 09/09/22 Unknown Active Medications Generic Name Dose Route Start Last Admin Trade Name Freq PRN Reason Stop Dose Admin Furosemide 60 mg 09/09/22 17:00 09/11/22 17:22 Furosemide 40 Mg/4 Ml Vial IV 10/09/22 16:59 60 mg [id number] GORDON Administration Insulin Aspart 0 units 09/09/22 07:30 09/11/22 17:21 Insulin Aspart Per Unit SC 10/09/22 07:29 3 units ACHS GORDON Administration Magnesium Oxide 400 mg 09/10/22 12:15 09/11/22 09:09 Magnesium Oxide 400 Mg Tab PO 10/10/22 12:14 400 mg QAM GORDON Administration Spironolactone 12.5 mg 09/09/22 09:00 09/11/22 09:09 Spironolactone 12.5 Mg Tab PO 10/09/22 08:59 12.5 mg DAILY GORDON Administration PG Care Time/CCT Total # of Minutes Spent Total Time Spent with Patient: Total time spent is greater than 50% in coordination of care (as documented) at patient's floor/unit and/or counseling patient: Coding Level of Care Code 74636 Subseq Hosp Care Lvl 3 Diagnoses Shortness of breath R06.02 Thrombocytopenia D69.6 Pleural effusion J90 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
[2022-09-12] MEDS ORDERED: ALBUT/IPRATROP 3MG/0.5MG NEB 3 ML VIAL NEB STA (00:29)
[2022-09-12] MEDS ORDERED: ALBUT/IPRATROP 3MG/0.5MG NEB 3 ML VIAL NEB PRN (06:28)
[2022-09-12] MEDS: SPIRONOLACTONE 12.5 MG TAB PO SCH (08:14)
[2022-09-12] MEDS: MAGNESIUM OXIDE 400 MG TAB PO SCH (08:14)
[2022-09-12] MEDS: FUROSEMIDE 40 MG/4 ML VIAL IV SCH (08:15)
[2022-09-12] MEDS: INSULIN ASPART PER UNIT SC SCH ×4 (08:17→20:02)
[2022-09-12 09:10] LABS: Calcium 9.5 mg/dl (8.5-10.1); Creatinine Clr Calc Pharmacy 24.7 ml/min; Est GFR (African American) 38.2 ml/min; Est GFR (Non-African American) 32.9 ml/min; Potassium 4.4 mmol/L (3.5-5.1)
[2022-09-12 09:14] LABS: Hemoglobin 10.7 g/dl (12.0-16.0); Mean Corpuscular Hemoglobin 30.4 pg (25.0-34.0); Mean Corpuscular Hgb Conc 32.4 g/dL (32.0-36.0); Mean Corpuscular Volume 93.8 fL (80.0-100.0); Platelet Count 29 K/uL (130-400); RDW Coefficient of Variation 15.3 % (11.5-14.5); RDW Standard Deviation 51.6 fL (36.4-46.3); Red Blood Count 3.52 M/uL (3.93-5.22); White Blood Count 4.36 K/ul (4.8-10.8)
--- NOTE | 2022-09-12 14:28 | Cardiology Progress Note ---
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 3.5L negative since admission would d/c home with previous diuretic regimen of lasix 80 mg po qam and 60 mg po qpm along with spironolactone that was added this admission may consider prn metolazone in the future also Given her severe thrombocytopenia we are very limited in our options for any interventional procedures. She has been deemed too risky for thoracentesis in the past She has an outpatient appointment to discuss TAVR already (09/26/22) but again, I doubt that she would be deemed a candidate but will obviously defer to our interventional colleagues follow up with cardiology in 2-4 weeks [facility] and Anticipated Discharge Date Admission Date: September 09, 2022 Subjective Patient seen and examined. Chart reviewed. Telemetry reviewed. Case discussed with bedside nursing. Patient and her are very anxious for discharge Physical Exam Physical Exam: General: Awake, alert and oriented x 3. No acute distress. HEENT: Normocephalic, atraumatic. Pupils equal, round and reactive to light and accommodation. Extraocular muscles are intact. Anicteric sclera. Moist mucous membranes. Neck: No JVD. No bruit. Cardiovascular: irregularly irregular, unable to appreciate murmur, rub or gallop. Pulmonary: Scattered rhonchi with scant bibasilar rales Abdomen: Bowel sounds x 4, soft. No rebound, guarding or tenderness. No organomegaly. Extremities: No clubbing, cyanosis. +1 bilateral lower extremity pitting edema. +2 pedal pulses bilaterally. Skin: Warm and dry. Results & Data ([facility]) Vital Signs (Past 12 Hours) Vital Signs Temp Pulse Pulse Resp BP BP Pulse Ox 09/12/22 11:55 36.9 C 93 H 20 142/64 H 96 09/12/22 10:03 09/12/22 08:00 105 H 09/12/22 07:48 36.7 C 92 H 20 138/94 95 09/12/22 03:25 36.7 C 70 20 128/84 96 O2 Del Method 09/12/22 11:55 Room Air 11/09/22 10:03 Room Air 09/12/22 08:00 09/12/22 07:48 Room Air 09/12/22 03:25 Room Air
[2022-09-12] MEDS ORDERED: FUROSEMIDE 40 MG TAB PO SCH (18:00)
--- NOTE | 2022-09-12 20:22 | Hospitalist Progress Note ---
Date of Service September 12, 2022 Assessment & Plan (1) Shortness of breath: Plan: Severe aortic stenosisIV diuresis by cardiology. Weight about the same but about 3.5 L negative as noted by cardiology. 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 No medications. Blood sugars well controlled here till yesterday, 189, 221, 204 nowHome Lantus and NovoLog were held. Only on sliding scale NovoLog here. Restart small amt- Lantus 5 units daily (6) CKD (chronic kidney disease): Plan: CHECK bmp , Mg NEXT TWO DAYS (7) Cirrhosis of liver: Plan: due to DOMINGUEZ (8) CHF (congestive heart failure): Plan: Due to valvular heart disease, normal LVEF. Plan At baseline breathing. Discharge to personal-residential tomorrow. Keep cardiology appointment later this month. Enrobing Machine Operator informed and so was the patient's daughter Admission and Anticipated Discharge Date Admission Date: September 09, 2022 Subjective Patient was seen a little after 10 AM today. She was seen using a walker with the help of her daughter. Gets short of breath and is on room air. Has been coughing yellow sputum. Impatient to go back to her personal residential. Eating well and enjoyed chicken soup yesterday which her daughter brought. Physical Exam Physical Exam: dyspneic while speaking, cheerful as usual, on room air Head and neck JVD to angle of jaw, moist tongue, CVS : pansystolic murmur grade 3 Chest clear to auscultation Extremities trace edema FIBERGLASSER grossly intact, good gait not tested Psych good insight, cheerful Results & Data Results & Data ([facility]) Vital Signs (Past 12 Hours) Vital Signs Temp Pulse Pulse Resp BP Pulse Ox O2 Del Method 09/12/22 19:50 36.9 C 93 H 18 123/51 L 96 Room Air 09/12/22 16:06 90 09/12/22 16:00 Room Air 09/12/22 15:32 37.2 C 83 18 121/74 92 Room Air 09/12/22 11:55 36.9 C 93 H 20 142/64 H 96 Room Air 09/12/22 10:03 Room Air Medications Administered Abnormal lab results 09/11/22 09/12/22 09/12/22 Range/Units 20:17 07:44 08:08 WBC 4.36 L (4.8-10.8) K/ul RBC 3.52 L (3.93-5.22) M/uL Hgb 10.7 L (12.0-16.0) g/dl Hct 33.0 L (34.1-44.9) % RDW Std Deviation 51.6 H (36.4-46.3) fL RDW Coeff of Jacqueline 15.3 H (11.5-14.5) % Plt Count 29 L* (130-400) K/uL MPV 13.0 H (9.4-12.3) fL BUN (6-23) mg/dl Creatinine (0.6-1.2) mg/dl BUN/Creatinine Ratio (10-20) Glucose (70-99(Fasting)) mg/dl POC Glucose 204 H 143 H (70-99) mg/dl 09/12/22 09/12/22 09/12/22 Range/Units 08:08 11:50 16:38 WBC (4.8-10.8) K/ul RBC (3.93-5.22) M/uL Hgb (12.0-16.0) g/dl Hct (34.1-44.9) % RDW Std Deviation (36.4-46.3) fL RDW Coeff of Jacqueline (11.5-14.5) % Plt Count (130-400) K/uL MPV (9.4-12.3) fL BUN 38 H (6-23) mg/dl Creatinine 1.41 H (0.6-1.2) mg/dl BUN/Creatinine Ratio 27.0 H (10-20) Glucose 176 H (70-99(Fasting)) mg/dl POC Glucose 221 H 176 H (70-99) mg/dl 09/12/22 Range/Units 19:49 WBC (4.8-10.8) K/ul RBC (3.93-5.22) M/uL Hgb (12.0-16.0) g/dl Hct (34.1-44.9) % RDW Std Deviation (36.4-46.3) fL RDW Coeff of Jacqueline (11.5-14.5) % Plt Count (130-400) K/uL MPV (9.4-12.3) fL BUN (6-23) mg/dl Creatinine (0.6-1.2) mg/dl BUN/Creatinine Ratio (10-20) Glucose (70-99(Fasting)) mg/dl POC Glucose 189 H (70-99) mg/dl PG Care Time/CCT Total # of Minutes Spent Total Time Spent with Patient: Total time spent is greater than 50% in coordination of care (as documented) at patient's floor/unit and/or counseling patient: Coding Level of Care Code 56848 Subseq Hosp Care Lvl 3 Diagnoses Shortness of breath R06.02 Thrombocytopenia D69.6 Pleural effusion J90 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
[2022-09-12] MEDS ORDERED: LANTUS PER UNIT CHARGE SQ SCH (21:00)
[2022-09-13] MEDS ORDERED: FUROSEMIDE 80 MG TAB PO SCH (09:00)
[2022-09-13] MEDS ORDERED: FUROSEMIDE 20 MG TAB PO SCH ×2 (09:00→17:00)
[2022-09-13 09:58] LABS: Hematocrit (blood only) 30.7 % (34.1-44.9); Hemoglobin 9.9 g/dl (12.0-16.0); Mean Corpuscular Hemoglobin 29.9 pg (25.0-34.0); Mean Corpuscular Hgb Conc 32.2 g/dL (32.0-36.0); Mean Corpuscular Volume 92.7 fL (80.0-100.0); Mean Platelet Volume 12.6 fL (9.4-12.3); Platelet Count 34 K/uL (130-400); RDW Coefficient of Variation 15.3 % (11.5-14.5); RDW Standard Deviation 50.5 fL (36.4-46.3); Red Blood Count 3.31 M/uL (3.93-5.22); White Blood Count 5.06 K/ul (4.8-10.8)
[2022-09-13 10:17] LABS: Calcium 9.3 mg/dl (8.5-10.1); Creatinine Clr Calc Pharmacy 27.6 ml/min; Est GFR (African American) 44.6 ml/min; Est GFR (Non-African American) 38.5 ml/min; Potassium 4.6 mmol/L (3.5-5.1)
[2022-09-13] MEDS: MAGNESIUM OXIDE 400 MG TAB PO SCH (10:38)
[2022-09-13] MEDS: SPIRONOLACTONE 12.5 MG TAB PO SCH (10:38)
--- NOTE | 2022-09-13 11:41 | Discharge Summary ---
Date of Service September 13, 2022 Admission HPI Per Admitting Provider 89yo female with a PMH of HTN, IDDM2, CHF, CKD, and DOMINGUEZ cirrhosis with thrombocytopenia presents from [facility] with a two-day history of SOB and cough. CXR performed at [facility] showed a left pleural effusion. Symptoms have been progressively worsening over the past day. Patient denies other symptoms including fever, chills, headache, vision changes, CP, palpitations, abdominal pain, nausea, vomiting, dysuria, hematochezia, melena, lightheadedness, dizziness, numbness, tingling, weakness, or other symptoms. Denies recent illness and recent travel. Of note, patient reports that she "needs a heart valve replacement" although she is unsure what her diagnosis is. Patient is unsure who her fieldwork coordinator is. Patient is also unsure if she has a history of atrial fibrillation. Additionally, patient reports that a left breast mass was incidentally found on imaging during patient's last admission (06/2022), as well as a thickened endometrium and abnormal enlargement of the right ovary, both incidentally found on imaging during patient's prior admission (01/2022). Patient reports she has not followed up on these. Upon arrival, vitals were notable for elevated BP (150s/60s) and tachypnea (29); no tachycardia, patient afebrile, spO2 adequate on room air. Initial labs were notable for mild anemia (10.8), thrombocytopenia (26), elevated creatinine (1.49), elevated total bilirubin (3.6), elevated direct bilirubin (0.6), elevated alkphos (173), and elevated hsTroponin (47.2); no electrolyte abnormalities, AST/ALT wnl, procalcitonin negative, covid/influenza/RSV PCR negative. In the ED, patient received lasix 40mg IV (x1) which resulted in an improvement in SOB. EKG: atrial fibrillation with PVCs CXR: bilateral pleural effusions (L>R) with bilateral patchy opacities Surrogate decision-maker in case of an emergency: daughter Luz Person (cell: [phone]) Principal Diagnosis Acute on chronic congestive valvular heart failure with preserved ejection fraction Severe aortic stenosis Discharge Exam Constitutional WD/WN, vitals as above Respiratory Auscultation: + crackles (bibasal); breath sounds present, no diminished lung sounds and no wheezes Cardiovascular Rate/Rhythm: regular rate and + irregularly irregular Heart Sounds: + murmur Gastrointestinal (Abdomen) normal bowel sounds, soft, nontender, no hepatosplenomegaly Psychiatric A+Ox3, euthymic affect Discharge Data Allergies Allergy/AdvReac Type Severity Reaction Status Date / Time shellfish derived Allergy Severe ANAPHYLAXIS Verified 06/04/22 18:03 Fish Containing Products Allergy Verified 09/09/22 09:54 fish derived Allergy Verified 09/09/22 09:54 fish oil Allergy Verified 09/09/22 09:54 AGGIE Inhibitors AdvReac Intermediate Cough Verified 06/04/22 18:03 alendronate sodium AdvReac Intermediate dizziness Verified 09/09/22 00:36 ALL CREATURES THAT LIVE IN Allergy Severe ANAPHYLAXIS Uncoded 06/04/22 18:03 WATER Consultations 09/09/22 01:08 ED Decision to Admit Stat 09/09/22 07:00 Consult Cardiology Routine Hospital Course (1) Shortness of breath: Cecily Berman is an 89 year old female admitted to [facility] from September 09 - 2021 due to shortness of breath. She was diagnosed with acute on chronic congestive heart failure. This was treated with intravenous Lasix. She was transitioned to a higher dose of Lasix per cardiology (80mg + 60mg). She was advised to weigh herself daily and follow up with cardiology for ongoing diuretic dosing. This is likely due to her severe aortic stenosis but given chronic thrombocytopenia unclear if she can have an intervention for this. She will follow up for a discussion regarding TAVR with cardiology as previously arranged on 09/26/22. Notably her HbA1C was low at 5.2 and she was needing less Lantus to control her glucose levels as an inpatient. Recommend reducing her Lantus to 10 units at night to avoid hypoglycemia and she was advised to follow up with her PCP for ongoing adjustments. 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: (5) DM2 (diabetes mellitus, type 2): (6) CKD (chronic kidney disease): (7) Cirrhosis of liver: (8) CHF (congestive heart failure): Total Time Total Time Spent Total Time Spent (In Minutes): 40 Discharge Plan Discharge Items Patient Disposition: Personal Correction Reason For Visit: SOB,PLEURAL EFFUSIONS,AFIB,CHF Discharge Diagnosis: Acute on chronic congestive heart failure Activity: Resume your previous activity Non-emergency contact: Primary Care Provider Call non-emergency contact if: you have any medication questions and your symptoms worsen Follow-up/Referrals: Irvin Gardner [Primary Care Provider] - Diet: Low Potassium (2gm) and Low Sodium (2gm) Addtl Attending Provider Instructions: You were admitted to [facility] from September 09 - 2021 due to shortness of breath. You were diagnosed with acute on chronic congestive heart failure. This was treated with intravenous Lasix. You were transitioned to a higher dose of Lasix per cardiology. Please weight yourself daily and follow up with cardiology for ongoing recommendations regarding your diuretics. Regarding your diabetes your HbA1C was low at 5.2. Recommend reducing you Lantus to 10 units at night to avoid low glucose levels. Please follow up with Dr Mazariegos for ongoing adjustments of your insulin. Kind regards, Dr Ethan Wahl Pending Studies at Discharge: No Stand-Alone Forms: [facility], Smoking Cessation Skilled Items Patient informed of condition?: Yes DNR: Yes Discharge Level of Care: Other Communicable Disease: No Discharge Prognosis: Improving Lines: None Urinary Catheter: No Medications and DC Order Prescriptions: Continued insulin aspart U-100 [Novolog Flexpen U-100 Insulin] 100 unit/mL (3 mL) insulin pen 4 unit SUBCUT WM Rx Instructions: give if BSG>200 cholecalciferol (vitamin D3) [Vitamin D3] 125 mcg (5,000 unit) Tablet 125 mcg PO QAM tramadol 50 mg Tablet 25 mg PO Q4 PRN (Reason: Pain any level) Rx Instructions: 1/2 tablet dose spironolactone 25 mg Tablet 12.5 mg PO DAILY Rx Instructions: 1/2 table dose magnesium 250 mg Tablet 500 mg PO QAM Rx Instructions: 2 TABLET DOSE lidocaine [Lidocaine Pain Relief] 4 % Adhesive Patch,Medicated 1 patch TOPICAL .EVERY 24 HOURS MDD 1 patch PRN (Reason: .mod-sever pain) Rx Instructions: remove after 12 hours qtztamnrkiqi-Li-mhhu-minerals Tablet 1 tab PO QAM coenzyme Q10 200 mg Tablet,Chewable 200 mg PO DAILY lactulose 20 gram/30 mL Solution 20 g PO BID PRN (Reason: Constipation) Changed furosemide 20 mg tablet See Rx Instructions .ROUTE .COMPLEX Qty: 210 0RF Rx Instructions: 80mg QAM, 60mg at 5pm insulin glargine [Lantus Solostar U-100 Insulin] 100 unit/mL (3 mL) insulin pen 10 unit subcut HS Qty: 15 0RF Discharge Orders: Discharge Order (Routine); Ordered 09/13/22 Ordered By: Ethan Wahl Admission Data Admit Date/Time: 09/09/22 01:38 EST Attending Provider: Ethan Wahl Admit Provider: Jd Reyez Primary Care Provider: Irvin Gardner Other Providers: Cari Anaya ; Kobi Hicks ; Julián Pennington ; Chi Flores ; Aldo Henriquez ; Garret Travis ; Damian Oakley ; Ciera Fields ; Rona Dhillon ; Maryuri Edward ; Phill Chang Other Interventions: Discharge Summary Assessment (RN) Last Done: 09/13/22 12:56 Coding Level of Care Code D/C DAY MANAGEMENT >30 MINS Diagnoses Shortness of breath R06.02 Thrombocytopenia D69.6 Pleural effusion J90 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
--- NOTE | 2022-09-13 13:06 | Cardiology Progress Note ---
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 3.5L negative since admission would d/c home with previous diuretic regimen of lasix 80 mg po qam and 60 mg po qpm along with spironolactone that was added this admission I made the necessary changes in regards to Lasix dosing may consider prn metolazone in the future also Given her severe thrombocytopenia we are very limited in our options for any interventional procedures. She has been deemed too risky for thoracentesis in the past She has an outpatient appointment to discuss TAVR already (09/26/22) but again, I doubt that she would be deemed a candidate but will obviously defer to our interventional colleagues follow up with cardiology in 2-4 weeks [facility] and Anticipated Discharge Date Admission Date: September 09, 2022 Subjective Patient seen and examined. Chart reviewed. Telemetry reviewed. Case discussed with bedside nursing. Patient and her are very anxious for discharge Review of Systems Review of Systems: All systems reviewed & are unremarkable except as noted in HPI & below Physical Exam Physical Exam: General: Awake, alert and oriented x 3. No acute distress. HEENT: Normocephalic, atraumatic. Pupils equal, round and reactive to light and accommodation. Extraocular muscles are intact. Anicteric sclera. Moist mucous membranes. Neck: No JVD. No bruit. Cardiovascular: irregularly irregular, unable to appreciate murmur, rub or gallop. Pulmonary: Scattered rhonchi with scant bibasilar rales Abdomen: Bowel sounds x 4, soft. No rebound, guarding or tenderness. No organomegaly. Extremities: No clubbing, cyanosis. +1 bilateral lower extremity pitting edema. +2 pedal pulses bilaterally. Skin: Warm and dry. Results & Data ([facility]) Vital Signs (Past 12 Hours) Vital Signs Temp Pulse Pulse Resp BP BP Pulse Ox 09/13/22 12:56 37.0 C 88 18 114/70 138/94 97 09/13/22 08:00 09/13/22 11:23 37.0 C 88 18 114/70 97 09/13/22 07:57 113 H 11/10/22 06:13 36.7 C 102 H 18 139/61 95 09/13/22 02:39 36.5 C 100 H 18 149/76 H 92 O2 Del Method 09/13/22 12:56 09/13/22 08:00 Room Air 09/13/22 11:23 Room Air 09/13/22 07:57 09/13/22 06:13 Room Air 09/13/22 02:39 Room Air
== END 2022-09-13 13:29 | disposition home or self-care (01) | DRG 291 ==
LOC: ED 00:13 → SUATTDRO 01:38 → 2W 01:38
DX: N17.9 Acute kidney failure, unspecified; N83.9 Noninflammatory disorder of ovary, fallopian tube and broad ligament, unspecified; Z66 Do not resuscitate; I85.10 Secondary esophageal varices without bleeding; J91.8 Pleural effusion in other conditions classified elsewhere; I48.91 Unspecified atrial fibrillation; I13.0 Hypertensive heart and chronic kidney disease with heart failure and stage 1 through stage 4 chronic kidney disease, or unspecified chronic kidney disease; E11.22 Type 2 diabetes mellitus with diabetic chronic kidney disease; Z87.891 Personal history of nicotine dependence; I50.33 Acute on chronic diastolic (congestive) heart failure; I35.0 Nonrheumatic aortic (valve) stenosis; K74.60 Unspecified cirrhosis of liver; D69.59 Other secondary thrombocytopenia; N18.9 Chronic kidney disease, unspecified; N64.9 Disorder of breast, unspecified; K75.81 Nonalcoholic steatohepatitis (NASH); Z79.4 Long term (current) use of insulin

== ENCOUNTER 2022-10-01 06:35 | Inpatient (IN) ==
[~2022-10-01 06:35] MED LIST changes: -CHOLCAP5 PO; -DABI1CAP PO; -FERR300S PO; -FURO-85 PO; -INSDGI SC; -MULT-506 PO; -NVLGI/PEN SC; +methylPREDNISolone 125 MG/2 ML VIAL IV STA
[2022-10-01] MEDS ORDERED: OPTIRAY 320 500ml IV ONE (06:46)
[2022-10-01 06:59] LABS: Basophils # (auto) 0.02 K/uL (0-0.2); Basophils % (auto) 0.4 %; Eosinophils # (auto) 0.13 K/uL (0-0.50); Eosinophils % (auto) 2.4 %; Hematocrit (blood only) 34.7 % (34.1-44.9); Hemoglobin 11.4 g/dl (12.0-16.0); Immature Granulocytes # (auto) 0.02 K/uL (0.00-0.02); Immature Granulocytes % (auto) 0.4 %; Lymphocytes # (auto) 0.57 K/uL (1.2-3.4); Lymphocytes % (auto) 10.7 %; Mean Corpuscular Hemoglobin 29.5 pg (25.0-34.0); Mean Corpuscular Hgb Conc 32.9 g/dL (32.0-36.0); Mean Corpuscular Volume 89.9 fL (80.0-100.0); Monocytes # (auto) 0.47 K/uL (0.24-0.82); Monocytes % (auto) 8.8 %; Neutrophils # (auto) 4.12 K/uL (1.4-6.5); Neutrophils % (auto) 77.3 %; Platelet Count 47 K/uL (130-400); RDW Coefficient of Variation 15.8 % (11.5-14.5); RDW Standard Deviation 50.5 fL (36.4-46.3); Red Blood Count 3.86 M/uL (3.93-5.22); White Blood Count 5.33 K/ul (4.8-10.8)
--- NOTE | 2022-10-01 07:00 | CT Scan Report ---
CT OF THE HEAD WITHOUT CONTRAST CLINICAL HISTORY: Stroke Like Symptoms. Facial droop. COMPARISON STUDY: Head CT June 04, 2022. CT DOSE: 1146.48 mGy.cm TECHNIQUE: Helical axial images of the head were obtained without IV contrast. Automated exposure con trol was utilized for the study. A dose lowering technique was utilized adhering to the principles o f ALARA. FINDINGS: No acute intracranial hemorrhage, midline shift or mass effect is present. White matter den sities are unchanged and favor small vessel disease. There may be old infarct within the bilateral ce rebellar hemispheres. These are unchanged. The ventricular system is unremarkable. The basal cisterns are patent. No extra-axial collections are present. There are no findings to suggest acute dural sin us thrombosis or acute territorial infarct. No significant calvarial abnormalities are present. Visua lized portions of the sinuses and mastoid air cells are clear. IMPRESSION: No acute intracranial findings. No change in appearance of the brain. ACT 112: Negative or not required by law. Electronically signed by: Omer Aldana M.D. 10/01/2022 6:58 AM
--- NOTE | 2022-10-01 07:06 | CT Scan Report ---
CTA ANGIOGRAPHY OF THE HEAD CLINICAL HISTORY: Stroke Like Symptoms COMPARISON STUDY: Head CT June 04, 2022. TECHNIQUE: Helical axial images of the head were obtained following uneventful intravenous administr ation of 115 cc of Optiray. Sagittal and coronal reconstructions were viewed as well as maximal inten sity projections on an independent 3-D workstation. Automated exposure control was utilized for the study. A dose lowering technique was utilized adhering to the principles of ALARA. FINDINGS: Incidental note is made of venous gas. There is extensive calcified plaque within the bilat eral carotids which results in mild to moderate stenosis in the supraclinoid portions of the ICAs. Th ere is no central vessel occlusion. Right A1 segment is diminutive, likely on a congenital basis. The re is no intracranial aneurysm. There is persistence of the right posterior cerebral artery. No occlusion within the posterior circulation is noted. There is mild stenosis of the intracranial port ions of the vertebral arteries. Basilar artery is patent. IMPRESSION: 1. No central vessel occlusion. No intracranial aneurysm. 2. Moderate atherosclerotic plaque within the intracranial vessels which results in mild to moderate multifocal stenoses, as detailed above. ACT 112: Negative or not required by law. Electronically signed by: Omer Aldana M.D. 10/01/2022 7:04 AM
[2022-10-01 07:08] LABS: iSTAT Creatinine 1.4 mg/dl (0.6-1.3); iSTAT Hemoglobin 11.2 g/dl (12.0-16.0); iSTAT Ionized Calcium 1.25 mmol/l (1.12-1.32); iSTAT Potassium 3.8 mmol/L (3.3-5.0)
--- NOTE | 2022-10-01 07:14 | CT Scan Report ---
CT ANGIOGRAM OF THE NECK CLINICAL HISTORY: Strokelike symptoms. Left-sided weakness. COMPARISON STUDY: No priors. TECHNIQUE: Following the IV administration of 150 of Optiray 320, CT angiogram of the neck was perfor med from the aortic arch to the skull base. Images are reviewed in the axial, sagittal, and coronal p lanes. 3-D MIPS images are created and assessed. IV contrast was administered without complication. A ll measurements were calculated based on NASCET criteria. A dose lowering technique was utilized adh ering to the principles of ALARA. FINDINGS: Thoracic aorta: There is atherosclerotic calcification of the thoracic aorta. Visualized portions of the thoracic aorta are normal in caliber. The aortic arch demonstrates standard 3-vessel anatomy. Right carotid arterial system: The right common carotid artery is widely patent, as are the right int ernal and external carotid arteries. Atherosclerotic calcification is noted in the carotid bulb. Left carotid arterial system: The left common carotid artery is widely patent, as are the left help desk internship al and external carotid arteries. Calcified plaque is noted in the carotid bulb. Vertebral arteries: The vertebral arteries are widely patent bilaterally noting right-sided dominance . Subclavian arteries: Widely patent bilaterally. Intracranial vasculature: The visualized intracranial vessels at the skull base are patent. Jugular veins: Widely patent bilaterally. Brain parenchyma: The visualized brain parenchyma the skull base is within normal limits. Lung apices: There are bilateral pleural effusions. Upper lobe lung parenchyma is otherwise clear as imaged.. Soft tissues: The visualized pharyngeal soft tissues are normal in appearance noting angiographic pha se technique. The oropharyngeal airway appears widely patent. The thyroid gland is enlarged and heter ogeneous. The salivary glands are normal in appearance. No cervical lymphadenopathy is seen. Skeletal structures: The skeletal structures are osteopenic. The visualized calvarium at the skull ba se appears intact. The imaged cervical spine is maintained and unremarkable spondylosis. No lytic or blastic lesion is seen. Sinuses and mastoids: The visualized paranasal sinuses are clear. The mastoid air cells are well pneu matized. IMPRESSION: Unremarkable CT angiogram of the neck. ACT 112: Negative or not required by law. Electronically signed by: Pablo Yeung M.D. 10/01/2022 7:13 AM
[2022-10-01 07:15] LABS: INR 1.5 (0.9-1.1); Partial Thromboplastin Ratio 1.2; Partial Thromboplastin Time 32.1 Seconds (21.0-31.0); Prothrombin Time 16.1 Seconds (9.0-12.0)
--- NOTE | 2022-10-01 07:15 | Emergency Department Note ---
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 Per EMS staff noted that she was "normal" at 3:30 AM when they checked on her where they describe her being awake. Patient's family did arrive to the bedside and her granddaughter reports that approximately 4 days ago the patient was becoming increasingly confused from her baseline where she had poor attention. The patient's granddaughter correlates the change in her mental status with her change in diuretic. Otherwise there is no report of any fevers, cough or congestion. Prior to her hospitalization beginning of September and her recent mental status changes the patient was fairly independent. Of note, since the patient's recent hospitalization for goals of care now are DNR/DNI with POLST form indicating limited interventions. On arrival the patient is no acute distress, afebrile still vital signs. She has her eyes open with normal respiratory effort and really protecting her airway but with no purposeful movements and equivocal pain response. Reflexes within normal limits. There is no clonus. Stroke alert was activated in the field and CT of the head and CTA of the head neck were obtained immediately upon arrival. No overt ICH or CVA. No large vessel occlusion. I did discuss the case with [facility] telestroke neurologist, Dr. Navarro, who agrees that there was no indication for tPA and given no large vessel occlusion and no role for vascular invention. Agrees that symptoms may be related to subclinical seizure as well as possible CVA. Ammonia and TSH are also pending. EKG without overt acute ischemia. CXR with vascular congestion and bilateral layering pleural effusions. WBC within normal limits. H/H similar to prior. Platelets 47K within prior range of values. INR 1.5, similar to prior range of values in setting of known cirrhosis. VBG with pH of 7.5 and PCO2 is within normal limits. Chemistry without metabolic acidosis. Sodium is 137. Creatinine 1.37 similar to prior range of values. Total bilirubin 5.1, AST 45, alk phos 130, similar to prior range values in the setting of Townsend cirrhosis. TSH within normal limits. Free T4 and free T3 also within normal limits. Sensitivity troponin 79.7, nonspecific. UA without convincing evidence of infection. COVID-19 RNA, MELODY test was negative. The patient's ammonia did result and was elevated at 154 consistent with hepatic encephalopathy and with the patient's presentation. Case was discussed with Dr. Seth, [facility], who will evaluate the patient for admission. Lactulose enema per admitting team. Family updated at the bedside. Triage Nursing notes reviewed and agree them. Prior medical records reviewed Vital Signs: reviewed and remarkable for no significant abnormalities Differential diagnosis: Infection, dehydration, metabolic abnormality, hypo/hyperglycemia, electrolyte disturbance, anemia, hypoxia, cardiac sources, intracerebral event, toxicologic, neurologic, as well as other pathologies. ER treatment provided: See below. Diagnostics interpreted by me: ECG: Atrial fibrillation, 92 bpm, no overt ST elevation or depression, QTC 487, QRS 92. Cardiac Monitoring: An order for continuous cardiac monitoring was placed and demonstrated Atrial fibrillation, 92 bpm, no ectopy. Laboratory studies: See below Imaging studies: See below Consultation(s): Dr. Seth [facility] [place] hospital[place]. HPI: The patient is an 89-year-old woman with a past medical history of Townsend cirrhosis, CHF with preserved EF, chronic thrombocytopenia who presents to the emergency department from her assisted living facility at [facility] after they noted her to be unresponsive this morning even to painful stimulus. Per EMS staff noted that she was "normal" at 3:30 AM when they checked on her where they describe her being awake. Patient's family did arrive to the bedside and her granddaughter reports that approximately 4 days ago the patient was becoming increasingly confused from her baseline where she had poor attention. The patient's granddaughter correlates the change in her mental status with her change in diuretic. Otherwise there is no report of any fevers, cough or congestion. Prior to her hospitalization beginning of September and her recent mental status changes the patient was fairly independent. Of note, since the patient's recent hospitalization for goals of care now are DNR/DNI with POLST form indicating limited interventions. ROS: See above HPI for pertinent positives & negatives. A total of 10 systems reviewed and were otherwise negative. VITALS:See Below PHYSICAL EXAMINATION: GENERAL: Eyes open, normal respiratory effort. Equivocal response to pain. HENT: Normocephalic, atraumatic. Oropharynx with dry mucous membranes and otherwise unremarkable. EYES: Normal conjunctiva. Sclera non-icteric. NECK: Supple. No nuchal rigidity. FROM. No JVD. RESPIRATORY: Clear to auscultation. CARDIAC: Regular rate, normal rhythm. Extremities warm and well perfused. Pulses equal. ABDOMEN: Soft, non-distended. No tenderness to palpation. No rebound or guarding. No masses. RECTAL: Deferred. MUSCULOSKELETAL: Chest examination reveals no tenderness. The back is symmetrical on inspection without obvious abnormality. There is no CVA t enderness to palpation. No joint edema. LOWER EXTREMITIES: Calves are equal size bilaterally and non-tender. 2+ BLE edema. No discoloration. NEURO: Eyes open, normal respiratory effort. Equivocal response to pain. No purposeful movements. SKIN: No rash or jaundice noted. ED COURSE: Critical Care: I have personally spent greater than 35 minutes of critical care time in the direct management of this patient. This includes bedside care, interpretation of diagnostic studies, and testing, discussion with consultants, patient, and family members, and other required patient management activities. This 35 minutes is in excess of all separately billable procedures. 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 Osteoporosis (02/28/12) Ovarian mass Pleural effusion Rib fractures Severe aortic stenosis Thrombocytopenia Surgical History History of bilateral tubal ligation Family History Denies family history of Liver disease Social History Smoking Status: Never smoker Second Hand Exposure: No; Do You Dip or Chew Tobacco: No; Hx Alcohol Use: No Hx Substance Use: No Preferred Language: Montserratian Communication Ability: Effective Checkman Required: No Beliefs That Will Affect Care: None marital status: Current Living Situation: Assisted Current Living Situation Comment: was in Independent living at [facility] ([facility]) current occupational status: retired 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 / [employer] How many Children do You have: 3 Feels Safe at Home: Yes Safety Concerns: Feels Safe At This Time Assistive Devices: Walker Allergies Allergies Allergy/AdvReac Type Severity Reaction Status Date / Time shellfish derived Allergy Severe ANAPHYLAXIS Verified 06/04/22 18:03 Fish Containing Products Allergy Verified 09/09/22 09:54 fish derived Allergy Verified 09/09/22 09:54 fish oil Allergy Verified 09/09/22 09:54 AGGIE Inhibitors AdvReac Intermediate Cough Verified 06/04/22 18:03 alendronate sodium AdvReac Intermediate dizziness Verified 09/09/22 00:36 ALL CREATURES THAT LIVE IN Allergy Severe ANAPHYLAXIS Uncoded 06/04/22 18:03 WATER Home Meds Home Medications Medication Instructions Recorded Confirmed cholecalciferol (vitamin D3) 125 125 mcg PO QAM 10/12/21 09/09/22 mcg (5,000 unit) tablet (Vitamin D3) insulin aspart U-100 100 unit/mL 4 unit subcut WM 10/12/21 09/09/22 (3 mL) subcutaneous pen (Novolog Flexpen U-100 Insulin aspart) coenzyme Q10 200 mg chewable tablet 200 mg PO DAILY 09/09/22 09/09/22 lactulose 20 gram/30 mL oral 20 g PO BID PRN Constipation 09/09/22 09/09/22 solution lidocaine 4 % topical patch 1 patch topical .EVERY 24 HOURS 09/09/22 09/09/22 (Lidocaine Pain Relief) PRN .mod-sever pain magnesium 250 mg tablet 500 mg PO QAM 09/09/22 09/09/22 [id number] 1 tab PO QAM 09/09/22 09/09/22 spironolactone 25 mg tablet 12.5 mg PO DAILY 09/09/22 09/09/22 tramadol 50 mg tablet 25 mg PO Q4 PRN Pain any level 09/09/22 09/09/22 Previous Rx's Medication Instructions Recorded furosemide 20 mg tablet See Rx Instructions .Route 11/10/22 .COMPLEX #210 tabs insulin glargine 100 unit/mL (3 10 unit (0.1 mL) subcut HS #15 mL 09/13/22 mL) subcutaneous pen (Lantus Solostar U-100 Insulin) Results & Data (ED) Vital Signs Vital Signs - 24 hr 10/01/22 06:50 10/01/22 07:25 10/01/22 07:41 Temperature 36.5 C Temperature Source Oral Pulse Rate 94 H Pulse Rate [Finger] 85 88 Pulse Rate from SpO2 Sensor Pulse Rhythm Irregular Pulse Strength Normal Respiratory Rate 18 16 18 Respiratory Effort / Characteristics Non-Labored Spontaneous Respiratory Depth Normal Respiratory Pattern Regular Blood Pressure 125/63 Blood Pressure [Left Arm] 130/67 113/63 Blood Pressure Mean 83 Blood Pressure Mean [Left Arm] 88 79 Blood Pressure Position Semi-fowlers Pulse Oximetry 100 99 99 Oxygen Delivery Method Room Air Room Air Room Air Sepsis Recent Fever Within 48 Hours No Sepsis New/Unexplained Change in Mental Status Yes Sepsis Action Taken by Nursing No Action Required 10/01/22 07:54 10/01/22 06:53 10/01/22 07:00 Temperature Temperature Source Pulse Rate 97 H 91 H Pulse Rate [Finger] 86 Pulse Rate from SpO2 Sensor 110 H 88 Pulse Rhythm Pulse Strength Respiratory Rate 18 21 19 Respiratory Effort / Characteristics Respiratory Depth Respiratory Pattern Blood Pressure Blood Pressure [Left Arm] 122/48 L Blood Pressure Mean Blood Pressure Mean [Left Arm] 72 Blood Pressure Position Pulse Oximetry 100 100 97 Oxygen Delivery Method Room Air Sepsis Recent Fever Within 48 Hours Sepsis New/Unexplained Change in Mental Status Sepsis Action Taken by Nursing 10/01/22 07:01 10/01/22 07:01 10/01/22 07:10 Temperature Temperature Source Pulse Rate 92 H 97 H Pulse Rate [Finger] Pulse Rate from SpO2 Sensor 94 H 103 H Pulse Rhythm Pulse Strength Respiratory Rate 17 18 Respiratory Effort / Characteristics Respiratory Depth Respiratory Pattern Blood Pressure 129/62 Blood Pressure [Left Arm] Blood Pressure Mean 84 Blood Pressure Mean [Left Arm] Blood Pressure Position Pulse Oximetry 100 94 Oxygen Delivery Method Sepsis Recent Fever Within 48 Hours Sepsis New/Unexplained Change in Mental Status Sepsis Action Taken by Nursing 10/01/22 07:15 10/01/22 07:15 10/01/22 07:20 Temperature Temperature Source Pulse Rate 97 H 85 Pulse Rate [Finger] Pulse Rate from SpO2 Sensor 94 H 87 Pulse Rhythm Pulse Strength Respiratory Rate 17 16 Respiratory Effort / Characteristics Respiratory Depth Respiratory Pattern Blood Pressure 130/67 Blood Pressure [Left Arm] Blood Pressure Mean 88 Blood Pressure Mean [Left Arm] Blood Pressure Position Pulse Oximetry 99 100 Oxygen Delivery Method Sepsis Recent Fever Within 48 Hours Sepsis New/Unexplained Change in Mental Status Sepsis Action Taken by Nursing 10/01/22 07:30 10/01/22 07:30 10/01/22 07:40 Temperature Temperature Source Pulse Rate 89 96 H Pulse Rate [Finger] Pulse Rate from SpO2 Sensor 92 H 91 H Pulse Rhythm Pulse Strength Respiratory Rate 17 20 Respiratory Effort / Characteristics Respiratory Depth Respiratory Pattern Blood Pressure 113/63 Blood Pressure [Left Arm] Blood Pressure Mean 79 Blood Pressure Mean [Left Arm] Blood Pressure Position Pulse Oximetry 100 99 Oxygen Delivery Method Sepsis Recent Fever Within 48 Hours Sepsis New/Unexplained Change in Mental Status Sepsis Action Taken by Nursing 10/01/22 07:45 10/01/22 07:45 10/01/22 07:50 Temperature Temperature Source Pulse Rate 81 85 Pulse Rate [Finger] Pulse Rate from SpO2 Sensor 82 84 Pulse Rhythm Pulse Strength Respiratory Rate 14 15 Respiratory Effort / Characteristics Respiratory Depth Respiratory Pattern Blood Pressure 122/48 L Blood Pressure [Left Arm] Blood Pressure Mean 72 Blood Pressure Mean [Left Arm] Blood Pressure Position Pulse Oximetry 100 99 Oxygen Delivery Method Sepsis Recent Fever Within 48 Hours Sepsis New/Unexplained Change in Mental Status Sepsis Action Taken by Nursing 10/01/22 08:00 10/01/22 08:00 Temperature Temperature Source Pulse Rate 90 Pulse Rate [Finger] Pulse Rate from SpO2 Sensor 82 Pulse Rhythm Pulse Strength Respiratory Rate 16 Respiratory Effort / Characteristics Respiratory Depth Respiratory Pattern Blood Pressure 134/42 L Blood Pressure [Left Arm] Blood Pressure Mean 72 Blood Pressure Mean [Left Arm] Blood Pressure Position Pulse Oximetry 99 Oxygen Delivery Method Sepsis Recent Fever Within 48 Hours Sepsis New/Unexplained Change in Mental Status Sepsis Action Taken by Nursing Laboratory Data Attestation: I reviewed the patient's lab results. Result diagrams: 10/01/22 06:11 10/01/22 06:11 Lab Results 10/01/22 10/01/22 10/01/22 Range/Units 06:11 06:11 06:11 WBC 5.33 (4.8-10.8) K/ul RBC 3.86 L (3.93-5.22) M/uL Hgb 11.4 L (12.0-16.0) g/dl POC Hgb (12.0-16.0) g/dl Hct 34.7 (34.1-44.9) % POC Hct (37-47) % MCV 89.9 (80.0-100.0) fL MCH 29.5 (25.0-34.0) pg MCHC 32.9 (32.0-36.0) g/dL RDW Std Deviation 50.5 H (36.4-46.3) fL RDW Coeff of Jacqueline 15.8 H (11.5-14.5) % Plt Count 47 L (130-400) K/uL MPV 13.0 H (9.4-12.3) fL Immature Gran % (Auto) 0.4 % Neut % (Auto) 77.3 % Lymph % (Auto) 10.7 % [place] % (Auto) 8.8 % Eos % (Auto) 2.4 % Baso % (Auto) 0.4 % Neut # (Auto) 4.12 (1.4-6.5) K/uL Lymph # (Auto) 0.57 L (1.2-3.4) K/uL [place] # (Auto) 0.47 (0.24-0.82) K/uL Eos # (Auto) 0.13 (0-0.50) K/uL Baso # (Auto) 0.02 (0-0.2) K/uL Immature Gran # (Auto) 0.02 (0.00-0.02) K/uL PT 16.1 H (9.0-12.0) Seconds INR 1.5 H (0.9-1.1) APTT 32.1 H (21.0-31.0) Seconds PTT Ratio 1.2 VBG pH (7.36-7.41) VBG pCO2 (38-50) mmHg VBG pO2 mmHg VBG HCO3 mmol/L VBG O2 Saturation % VBG Base Excess mEq/L POC Sodium (135-144) mmol/L Sodium 136 (136-145) mmol/L POC Potassium (3.3-5.0) mmol/L Potassium 3.9 (3.5-5.1) mmol/L POC Chloride (101-112) mmol/L Chloride 101 (98-107) mmol/L Carbon Dioxide 27 (21-32) mmol/L POC Total CO2 (24-31) mmol/L Anion Gap 8 (3-11) POC Anion Gap (16-25) mmol/L POC BUN (7-18) mg/dl BUN 40 H (6-23) mg/dl Creatinine 1.37 H (0.6-1.2) mg/dl POC Creatinine (0.6-1.3) mg/dl Est Cr Clr Drug Dosing 26.1 ml/min Est GFR ( Amer) 39.5 ml/min Est GFR (Non-Af Amer) 34.1 ml/min BUN/Creatinine Ratio 29.2 H (10-20) Glucose 186 H (70-99(Fasting)) mg/dl POC Glucose (70-99) mg/dl POC Glucose (other) (70-99) mg/dl Calcium 9.7 (8.5-10.1) mg/dl POC Ioniz Calcium Reddy (1.12-1.32) mmol/l Phosphorus 3.4 (2.5-4.9) mg/dl Magnesium 1.7 (1.7-2.4) mg/dl Total Bilirubin 5.1 H (0.2-1.0) mg/dl AST 45 H (13-39) U/L ALT 26 (7-52) U/L Alkaline Phosphatase 130 H (34-104) U/L Ammonia (18-72) umol/L Troponin I High Sens 79.7 H* D (0-14) pg/ml Total Protein 5.6 L (6.0-8.3) gm/dl Albumin 2.7 L (3.4-5.0) gm/dl Globulin 2.9 (2.5-4.0) gm/dl Albumin/Globulin Ratio 0.9 (0.9-2) TSH (0.300-4.500) uIu/ml Free T4 (0.61-1.60) ng/dl Free T3 (2.3-4.2) pg/ml Urine Color Urine Appearance (Clear) Urine pH (4.5-7.5) Ur Specific [place] (1.000-1.030) Urine Protein (Negative) Urine Glucose (UA) (Negative) Urine Ketones (Negative) Urine Blood (Negative) Urine Nitrite (Negative) Urine Bilirubin (Negative) Urine Urobilinogen (Negative) Ur Leukocyte Esterase (Negative) Urine WBC (Auto) (0-5) /hpf Urine RBC (Auto) (0-4) /hpf U Hyaline Cast (Auto) (0-5) /lpf U Epithel Cells (Auto) (0-5) /lpf Urine Bacteria (Auto) (Negative) SARS-CoV-2, RNA, NAAT (NEGATIVE) 10/01/22 10/01/22 10/01/22 Range/Units 06:11 06:11 06:11 WBC (4.8-10.8) K/ul RBC (3.93-5.22) M/uL Hgb (12.0-16.0) g/dl POC Hgb (12.0-16.0) g/dl Hct (34.1-44.9) % POC Hct (37-47) % MCV (80.0-100.0) fL MCH (25.0-34.0) pg MCHC (32.0-36.0) g/dL RDW Std Deviation (36.4-46.3) fL RDW Coeff of Jacqueline (11.5-14.5) % Plt Count (130-400) K/uL MPV (9.4-12.3) fL Immature Gran % (Auto) % Neut % (Auto) % Lymph % (Auto) % [place] % (Auto) % Eos % (Auto) % Baso % (Auto) % Neut # (Auto) (1.4-6.5) K/uL Lymph # (Auto) (1.2-3.4) K/uL [place] # (Auto) (0.24-0.82) K/uL Eos # (Auto) (0-0.50) K/uL Baso # (Auto) (0-0.2) K/uL Immature Gran # (Auto) (0.00-0.02) K/uL PT (9.0-12.0) Seconds INR (0.9-1.1) APTT (21.0-31.0) Seconds PTT Ratio VBG pH (7.36-7.41) VBG pCO2 (38-50) mmHg VBG pO2 mmHg VBG HCO3 mmol/L VBG O2 Saturation % VBG Base Excess mEq/L POC Sodium (135-144) mmol/L Sodium (136-145) mmol/L POC Potassium (3.3-5.0) mmol/L Potassium (3.5-5.1) mmol/L POC Chloride (101-112) mmol/L Chloride (98-107) mmol/L Carbon Dioxide (21-32) mmol/L POC Total CO2 (24-31) mmol/L Anion Gap (3-11) POC Anion Gap (16-25) mmol/L POC BUN (7-18) mg/dl BUN (6-23) mg/dl Creatinine (0.6-1.2) mg/dl POC Creatinine (0.6-1.3) mg/dl Est Cr Clr Drug Dosing ml/min Est GFR ( Amer) ml/min Est GFR (Non-Af Amer) ml/min BUN/Creatinine Ratio (10-20) Glucose (70-99(Fasting)) mg/dl POC Glucose (70-99) mg/dl POC Glucose (other) (70-99) mg/dl Calcium (8.5-10.1) mg/dl POC Ioniz Calcium Reddy (1.12-1.32) mmol/l Phosphorus Cancelled (2.5-4.9) mg/dl Magnesium (1.7-2.4) mg/dl Total Bilirubin (0.2-1.0) mg/dl AST (13-39) U/L ALT (7-52) U/L Alkaline Phosphatase (34-104) U/L Ammonia (18-72) umol/L Troponin I High Sens (0-14) pg/ml Total Protein (6.0-8.3) gm/dl Albumin (3.4-5.0) gm/dl Globulin (2.5-4.0) gm/dl Albumin/Globulin Ratio (0.9-2) TSH 1.912 (0.300-4.500) uIu/ml Free T4 1.57 (0.61-1.60) ng/dl Free T3 2.56 (2.3-4.2) pg/ml Urine Color Urine Appearance (Clear) Urine pH (4.5-7.5) Ur Specific [place] (1.000-1.030) Urine Protein (Negative) Urine Glucose (UA) (Negative) Urine Ketones (Negative) Urine Blood (Negative) Urine Nitrite (Negative) Urine Bilirubin (Negative) Urine Urobilinogen (Negative) Ur Leukocyte Esterase (Negative) Urine WBC (Auto) (0-5) /hpf Urine RBC (Auto) (0-4) /hpf U Hyaline Cast (Auto) (0-5) /lpf U Epithel Cells (Auto) (0-5) /lpf Urine Bacteria (Auto) (Negative) SARS-CoV-2, RNA, NAAT (NEGATIVE) 10/01/22 10/01/22 10/01/22 Range/Units 06:55 06:55 06:55 WBC (4.8-10.8) K/ul RBC (3.93-5.22) M/uL Hgb (12.0-16.0) g/dl POC Hgb 11.2 L (12.0-16.0) g/dl Hct (34.1-44.9) % POC Hct 33 L (37-47) % MCV (80.0-100.0) fL MCH (25.0-34.0) pg MCHC (32.0-36.0) g/dL RDW Std Deviation (36.4-46.3) fL RDW Coeff of Jacqueline (11.5-14.5) % Plt Count (130-400) K/uL MPV (9.4-12.3) fL Immature Gran % (Auto) % Neut % (Auto) % Lymph % (Auto) % [place] % (Auto) % Eos % (Auto) % Baso % (Auto) % Neut # (Auto) (1.4-6.5) K/uL Lymph # (Auto) (1.2-3.4) K/uL [place] # (Auto) (0.24-0.82) K/uL Eos # (Auto) (0-0.50) K/uL Baso # (Auto) (0-0.2) K/uL Immature Gran # (Auto) (0.00-0.02) K/uL PT (9.0-12.0) Seconds INR (0.9-1.1) APTT (21.0-31.0) Seconds PTT Ratio VBG pH (7.36-7.41) VBG pCO2 (38-50) mmHg VBG pO2 mmHg VBG HCO3 mmol/L VBG O2 Saturation % VBG Base Excess mEq/L POC Sodium 137 (135-144) mmol/L Sodium (136-145) mmol/L POC Potassium 3.8 (3.3-5.0) mmol/L Potassium (3.5-5.1) mmol/L POC Chloride 100 L (101-112) mmol/L Chloride (98-107) mmol/L Carbon Dioxide (21-32) mmol/L POC Total CO2 26 (24-31) mmol/L Anion Gap (3-11) POC Anion Gap 16.0 (16-25) mmol/L POC BUN 34 H (7-18) mg/dl BUN (6-23) mg/dl Creatinine (0.6-1.2) mg/dl POC Creatinine 1.4 H (0.6-1.3) mg/dl Est Cr Clr Drug Dosing ml/min Est GFR ( Amer) ml/min Est GFR (Non-Af Amer) ml/min BUN/Creatinine Ratio (10-20) Glucose (70-99(Fasting)) mg/dl POC Glucose (70-99) mg/dl POC Glucose (other) 189 H (70-99) mg/dl Calcium (8.5-10.1) mg/dl POC Ioniz Calcium [place]dy 1.25 (1.12-1.32) mmol/l Phosphorus (2.5-4.9) mg/dl Magnesium (1.7-2.4) mg/dl Total Bilirubin (0.2-1.0) mg/dl AST (13-39) U/L ALT (7-52) U/L Alkaline Phosphatase (34-104) U/L Ammonia 154.0 H (18-72) umol/L Troponin I High Sens (0-14) pg/ml Total Protein (6.0-8.3) gm/dl Albumin (3.4-5.0) gm/dl Globulin (2.5-4.0) gm/dl Albumin/Globulin Ratio (0.9-2) TSH (0.300-4.500) uIu/ml Free T4 (0.61-1.60) ng/dl Free T3 (2.3-4.2) pg/ml Urine Color Urine Appearance (Clear) Urine pH (4.5-7.5) Ur Specific [place] (1.000-1.030) Urine Protein (Negative) Urine Glucose (UA) (Negative) Urine Ketones (Negative) Urine Blood (Negative) Urine Nitrite (Negative) Urine Bilirubin (Negative) Urine Urobilinogen (Negative) Ur Leukocyte Esterase (Negative) Urine WBC (Auto) (0-5) /hpf Urine RBC (Auto) (0-4) /hpf U Hyaline Cast (Auto) (0-5) /lpf U Epithel Cells (Auto) (0-5) /lpf Urine Bacteria (Auto) (Negative) SARS-CoV-2, RNA, NAAT NEGATIVE (NEGATIVE) 10/01/22 10/01/22 10/01/22 Range/Units 07:00 07:10 07:15 WBC (4.8-10.8) K/ul RBC (3.93-5.22) M/uL Hgb (12.0-16.0) g/dl POC Hgb (12.0-16.0) g/dl Hct (34.1-44.9) % POC Hct (37-47) % MCV (80.0-100.0) fL MCH (25.0-34.0) pg MCHC (32.0-36.0) g/dL RDW Std Deviation (36.4-46.3) fL RDW Coeff of Jacqueline (11.5-14.5) % Plt Count (130-400) K/uL MPV (9.4-12.3) fL Immature Gran % (Auto) % Neut % (Auto) % Lymph % (Auto) % [place] % (Auto) % Eos % (Auto) % Baso % (Auto) % Neut # (Auto) (1.4-6.5) K/uL Lymph # (Auto) (1.2-3.4) K/uL [place] # (Auto) (0.24-0.82) K/uL Eos # (Auto) (0-0.50) K/uL Baso # (Auto) (0-0.2) K/uL Immature Gran # (Auto) (0.00-0.02) K/uL PT (9.0-12.0) Seconds INR (0.9-1.1) APTT (21.0-31.0) Seconds PTT Ratio VBG pH 7.50 H (7.36-7.41) VBG pCO2 39 (38-50) mmHg VBG pO2 48 mmHg VBG HCO3 30 mmol/L VBG O2 Saturation 79.6 % VBG Base Excess 6.7 mEq/L POC Sodium (135-144) mmol/L Sodium (136-145) mmol/L POC Potassium (3.3-5.0) mmol/L Potassium (3.5-5.1) mmol/L POC Chloride (101-112) mmol/L Chloride (98-107) mmol/L Carbon Dioxide (21-32) mmol/L POC Total CO2 (24-31) mmol/L Anion Gap (3-11) POC Anion Gap (16-25) mmol/L POC BUN (7-18) mg/dl BUN (6-23) mg/dl Creatinine (0.6-1.2) mg/dl POC Creatinine (0.6-1.3) mg/dl Est Cr Clr Drug Dosing ml/min Est GFR ( Amer) ml/min Est GFR (Non-Af Amer) ml/min BUN/Creatinine Ratio (10-20) Glucose (70-99(Fasting)) mg/dl POC Glucose 189 H (70-99) mg/dl POC Glucose (other) (70-99) mg/dl Calcium (8.5-10.1) mg/dl POC Ioniz Calcium Reddy (1.12-1.32) mmol/l Phosphorus (2.5-4.9) mg/dl Magnesium (1.7-2.4) mg/dl Total Bilirubin (0.2-1.0) mg/dl AST (13-39) U/L ALT (7-52) U/L Alkaline Phosphatase (34-104) U/L Ammonia (18-72) umol/L Troponin I High Sens (0-14) pg/ml Total Protein (6.0-8.3) gm/dl Albumin (3.4-5.0) gm/dl Globulin (2.5-4.0) gm/dl Albumin/Globulin Ratio (0.9-2) TSH (0.300-4.500) uIu/ml Free T4 (0.61-1.60) ng/dl Free T3 (2.3-4.2) pg/ml Urine Color [place] Urine Appearance Clear (Clear) Urine pH 6.0 (4.5-7.5) Ur Specific [place] 1.012 (1.000-1.030) Urine Protein Negative (Negative) Urine Glucose (UA) Negative (Negative) Urine Ketones Negative (Negative) Urine Blood Trace H (Negative) Urine Nitrite Negative (Negative) Urine Bilirubin Negative (Negative) Urine Urobilinogen Negative (Negative) Ur Leukocyte Esterase Negative (Negative) Urine WBC (Auto) 0 (0-5) /hpf Urine RBC (Auto) 0-4 (0-4) /hpf U Hyaline Cast (Auto) 1-5 (0-5) /lpf U Epithel Cells (Auto) 0-5 (0-5) /lpf Urine Bacteria (Auto) Negative (Negative) SARS-CoV-2, RNA, NAAT (NEGATIVE) Administered Medications Nystatin (Nystatin Cr 15 Gm Tube) 1 appln EXT TID [place] Stop: 10/31/22 11:21 Last Admin: 10/01/22 18:31 Dose: Not Given Documented By: Admin: 10/01/22 18:26 Dose: Not Given Documented By: [email or web address] Discontinued Medications Ioversol (Optiray 320 500ml) 125 ml IV ONCE ONE Stop: 10/01/22 06:47 Last Admin: 10/01/22 06:46 Dose: 115 ml Documented By: AILEEN Lactulose (Lactulose 200gm/700ml Wtr Enema) 200 gm MI ONCE ONE Stop: 10/01/22 08:16 Last Admin: 10/01/22 08:35 Dose: 200 gm Documented By: ABHISHEK Lactulose (Lactulose Syrup 30 Gm/45 Ml Udp) 30 gm PO NOW STA Stop: 10/01/22 15:39 Last Admin: 10/01/22 16:36 Dose: 30 gm Documented By: YOGESH Methylprednisolone (Methylprednisolone 125 Mg/2 Ml Vial) 125 mg IV NOW STA Stop: 10/01/22 06:36 Last Admin: 10/01/22 07:24 Dose: Not Given Documented By: JACK Imaging Data Radiologist's Impression: Chest X-Ray 10/01/22 07:01 SINGLE VIEW CHEST CLINICAL HISTORY: Change in mental status. FINDINGS: An AP, portable, upright chest radiograph is compared to study dated 09/09/2022 and correlated with chest CT dated 06/04/2022. The heart is enlarged noting atherosclerotic calcification of the thoracic aorta. There is pulmonary vascular congestion. There are layering pleural effusions with dependent consolidation. No pneumothorax is seen. The skeletal structures are osteopenic. Arthritic change is noted in the shoulders and thoracic spine. There are healed left-sided rib fractures. IMPRESSION: 1. Cardiomegaly with pulmonary vascular congestion. 2. Layering pleural effusions with dependent consolidation. ACT 112: Negative or not required by law. Electronically signed by: Pablo Yeung M.D. 10/01/2022 7:[address] 10/01/22 06:34 CT OF THE HEAD WITHOUT CONTRAST CLINICAL HISTORY: Stroke Like Symptoms. Facial droop. COMPARISON STUDY: Head CT June 04, 2022. CT DOSE: 1146.48 mGy.cm TECHNIQUE: Helical axial images of the head were obtained without IV contrast. Automated exposure control was utilized for the study. A dose lowering technique was utilized adhering to the principles of ALARA. FINDINGS: No acute intracranial hemorrhage, midline shift or mass effect is present. White matter densities are unchanged and favor small vessel disease. There may be old infarct within the bilateral cerebellar hemispheres. These are unchanged. The ventricular system is unremarkable. The basal cisterns are patent. No extra-axial collections are present. There are no findings to suggest acute dural sinus thrombosis or acute territorial infarct. No significant calvarial abnormalities are present. Visualized portions of the sinuses and mastoid air cells are clear. IMPRESSION: No acute intracranial findings. No change in appearance of the brain. ACT 112: Negative or not required by law. Electronically signed by: Omer Aldana M.D. 10/01/2022 6:58 AM Head CTA 10/01/22 06:34 CTA ANGIOGRAPHY OF THE HEAD CLINICAL HISTORY: Stroke Like Symptoms COMPARISON STUDY: Head CT June 04, 2022. TECHNIQUE: Helical axial images of the head were obtained following uneventful intravenous administration of 115 cc of Optiray. Sagittal and coronal reconstructions were viewed as well as maximal intensity projections on an independent 3-D workstation. Automated exposure control was utilized for the study. A dose lowering technique was utilized adhering to the principles of ALARA. FINDINGS: Incidental note is made of venous gas. There is extensive calcified plaque within the bilateral carotids which results in mild to moderate stenosis in the supraclinoid portions of the ICAs. There is no central vessel occlusion. Right A1 segment is diminutive, likely on a congenital basis. There is no intracranial aneurysm. There is persistence of the right posterior cerebral artery. No occlusion within the posterior circulation is noted. There is mild stenosis of the intracranial portions of the vertebral arteries. Basilar artery is patent. IMPRESSION: 1. No central vessel occlusion. No intracranial aneurysm. 2. Moderate atherosclerotic plaque within the intracranial vessels which results in mild to moderate multifocal stenoses, as detailed above. ACT 112: Negative or not required by law. Electronically signed by: Omer Aldana M.D. 10/01/2022 7:04 AM Neck CTA 10/01/22 06:34 CT ANGIOGRAM OF THE NECK CLINICAL HISTORY: Strokelike symptoms. Left-sided weakness. COMPARISON STUDY: No priors. TECHNIQUE: Following the IV administration of 150 of Optiray 320, CT angiogram of the neck was performed from the aortic arch to the skull base. Images are reviewed in the axial, sagittal, and coronal planes. 3-D MIPS images are created and assessed. IV contrast was administered without complication. All me asurements were calculated based on NASCET criteria. A dose lowering technique was utilized adhering to the principles of ALARA. FINDINGS: Thoracic aorta: There is atherosclerotic calcification of the thoracic aorta. Visualized portions of the thoracic aorta are normal in caliber. The aortic arch demonstrates standard 3-vessel anatomy. Right carotid arterial system: The right common carotid artery is widely patent, as are the right internal and external carotid arteries. Atherosclerotic c alcification is noted in the carotid bulb. Left carotid arterial system: The left common carotid artery is widely patent, as are the left internal and external carotid arteries. Calcified plaque is noted in the carotid bulb. Vertebral arteries: The vertebral arteries are widely patent bilaterally noting right-sided dominance. Subclavian arteries: Widely patent bilaterally. Intracranial vasculature: The visualized intracranial vessels at the skull base are patent. Jugular veins: Widely patent bilaterally. Brain parenchyma: The visualized brain parenchyma the skull base is within nor mal limits. Lung apices: There are bilateral pleural effusions. Upper lobe lung parenchyma is otherwise clear as imaged.. Soft tissues: The visualized pharyngeal soft tissues are normal in appearance noting angiographic phase technique. The oropharyngeal airway appears widely patent. The thyroid gland is enlarged and heterogeneous. The salivary glands are normal in appearance. No cervical lymphadenopathy is seen. Skeletal structures: The skeletal structures are osteopenic. The visualized c alvarium at the skull base appears intact. The imaged cervical spine is maintained and unremarkable spondylosis. No lytic or blastic lesion is seen. Sinuses and mastoids: The visualized paranasal sinuses are clear. The mastoid air cells are well pneumatized. IMPRESSION: Unremarkable CT angiogram of the neck. ACT 112: Negative or not required by law. Electronically signed by: Pablo Yeung M.D. 10/01/2022 7:13 AM Chest X-Ray 10/01/22 07:01 SINGLE VIEW CHEST CLINICAL HISTORY: Change in mental status. FINDINGS: An AP, portable, upright chest radiograph is compared to study dated 09/09/2022 and correlated with chest CT dated 06/04/2022. The heart is enlarged noting atherosclerotic calcification of the thoracic aorta. There is pulmonary vascular congestion. There are layering pleural effusions with dependent consolidation. No pneumothorax is seen. The skeletal structures are osteopenic. Arthritic change is noted in the shoulders and thoracic spine. There are healed left-sided rib fractures. IMPRESSION: 1. Cardiomegaly with pulmonary vascular congestion. 2. Layering pleural effusions with dependent consolidation. ACT 112: Negative or not required by law. Electronically signed by: Pablo Yeung M.D. 10/01/2022 7:28 AM Discharge Plan Visit Data Chief Complaint: Stroke/CVA Symptoms Stated Complaint: STROKE SYMPTOMS ED Provider: Jasmeet Ellis Discharge Problem: Acute hepatic encephalopathy, Liver cirrhosis secondary to [place], Elevated troponin, Thrombocytopenia Patient Disposition: Admitted As Inpatient Discharge Instructions Interventions: ED Discharge Assessment Last Done: 10/01/22 11:21
[2022-10-01 07:27] LABS: Albumin Globulin Ratio 0.9 (0.9-2); Albumin Level 2.7 gm/dl (3.4-5.0); BUN Creatinine Ratio 29.2 (10-20); Bilirubin,Total 5.1 mg/dl (0.2-1.0); Calcium 9.7 mg/dl (8.5-10.1); Creatinine Clr Calc Pharmacy 26.1 ml/min; Est GFR (African American) 39.5 ml/min; Est GFR (Non-African American) 34.1 ml/min; Globulin 2.9 gm/dl (2.5-4.0); Magnesium 1.7 mg/dl (1.7-2.4); Phosphorus 3.4 mg/dl (2.5-4.9); Potassium 3.9 mmol/L (3.5-5.1); Total Protein 5.6 gm/dl (6.0-8.3)
--- NOTE | 2022-10-01 07:29 | XRay Report ---
SINGLE VIEW CHEST CLINICAL HISTORY: Change in mental status. FINDINGS: An AP, portable, upright chest radiograph is compared to study dated 09/09/2022 and correlat ed with chest CT dated 06/04/2022. The heart is enlarged noting atherosclerotic calcification of the th oracic aorta. There is pulmonary vascular congestion. There are layering pleural effusions with depen dent consolidation. No pneumothorax is seen. The skeletal structures are osteopenic. Arthritic change is noted in the shoulders and thoracic spine. There are healed left-sided rib fractures. IMPRESSION: 1. Cardiomegaly with pulmonary vascular congestion. 2. Layering pleural effusions with dependent consolidation. ACT 112: Negative or not required by law. Electronically signed by: Pablo Yeung M.D. 10/01/2022 7:28 AM
[2022-10-01 07:39] LABS: Troponin I High Sensitivity 79.7 pg/ml (0-14)
[2022-10-01 07:43] LABS: Base Excess VBG 6.7 mEq/L; HCO3 VBG 30 mmol/L; Oxygen Saturation VBG 79.6 %; PCO2 VBG 39 mmHg (38-50); PO2 VBG 48 mmHg
--- NOTE | 2022-10-01 07:45 | History & Physical Report ---
Date of Service October 01, 2022 Assessment & Plan (1) Hepatic encephalopathy: Plan: 2nd to #2. No obvious inciting factor such as an infectious process (cxr clear, u/a wnl, COVID neg, no cellulitis, etc). Did have 2 days last week of copious amounts of turkey consumption around the which would have worsened the matter. Her liver disease, given her INR of 1.5, very high LFTs, and her clinical presentation, are all consistent with advanced cirrhosis. Due to obtundation will use lactulose enemas, first one now. Will repeat this afternoon. Daily ammonia levels. Once safe to swallow will switch to PO lactulose +/- rifaximin. 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 She is decompensated with worsening LE edema and probable ascites. For prognostic purposes and to help with goals of care discussion will check for PVT with doppler study today. (3) Severe aortic stenosis: Plan: CHIDI <1 on recent echo patient recently explored candidacy for TAVR at [facility] but in light of #2 uncertain if she is truly a candidate for such (4) Thrombocytopenia: Plan: 2nd to #2 CBC am (5) Chronic kidney disease, stage IV (severe): Plan: baseline CrCl 20s baseline Creatinine about 1.3/1.4 creatinine today stable BMP am (6) Breast mass: Plan: wound not pursue any work-up or treatment in light of advanced liver disease (7) Ovarian mass: Plan: would not pursue any work-up or treatment in light of advanced liver disease, severe , etc (8) Sacral decubitus ulcer: Plan: consult wound care team optifoam dressing in meantime (9) Candidal diaper rash: Plan: nystatin cream TID (10) DM2 (diabetes mellitus, type 2): Plan: uncontrolled, likely 2nd to #1 BSGs q6h and institute insulin as needed (11) Chronic diastolic CHF (congestive heart failure): Plan: has LE edema, but otherwise looks compensated. LE edema likely due to her cirrhosis. Avoid aggressive fluid resuscitation at this time. (12) DVT prophylaxis: Plan: SCDs only chemical means contraindicated due to low platelets (13) Elevated troponin: Plan: Likely myocardial demand ischemia in setting of #1 above. Doubt ACS. However, will repeat a troponin later today. Place on telemetry for now. Plan 2 daughters updated at bedside with plan of care if patient improves from #1 strongly consider palliative care consultation during her stay History of Present Illness Chief Complaint: lethargy, altered mental status Primary Care Provider: [facility] 89yo female with a PMH of HTN, IDDM2, chronic diastolic CHF, CKD stage 4, DOMINGUEZ cirrhosis with thrombocytopenia, severe aortic stenosis, left breast mass, and a long-standing ovarian mass presents from [facility] ([facility]) with increasing confusion and then the development of obtundation overnight. Mrs Berman was recently hospitalized at [facility] from 09/09 to 09/13 for volume overload due to diastolic CHF & her cirrhosis. Her diuretics were increased during that visit. Several days after discharge her family noted intermittent confusion with difficulty with short-term memory. The confusion worsened in the last week and the family was suspicious that "something was off." Apparently on she was able to partake in a Thanksgiving meal at [facility] (turkey, sides, etc). On Saturday her family picked her up and they spent Saturday celebrating the holiday. Her 2 daughters who provided all of her history said her appetite was "excellent" and that she had copious amounts of turkey, etc. Over this weekend the family states she was sleepy but not lethargic and still able to carry on conversation. The confusion persisted, however. [facility] did not note any fever or any other infectious symptoms. Her daughters did note that her LE edema has worsened in the last 1-2 weeks d stacy hayes. Finally, sometime early this am, the staff at [facility] found Mrs Berman in her bed very lethargic and borderline obtunded. She was brought to our ER for evaluation where her ammonia level was found to be >100. CT head was negative. Records from [facility] show a POLST form confirming DNR/DNI status and limited interventions in the event of a terminal illness. These wishes were confirmed with her 2 daughters at time of admission. Despite the POLST form her daughters state she had consultation with [facility] to discuss possible TAVR procedure for her and pursuing work-up for the breast mass. Allergies Allergy/AdvReac Type Severity Reaction Status Date / Time shellfish derived Allergy Severe ANAPHYLAXIS Verified 06/04/22 18:03 Fish Containing Products Allergy Verified 09/09/22 09:54 fish derived Allergy Verified 09/09/22 09:54 fish oil Allergy Verified 09/09/22 09:54 AGGIE Inhibitors AdvReac Intermediate Cough Verified 06/04/22 18:03 alendronate sodium AdvReac Intermediate dizziness Verified 09/09/22 00:36 ALL CREATURES THAT LIVE IN Allergy Severe ANAPHYLAXIS Uncoded 06/04/22 18:03 WATER Home Medications Medication Instructions Recorded Confirmed Type cholecalciferol (vitamin D3) 125 125 mcg PO QAM 10/12/21 09/09/22 History mcg (5,000 unit) tablet (Vitamin D3) insulin aspart U-100 100 unit/mL 4 unit subcut WM 10/12/21 09/09/22 History (3 mL) subcutaneous pen (Novolog Flexpen U-100 Insulin aspart) coenzyme Q10 200 mg chewable tablet 200 mg PO DAILY 09/09/22 09/09/22 History lactulose 20 gram/30 mL oral 20 g PO BID PRN Constipation 09/09/22 09/09/22 History solution lidocaine 4 % topical patch 1 patch topical .EVERY 24 HOURS 09/09/22 09/09/22 History (Lidocaine Pain Relief) PRN .mod-sever pain magnesium 250 mg tablet 500 mg PO QAM 09/09/22 09/09/22 History mxcbabhfrphu-Ma-zimd-minerals 1 tab PO QAM 09/09/22 09/09/22 History spironolactone 25 mg tablet 12.5 mg PO DAILY 09/09/22 09/09/22 History tramadol 50 mg tablet 25 mg PO Q4 PRN Pain any level 09/09/22 09/09/22 History furosemide 20 mg tablet See Rx Instructions .Route 09/13/22 09/09/22 Rx .COMPLEX #210 tabs insulin glargine 100 unit/mL (3 10 unit (0.1 mL) subcut HS #15 mL 09/13/22 09/09/22 Rx mL) subcutaneous pen (Lantus Solostar U-100 Insulin) Past Med/Surg History Medical History Benign hypertension (02/28/12) Breast mass CHF (congestive heart failure) Chronic kidney disease, stage IV (severe) Compression fracture of L1 lumbar vertebra DM2 (diabetes mellitus, type 2) Hyperlipidemia (02/28/12) 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 Osteoporosis (02/28/12) Ovarian mass Pleural effusion Rib fractures Severe aortic stenosis Thrombocytopenia Surgical History History of bilateral tubal ligation Family History Denies family history of Liver disease Social History Smoking Status: Never smoker Second Hand Exposure: No; Do You Dip or Chew Tobacco: No; Hx Alcohol Use: No Hx Substance Use: No Preferred Language: Faroese Communication Ability: Effective Rock Dust Sprayer Required: No Beliefs That Will Affect Care: None marital status: Current Living Situation: Care Home Current Living Situation Comment: was in Independent living at [facility]) current occupational status: retired 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 / [employer] How many Children do You have: 3 Feels Safe at Home: Yes Safety Concerns: Feels Safe At This Time Assistive Devices: Walker Review of Systems Review of Systems: Unobtainable due to cognitive status and Unobtainable due to reduced consciousness Physical Exam Physical Exam: gen - very lethargic, snoring, opened eyes for 1-2 seconds when I called her name, quickly went back to sleep eyes - PERRL; icteric sclera mouth - MMM, large tongue neck - no JVD, no lymphadenopathy heart - irregular, s1 s2 is heard, 2/6 holosystolic murmur RUSB lungs - CTA b/l, decreased BS bases abd - striae present on abd wall; protuberant, ?mild ascites; spleen palpable; liver not enlarged; nontender ext - 2-3+ edema from feet to thighs, pulses 2+ b/l skin - stage 1-2 sacral ulcer left sacral region; candidal rash low back extending onto upper buttocks; venous stasis changes b/l shins; several tiny openings leaking serous fluid from the shins neuro - reflexes brisk b/l upper & lower exts; + babinski b/l lymph - no cervical lymph nodes psych - not awake, not alert - obtunded Results & Data Results & Data ([facility]) Vital Signs (Past 12 Hours) Vital Signs Temp Pulse Pulse Resp BP BP Pulse Ox 10/01/22 07:41 88 18 113/63 99 10/01/22 07:25 85 16 130/67 99 10/01/22 06:50 36.5 C 94 H 18 125/63 100 O2 Del Method 10/01/22 07:41 Room Air 10/01/22 07:25 Room Air 10/01/22 06:50 Room Air Laboratory Results Laboratory Results - last 24 hr 10/01/22 10/01/22 10/01/22 06:11 06:11 06:11 WBC 5.33 RBC 3.86 L Hgb 11.4 L POC Hgb Hct 34.7 POC Hct MCV 89.9 MCH 29.5 MCHC 32.9 RDW Std Deviation 50.5 H RDW Coeff of Jacqueline 15.8 H Plt Count 47 L MPV 13.0 H Immature Gran % (Auto) 0.4 Neut % (Auto) 77.3 Lymph % (Auto) 10.7 [place] % (Auto) 8.8 Eos % (Auto) 2.4 Baso % (Auto) 0.4 Neut # (Auto) 4.12 Lymph # (Auto) 0.57 L [place] # (Auto) 0.47 Eos # (Auto) 0.13 Baso # (Auto) 0.02 Immature Gran # (Auto) 0.02 PT 16.1 H INR 1.5 H APTT 32.1 H PTT Ratio 1.2 VBG pH VBG pCO2 VBG pO2 VBG HCO3 VBG O2 Saturation VBG Base Excess POC Sodium Sodium 136 POC Potassium Potassium 3.9 POC Chloride Chloride 101 Carbon Dioxide 27 POC Total CO2 Anion Gap 8 POC Anion Gap POC BUN BUN 40 H Creatinine 1.37 H POC Creatinine Est Cr Clr Drug Dosing 26.1 Est GFR ( Amer) 39.5 Est GFR (Non-Af Amer) 34.1 BUN/Creatinine Ratio 29.2 H Glucose 186 H POC Glucose POC Glucose (other) Calcium 9.7 POC Ioniz Calcium Reddy Phosphorus 3.4 Magnesium 1.7 Total Bilirubin 5.1 H AST 45 H ALT 26 Alkaline Phosphatase 130 H Ammonia Troponin I High Sens 79.7 H* D Total Protein 5.6 L Albumin 2.7 L Globulin 2.9 Albumin/Globulin Ratio 0.9 TSH Free T4 Free T3 Urine Color Urine Appearance Urine pH Ur Specific [place] Urine Protein Urine Glucose (UA) Urine Ketones Urine Blood Urine Nitrite Urine Bilirubin Urine Urobilinogen Ur Leukocyte Esterase Urine WBC (Auto) Urine RBC (Auto) U Hyaline Cast (Auto) U Epithel Cells (Auto) Urine Bacteria (Auto) SARS-CoV-2, RNA, NAAT 10/01/22 10/01/22 10/01/22 06:11 06:11 06:11 WBC RBC Hgb POC Hgb Hct POC Hct MCV MCH MCHC RDW Std Deviation RDW Coeff of Jacqueline Plt Count MPV Immature Gran % (Auto) Neut % (Auto) Lymph % (Auto) [place] % (Auto) Eos % (Auto) Baso % (Auto) Neut # (Auto) Lymph # (Auto) [place] # (Auto) Eos # (Auto) Baso # (Auto) Immature Gran # (Auto) PT INR APTT PTT Ratio VBG pH VBG pCO2 VBG pO2 VBG HCO3 VBG O2 Saturation VBG Base Excess POC Sodium Sodium POC Potassium Potassium POC Chloride Chloride Carbon Dioxide POC Total CO2 Anion Gap POC Anion Gap POC BUN BUN Creatinine POC Creatinine Est Cr Clr Drug Dosing Est GFR ( Amer) Est GFR (Non-Af Amer) BUN/Creatinine Ratio Glucose POC Glucose POC Glucose (other) Calcium POC Ioniz Calcium Reddy Phosphorus Cancelled Magnesium Total Bilirubin AST ALT Alkaline Phosphatase Ammonia Troponin I High Sens Total Protein Albumin Globulin Albumin/Globulin Ratio TSH 1.912 Free T4 1.57 Free T3 2.56 Urine Color Urine Appearance Urine pH Ur Specific [place] Urine Protein Urine Glucose (UA) Urine Ketones Urine Blood Urine Nitrite Urine Bilirubin Urine Urobilinogen Ur Leukocyte Esterase Urine WBC (Auto) Urine RBC (Auto) U Hyaline Cast (Auto) U Epithel Cells (Auto) Urine Bacteria (Auto) SARS-CoV-2, RNA, NAAT 10/01/22 10/01/22 10/01/22 06:55 06:55 06:55 WBC RBC Hgb POC Hgb 11.2 L Hct POC Hct 33 L MCV MCH MCHC RDW Std Deviation RDW Coeff of Jacqueline Plt Count MPV Immature Gran % (Auto) Neut % (Auto) Lymph % (Auto) [place] % (Auto) Eos % (Auto) Baso % (Auto) Neut # (Auto) Lymph # (Auto) [place] # (Auto) Eos # (Auto) Baso # (Auto) Immature Gran # (Auto) PT INR APTT PTT Ratio VBG pH VBG pCO2 VBG pO2 VBG HCO3 VBG O2 Saturation VBG Base Excess POC Sodium 137 Sodium POC Potassium 3.8 Potassium POC Chloride 100 L Chloride Carbon Dioxide POC Total CO2 26 Anion Gap POC Anion Gap 16.0 POC BUN 34 H BUN Creatinine POC Creatinine 1.4 H Est Cr Clr Drug Dosing Est GFR ( Amer) Est GFR (Non-Af Amer) BUN/Creatinine Ratio Glucose POC Glucose POC Glucose (other) 189 H Calcium POC Ioniz Calcium Reddy 1.25 Phosphorus Magnesium Total Bilirubin AST ALT Alkaline Phosphatase Ammonia 154.0 H Troponin I High Sens Total Protein Albumin Globulin Albumin/Globulin Ratio TSH Free T4 Free T3 Urine Color Urine Appearance Urine pH Ur Specific [place] Urine Protein Urine Glucose (UA) Urine Ketones Urine Blood Urine Nitrite Urine Bilirubin Urine Urobilinogen Ur Leukocyte Esterase Urine WBC (Auto) Urine RBC (Auto) U Hyaline Cast (Auto) U Epithel Cells (Auto) Urine Bacteria (Auto) SARS-CoV-2, RNA, NAAT NEGATIVE 10/01/22 10/01/22 10/01/22 07:00 07:10 07:15 WBC RBC Hgb POC Hgb Hct POC Hct MCV MCH MCHC RDW Std Deviation RDW Coeff of Jacqueline Plt Count MPV Immature Gran % (Auto) Neut % (Auto) Lymph % (Auto) [place] % (Auto) Eos % (Auto) Baso % (Auto) Neut # (Auto) Lymph # (Auto) [place] # (Auto) Eos # (Auto) Baso # (Auto) Immature Gran # (Auto) PT INR APTT PTT Ratio VBG pH 7.50 H VBG pCO2 39 VBG pO2 48 VBG HCO3 30 VBG O2 Saturation 79.6 VBG Base Excess 6.7 POC Sodium Sodium POC Potassium Potassium POC Chloride Chloride Carbon Dioxide POC Total CO2 Anion Gap POC Anion Gap POC BUN BUN Creatinine POC Creatinine Est Cr Clr Drug Dosing Est GFR ( Amer) Est GFR (Non-Af Amer) BUN/Creatinine Ratio Glucose POC Glucose 189 H POC Glucose (other) Calcium POC Ioniz Calcium Reddy Phosphorus Magnesium Total Bilirubin AST ALT Alkaline Phosphatase Ammonia Troponin I High Sens Total Protein Albumin Globulin Albumin/Globulin Ratio TSH Free T4 Free T3 Urine Color [place] Urine Appearance Clear Urine pH 6.0 Ur Specific [place] 1.012 Urine Protein Negative Urine Glucose (UA) Negative Urine Ketones Negative Urine Blood Trace H Urine Nitrite Negative Urine Bilirubin Negative Urine Urobilinogen Negative Ur Leukocyte Esterase Negative Urine WBC (Auto) 0 Urine RBC (Auto) 0-4 U Hyaline Cast (Auto) 1-5 U Epithel Cells (Auto) 0-5 Urine Bacteria (Auto) Negative SARS-CoV-2, RNA, NAAT Diagnostic Findings Head CT 10/01/22 06:34 CT OF THE HEAD WITHOUT CONTRAST CLINICAL HISTORY: Stroke Like Symptoms. Facial droop. COMPARISON STUDY: Head CT June 04, 2022. CT DOSE: 1146.48 mGy.cm TECHNIQUE: Helical axial images of the head were obtained without IV contrast. Automated exposure control was utilized for the study. A dose lowering technique was utilized adhering to the principles of ALARA. FINDINGS: No acute intracranial hemorrhage, midline shift or mass effect is present. White matter densities are unchanged and favor small vessel disease. There may be old infarct within the bilateral cerebellar hemispheres. These are unchanged. The ventricular system is unremarkable. The basal cisterns are patent. No extra-axial collections are present. There are no findings to suggest acute dural sinus thrombosis or acute territorial infarct. No significant calvarial abnormalities are present. Visualized portions of the sinuses and mastoid air cells are clear. IMPRESSION: No acute intracranial findings. No change in appearance of the brain. ACT 112: Negative or not required by law. Electronically signed by: Omer Aldana M.D. 10/01/2022 6:58 AM Head CTA 10/01/22 06:34 CTA ANGIOGRAPHY OF THE HEAD CLINICAL HISTORY: Stroke Like Symptoms COMPARISON STUDY: Head CT June 04, 2022. TECHNIQUE: Helical axial images of the head were obtained following uneventful intravenous administration of 115 cc of Optiray. Sagittal and coronal reconstructions were viewed as well as maximal intensity projections on an independent 3-D workstation. Automated exposure control was utilized for the study. A dose lowering technique was utilized adhering to the principles of ALARA. FINDINGS: Incidental note is made of venous gas. There is extensive calcified plaque within the bilateral carotids which results in mild to moderate stenosis in the supraclinoid portions of the ICAs. There is no central vessel occlusion. Right A1 segment is diminutive, likely on a congenital basis. There is no intracranial aneurysm. There is persistence of the right posterior cerebral artery. No occlusion within the posterior circulation is noted. There is mild stenosis of the intracranial portions of the vertebral arteries. Basilar artery is patent. IMPRESSION: 1. No central vessel occlusion. No intracranial aneurysm. 2. Moderate atherosclerotic plaque within the intracranial vessels which results in mild to moderate multifocal stenoses, as detailed above. ACT 112: Negative or not required by law. Electronically signed by: Omer Aldana M.D. 10/01/2022 7:04 AM Neck CTA 10/01/22 06:34 CT ANGIOGRAM OF THE NECK CLINICAL HISTORY: Strokelike symptoms. Left-sided weakness. COMPARISON STUDY: No priors. TECHNIQUE: Following the IV administration of 150 of Optiray 320, CT angiogram of the neck was performed from the aortic arch to the skull base. Images are reviewed in the axial, sagittal, and coronal planes. 3-D MIPS images are created and assessed. IV contrast was administered without complication. All measurements were calculated based on NASCET criteria. A dose lowering technique was utilized adhering to the principles of ALARA. FINDINGS: Thoracic aorta: There is atherosclerotic calcification of the thoracic aorta. Visualized portions of the thoracic aorta are normal in caliber. The aortic arch demonstrates standard 3-vessel anatomy. Right carotid arterial system: The right common carotid artery is widely patent, as are the right internal and external carotid arteries. Atherosclerotic calcification is noted in the carotid bulb. Left carotid arterial system: The left common carotid artery is widely patent, as are the left internal and external carotid arteries. Calcified plaque is noted in the carotid bulb. Vertebral arteries: The vertebral arteries are widely patent bilaterally noting right-sided dominance. Subclavian arteries: Widely patent bilaterally. Intracranial vasculature: The visualized intracranial vessels at the skull base are patent. Jugular veins: Widely patent bilaterally. Brain parenchyma: The visualized brain parenchyma the skull base is within normal limits. Lung apices: There are bilateral pleural effusions. Upper lobe lung parenchyma is otherwise clear as imaged.. Soft tissues: The visualized pharyngeal soft tissues are normal in appearance noting angiographic phase technique. The oropharyngeal airway appears widely patent. The thyroid gland is enlarged and heterogeneous. The salivary glands are normal in appearance. No cervical lymphadenopathy is seen. Skeletal structures: The skeletal structures are osteopenic. The visualized calvarium at the skull base appears intact. The imaged cervical spine is maintained and unremarkable spondylosis. No lytic or blastic lesion is seen. Sinuses and mastoids: The visualized paranasal sinuses are clear. The mastoid air cells are well pneumatized. IMPRESSION: Unremarkable CT angiogram of the neck. ACT 112: Negative or not required by law. Electronically signed by: Pablo Yeung M.D. 10/01/2022 7:13 AM Chest X-Ray 10/01/22 07:01 SINGLE VIEW CHEST CLINICAL HISTORY: Change in mental status. FINDINGS: An AP, portable, upright chest radiograph is compared to study dated 09/09/2022 and correlated with chest CT dated 06/04/2022. The heart is enlarged noting atherosclerotic calcification of the thoracic aorta. There is pulmonary vascular congestion. There are layering pleural effusions with dependent consolidation. No pneumothorax is seen. The skeletal structures are osteopenic. Arthritic change is noted in the shoulders and thoracic spine. There are healed left-sided rib fractures. IMPRESSION: 1. Cardiomegaly with pulmonary vascular congestion. 2. Layering pleural effusions with dependent consolidation. ACT 112: Negative or not required by law. Electronically signed by: Pablo Yeung M.D. 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
[2022-10-01 07:47] LABS: Appearance Urine Clear (Clear); Bacteria Urine Automated Negative (Negative); Bilirubin Urine Negative (Negative); Blood Urine Trace (Negative); Color Urine Orange; Epithelial Cell Urine Auto 0-5 /lpf (0-5); Glucose Urine UA Negative (Negative); Ketones Urine Negative (Negative); Leukocyte Esterase Urine Negative (Negative); Nitrite Urine Negative (Negative); Protein Urine Negative (Negative); RBC Urine Automated 0-4 /hpf (0-4); Specific Gravity Urine 1.012 (1.000-1.030); Urobilinogen Urine Negative (Negative); WBC Urine Automated 0 /hpf (0-5)
[2022-10-01 08:09] LABS: Thyroid Stimulating Hormone 1.912 uIu/ml (0.300-4.500)
[2022-10-01 08:12] LABS: T4 Free Thyroxine 1.57 ng/dl (0.61-1.60)
[2022-10-01] MEDS ORDERED: LACTULOSE 200GM/700ML WTR ENEMA PR ONE (08:15)
--- NOTE | 2022-10-01 10:55 | Electrocardiogram Report ---
Test Reason : Blood Pressure : / mmHG Vent. Rate : 092 BPM Atrial Rate : 312 BPM P-R Int : 000 ms QRS Dur : 092 ms QT Int : 394 ms P-R-T Axes : 000 -14 114 degrees QTc Int : 487 ms Atrial fibrillation with aberrant conduction vs PVCs Abnormal ECG Confirmed by Jean-Pierre Ramos ([id number]) on 10/01/2022 10:54:35 AM Referred By: [facility] Confirmed By:Johnny Ramos
[2022-10-01] MEDS ORDERED: HYDROmorphone INJ 0.5 MG/0.5 ML SYR IV PRN (11:22)
[2022-10-01] MEDS ORDERED: ONDANSETRON INJ 2 MG/ML 2 ML VIAL IV PRN (11:22)
[2022-10-01 12:58] LABS: Influenza A virus by PCR Negative (Negative); Influenza B virus by PCR Negative (Negative)
--- NOTE | 2022-10-01 15:31 | Ultrasound Report ---
ULTRASOUND OF THE HEPATIC AND PORTAL VASCULATURE CLINICAL HISTORY: Cirrhosis. COMPARISON STUDY: Abdominal CT dated 01/16/2022. TECHNIQUE: Real-time, grayscale and color Doppler sonography of the hepatic and portal vasculature pe rformed. FINDINGS: The hepatic veins are patent with normal direction of flow. 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 This was better assessed on the prior contrast-enhan mary abdominal CT. The intrahepatic portal venous branches also appear occluded. The hepatic artery is patent at the gio hepatis with velocities measuring up to 53 cm/s. The splenic vein was not visual ized due to overlying bowel. Survey imaging of the right upper quadrant shows a cirrhotic and heterog eneous liver. There is trace perihepatic ascites. IMPRESSION: 1. 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 This was better assesse d on the 01/16/[address] 2. There is also thrombosis of the intrahepatic portal venous branches. 3. The hepatic artery and the hepatic veins are patent. Dictated: 10/01/2022 2:44 PM Transcribed: 10/01/2022 3:00 PM Rosalind [id number] [email or web address] Electronically signed by: Pablo Yeung M.D. 10/01/2022 3:30 PM
[2022-10-01] MEDS ORDERED: LACTULOSE SYRUP 30 GM/45 ML UDP PO STA (15:38)
[2022-10-01] MEDS ORDERED: LACTULOSE 200GM/700ML WTR ENEMA PR SCH (16:00)
[2022-10-01] MEDS: NYSTATIN CR 15 GM TUBE EXT SCH ×3 (18:26→23:09)
[2022-10-01] MEDS ORDERED: SODIUM CHLORIDE 0.9% 500 ML IV SCH (21:15)
[2022-10-02 08:19] LABS: Hematocrit (blood only) 36.8 % (34.1-44.9); Hemoglobin 11.9 g/dl (12.0-16.0); Mean Corpuscular Hemoglobin 29.3 pg (25.0-34.0); Mean Corpuscular Hgb Conc 32.3 g/dL (32.0-36.0); Mean Corpuscular Volume 90.6 fL (80.0-100.0); Platelet Count 46 K/uL (130-400); RDW Coefficient of Variation 16.1 % (11.5-14.5); RDW Standard Deviation 52.5 fL (36.4-46.3); Red Blood Count 4.06 M/uL (3.93-5.22); White Blood Count 9.28 K/ul (4.8-10.8)
[2022-10-02] MEDS: LACTULOSE SYRUP 30 GM/45 ML UDP PO SCH ×2 (08:32→21:47)
[2022-10-02] MEDS: NYSTATIN CR 15 GM TUBE EXT SCH (08:32)
[2022-10-02 08:45] LABS: Albumin Globulin Ratio 0.9 (0.9-2); Albumin Level 2.6 gm/dl (3.4-5.0); BUN Creatinine Ratio 29.6 (10-20); Bilirubin,Total 6.6 mg/dl (0.2-1.0); Calcium 10.2 mg/dl (8.5-10.1); Creatinine Clr Calc Pharmacy 26.6 ml/min; Est GFR (African American) 40.2 ml/min; Est GFR (Non-African American) 34.7 ml/min; Potassium 4.5 mmol/L (3.5-5.1); Total Protein 5.6 gm/dl (6.0-8.3)
[2022-10-02] MEDS ORDERED: LANTUS PER UNIT CHARGE SQ SCH (09:00)
[2022-10-02] MEDS: INSULIN ASPART PER UNIT SC SCH ×3 (12:13→21:44)
[2022-10-02] MEDS: cefTRIAXone SODIUM 2,000 MG in DEXTROSE 5% 50 ML IV SCH (12:42)
--- NOTE | 2022-10-02 12:55 | Palliative Care Consultation ---
Date of Consultation October 02, 2022 Assessment & Plan (1) Palliative care encounter: * Patient's son and daughter share that they do not believe patient will be able [place] [facility] [place] This will be particularly distressing to both of them. She may also be dismayed when told that she needs to move to the [place] [facility] unit as family feels she is no longer safe without additional monitoring and support. Given the increasing weakness, falls, and progressive frailty in the context of her multiple, advanced, chronic diseases which are chronically progressing this is not an unrealistic request. * Patient is noted at times to be grimacing and moaning. When asked, she denies any acute pain. She also refuses the offer of any medication for discomfort. She then drifts back off to sleep. * 1 patient is grimacing and moaning, she was rubbing her stomach. While this may be in response to the lactulose treatments she received, I would also worry that perhaps she is having some increasing pain from her ovarian mass. 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 (2) Discussion about advance care planning held with family member: * Discussion held with patient's son and daughter. We reviewed her overall complex medical issues including end-stage liver disease, stage IV CKD, congestive heart failure, thrombocytopenia, severe aortic stenosis, recent falls with rib fractures, sacral decubitus, declining performance status, increasing weakness, increasing frailty. We discussed that when multiple organ systems show signs of progressive distress and dysfunction, it is often a sign to medical providers that patients are transitioning to more of an end- stage in their journey of chronic illness. They were still focused on correcting her cardiac issue with a TAVR. They noted that they do not feel she would be a candidate for the procedure given her current state. I did offer them the opinion that the TAVR is very unlikely given the severity of her additional multisystem organ failures. (3) Acute confusion due to known medical condition: * Patient with acute hepatic encephalopathy, remains tired and slightly lethargic drifting off to sleep very quickly although she is arousable and will answer some questions appropriately. (4) Acute hepatic encephalopathy: Plan * I met with patient's son and dtr at bedside. Pt remains sleeping and in termittently opened eyes but quickly drifted back to sleep. Family want her to be moved to SNF level of care given her growing frailty and falls. I am in agreement. She can no longer meet her needs safely, and she requires more support and care provider engagement than assisted living can provide. * I suggested and they agree for a formal PT eval and I am hopeful we may qualify her for the SNF rehab at 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 * We spoke about how multiple body systems are showing increasing dysfunction: liver, hematologic, cardiac renal and the findings of breast and ovarian mass. They shared that [facility] cardiology advised they could fix her with TAVR and "are not worried about her platelets or liver disease." That appt was by Zoom, pt has not been seen by [facility] in person - suspect her PS and weakness would alter those recommendations. * From a palliative medicine perspective, Mrs. Berman is eligible for hospice given the advanced nature of her multiple chronic issues. What is less clear at this time however, is whether or not her family is ready to accept the overall advanced nature of her illness. From today's discussion with daughter and son at bedside, daughter was insistent that patient could still have her cardiac issues corrected if the current liver dysfunction could be improved. The expectations of what improvement could be derived from the procedure may be less than the reality. * Patient's son was asking for some specific parameters of when she will be improving and can be discharged. I advised him that it would be best to take 1 day at a time and to look for trend over the next few days. But the treatments that are underway continue, lets have a formal physical therapy evaluation, and lets continue to monitor her before making additional decisions. I recommended a time-limited trial of therapies and interventions with a plan to reevaluate in the next 48 to 72 hours. * I have updated the primary team/Dr Dorinda Boykin DNP Clinical Director, Palliative Medicine Aby Boykin DNP Clinical Director, Palliative Medicine History of Present Illness Reason for Consultation: ESLD, breast mass Attending Physician: Ethan Seth History of Present Illness Admitted from [facility] with report of being found obtunded; was in her [facility] through holiday weekend, left SNF to spend Saturday with family/robust PO intake reported by family. Patient is seen bedside together with her daughter and son present. She is sleeping deeply at the time of my visit. Daughter shares that she has been sleeping for some time prior to my arrival. Patient occasionally grimaces and moans. She appears to be rubbing her stomach at times. Family states that this admission has been a dramatic departure from patient's usual baseline. She is a resident of [facility], which she and her help to build. She had to move from the cottage which she shared with her as independent living, into the assisted living unit, due to a fall and rib fractures. Her frailty has continued to progress. Her end-stage liver disease is noted to be progressive, complicated by persistent thrombocytopenia as well as an existing very severe aortic stenosis, for which her daughter states an evaluation was sought with the [facility] cardiology team for possible TAVR and with further discussion it is noted that this consultation was via Zoom. Patient was not physically evaluated by the [facility] cardiology team. Allergies Allergy/AdvReac Type Severity Reaction Status Date / Time shellfish derived Allergy Severe ANAPHYLAXIS Verified 06/04/22 18:03 Fish Containing Products Allergy Verified 09/09/22 09:54 fish derived Allergy Verified 09/09/22 09:54 fish oil Allergy Verified 09/09/22 09:54 AGGIE Inhibitors AdvReac Intermediate Cough Verified 06/04/22 18:03 alendronate sodium AdvReac Intermediate dizziness Verified 09/09/22 00:36 ALL CREATURES THAT LIVE IN Allergy Severe ANAPHYLAXIS Uncoded 06/04/22 18:03 WATER Home Medications Medication Instructions Recorded Confirmed Type cholecalciferol (vitamin D3) 125 125 mcg PO QAM 10/12/21 09/09/22 History mcg (5,000 unit) tablet (Vitamin D3) insulin aspart U-100 100 unit/mL 4 unit subcut WM 10/12/21 09/09/22 History (3 mL) subcutaneous pen (Novolog Flexpen U-100 Insulin aspart) coenzyme Q10 200 mg chewable tablet 200 mg PO DAILY 09/09/22 09/09/22 History lactulose 20 gram/30 mL oral 20 g PO BID PRN Constipation 09/09/22 09/09/22 History solution lidocaine 4 % topical patch 1 patch topical .EVERY 24 HOURS 09/09/22 09/09/22 History (Lidocaine Pain Relief) PRN .mod-sever pain magnesium 250 mg tablet 500 mg PO QAM 09/09/22 09/09/22 History jdrxwyoyfrtr-Mh-pgpq-minerals 1 tab PO QAM 09/09/22 09/09/22 History spironolactone 25 mg tablet 12.5 mg PO DAILY 09/09/22 09/09/22 History tramadol 50 mg tablet 25 mg PO Q4 PRN Pain any level 09/09/22 09/09/22 History furosemide 20 mg tablet See Rx Instructions .Route 09/13/22 09/09/22 Rx .COMPLEX #210 tabs insulin glargine 100 unit/mL (3 10 unit (0.1 mL) subcut HS #15 mL 09/13/22 09/09/22 Rx mL) subcutaneous pen (Lantus Solostar U-100 Insulin) Patient History Medical History Benign hypertension (02/28/12) Breast mass CHF (congestive heart failure) Chronic kidney disease, stage IV (severe) Compression fracture of L1 lumbar vertebra DM2 (diabetes mellitus, type 2) Hyperlipidemia (02/28/12) 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 Osteoporosis (02/28/12) Ovarian mass Pleural effusion Rib fractures Severe aortic stenosis Thrombocytopenia Surgical History History of bilateral tubal ligation Family History Denies family history of Liver disease Social History Smoking Status: Never smoker Second Hand Exposure: No; Do You Dip or Chew Tobacco: No; Hx Alcohol Use: No Hx Substance Use: No Preferred Language: Eritrean Communication Ability: Effective Sales And Marketing Representative Required: No Beliefs That Will Affect Care: None marital status: Current Living Situation: Long Term Current Living Situation Comment: was in Independent living at [facility] () current occupational status: retired 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 / [employer] How many Children do You have: 3 Feels Safe at Home: Yes Safety Concerns: Feels Safe At This Time Assistive Devices: Walker Review of Systems Review of Systems: All systems reviewed & are unremarkable except as noted in Subjective Physical Exam Constitutional: + ill appearing, + frail appearing and cooperative tired Eyes: PERRL, conjunctivae normal, anicteric sclerae ENMT: external ear and nose normal, oropharynx normal Neck: trachea midline, no thyromegaly Respiratory: normal respiratory effort Cardiovascular: Rate/Rhythm: + irregularly irregular RUSB + crescendodecrescendo murmur, midsystolic Gastrointestinal (Abdomen): Inspection/Auscultation: + abdomen distended (softly) Musculoskeletal: Gait not assessed, patient remained on bedrest. Skin: Pale, slightly dry, scattered ecchymoses noted. Neurologic: Patient is arousable to voice and will interact when awoken, but her sentences are short, answers are often 2-3 words, and she will quickly drifts back off to sleep. She does appear tired and lethargic. Results & Data ([facility]) Vital Signs (Past 12 Hours) Vital Signs Temp Pulse Pulse Resp BP Pulse Ox O2 Del Method 10/02/22 07:55 Room Air 10/02/22 07:55 36.4 C L 104 H 18 93/54 L 96 Room Air 10/02/22 07:16 90 10/02/22 03:19 36.5 C 103 H 18 101/58 L 98 Room Air Laboratory Results labs and imaging reviewed Diagnostic Findings labs and imaging reviewed PG Care Time/CCT Total # of Minutes Spent Total Time Spent: 75 Total Time Spent with Patient: Total time spent is greater than 50% in coordination of care (as documented) at patient's floor/unit and/or counseling patient: I spent 90 minutes overall addressing this case: 25 in medical data review/discussion with referring provider(s) and/or preparation for the visit 40 in direct interaction with the patient and family 16 Advance Care Planning/Goals of Care discussions as detailed above in note (must be >16min) 4 in subsequent review and synthesis of assessment and plan 5 in communicating with other providers regarding the patient's case: [] Prolonged Care Time Prolonged Care Time: [place] [address] Inpt Consult Level 5 Patient Type New Medical Decision Making High Complexity Diagnoses Palliative care encounter Z51.5 Discussion about advance care planning held with family member Z71.0 Acute confusion due to known medical condition F05 Acute hepatic encephalopathy K76.82 Additional Codes Prolonged Care Time - Prolonged Care Time: Yes ([id number])
[2022-10-02] MEDS: NYSTATIN OINT 15 GM TUBE EXT SCH ×2 (12:58→21:46)
[2022-10-02] MEDS: rifAXIMin 550 MG TABLET PO SCH ×2 (12:58→21:45)
[2022-10-02] MEDS ORDERED: TRIAMCINOLONE ACET 0.1% OINT 454 GM EXT SCH (14:00)
[2022-10-02] MEDS: TRIAMCINOLONE ACET 0.1% OINT 80 GM TUBE EXT SCH ×2 (14:19→21:46)
[2022-10-02] MEDS ORDERED: SODIUM CHLORIDE 0.9% 1000ML 1,000 ML IV SCH (15:15)
--- NOTE | 2022-10-02 15:17 | Hospitalist Progress Note ---
Date of Service October 02, 2022 Assessment & Plan (1) Hepatic encephalopathy: Plan: 2nd to #2. Her liver disease - given her INR of 1.5, very high LFTs, and her clinical presentation - are all consistent with advanced cirrhosis. s/p lactulose enema in ER yesterday, followed by institution of lactulose BID starting last pm. I am concerned she may not tolerate the lactulose - apparently had large liquid stool this am and already has sacral decub, etc. Thus, will add rifaximin 550mg BID to the lactulose for now. Can decide later which med or meds to continue. Continue both for now. Repeat ammonia in am. At admission yesterday no apparent infectious etiology that precipitated her hepatic encephalopathy. Minimal ascites thus SBP unlikely (and no tenderness). Did have 2 days of heavy turkey consumption last week which doesn't help the issue. May have element of RLE cellulitis but this was not present yesterday. Regardless continue the lactulose BID + rifaximin BID. 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 She is decompensated with worsening LE edema despite heavy diuretic doses, and has concurrent hepatic encephalopathy. Today her t.bili is mildly higher. Does have PVT on doppler study from 10/01 but unable to anticoagulate due to severely low platelets. Prognosis is very poor. Consult palliative care. Repeat lfts and INR am. (3) Severe aortic stenosis: Plan: CHIDI <1 on recent echo patient recently explored candidacy for TAVR at [facility] but in light of #2 and poor prognosis she is unlikely to be candidate for such palliative care would be best option - consult palliative care team (4) Thrombocytopenia: Plan: 2nd to #2 very low but no change from prior level CBC am (5) Chronic kidney disease, stage IV (severe): Plan: baseline CrCl 20s baseline Creatinine about 1.3/1.4 creatinine today stable BMP am (6) Breast mass: Plan: left, seen on CT 06/2022 wound not pursue any work-up or treatment in light of advanced liver disease (7) Ovarian mass: Plan: seen on prior CT abd/pelvis would not pursue any work-up or treatment in light of advanced liver disease, severe , etc (8) Sacral decubitus ulcer: Plan: consult wound care team optifoam dressing, etc (9) Candidal diaper rash: Plan: her rash on lower back is actually psoriasis it could have superimposed [place] however will combine triamcinolone ointment TID with nystatin ointment TID (10) DM2 (diabetes mellitus, type 2): Plan: uncontrolled, likely 2nd to #1 lantus - increase to 6 BID cont novolog (11) Chronic diastolic CHF (congestive heart failure): Plan: LE edema is more likely due to her cirrhosis. Avoid aggressive fluid resuscitation at this time. Diuretics on hold today. (12) DVT prophylaxis: Plan: SCDs only chemical means contraindicated due to low platelets (13) Elevated troponin: Plan: Likely myocardial demand ischemia in setting of #1 above. Doubt ACS. 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 not a candidate for anticoagulation at this time Plan allow full liquids today if patient awake/alert enough to take them did pass dysphagia screen per nursing staff with that said PO intake is very, very poor 1 liter of NS at 50cc/hr only then saline lock daughter extensively updated total care time today 65 minutes >50% of which was spent counseling the daughter Admission and Anticipated Discharge Date Admission Date: October 01, 2022 Subjective patient very sleepy during the visit did wake up when I called her name denied any pain in any location I asked her if she knew where she was - stated "hospital" could not tell me any other meaningful history amazingly - by daughter's report - she walked to the bathroom with assistance this am! also took some liquids by mouth albeit very limited amount daughter was at bedside the entire visit after my examination I [place] [facility] [place] we reviewed her mother's problems - advanced cirrhosis, ?breast ca, severe , ovarian mass, PVT but unable to anticoagulate due to low platelets, overall worsening status daughter has watched her mother decline and asks if she should simply be comfortable we discussed palliative care and consulting them to refine goals of care daughter agreeable to such daughter asked about Rx of hepatic encephalopathy daughter confirmed that 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 Review of Systems Review of Systems: Unobtainable due to cognitive status Physical Exam Physical Exam: gen - very lethargic/sleepy but did wake up more so than yeste rday, asked a few basic questions, then quickly returned to sleep; mild "quiet" tachypnea eyes - icteric sclera mouth - MM dry, large tongue neck - no JVD heart - irregular, s1 s2 is heard, 2/6 holosystolic murmur RUSB lungs - CTA b/l, decreased BS bases abd - striae present on abd wall; protuberant, ?mild ascites; spleen palpable; liver not enlarged; nontender ext - 2+ edema from feet to thighs, pulses 2+ b/l skin - right distal medial leg - 2 small superficial ulcers from blistering; ?early cellulitis distal right barnes - erythema, warmth (vs stasis change - I favor cellulitis) psych - oriented to person, place only; lethargic Results & Data Results & Data ([facility]) Vital Signs (Past 12 Hours) Vital Signs Temp Pulse Pulse Resp BP Pulse Ox O2 Del Method 10/02/22 07:55 Room Air 10/02/22 07:55 36.4 C L 104 H 18 93/54 L 96 Room Air 10/02/22 07:16 90 10/02/22 03:19 36.5 C 103 H 18 101/58 L 98 Room Air Laboratory Results Laboratory Results - last 24 hr 10/01/22 10/01/22 10/02/22 18:22 21:41 01:14 WBC RBC Hgb Hct MCV MCH MCHC RDW Std Deviation RDW Coeff of Jacqueline Plt Count MPV Sodium Potassium Chloride Carbon Dioxide Anion Gap BUN Creatinine Est Cr Clr Drug Dosing Est GFR ( Amer) Est GFR (Non-Af Amer) BUN/Creatinine Ratio Glucose POC Glucose 212 H 179 H Calcium Total Bilirubin AST ALT Alkaline Phosphatase Ammonia Troponin I High Sens 72.7 H* Total Protein Albumin Globulin Albumin/Globulin Ratio 10/02/22 10/02/22 10/02/22 08:05 08:05 08:06 WBC 9.28 RBC 4.06 Hgb 11.9 L Hct 36.8 MCV 90.6 MCH 29.3 MCHC 32.3 RDW Std Deviation 52.5 H RDW Coeff of Jacqueline 16.1 H Plt Count 46 L MPV 12.0 Sodium 139 Potassium 4.5 Chloride 104 Carbon Dioxide 26 Anion Gap 9 BUN 40 H Creatinine 1.35 H Est Cr Clr Drug Dosing 26.6 Est GFR ( Amer) 40.2 Est GFR (Non-Af Amer) 34.7 BUN/Creatinine Ratio 29.6 H Glucose 175 H POC Glucose Calcium 10.2 H Total Bilirubin 6.6 H AST 39 ALT 25 Alkaline Phosphatase 113 H Ammonia 103.0 H Troponin I High Sens Total Protein 5.6 L Albumin 2.6 L Globulin 3.0 Albumin/Globulin Ratio 0.9 10/02/22 10/02/22 08:06 11:27 WBC RBC Hgb Hct MCV MCH MCHC RDW Std Deviation RDW Coeff of Jacqueline Plt Count MPV Sodium Potassium Chloride Carbon Dioxide Anion Gap BUN Creatinine Est Cr Clr Drug Dosing Est GFR ( Amer) Est GFR (Non-Af Amer) BUN/Creatinine Ratio Glucose POC Glucose 178 H 270 H Calcium Total Bilirubin AST ALT Alkaline Phosphatase Ammonia Troponin I High Sens Total Protein Albumin Globulin Albumin/Globulin Ratio PG Care Time/CCT Total # of Minutes Spent Total Time Spent with Patient: Total time spent is greater than 50% in coordination of care (as documented) at patient's floor/unit and/or counseling patient: Prolonged Care Time Prolonged Care Time: Yes Total Prolonged Care Time: 65 Coding Level of Care Code 34397 Subseq Hosp Care Lvl 3 (25 - SIGNIFICANT, SEPARATELY IDENTIFIABLE ) Diagnoses Hepatic encephalopathy K76.82 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
[2022-10-02] MEDS: LANTUS PER UNIT CHARGE SQ SCH (21:45)
[2022-10-03 06:54] LABS: Hematocrit (blood only) 33.1 % (34.1-44.9); Hemoglobin 10.9 g/dl (12.0-16.0); Mean Corpuscular Hemoglobin 29.9 pg (25.0-34.0); Mean Corpuscular Hgb Conc 32.9 g/dL (32.0-36.0); Mean Corpuscular Volume 90.9 fL (80.0-100.0); Mean Platelet Volume 12.3 fL (9.4-12.3); Platelet Count 36 K/uL (130-400); RDW Coefficient of Variation 15.9 % (11.5-14.5); RDW Standard Deviation 51.9 fL (36.4-46.3); Red Blood Count 3.64 M/uL (3.93-5.22); White Blood Count 7.48 K/ul (4.8-10.8)
[2022-10-03 07:13] LABS: INR 1.6 (0.9-1.1); Prothrombin Time 16.8 Seconds (9.0-12.0)
[2022-10-03 07:28] LABS: Albumin Globulin Ratio 0.9 (0.9-2); Albumin Level 2.3 gm/dl (3.4-5.0); BUN Creatinine Ratio 29.4 (10-20); Bilirubin,Total 5.5 mg/dl (0.2-1.0); Calcium 9.5 mg/dl (8.5-10.1); Creatinine Clr Calc Pharmacy 27.7 ml/min; Est GFR (African American) 43.7 ml/min; Est GFR (Non-African American) 37.7 ml/min; Globulin 2.7 gm/dl (2.5-4.0); Potassium 4.5 mmol/L (3.5-5.1)
[2022-10-03] MEDS: TRIAMCINOLONE ACET 0.1% OINT 80 GM TUBE EXT SCH ×3 (08:06→21:34)
[2022-10-03] MEDS: rifAXIMin 550 MG TABLET PO SCH ×2 (08:06→21:37)
[2022-10-03] MEDS: LACTULOSE SYRUP 30 GM/45 ML UDP PO SCH ×3 (08:07→21:37)
[2022-10-03] MEDS: NYSTATIN OINT 15 GM TUBE EXT SCH ×3 (08:07→21:35)
[2022-10-03] MEDS: INSULIN ASPART PER UNIT SC SCH ×4 (08:11→21:33)
[2022-10-03] MEDS: LANTUS PER UNIT CHARGE SQ SCH ×2 (08:12→21:34)
--- NOTE | 2022-10-03 08:16 | Hospitalist Progress Note ---
Date of Service October 03, 2022 Assessment & Plan (1) Hepatic encephalopathy: Plan: 2nd to #2. Her liver disease - given her INR of 1.5, very high LFTs, and her clinical presentation - are all consistent with advanced cirrhosis. s/p lactulose enema in ER , followed by institution of lactulose BID I am concerned she may not tolerate the lactulose (declined increased abd bloating, no BM today reported) - apparently had large liquid stool prior morning, already had sacral decub Thus, added rifaximin 550mg BID to the lactulose for now. Can decide later which med or meds to continue, continued both for now At admission, no apparent infectious etiology that precipitated her hepatic encephalopathy. Minimal ascites thus SBP unlikely (and no tenderness). Did have 2 days of heavy turkey consumption last week which doesn't help the issue. May have element of RLE cellulitis but this was not present day prior -- see below. 10/03 Much more alert/interactive per neighbor this morning, had been up w/ helping. Knows where she is/year, agreeable to [facility] SNF as plan for discharge Given 1L NSS overnight, Cr 1.26 Ammonia 154--> 103--> currently 83 Continues on Lactulose BID, Rifaximin BID --> increased lactulose to TID, titrate to 2-3BM/daily. Discussed with daughter Plt 36 (46) , INR 1.6 (1.5), TB 5.5 (6.6), Alp 113--> 100 Seen by palliative 10/02, is candidate for hospice. 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 She is decompensated with worsening LE edema despite heavy diuretic doses, and has concurrent hepatic encephalopathy. Today her t.bili is mildly higher. Does have PVT on doppler study from 10/01 but unable to anticoagulate due to severely low platelets. Prognosis is very poor. Consult palliative care -- daughter in room updated today agreeable to SNF at [facility], understanding wanting to ensure mother is comfortable. Repeat lfts and INR am. INR increased to 1.6, ALP improved Ammonia still elevated 86 (from 103), increased lactulose to TID as above (3) Severe aortic stenosis: Plan: CHIDI <1 on recent echo patient recently explored candidacy for TAVR at [facility] but in light of #2 and poor prognosis she is unlikely to be candidate for such palliative care would be best option - consult palliative care team , seen 10/02 (4) Thrombocytopenia: Plan: 2nd to #2 very low but no change from prior level (in 20s earlier this month) Follow (5) Chronic kidney disease, stage IV (severe): Plan: baseline CrCl 20s baseline Creatinine about 1.3/1.4 creatinine today stable Cr 1.26 after 1L NSS 10/02 BMP am (6) Breast mass: Plan: left, seen on CT 06/2022 wound not pursue any work-up or treatment in light of advanced liver disease (7) Ovarian mass: Plan: seen on prior CT abd/pelvis would not pursue any work-up or treatment in light of advanced liver disease, severe , etc (8) Sacral decubitus ulcer: Plan: consult [facility] for wound care team optifoam dressing, etc (9) Candidal diaper rash: Plan: her rash on lower back is actually psoriasis it could have superimposed jericho however will combine triamcinolone ointment TID with nystatin ointment TID (10) DM2 (diabetes mellitus, type 2): Plan: uncontrolled, likely 2nd to #1 lantus - increase to 6 BID cont novolog (11) Chronic diastolic CHF (congestive heart failure): Plan: LE edema is more likely due to her cirrhosis, possible component of cellulitis Avoid aggressive fluid resuscitation at this time. Diuretics on hold today (on lasix at home, spironolactone 12.5mg daily) Cr improved with IVF yesterday, 1L, no further IV. Pushing oral fluids Consider resuming lasix/spironolactone pending PO intake/Cr on AM albs (12) Elevated troponin: Plan: Likely myocardial demand ischemia in setting of #1 above. Doubt ACS. 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 Would NOT initiate BB given rates, no AC given above (16) DVT prophylaxis: Plan: SCDs only chemical means contraindicated due to low platelets Plan advance to AHA/DM diet as more awake/alert and requesting additional water updated daughter at bedside 10/03, CM following and [place] SN[facility] at d/c planned, possibly in next 24-48 hours Admission and Anticipated Discharge Date Admission Date: October 01, 2022 Subjective Eval this morning Per review of telemetry, has been afib in the 80s. Prior admit earlier this month with noted afib as well, has PVT, not candidate for AC. Not mentioned by cardiology last inpatient consultation and will reach out to them regarding such. Added mag to AM labs, keep closer to 2 (prior value 1.7). Seen by palliative yesterday. Placed on Rocephin for a R leg cellulitis, reported improving. Daughter in room, updated. Patient tired, but alert to place/year. Per daughter was able to get up with her and RN yesterday to bedside commode. Patient currently comfortable, no pain reported. Reports has not moved her bowels yet today. Will increased lactulose. Per neighbor, much more alert/interactive this morning than in days past. Discussed timeline, possible d/c tomorrow and continue rifaximin/lactulose. No medications for afib, discussed with cards and would not add any metoprolol. No fever/chills, chest pain, palpitations, shortness of breath, abdominal pain or nausea at this time. Possible d/c to [facility] tomorrow. Review of Systems Review of Systems: All systems reviewed & are unremarkable except as noted in HPI & below Physical Exam Physical Exam: gen - chronically ill appearing female laying in bed resting upon entry, awoken to name, alert to person/hospital/year 2021, fatigued appearing HEENT: icteric sclera, mmm, trachea midline without deviation Resp: diminished in the bases, poor effort at times, no w/c, on room air CV: irregularly irregular (rate 80s), S1/quiet S2, +holosystolic murmur best appreciated RUSB GI: +BS, +ascites, striae, nontender MSK/Neuro: follows commands, no slurred speech Skin: R distal medial leg erythema/warmth/swelling (all reported improved), small blistered/draining area medial barnes (covered with brayan pad), scattered ecchymosis from lab draws Results & Data Results & Data ([facility]) Vital Signs (Past 12 Hours) Vital Signs Temp Pulse Resp BP Pulse Ox O2 Del Method 10/03/22 08:02 36.6 C 69 18 138/79 96 Room Air 10/03/22 04:55 36.6 C 82 20 132/84 98 Room Air 10/02/22 23:19 36.6 C 96 H 20 127/76 97 Room Air 10/02/22 21:30 Room Air Laboratory Results 10/03/22 10/03/22 10/03/22 Range/Units 07:35 06:43 06:35 WBC (4.8-10.8) K/ul RBC (3.93-5.22) M/uL Hgb (12.0-16.0) g/dl Hct (34.1-44.9) % MCV (80.0-100.0) fL MCH (25.0-34.0) pg MCHC (32.0-36.0) g/dL RDW Std Deviation (36.4-46.3) fL RDW Coeff of Jacqueline (11.5-14.5) % Plt Count (130-400) K/uL MPV (9.4-12.3) fL PT (9.0-12.0) Seconds INR (0.9-1.1) Sodium (136-145) mmol/L Potassium (3.5-5.1) mmol/L Chloride (98-107) mmol/L Carbon Dioxide (21-32) mmol/L Anion Gap (3-11) BUN (6-23) mg/dl Creatinine (0.6-1.2) mg/dl Est Cr Clr Drug Dosing ml/min Est GFR ( Amer) ml/min Est GFR (Non-Af Amer) ml/min BUN/Creatinine Ratio (10-20) Glucose (70-99(Fasting)) mg/dl POC Glucose 173 H (70-99) mg/dl Calcium (8.5-10.1) mg/dl Magnesium Pending Total Bilirubin (0.2-1.0) mg/dl AST (13-39) U/L ALT (7-52) U/L Alkaline Phosphatase (34-104) U/L Ammonia 86.0 H (18-72) umol/L Total Protein (6.0-8.3) gm/dl Albumin (3.4-5.0) gm/dl Globulin (2.5-4.0) gm/dl Albumin/Globulin Ratio (0.9-2) 10/03/22 10/03/22 10/03/22 Range/Units 06:35 06:35 06:35 WBC 7.48 (4.8-10.8) K/ul RBC 3.64 L (3.93-5.22) M/uL Hgb 10.9 L (12.0-16.0) g/dl Hct 33.1 L (34.1-44.9) % MCV 90.9 (80.0-100.0) fL MCH 29.9 (25.0-34.0) pg MCHC 32.9 (32.0-36.0) g/dL RDW Std Deviation 51.9 H (36.4-46.3) fL RDW Coeff of Jacqueline 15.9 H (11.5-14.5) % Plt Count 36 L (130-400) K/uL MPV 12.3 (9.4-12.3) fL PT 16.8 H (9.0-12.0) Seconds INR 1.6 H (0.9-1.1) Sodium 135 L (136-145) mmol/L Potassium 4.5 (3.5-5.1) mmol/L Chloride 104 (98-107) mmol/L Carbon Dioxide 27 (21-32) mmol/L Anion Gap 4 (3-11) BUN 37 H (6-23) mg/dl Creatinine 1.26 H (0.6-1.2) mg/dl Est Cr Clr Drug Dosing 27.7 ml/min Est GFR ( Amer) 43.7 ml/min Est GFR (Non-Af Amer) 37.7 ml/min BUN/Creatinine Ratio 29.4 H (10-20) Glucose 141 H (70-99(Fasting)) mg/dl POC Glucose (70-99) mg/dl Calcium 9.5 (8.5-10.1) mg/dl Magnesium Total Bilirubin 5.5 H (0.2-1.0) mg/dl AST 33 (13-39) U/L ALT 22 (7-52) U/L Alkaline Phosphatase 100 (34-104) U/L Ammonia (18-72) umol/L Total Protein 5.0 L (6.0-8.3) gm/dl Albumin 2.3 L (3.4-5.0) gm/dl Globulin 2.7 (2.5-4.0) gm/dl Albumin/Globulin Ratio 0.9 (0.9-2) 10/02/22 10/02/22 10/02/22 Range/Units 20:46 16:48 11:27 WBC (4.8-10.8) K/ul RBC (3.93-5.22) M/uL Hgb (12.0-16.0) g/dl Hct (34.1-44.9) % MCV (80.0-100.0) fL MCH (25.0-34.0) pg MCHC (32.0-36.0) g/dL RDW Std Deviation (36.4-46.3) fL RDW Coeff of Jacqueline (11.5-14.5) % Plt Count (130-400) K/uL MPV (9.4-12.3) fL PT (9.0-12.0) Seconds INR (0.9-1.1) Sodium (136-145) mmol/L Potassium (3.5-5.1) mmol/L Chloride (98-107) mmol/L Carbon Dioxide (21-32) mmol/L Anion Gap (3-11) BUN (6-23) mg/dl Creatinine (0.6-1.2) mg/dl Est Cr Clr Drug Dosing ml/min Est GFR ( Amer) ml/min Est GFR (Non-Af Amer) ml/min BUN/Creatinine Ratio (10-20) Glucose (70-99(Fasting)) mg/dl POC Glucose 198 H 217 H 270 H (70-99) mg/dl Calcium (8.5-10.1) mg/dl Magnesium Total Bilirubin (0.2-1.0) mg/dl AST (13-39) U/L ALT (7-52) U/L Alkaline Phosphatase (34-104) U/L Ammonia (18-72) umol/L Total Protein (6.0-8.3) gm/dl Albumin (3.4-5.0) gm/dl Globulin (2.5-4.0) gm/dl Albumin/Globulin Ratio (0.9-2) PG Care Time/CCT Total # of Minutes Spent Total Time Spent with Patient: Total time spent is greater than 50% in coordination of care (as documented) at patient's floor/unit and/or counseling patient: Coding Level of Care Code 86720 Subseq Hosp Care Lvl 3 Diagnoses Hepatic encephalopathy K76.82 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
[2022-10-03] MEDS: cefTRIAXone SODIUM 2,000 MG in DEXTROSE 5% 50 ML IV SCH (12:15)
[2022-10-04 07:26] LABS: Hematocrit (blood only) 32.6 % (34.1-44.9); Hemoglobin 10.8 g/dl (12.0-16.0); Mean Corpuscular Hgb Conc 33.1 g/dL (32.0-36.0); Mean Corpuscular Volume 90.6 fL (80.0-100.0); Mean Platelet Volume 10.4 fL (9.4-12.3); Platelet Count 35 K/uL (130-400); White Blood Count 6.57 K/ul (4.8-10.8)
[2022-10-04 07:45] LABS: Albumin Level 2.3 gm/dl (3.4-5.0); Bilirubin Direct 1.5 mg/dl (0-0.2); Bilirubin,Total 5.7 mg/dl (0.2-1.0); Calcium 9.5 mg/dl (8.5-10.1); Creatinine Clr Calc Pharmacy 27.8 ml/min; Est GFR (African American) 44.6 ml/min; Est GFR (Non-African American) 38.5 ml/min; Potassium 4.5 mmol/L (3.5-5.1)
--- NOTE | 2022-10-04 08:36 | Hospitalist Progress Note ---
Date of Service October 04, 2022 Assessment & Plan (1) Hepatic encephalopathy: Plan: 2nd to #2. Her liver disease - given her INR of 1.5, very high LFTs, and her clinical presentation - are all consistent with advanced cirrhosis. s/p lactulose enema in ER , followed by institution of lactulose BID I am concerned she may not tolerate the lactulose (declined increased abd bloating, no BM today reported) - apparently had large liquid stool prior morning, already had sacral decub Thus, added rifaximin 550mg BID to the lactulose for now. Can decide later which med or meds to continue, continued both for now At admission, no apparent infectious etiology that precipitated her hepatic encephalopathy. Minimal ascites thus SBP unlikely (and no tenderness). Did have 2 days of heavy turkey consumption last week which doesn't help the issue. May have element of RLE cellulitis but this was not present day prior -- see below. 10/03 Much more alert/interactive per neighbor this morning, had been up w/ helping. Knows where she is/year, agreeable to [facility] SNF as plan for discharge Given 1L NSS overnight, Cr 1.26 Ammonia 154--> 103--> currently 83 Continues on Lactulose BID, Rifaximin BID --> increased lactulose to TID, titrate to 2-3BM/daily. Discussed with daughter Plt 36 (46) , INR 1.6 (1.5), TB 5.5 (6.6), Alp 113--> 100 Seen by palliative 10/02, is candidate for hospice. 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 She is decompensated with worsening LE edema despite heavy diuretic doses, and has concurrent hepatic encephalopathy. Today her t.bili is mildly higher. Does have PVT on doppler study from 10/01 but unable to anticoagulate due to severely low platelets. Prognosis is very poor. Consult palliative care -- daughter in room updated today agreeable to SNF at [facility], understanding wanting to ensure mother is comfortable. Repeat lfts and INR am. INR increased to 1.6, ALP improved Ammonia still elevated 86 (from 103), increased lactulose to TID as above (3) Severe aortic stenosis: Plan: CHIDI <1 on recent echo patient recently explored candidacy for TAVR at [facility] but in light of #2 and poor prognosis she is unlikely to be candidate for such palliative care would be best option - consult palliative care team , seen 10/02 (4) Thrombocytopenia: Plan: 2nd to #2 very low but no change from prior level (in 20s earlier this month) Follow (5) Chronic kidney disease, stage IV (severe): Plan: baseline CrCl 20s baseline Creatinine about 1.3/1.4 creatinine today stable Cr 1.26 after 1L NSS 10/02 BMP am (6) Breast mass: Plan: left, seen on CT 06/2022 wound not pursue any work-up or treatment in light of advanced liver disease (7) Ovarian mass: Plan: seen on prior CT abd/pelvis would not pursue any work-up or treatment in light of advanced liver disease, severe , etc (8) Sacral decubitus ulcer: Plan: consult [facility] for wound care team optifoam dressing, etc (9) Candidal diaper rash: Plan: her rash on lower back is actually psoriasis it could have superimposed jericho however will combine triamcinolone ointment TID with nystatin ointment TID (10) DM2 (diabetes mellitus, type 2): Plan: uncontrolled, likely 2nd to #1 lantus - increase to 6 BID cont novolog (11) Chronic diastolic CHF (congestive heart failure): Plan: LE edema is more likely due to her cirrhosis, possible component of cellulitis Avoid aggressive fluid resuscitation at this time. Diuretics on hold today (on lasix at home -- dosing suggests 80mg Qam/60mg hs, spironolactone 12.5mg daily) Cr improved with IVF 10/02 for 1L, no further IV as keeping up w/ PO intake Weight currently 74.8kg, appears d/c last admit at around 70.2kg (12) Elevated troponin: Plan: Likely myocardial demand ischemia in setting of #1 above. Doubt ACS. 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 Would NOT initiate BB given rates, no AC given above (16) DVT prophylaxis: Plan: SCDs only chemical means contraindicated due to low platelets Plan advance to AHA/DM diet as more awake/alert and requesting additional water updated daughter at bedside 10/03, CM following and [facility] SNF at d/c planned, possibly in next 24-48 hours Admission and Anticipated Discharge Date Admission Date: October 01, 2022 Subjective Eval this morning, doing well. Awake/alert, oriented. Multiple BM overnight, ammonia now normalized. Backed to BID. Wanting to go to [facility]. and daughter at bedside, state room already at [facility]. Messaging CM to see if able to make transportation for today, however needing therapy evals. They are to have continued discussions about hospice/palliative at d/c but they were looking at the breast/ovarian mass in prep for TAVR, which likely no longer a candidate. Wound RN seeing currently for RLE/buttocks, will provide recs for d/c. No fever/chills, chest pain, shortness of breath, abd pain. Results & Data Results & Data ([facility]) Vital Signs (Past 12 Hours) Vital Signs Pulse 10/04/22 00:42 89 Laboratory Results 10/04/22 10/04/22 10/04/22 Range/Units 07:28 07:04 06:59 WBC (4.8-10.8) K/ul RBC (3.93-5.22) M/uL Hgb (12.0-16.0) g/dl Hct (34.1-44.9) % MCV (80.0-100.0) fL MCH (25.0-34.0) pg MCHC (32.0-36.0) g/dL RDW Std Deviation (36.4-46.3) fL RDW Coeff of Jacqueline (11.5-14.5) % Plt Count (130-400) K/uL MPV (9.4-12.3) fL Sodium 132 L (136-145) mmol/L Potassium 4.5 (3.5-5.1) mmol/L Chloride 101 (98-107) mmol/L Carbon Dioxide 27 (21-32) mmol/L Anion Gap 4 (3-11) BUN 36 H (6-23) mg/dl Creatinine 1.24 H (0.6-1.2) mg/dl Est Cr Clr Drug Dosing 27.8 ml/min Est GFR ( Amer) 44.6 ml/min Est GFR (Non-Af Amer) 38.5 ml/min BUN/Creatinine Ratio 29.0 H (10-20) Glucose 138 H (70-99(Fasting)) mg/dl POC Glucose 143 H (70-99) mg/dl Calcium 9.5 (8.5-10.1) mg/dl Magnesium 2.0 (1.7-2.4) mg/dl Total Bilirubin 5.7 H (0.2-1.0) mg/dl Direct Bilirubin 1.5 H (0-0.2) mg/dl AST 32 (13-39) U/L ALT 21 (7-52) U/L Alkaline Phosphatase 101 (34-104) U/L Ammonia 45.0 (18-72) umol/L Total Protein 5.0 L (6.0-8.3) gm/dl Albumin 2.3 L (3.4-5.0) gm/dl 10/04/22 10/03/22 10/03/22 Range/Units 06:52 20:03 16:31 WBC 6.57 (4.8-10.8) K/ul RBC 3.60 L (3.93-5.22) M/uL Hgb 10.8 L (12.0-16.0) g/dl Hct 32.6 L (34.1-44.9) % MCV 90.6 (80.0-100.0) fL MCH 30.0 (25.0-34.0) pg MCHC 33.1 (32.0-36.0) g/dL RDW Std Deviation 52.0 H (36.4-46.3) fL RDW Coeff of Jacqueline 16.0 H (11.5-14.5) % Plt Count 35 L (130-400) K/uL MPV 10.4 (9.4-12.3) fL Sodium (136-145) mmol/L Potassium (3.5-5.1) mmol/L Chloride (98-107) mmol/L Carbon Dioxide (21-32) mmol/L Anion Gap (3-11) BUN (6-23) mg/dl Creatinine (0.6-1.2) mg/dl Est Cr Clr Drug Dosing ml/min Est GFR ( Amer) ml/min Est GFR (Non-Af Amer) ml/min BUN/Creatinine Ratio (10-20) Glucose (70-99(Fasting)) mg/dl POC Glucose 183 H 179 H (70-99) mg/dl Calcium (8.5-10.1) mg/dl Magnesium (1.7-2.4) mg/dl Total Bilirubin (0.2-1.0) mg/dl Direct Bilirubin (0-0.2) mg/dl AST (13-39) U/L ALT (7-52) U/L Alkaline Phosphatase (34-104) U/L Ammonia (18-72) umol/L Total Protein (6.0-8.3) gm/dl Albumin (3.4-5.0) gm/dl 10/03/22 10/03/22 Range/Units 11:18 06:35 WBC (4.8-10.8) K/ul RBC (3.93-5.22) M/uL Hgb (12.0-16.0) g/dl Hct (34.1-44.9) % MCV (80.0-100.0) fL MCH (25.0-34.0) pg MCHC (32.0-36.0) g/dL RDW Std Deviation (36.4-46.3) fL RDW Coeff of Jacqueline (11.5-14.5) % Plt Count (130-400) K/uL MPV (9.4-12.3) fL Sodium (136-145) mmol/L Potassium (3.5-5.1) mmol/L Chloride (98-107) mmol/L Carbon Dioxide (21-32) mmol/L Anion Gap (3-11) BUN (6-23) mg/dl Creatinine (0.6-1.2) mg/dl Est Cr Clr Drug Dosing ml/min Est GFR ( Amer) ml/min Est GFR (Non-Af Amer) ml/min BUN/Creatinine Ratio (10-20) Glucose (70-99(Fasting)) mg/dl POC Glucose 231 H (70-99) mg/dl Calcium (8.5-10.1) mg/dl Magnesium 2.0 (1.7-2.4) mg/dl Total Bilirubin (0.2-1.0) mg/dl Direct Bilirubin (0-0.2) mg/dl AST (13-39) U/L ALT (7-52) U/L Alkaline Phosphatase (34-104) U/L Ammonia (18-72) umol/L Total Protein (6.0-8.3) gm/dl Albumin (3.4-5.0) gm/dl PG Care Time/CCT Total # of Minutes Spent Total Time Spent with Patient: Total time spent is greater than 50% in coordination of care (as documented) at patient's floor/unit and/or counseling patient: Coding Diagnoses Hepatic encephalopathy K76.82 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
[2022-10-04] MEDS: INSULIN ASPART PER UNIT SC SCH ×2 (08:50→12:36)
[2022-10-04] MEDS: LANTUS PER UNIT CHARGE SQ SCH (08:50)
[2022-10-04] MEDS: rifAXIMin 550 MG TABLET PO SCH (08:51)
[2022-10-04] MEDS: NYSTATIN OINT 15 GM TUBE EXT SCH (08:54)
[2022-10-04] MEDS: LACTULOSE SYRUP 30 GM/45 ML UDP PO SCH (08:54)
[2022-10-04] MEDS: TRIAMCINOLONE ACET 0.1% OINT 80 GM TUBE EXT SCH (08:55)
[2022-10-04] MEDS ORDERED: FUROSEMIDE 20 MG TAB PO SCH (09:00)
--- NOTE | 2022-10-04 11:49 | Discharge Summary ---
Date of Service October 04, 2022 Admission HPI Per Admitting Provider 89yo female with a PMH of HTN, IDDM2, chronic diastolic CHF, CKD stage 4, TOWNSEND cirrhosis with thrombocytopenia, severe aortic stenosis, left breast mass, and a long-standing ovarian mass presents from [facility] ([facility]) with increasing confusion and then the development of obtundation overnight. Mrs Berman was recently hospitalized at [facility] from 09/09 to 09/13 for volume overload due to diastolic CHF & her cirrhosis. Her diuretics were increased during that visit. Several days after discharge her family noted intermittent confusion with difficulty with short-term memory. The confusion worsened in the last week and the family was suspicious that "something was off." Apparently on Thanks she was able to partake in a Thanksgiving meal at [facility] (turkey, sides, etc). On Saturday her family picked her up and they spent Saturday celebrating the holiday. Her 2 daughters who provided all of her history said her appetite was "excellent" and that she had copious amounts of turkey, etc. Over this weekend the family states she was sleepy but not lethargic and still able to carry on conversation. The confusion persisted, however. [facility] did not note any fever or any other infectious symptoms. Her daughters did note that her LE edema has worsened in the last 1-2 weeks despite lasix. Finally, sometime early this am, the staff at [facility] found Mrs Berman in her bed very lethargic and borderline obtunded. She was brought to our ER for evaluation where her ammonia level was found to be >100. CT head was negative. Records from [facility] show a POLST form confirming DNR/DNI status and limited interventions in the event of a terminal illness. These wishes were confirmed with her 2 daughters at time of admission. Despite the POLST form her daughters state she had consultation with [facility] to discuss possible TAVR procedure for her and pursuing work-up for the breast mass. Admission Exam Per Admitting Provider gen - very lethargic, snoring, opened eyes for 1-2 seconds when I called her name, quickly went back to sleep eyes - PERRL; icteric sclera mouth - MMM, large tongue neck - no JVD, no lymphadenopathy heart - irregular, s1 s2 is heard, 2/6 holosystolic murmur RUSB lungs - CTA b/l, decreased BS bases abd - striae present on abd wall; protuberant, ?mild ascites; spleen palpable; liver not enlarged; nontender ext - 2-3+ edema from feet to thighs, pulses 2+ b/l skin - stage 1-2 sacral ulcer left sacral region; candidal rash low back extending onto upper buttocks; venous stasis changes b/l shins; several tiny openings leaking serous fluid from the shins neuro - reflexes brisk b/l upper & lower exts; + babinski b/l lymph - no cervical lymph nodes psych - not awake, not alert - obtunded Principal Diagnosis Hepatic Encephalopathy, Hyperammonemia Discharge Exam gen - chronically ill appearing female sitting up in bed, much more alert/awake, decreased fatigue HEENT: icteric sclera (less than day prior), mmm, trachea midline without deviation Resp: diminished in the bases, poor effort at times but improved from day prior, 94% on room air CV: irregularly irregular (rate 70-80s), S1/quiet S2, +holosystolic murmur best appreciated RUSB, edema to b/l LE (improved, stable) GI: +BS, enlarged liver, +ascites (decreased), striae, NONTENDER, much softer MSK/Neuro/Psych: follows commands, no slurred speech, alert to person/time/knows in the hospital, wanting to go to [place] today Skin: R distal medial leg erythema/warmth/swelling (all reported improved), small blistered/draining area medial barnes (covered with brayan pad), scattered ecchymosis from lab draws sacral ulcer (to be seen by wound prior to discharge) Discharge Data Allergies Allergy/AdvReac Type Severity Reaction Status Date / Time shellfish derived Allergy Severe ANAPHYLAXIS Verified 06/04/22 18:03 Fish Containing Products Allergy Verified 09/09/22 09:54 fish derived Allergy Verified 09/09/22 09:54 fish oil Allergy Verified 09/09/22 09:54 AGGIE Inhibitors AdvReac Intermediate Cough Verified 06/04/22 18:03 alendronate sodium AdvReac Intermediate dizziness Verified 09/09/22 00:36 ALL CREATURES THAT LIVE IN Allergy Severe ANAPHYLAXIS Uncoded 06/04/22 18:03 WATER Consultations 10/01/22 07:44 ED Decision to Admit Stat 10/02/22 12:07 Consult Palliative Care Routine Ordered Studies Head CT 10/01/22 06:34 CT OF THE HEAD WITHOUT CONTRAST CLINICAL HISTORY: Stroke Like Symptoms. Facial droop. COMPARISON STUDY: Head CT June 04, 2022. CT DOSE: 1146.48 mGy.cm TECHNIQUE: Helical axial images of the head were obtained without IV contrast. Automated exposure control was utilized for the study. A dose lowering technique was utilized adhering to the principles of ALARA. FINDINGS: No acute intracranial hemorrhage, midline shift or mass effect is present. White matter densities are unchanged and favor small vessel disease. There may be old infarct within the bilateral cerebellar hemispheres. These are unchanged. The ventricular system is unremarkable. The basal cisterns are patent. No extra-axial collections are present. There are no findings to suggest acute dural sinus thrombosis or acute territorial infarct. No significant calvarial abnormalities are present. Visualized portions of the sinuses and mastoid air cells are clear. IMPRESSION: No acute intracranial findings. No change in appearance of the brain. ACT 112: Negative or not required by law. Electronically signed by: Omer Aldana M.D. 10/01/2022 6:58 AM Head CTA 10/01/22 06:34 CTA ANGIOGRAPHY OF THE HEAD CLINICAL HISTORY: Stroke Like Symptoms COMPARISON STUDY: Head CT June 04, 2022. TECHNIQUE: Helical axial images of the head were obtained following uneventful intravenous administration of 115 cc of Optiray. Sagittal and coronal reconstructions were viewed as well as maximal intensity projections on an independent 3-D workstation. Automated exposure control was utilized for the study. A dose lowering technique was utilized adhering to the principles of ALARA. FINDINGS: Incidental note is made of venous gas. There is extensive calcified plaque within the bilateral carotids which results in mild to moderate stenosis in the supraclinoid portions of the ICAs. There is no central vessel occlusion. Right A1 segment is diminutive, likely on a congenital basis. There is no intracranial aneurysm. There is persistence of the right posterior cerebral artery. No occlusion within the posterior circulation is noted. There is mild stenosis of the intracranial portions of the vertebral arteries. Basilar artery is patent. IMPRESSION: 1. No central vessel occlusion. No intracranial aneurysm. 2. Moderate atherosclerotic plaque within the intracranial vessels which results in mild to moderate multifocal stenoses, as detailed above. ACT 112: Negative or not required by law. Electronically signed by: Omer Aldana M.D. 10/01/2022 7:04 AM Neck CTA 10/01/22 06:34 CT ANGIOGRAM OF THE NECK CLINICAL HISTORY: Strokelike symptoms. Left-sided weakness. COMPARISON STUDY: No priors. TECHNIQUE: Following the IV administration of 150 of Optiray 320, CT angiogram of the neck was performed from the aortic arch to the skull base. Images are reviewed in the axial, sagittal, and coronal planes. 3-D MIPS images are created and assessed. IV contrast was administered without complication. All measurements were calculated based on NASCET criteria. A dose lowering technique was utilized adhering to the principles of ALARA. FINDINGS: Thoracic aorta: There is atherosclerotic calcification of the thoracic aorta. Visualized portions of the thoracic aorta are normal in caliber. The aortic arch demonstrates standard 3-vessel anatomy. Right carotid arterial system: The right common carotid artery is widely patent, as are the right internal and external carotid arteries. Atherosclerotic calcification is noted in the carotid bulb. Left carotid arterial system: The left common carotid artery is widely patent, as are the left internal and external carotid arteries. Calcified plaque is noted in the carotid bulb. Vertebral arteries: The vertebral arteries are widely patent bilaterally noting right-sided dominance. Subclavian arteries: Widely patent bilaterally. Intracranial vasculature: The visualized intracranial vessels at the skull base are patent. Jugular veins: Widely patent bilaterally. Brain parenchyma: The visualized brain parenchyma the skull base is within normal limits. Lung apices: There are bilateral pleural effusions. Upper lobe lung parenchyma is otherwise clear as imaged.. Soft tissues: The visualized pharyngeal soft tissues are normal in appearance noting angiographic phase technique. The oropharyngeal airway appears widely patent. The thyroid gland is enlarged and heterogeneous. The salivary glands are normal in appearance. No cervical lymphadenopathy is seen. Skeletal structures: The skeletal structures are osteopenic. The visualized calvarium at the skull base appears intact. The imaged cervical spine is maintained and unremarkable spondylosis. No lytic or blastic lesion is seen. Sinuses and mastoids: The visualized paranasal sinuses are clear. The mastoid air cells are well pneumatized. IMPRESSION: Unremarkable CT angiogram of the neck. ACT 112: Negative or not required by law. Electronically signed by: Pablo Yeung M.D. 10/01/2022 7:13 AM Chest X-Ray 10/01/22 07:01 SINGLE VIEW CHEST CLINICAL HISTORY: Change in mental status. FINDINGS: An AP, portable, upright chest radiograph is compared to study dated 09/09/2022 and correlated with chest CT dated 06/04/2022. The heart is enlarged noting atherosclerotic calcification of the thoracic aorta. There is pulmonary vascular congestion. There are layering pleural effusions with dependent consolidation. No pneumothorax is seen. The skeletal structures are osteopenic. Arthritic change is noted in the shoulders and thoracic spine. There are healed left-sided rib fractures. IMPRESSION: 1. Cardiomegaly with pulmonary vascular congestion. 2. Layering pleural effusions with dependent consolidation. ACT 112: Negative or not required by law. Electronically signed by: Pablo Yeung M.D. 10/01/2022 7:28 AM Portal Vein US 10/01/22 09:11 ULTRASOUND OF THE HEPATIC AND PORTAL VASCULATURE CLINICAL HISTORY: Cirrhosis. COMPARISON STUDY: Abdominal CT dated 01/16/2022. TECHNIQUE: Real-time, grayscale and color Doppler sonography of the hepatic and portal vasculature performed. FINDINGS: The hepatic veins are patent with normal direction of flow. 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 This was better assessed on the prior contrast-enhanced abdominal CT. The intrahepatic portal venous branches also appear occluded. The hepatic artery is patent at the gio hepatis with velocities measuring up to 53 cm/s. The splenic vein was not visualized due to overlying bowel. Survey imaging of the right upper quadrant shows a cirrhotic and heterogeneous liver. There is trace perihepatic ascites. IMPRESSION: 1. 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 This was better assessed on the 01/16/[address] 2. There is also thrombosis of the intrahepatic portal venous branches. 3. The hepatic artery and the hepatic veins are patent. Dictated: 10/01/2022 2:44 PM Transcribed: 10/01/2022 3:00 PM Rosalind [id number] [email or web address] Electronically signed by: Pablo Yeung M.D. 10/01/2022 3:30 PM Hospital Course (1) Hepatic encephalopathy: Patient with recent admission 09/09 for shortness of breath, pleural effusions, CHF, valvular heart disease. [place] volume overloaded from severe aortic stenosis and working on set up for TAVR as outpatient (followed by [facility]) Unfortunately, not much attention to cirrhosis at last admit, hx TOWNSEND cirrhosis, PVT on imaging. Minimal ascites thus SBP unlikely (and no tenderness). Did have 2 days of heavy turkey consumption last week which doesn't help the issue. Ammonia level 154 on admission Given lactulose enema in ED Started rifaximin/lactulose BID --> increased lactulsoe to TID given no BM day prior. MULTIPLE LOOSE BM overnight with improvement of ammonia to 45 prior to discharge and to continue both and increase lactulose as needed to ensure continuing to move her bowels INR >1.5, elevated LFTs, clinical presentation c/w advanced cirrhosis Did have possible element RLE cellulitis, open sore -- given abx, to complete course w/ keflex given improvement with Rocephin while inpatient no need to cover for MRSA despite recent hospitalization. Did have discussion with family/palliative medicine, PT/OT consultations prior to discharge DaughterKAMRAN, would like to continue current course/rehab at [facility] currently and continue the rifaximin and lactulose at d/ as patient much more awake/alert and they are to have continued discussions once moved to [facility] regarding watermaster goals/eventual enrollment in hospice given +breast mass and +ovarian mass, likely malignancy. SNF planned first, can transition pending further discussions regarding hospice (2) Liver cirrhosis secondary to TOWNSEND: Current MELD score is 21 c/w 19.6% mortality in the next 3 months. She is decompensated with worsening LE edema despite heavy diuretic doses, w/ concurrent hepatic encephalopathy. PVT on doppler 10/01 but not able to AC due to severely low platelets Poor prognosis discussed, palliative consulted To have continued discussions at d/c, [facility] planned but likely eventual transition to hospice however feel family wanting more discussions with patient now that she is more awake/alert INR 1.6, ALP normalized to 101 To resume Aldactone 12.5mg daily at discharge, also LOW dose lasix 20mg daily (had been on 80mg/60mg prior to admit, held initially) Monitor weights/encouraged LOW SALT DIET (3) Severe aortic stenosis: CHIDI <1 on recent echo patient recently explored candidacy for TAVR at [facility] but in light of #2 and poor prognosis she is unlikely to be candidate for such palliative care would be best option - consult palliative care team , seen 10/02 continued discussions outpatient per family/patient, not yet ready to enroll in hospice and planned for SNF first was able to participate with therapy prior to discharge after ammonia level normalized (4) Thrombocytopenia: 2nd to #2 very low but no change from prior level (in 20s earlier this month) (5) Chronic kidney disease, stage IV (severe): baseline CrCl 20s baseline Creatinine about 1.3/1.4 given 1L NSS 10/02, improved PO intake and no further provided Cr stable 1.24 prior to discharge (6) Breast mass: left, seen on CT 06/2022 wound not pursue any work-up or treatment in light of advanced liver disease, family agreed. They were looking into these (breast/ovarian) in anticipation for possibel TAVR. Now that patient not really candidate agreed not to pursue/arrange f/u at d/c (7) Ovarian mass: seen on prior CT abd/pelvis would not pursue any work-up or treatment in light of advanced liver disease, severe , etc (8) Sacral decubitus ulcer: consult placed for wound care team optifoam dressing, etc wound seen prior to discharge, instructions provided (9) Candidal diaper rash: rash on lower back is actually psoriasis it could have superimposed jericho however and di utilize triamcinolone/nystatin ointment while inpatient (10) DM2 (diabetes mellitus, type 2): variations, likely due to #1. home meds held on admit/placed on SSI inpatient Last A1c 5.2 Continue home meds at d/c, monitor ISS as needed for symptoms (11) Chronic diastolic CHF (congestive heart failure): LE edema is more likely due to her cirrhosis, possible component of cellulitis Avoid aggressive fluid resuscitation at this time, treated with abx as outlined Diuretics placed on hold 2 days prior, given 1L IVF was wasn't taking much PO i ntake Resumed lasix but only 20mg daily, aldactone 12.5mg daily at discharge Was taking 80mg AM, 60mg PM lasix after last admission, suspect over diuresis, and should have been having her aldactone increased Encouraged low salt diet at discharge, can titrate up on spironolactone/lasix as tolerated. Would recommend increasing aldactone to 25mg outpatient as able prior to increasing lasix use Weight currently 74.8kg, appears d/c last admit at around 70.2kg (was 80.3kg on admit) Appears without distress, did resume lasix 20mg daily as above, aldactone 12.5mg at dischage F/u cardiology [facility] outpatient (12) Elevated troponin: Likely myocardial demand ischemia in setting of #1 above. Doubt ACS. 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 Would NOT initiate BB given rates, no AC given above (16) DVT prophylaxis: SCDs only while inpatient chemical means contraindicated due to low platelets Plan Discharged to [facility] SNF To continue lactulose BID, titrate up as needed to ensure moving her bowels To continue rifaximin BID Resumed lower dose Lasix, to continue low dose Aldactone at discharge. Continue low salt diet Continued discussions with family/patient given poor prognosis and pending progress at [facility], may transition to Hospice in future but did not want this arranged at this time Total Time Total Time Spent Total Time Spent (In Minutes): 75 Discharge Plan Discharge Items Patient Disposition: [facility] Reason For Visit: HEPATIC ENCEPHALOPATHY Discharge Diagnosis: Hepatic Encephalopathy, Cirrhosis Goals: You have been hospitalized for an acute medical problem. During your stay at [facility], we have made an effort to correct the problem that brought you to the hospital while keeping you as comfortable as possible. Medications were used to bring your condition under control and your discharge instructions will include directions for any medications you should take after leaving the hospital. Please make sure you see your Primary Care Provider as part of your follow up plan. Activity: As commented below Non-emergency contact: Primary Care Provider and Single Wire Saw Operator Call non-emergency contact if: you have any medication questions, your symptoms worsen, you have a fever, your wound has increased redness and your wound has increased drainage Follow-up/Referrals: Kobi Hicks DO [Physician] - Irvin Gardner [Primary Care Provider] - Diet: Heart Healthy and Low Sodium (2gm) Addtl Attending Provider Instructions: You have been hospitalized for hepatic encephalopathy, due to cirrhosis of the liver and your ammonia level was elevated. We used medications to bring this level down and help you to have bowel movements. You will continue rifaximin TWICE daily for watermaster management, as well as lactulose 30mg TWICE daily to have at least 2-3 bowel movements daily. This lactulose can be increased as needed to ensure moving bowels and not building up ammonia levels. We have changed your diuretics: your LASIX was reduced to 20mg daily. You should continue the spironolactone 12.5mg daily. This spironolactone and Lasix can be further increased as tolerated outpatient if you have significant weight gain, but you have remained stable with these held during inpatient admission. You should stick to a LOW SODIUM diet, <1500mg daily. You should have close follow up with cardiology/monitoring, Dr Hicks. You are likely not a candidate for valve replacement at this time and should continue with medical management. With regards to your cellulitis of the RIGHT lower leg, you were treated with IV antibiotics while inpatient and are being sent home on a course of cephalexin to complete treatment. You should continue wound care to areas to keep clean/dry and alert primary care if any worsening redness/swelling. I have stopped the tramadol as this can cause low sodium levels and confusion and you have not required anything while inpatient. You can take Tylenol sparingly given cirrhosis, and if needed can try low dose opiates as outpatient if any issues with pain control. You should continue ongoing discussions regarding possible enrollment in palliative care after discharge given complex medical history and progressive disease, including the worrisome breast/ovarian mass and likely treatment for such would be quite invasive, and unsure you would tolerate this either. You should follow up with your primary care provider in the next 7-10 days to monitor your progress. It has been a pleasure being a part of the medical team providing for you while you have been in the hospital. Take care! Pending Studies at Discharge: No Stand-Alone Forms: My [facility] Skilled Items Patient informed of condition?: Yes DNR: Yes Discharge Level of Care: Skilled Communicable Disease: No Discharge Prognosis: Stable Lines: None Urinary Catheter: No Medications and DC Order Prescriptions: New Xifaxan 550 mg Tablet 550 mg PO BID Qty: 60 0RF furosemide 20 mg Tablet 20 mg PO QAM Qty: 30 0RF lactulose 20 gram/30 mL Solution 30 g PO BID Qty: 1200 0RF Continued insulin aspart U-100 [Novolog Flexpen U-100 Insulin] 100 unit/mL (3 mL) i nsulin pen 4 unit SUBCUT WM Rx Instructions: give if BSG>200 cholecalciferol (vitamin D3) [Vitamin D3] 125 mcg (5,000 unit) Tablet 125 mcg PO QAM spironolactone 25 mg Tablet 12.5 mg PO DAILY Rx Instructions: 1/2 table dose magnesium 250 mg Tablet 500 mg PO QAM Rx Instructions: 2 TABLET DOSE lidocaine [Lidocaine Pain Relief] 4 % Adhesive Patch,Medicated 1 patch TOPICAL .EVERY 24 HOURS MDD 1 patch PRN (Reason: .mod-sever pain) Rx Instructions: remove after 12 hours [id number]-[id number]-minerals Tablet 1 tab PO QAM coenzyme Q10 200 mg Tablet,Chewable 200 mg PO DAILY insulin glargine [Lantus Solostar U-100 Insulin] 100 unit/mL (3 mL) insulin pen 10 unit subcut HS Qty: 15 0RF Discontinued tramadol 50 mg Tablet 25 mg PO Q4 PRN (Reason: Pain any level) Rx Instructions: 1/2 tablet dose lactulose 20 gram/30 mL Solution 20 g PO BID PRN (Reason: Constipation) furosemide 20 mg tablet See Rx Instructions .ROUTE .COMPLEX Qty: 210 0RF Rx Instructions: 80mg QAM, 60mg at 5pm Discharge Orders: Discharge Order (Routine); Ordered 10/04/22 Ordered By: Imelda Eugene Admission Data Admit Date/Time: 10/01/22 08:02 Attending Provider: Jo-Ann Summers Admit Provider: Ethan Seth Primary Care Provider: Irvin Gardner Other Providers: Ethan Seth ; Lucille Llamas ; Irvin Gardner Other Interventions: Discharge Summary Assessment (RN) Last Done: 10/04/22 13:06 Supervising Physician Co-Signing Physician Notes PA Supervision Note: I personally saw and examined the patient. I verified all rios points and agree with MARICRUZ Eugene with the following exceptions and/or additions: Summary of present stay: 89-year-old female history of atrial fibrillation, chronic diastolic CHF, CKD stage IV, liver cirrhosis secondary to [place], severe aortic stenosis, DM2 admitted for hepatic encephalopathy with ammonia levels greater than 100, great amount of confusion, with inadequate amount of bowel movements at home despite lactulose, increase in the last 1 to 2 weeks in perip heral edema, with some reports of dietary indiscretion especially over the holiday. Lactulose was increased to 3 times daily and rifaximin was initiated, with multiple loose bowel movements overnight and improvement in ammonia to 45 on day of discharge, full resolution of encephalopathy back to baseline mental status per family members in room. Going to continue rifaximin and lactulose 3 times daily on discharge. Discussed with daughter titration of the lactulose medication with the goal of at least 3 bowel movements per day, however these medications often need to be adjusted based on how many bowel movements the patient is having. Regarding her lower extremity edema, daughter asked us how much Lasix or water pill she was getting. Interestingly, patient has received significantly less Lasix here in the hospital as compared to home dosing of a total of 140 mg daily. In discussing this with daughter, we had long discussion about low- sodium diet and how peripheral edema is better served with NICOLE hose/wraps as compared to diuretics, with extra doses of diuretics to be reserved for weight increase. Discharged on 20 mg daily Lasix with continued follow-up by primary c are provider. Strict adherence to low-sodium diet reviewed. Did have discussion this admission with family about poor prognosis and pending progress at [facility], family may transition to comfort care in the future but does not want this arranged at this time. Patient is to known masses, 1 breast mass, and 1 ovarian mass, both of which have the potential to be malignant. 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
[2022-10-04] MEDS: cefTRIAXone SODIUM 2,000 MG in DEXTROSE 5% 50 ML IV SCH (12:37)
[2022-10-04] MEDS ORDERED: LACTULOSE SYRUP 30 GM/45 ML UDP PO SCH (21:00)
== END 2022-10-04 14:41 | DRG 441 ==
LOC: ED 06:35 → SUATTDRO 08:02 → EDINP 08:02 → 2N 11:21

== ENCOUNTER 2022-11-13 18:17 | Inpatient (IN) ==
--- NOTE | 2022-11-13 18:47 | Emergency Department Note ---
Impression & Plan Cellulitis of right lower extremity, DM2 (diabetes mellitus, type 2), CHF (congestive heart failure), CKD (chronic kidney disease), long term care pharmacist (current) use of anticoagulants ED Provider Note Provider: Isaac Dietrich MD DATE OF SERVICE: 11/13/2022 CHIEF COMPLAINT: Leg swelling and pain concern for infection HISTORY OF PRESENT ILLNESS: Patient is a 89-year-old female past medical history including hypertension, type 2 diabetes, CHF, attic stenosis, CKD, Townsend cirrhosis, and breast ovarian mass presenting via ambulance from [facility] where she lives. According to EMS and later patient's granddaughter and daughter the patient developed increased swelling and pain of the right leg last night and today. Redness here. Concern for infection and received a intramuscular dose of ceftriaxone this morning around 6 AM. Has had increased pain unable to bear weight or walk according to family. Patient complains of pain here. Did receive a dose of tramadol earlier which did not really help and the patient does normally take pain medication. No reported falls. According to patient's granddaughter patient's legs always do weep a little bit of clear fluid however the leg swelling is much improved compared to recently. Did have COVID in September into October and is just recovering from that. They report the patient does seem a bit more fatigued than normal. Patient self complains predominantly of pain in the right lower leg and less so on the left lower leg. Patient denies significant chest pain or shortness of breath. Evidently wound cultures in the lower legs were obtained earlier today. Family are concerned that she could become septic given her comorbidities age and significant pain with the rapid progression of the right leg redness and symptoms. They requ ested she come here for evaluation. PAST MEDICAL HISTORY: As noted above MEDICATIONS: Reviewed medication list from the facility SOCIAL HISTORY: Resides at [facility] nursing [facility] with her PHYSICAL EXAM: GENERAL: alert and oriented in no acute distress on stretcher somewhat fatigued appearing Head: normocephalic and atraumatic EYES: No injection, discharge or icterus. PERRL NECK: Trachea midline. Supple. ENT: Mucous membranes pink and moist. LUNGS: Airway patent. No retractions. Breath sounds diminished in the bases occasional cough HEART: Irregularly irregular rate and rhythm. No chest wall tenderness ABDOMEN: Soft and non-tender, without guarding or rebound. SKIN: Acyanotic, warm, dry upper extremities additional as below EXTREMITIES: Without swelling, tenderness or deformity of the upper extremities to the lower extremities 1+ edema bilaterally. The left lower leg has some mild clear serous drainage without significant erythema and minimal tenderness. The right lower extremity has erythema extending from the dorsum of the foot approximately over the anterior barnes residing below the knee. There is no crepitus. Medial and lateral approximately 5 to 6 mm area of wound on each side is noted with serous discharge. NEUROLOGICAL: gross sensation intact in the lower feet. No aphasia. No facial droop or slurred speech. EK bpm atrial fibrillation. No acute clear ST segment elevation with a QTC of approximately 423. CONTINUOUS CARDIAC MONITORING: was ordered and showed a heart rate of bpm in atrial fibrillation Patient's laboratory studies and imaging reviewed. Differential includes Cellulitis, abscess, MRSA infection, DVT, necrotizing fasciitis, dermatitis, drug eruption, allergic reaction, CHF, as well as other pathologies. IMPRESSION/MEDICAL DECISION MAKING: Patient bit fatigued with tenderness and significant erythema of the right lower extremity. Trace bilateral edema with trace bilateral serous drainage. Wound cultures obtained earlier from the legs but do not see a lot of purulence here. No fever reported. Basic labs and blood cultures will be obtained in addition to BNP and ammonia level given that she is a bit more fatigued than normal and has a longstanding history of Townsend as well as CHF. Received an IM dose of ceftriaxone approximately 12 hours ago this morning. X-ray obtained given a bit of a cough and still recovering from COVID. He is a diabetic. Increased risk for infection with this but do not see a history of MRSA at least in the immediately available medical record on review. We will expand with vancomycin coverage at this time given her pain and significant erythema of the right lower leg. Blood work does show evidence of significant leukocytosis. We will add pseudomonal coverage to cefepime. Stable of slightly improved anemia. Stable thrombocytopenia. Given her history of CHF want to avoid too aggressive fluid resuscitation I could put her in heart failure but does have some evidence of hyponatremia and mildly elevated creatinine from her baseline CKD today. BNP mildly elevated. CRP significantly elevated as is her procalcitonin. INR elevated likely in the setting of her liver dysfunction. Patient not hypotensive or significantly tachycardic here. Lactate is returned somewhat elevated at 4.3 as well as some elevation of her high-sensitivity troponin. I suspect troponin appears stable compared to numbers from September when she was here. I given some gentle IV fluids given her history of heart failure. Daughter was updated and will require hospitalization here given concerns for significant cellulitis. Hospitalist contacted. DIAGNOSIS: Right lower extremity cellulitis, chronic diastolic heart failure, jail anticoagulation, CKD DISPOSITION: Hospitalist will evaluate Patient was agreeable with this plan. 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 Osteoporosis (02/28/12) Ovarian mass Pleural effusion Rib fractures Severe aortic stenosis Thrombocytopenia Surgical History History of bilateral tubal ligation Family History Denies family history of Liver disease Social History Smoking Status: Never smoker Second Hand Exposure: No; Hx Alcohol Use: No Hx Substance Use: No Preferred Language: German Communication Ability: Effective Echometer Engineer Required: No Beliefs That Will Affect Care: Mu-Ism marital status: Current Living Situation: Prison Current Living Situation Comment: was in Independent living at [facility] ([facility]) current occupational status: retired 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 / [employer] How many Children do You have: 3 Feels Safe at Home: Yes Assistive Devices: Walker Allergies Allergies Allergy/AdvReac Type Severity Reaction Status Date / Time Fish Containing Products Allergy Severe Anaphylaxis Verified 11/13/22 19:37 fish derived Allergy Severe Anaphylaxis Verified 11/13/22 19:37 fish oil Allergy Severe Anaphylaxis Verified 11/13/22 19:37 shellfish derived Allergy Severe ANAPHYLAXIS Verified 11/13/22 19:37 AGGIE Inhibitors AdvReac Intermediate Cough Verified 11/13/22 19:37 alendronate sodium AdvReac Intermediate dizziness Verified 11/13/22 19:37 ALL CREATURES THAT LIVE IN Allergy Severe ANAPHYLAXIS Uncoded 11/13/22 19:37 WATER Home Meds Home Medications Medication Instructions Recorded Confirmed cholecalciferol (vitamin D3) 125 125 mcg PO QAM 10/12/21 11/13/22 mcg (5,000 unit) tablet (Vitamin D3) insulin aspart U-100 100 unit/mL 4 unit subcut TIDM 10/12/21 11/13/22 (3 mL) subcutaneous pen (Novolog Flexpen U-100 Insulin aspart) lidocaine 4 % topical patch 1 patch topical .EVERY 24 HOURS 09/09/22 11/13/22 (Lidocaine Pain Relief) PRN .mod-sever pain gijhwefcanwk-Zq-iltw-minerals 1 tab PO QAM 09/09/22 11/13/22 bumetanide 1 mg tablet 1.5 mg PO QAM 11/13/22 11/13/22 ceftriaxone 1 gram solution for 1 g IM QAM 11/13/22 11/13/22 injection coQ10 (ubiquinol) 200 mg capsule 200 mg PO QAM 11/13/22 11/13/22 diclofenac sodium 1 % topical gel 4 g topical BID 11/13/22 11/13/22 lactulose 20 gram/30 mL oral 10 g PO QDL 11/13/22 11/13/22 solution lactulose 20 gram/30 mL oral 20 g PO AMPM 11/13/22 11/13/22 solution lidocaine (PF) 10 mg/mL (1 %) 0 mg IM QAM 11/13/22 11/13/22 injection solution magnesium oxide 500 mg tablet 500 mg PO QAM 11/13/22 11/13/22 nutritional supplements 1 ea PO QAM PROMOTING WOUND HEALING 11/13/22 11/13/22 spironolactone 50 mg tablet 50 mg PO TID 11/13/22 11/13/22 tramadol 50 mg tablet 50 mg PO Q4H PRN Pain 11/13/22 11/13/22 triamcinolone acetonide 0.1 % 1 applic topical BID PRN RASH ON 11/13/22 11/13/22 topical cream BUTTOCKS Previous Rx's Medication Instructions Recorded insulin glargine 100 unit/mL (3 10 unit (0.1 mL) subcut HS #15 mL 09/13/22 mL) subcutaneous pen (Lantus Solostar U-100 Insulin) rifaximin 550 mg tablet (Xifaxan) 550 mg PO BID #60 tabs 10/04/22 Results & Data (ED) Vital Signs Vital Signs - 24 hr 11/13/22 18:47 11/13/22 19:30 11/13/22 19:30 Temperature 36.4 C L Temperature Source Oral Pulse Rate 85 89 Pulse Rate from SpO2 Sensor 90 Respiratory Rate 18 23 Respiratory Effort / Characteristics Non-Labored Spontaneous Respiratory Depth Normal Respiratory Pattern Regular Blood Pressure 109/61 105/52 L Blood Pressure Mean 77 69 Blood Pressure Position Lying Pulse Oximetry 98 97 Oxygen Delivery Method Room Air Sepsis Recent Fever Within 48 Hours No Sepsis New/Unexplained Change in Mental Status No Sepsis Action Taken by Nursing No Action Required 11/13/22 19:40 11/13/22 19:50 11/13/22 20:00 Temperature Temperature Source Pulse Rate 78 96 H Pulse Rate from SpO2 Sensor 81 92 H Respiratory Rate 19 20 Respiratory Effort / Characteristics Respiratory Depth Respiratory Pattern Blood Pressure 120/64 Blood Pressure Mean 82 Blood Pressure Position Pulse Oximetry 99 98 Oxygen Delivery Method Sepsis Recent Fever Within 48 Hours Sepsis New/Unexplained Change in Mental Status Sepsis Action Taken by Nursing 11/13/22 20:00 11/13/22 20:10 11/13/22 20:20 Temperature Temperature Source Pulse Rate 94 H 83 95 H Pulse Rate from SpO2 Sensor 94 H 83 93 H Respiratory Rate 22 21 18 Respiratory Effort / Characteristics Respiratory Depth Respiratory Pattern Blood Pressure Blood Pressure Mean Blood Pressure Position Pulse Oximetry 97 96 100 Oxygen Delivery Method Sepsis Recent Fever Within 48 Hours Sepsis New/Unexplained Change in Mental Status Sepsis Action Taken by Nursing 11/13/22 20:30 11/13/22 20:30 11/13/22 20:40 Temperature Temperature Source Pulse Rate 94 H 102 H Pulse Rate from SpO2 Sensor 100 H 88 Respiratory Rate 21 19 Respiratory Effort / Characteristics Respiratory Depth Respiratory Pattern Blood Pressure 123/62 Blood Pressure Mean 82 Blood Pressure Position Pulse Oximetry 97 94 Oxygen Delivery Method Sepsis Recent Fever Within 48 Hours Sepsis New/Unexplained Change in Mental Status Sepsis Action Taken by Nursing 11/13/22 20:50 11/13/22 21:00 11/13/22 21:00 Temperature Temperature Source Pulse Rate 88 83 Pulse Rate from SpO2 Sensor 86 84 Respiratory Rate 21 18 Respiratory Effort / Characteristics Respiratory Depth Respiratory Pattern Blood Pressure 98/61 L Blood Pressure Mean 73 Blood Pressure Position Pulse Oximetry 100 97 Oxygen Delivery Method Sepsis Recent Fever Within 48 Hours Sepsis New/Unexplained Change in Mental Status Sepsis Action Taken by Nursing 11/13/22 21:10 11/13/22 21:20 11/13/22 21:30 Temperature Temperature Source Pulse Rate 91 H 90 Pulse Rate from SpO2 Sensor 89 94 H Respiratory Rate 16 16 Respiratory Effort / Characteristics Respiratory Depth Respiratory Pattern Blood Pressure 124/54 L Blood Pressure Mean 77 Blood Pressure Position Pulse Oximetry 100 100 Oxygen Delivery Method Sepsis Recent Fever Within 48 Hours Sepsis New/Unexplained Change in Mental Status Sepsis Action Taken by Nursing 11/13/22 21:30 11/13/22 21:40 11/13/22 21:50 Temperature Temperature Source Pulse Rate 90 95 H 84 Pulse Rate from SpO2 Sensor 89 95 H 86 Respiratory Rate 18 19 17 Respiratory Effort / Characteristics Respiratory Depth Respiratory Pattern Blood Pressure Blood Pressure Mean Blood Pressure Position Pulse Oximetry 100 100 100 Oxygen Delivery Method Sepsis Recent Fever Within 48 Hours Sepsis New/Unexplained Change in Mental Status Sepsis Action Taken by Nursing 11/13/22 22:00 11/13/22 22:00 11/13/22 22:10 Temperature Temperature Source Pulse Rate 94 H 86 Pulse Rate from SpO2 Sensor 94 H 85 Respiratory Rate 19 18 Respiratory Effort / Characteristics Respiratory Depth Respiratory Pattern Blood Pressure 110/58 L Blood Pressure Mean 75 Blood Pressure Position Pulse Oximetry 100 100 Oxygen Delivery Method Sepsis Recent Fever Within 48 Hours Sepsis New/Unexplained Change in Mental Status Sepsis Action Taken by Nursing 11/13/22 22:20 11/13/22 22:30 11/13/22 22:31 Temperature Temperature Source Pulse Rate 97 H 86 Pulse Rate from SpO2 Sensor 91 H 84 86 Respiratory Rate 26 H 19 Respiratory Effort / Characteristics Respiratory Depth Respiratory Pattern Blood Pressure Blood Pressure Mean Blood Pressure Position Pulse Oximetry 100 100 98 Oxygen Delivery Method Sepsis Recent Fever Within 48 Hours Sepsis New/Unexplained Change in Mental Status Sepsis Action Taken by Nursing 11/13/22 22:31 11/13/22 22:40 Temperature Temperature Source Pulse Rate 93 H Pulse Rate from SpO2 Sensor 96 H Respiratory Rate 19 Respiratory Effort / Characteristics Respiratory Depth Respiratory Pattern Blood Pressure 125/43 L Blood Pressure Mean 70 Blood Pressure Position Pulse Oximetry 99 Oxygen Delivery Method Sepsis Recent Fever Within 48 Hours Sepsis New/Unexplained Change in Mental Status Sepsis Action Taken by Nursing Laboratory Data 11/13/22 18:55 11/13/22 18:55 Lab Results 11/13/22 11/13/22 11/13/22 Range/Units 18:53 18:55 18:55 WBC 20.49 H (4.8-10.8) K/ul RBC 3.74 L (3.93-5.22) M/uL Hgb 11.6 L (12.0-16.0) g/dl Hct 34.0 L (34.1-44.9) % MCV 90.9 (80.0-100.0) fL MCH 31.0 (25.0-34.0) pg MCHC 34.1 (32.0-36.0) g/dL RDW Std Deviation 53.1 H (36.4-46.3) fL RDW Coeff of Jacqueline 16.1 H (11.5-14.5) % Plt Count 35 L (130-400) K/uL MPV 11.9 (9.4-12.3) fL Immature Gran % (Auto) 1.1 % Neut % (Auto) 93.1 % Lymph % (Auto) 2.2 % [place] % (Auto) 3.5 % Eos % (Auto) 0.0 % Baso % (Auto) 0.1 % Neut # (Auto) 19.07 H (1.4-6.5) K/uL Lymph # (Auto) 0.45 L (1.2-3.4) K/uL [place] # (Auto) 0.71 (0.24-0.82) K/uL Eos # (Auto) 0.00 (0-0.50) K/uL Baso # (Auto) 0.03 (0-0.2) K/uL Immature Gran # (Auto) 0.23 H (0.00-0.02) K/uL PT 20.4 H (9.0-12.0) Seconds INR 2.0 H (0.9-1.1) Sodium (136-145) mmol/L Potassium (3.5-5.1) mmol/L Chloride (98-107) mmol/L Carbon Dioxide (21-32) mmol/L Anion Gap (3-11) BUN (6-23) mg/dl Creatinine (0.6-1.2) mg/dl Est Cr Clr Drug Dosing ml/min Est GFR ( Amer) ml/min Est GFR (Non-Af Amer) ml/min BUN/Creatinine Ratio (10-20) Glucose (70-99(Fasting)) mg/dl Lactate (0.4-2.0) mmol/L Calcium (8.5-10.1) mg/dl Total Bilirubin (0.2-1.0) mg/dl AST (13-39) U/L ALT (7-52) U/L Alkaline Phosphatase (34-104) U/L Ammonia (18-72) umol/L Troponin I High Sens (0-14) pg/ml C-Reactive Protein (0-0.5) mg/dl B-Natriuretic Peptide (0-100) pg/ml Total Protein (6.0-8.3) gm/dl Albumin (3.4-5.0) gm/dl Globulin (2.5-4.0) gm/dl Albumin/Globulin Ratio (0.9-2) Lipase (11-82) U/L Procalcitonin (0-0.5) ng/ml SARS-CoV-2, RNA, NAAT NEGATIVE (NEGATIVE) 11/13/22 11/13/22 11/13/22 Range/Units 18:55 18:55 18:55 WBC (4.8-10.8) K/ul RBC (3.93-5.22) M/uL Hgb (12.0-16.0) g/dl Hct (34.1-44.9) % MCV (80.0-100.0) fL MCH (25.0-34.0) pg MCHC (32.0-36.0) g/dL RDW Std Deviation (36.4-46.3) fL RDW Coeff of Jacqueline (11.5-14.5) % Plt Count (130-400) K/uL MPV (9.4-12.3) fL Immature Gran % (Auto) % Neut % (Auto) % Lymph % (Auto) % [place] % (Auto) % Eos % (Auto) % Baso % (Auto) % Neut # (Auto) (1.4-6.5) K/uL Lymph # (Auto) (1.2-3.4) K/uL [place] # (Auto) (0.24-0.82) K/uL Eos # (Auto) (0-0.50) K/uL Baso # (Auto) (0-0.2) K/uL Immature Gran # (Auto) (0.00-0.02) K/uL PT (9.0-12.0) Seconds INR (0.9-1.1) Sodium 127 L (136-145) mmol/L Potassium 5.0 (3.5-5.1) mmol/L Chloride 95 L (98-107) mmol/L Carbon Dioxide 23 (21-32) mmol/L Anion Gap 9 (3-11) BUN 54 H (6-23) mg/dl Creatinine 1.86 H (0.6-1.2) mg/dl Est Cr Clr Drug Dosing 17.5 ml/min Est GFR ( Amer) 27.3 ml/min Est GFR (Non-Af Amer) 23.6 ml/min BUN/Creatinine Ratio 29.0 H (10-20) Glucose 240 H (70-99(Fasting)) mg/dl Lactate 4.3 H* (0.4-2.0) mmol/L Calcium 9.6 (8.5-10.1) mg/dl Total Bilirubin 4.0 H (0.2-1.0) mg/dl AST 23 (13-39) U/L ALT 19 (7-52) U/L Alkaline Phosphatase 119 H (34-104) U/L Ammonia 40.0 (18-72) umol/L Troponin I High Sens 73.9 H* (0-14) pg/ml C-Reactive Protein 12.81 H (0-0.5) mg/dl B-Natriuretic Peptide (0-100) pg/ml Total Protein 5.5 L (6.0-8.3) gm/dl Albumin 2.3 L (3.4-5.0) gm/dl Globulin 3.2 (2.5-4.0) gm/dl Albumin/Globulin Ratio 0.7 L (0.9-2) Lipase 31 (11-82) U/L Procalcitonin (0-0.5) ng/ml SARS-CoV-2, RNA, NAAT (NEGATIVE) 11/13/22 11/13/22 11/13/22 Range/Units 18:55 18:55 20:47 WBC (4.8-10.8) K/ul RBC (3.93-5.22) M/uL Hgb (12.0-16.0) g/dl Hct (34.1-44.9) % MCV (80.0-100.0) fL MCH (25.0-34.0) pg MCHC (32.0-36.0) g/dL RDW Std Deviation (36.4-46.3) fL RDW Coeff of Jacqueline (11.5-14.5) % Plt Count (130-400) K/uL MPV (9.4-12.3) fL Immature Gran % (Auto) % Neut % (Auto) % Lymph % (Auto) % [place] % (Auto) % Eos % (Auto) % Baso % (Auto) % Neut # (Auto) (1.4-6.5) K/uL Lymph # (Auto) (1.2-3.4) K/uL [place] # (Auto) (0.24-0.82) K/uL Eos # (Auto) (0-0.50) K/uL Baso # (Auto) (0-0.2) K/uL Immature Gran # (Auto) (0.00-0.02) K/uL PT (9.0-12.0) Seconds INR (0.9-1.1) Sodium (136-145) mmol/L Potassium (3.5-5.1) mmol/L Chloride (98-107) mmol/L Carbon Dioxide (21-32) mmol/L Anion Gap (3-11) BUN (6-23) mg/dl Creatinine (0.6-1.2) mg/dl Est Cr Clr Drug Dosing ml/min Est GFR ( Amer) ml/min Est GFR (Non-Af Amer) ml/min BUN/Creatinine Ratio (10-20) Glucose (70-99(Fasting)) mg/dl Lactate 3.8 H* (0.4-2.0) mmol/L Calcium (8.5-10.1) mg/dl Total Bilirubin (0.2-1.0) mg/dl AST (13-39) U/L ALT (7-52) U/L Alkaline Phosphatase (34-104) U/L Ammonia (18-72) umol/L Troponin I High Sens (0-14) pg/ml C-Reactive Protein (0-0.5) mg/dl B-Natriuretic Peptide 414 H (0-100) pg/ml Total Protein (6.0-8.3) gm/dl Albumin (3.4-5.0) gm/dl Globulin (2.5-4.0) gm/dl Albumin/Globulin Ratio (0.9-2) Lipase (11-82) U/L Procalcitonin 25.61 H (0-0.5) ng/ml SARS-CoV-2, RNA, NAAT (NEGATIVE) Administered Medications Discontinued Medications Vancomycin HCl 1,250 mg/ (Sodium Chloride) 525 mls @ 200 mls/hr IV NOW ONE Stop: 11/13/22 21:44 Last Admin: 11/13/22 20:02 Dose: 200 mls/hr Documented By: AM Cefepime HCl (Maxipime) 2,000 mg in 20 mls @ 5 mls/min IV NOW STA; Protocol Stop: 11/13/22 19:10 Last Admin: 11/13/22 19:26 Dose: 5 mls/min Documented By: AM Sodium Chloride (Nss) 250 mls @ 999 mls/hr IV .Q16M ONE Stop: 11/13/22 19:49 Last Infusion: 11/13/22 20:20 Dose: 0 mls/hr Documented By: Admin: 11/13/22 20:02 Dose: 999 mls/hr Documented By: AM Imaging Data Radiologist's Impression: Chest X-Ray 11/13/22 18:36 SINGLE VIEW CHEST CLINICAL HISTORY: Lower extremity edema FINDINGS: An AP, portable, upright chest radiograph is compared to study dated 09/23/2022. The examination is degraded by portable technique and patient rotation. The heart is enlarged noting atherosclerotic calcification of the thoracic aorta. The pulmonary vasculature is noncongested. Chronic interstitial thickening is similar to previous. Scarring/atelectasis is noted at the lung bases. No airspace consolidation or large pleural effusion is identified. No pneumothorax is seen. The skeletal structures are osteopenic. The bony thorax is grossly intact. IMPRESSION: Cardiomegaly with no acute cardiopulmonary abnormality identified. ACT 112: Negative or not required by law. Electronically signed by: Pablo Yeung M.D. 11/13/2022 7:39 PM Discharge Plan Visit Data Chief Complaint: Skin Problem Stated Complaint: CELLULITIS (LEG) ED Provider: Isaac Dietrich Discharge Problem: Cellulitis of right lower extremity, DM2 (diabetes mellitus, type 2), CHF (congestive heart failure), CKD (chronic kidney disease), long term care pharmacist (current) use of anticoagulants Patient Disposition: Being Evaluated by Hospitalist Forms Stand Alone Forms: My [facility] Prescriptions Prescriptions: No Action insulin aspart U-100 [Novolog Flexpen U-100 Insulin] 100 unit/mL (3 mL) insulin pen 4 unit SUBCUT TIDM Rx Instructions: HOLD if BSG <200 cholecalciferol (vitamin D3) [Vitamin D3] 125 mcg (5,000 unit) Tablet 125 mcg PO QAM Xifaxan 550 mg Tablet 550 mg PO BID Qty: 60 0RF tramadol 50 mg Tablet 50 mg PO Q4H PRN (Reason: Pain) triamcinolone acetonide 0.1 % Cream 1 applic TOPICAL BID PRN (Reason: RASH ON BUTTOCKS) Luis Powder 1 ea PO QAM ceftriaxone 1 gram Recon Soln 1 g IM QAM Rx Instructions: START 11/13/22 FOR 3 DAYS. magnesium oxide 500 mg Tablet 500 mg PO QAM bumetanide 1 mg tablet 1.5 mg PO QAM spironolactone 50 mg tablet 50 mg PO TID lidocaine (PF) 10 mg/mL (1 %) solution 0 mg IM QAM Rx Instructions: START 11/13/22. INJECT 1 DOSE IM IN THE MORNING FOR CELLULITIS RLE FOR 3 DAYS. diclofenac sodium [Voltaren] 1 % Gel 4 g TOPICAL BID Rx Instructions: RIGHT KNEE coQ10 (ubiquinol) 200 mg Capsule 200 mg PO QAM lactulose 20 gram/30 mL Solution 20 g PO AMPM lactulose 20 gram/30 mL solution 10 g PO QDL lidocaine [Lidocaine Pain Relief] 4 % Adhesive Patch,Medicated 1 patch TOPICAL .EVERY 24 HOURS MDD 1 patch PRN (Reason: .mod-sever pain) Rx Instructions: remove after 12 hours [id number]-[id number]-minerals Tablet 1 tab PO QAM insulin glargine [Lantus Solostar U-100 Insulin] 100 unit/mL (3 mL) insulin pen 10 unit subcut HS Qty: 15 0RF Referrals Referrals: Irvin Gardner [Primary Care Provider] -
[2022-11-13 19:06] LABS: Hemoglobin 11.6 g/dl (12.0-16.0); Mean Corpuscular Hgb Conc 34.1 g/dL (32.0-36.0); Mean Corpuscular Volume 90.9 fL (80.0-100.0); Mean Platelet Volume 11.9 fL (9.4-12.3); Platelet Count 35 K/uL (130-400); RDW Coefficient of Variation 16.1 % (11.5-14.5); RDW Standard Deviation 53.1 fL (36.4-46.3); Red Blood Count 3.74 M/uL (3.93-5.22); White Blood Count 20.49 K/ul (4.8-10.8)
[2022-11-13] MEDS ORDERED: VANCOMYCIN CONSULT ACTIVE PRN (19:07)
[2022-11-13] MEDS ORDERED: CEFEPIME 2,000 MG/20 ML VIAL IV STA (19:07)
[2022-11-13] MEDS ORDERED: VANCOMYCIN HCL 1,250 MG in SODIUM CHLORIDE 0.9% 500 ML IV ONE (19:07)
[2022-11-13 19:17] LABS: Prothrombin Time 20.4 Seconds (9.0-12.0)
[2022-11-13 19:23] LABS: Basophils # (auto) 0.03 K/uL (0-0.2); Basophils % (auto) 0.1 %; Immature Granulocytes # (auto) 0.23 K/uL (0.00-0.02); Immature Granulocytes % (auto) 1.1 %; Lymphocytes # (auto) 0.45 K/uL (1.2-3.4); Lymphocytes % (auto) 2.2 %; Monocytes # (auto) 0.71 K/uL (0.24-0.82); Monocytes % (auto) 3.5 %; Neutrophils # (auto) 19.07 K/uL (1.4-6.5); Neutrophils % (auto) 93.1 %
[2022-11-13 19:31] LABS: Albumin Globulin Ratio 0.7 (0.9-2); Albumin Level 2.3 gm/dl (3.4-5.0); C Reactive Protein 12.81 mg/dl (0-0.5); Calcium 9.6 mg/dl (8.5-10.1); Creatinine Clr Calc Pharmacy 17.5 ml/min; Est GFR (African American) 27.3 ml/min; Est GFR (Non-African American) 23.6 ml/min; Globulin 3.2 gm/dl (2.5-4.0); Total Protein 5.5 gm/dl (6.0-8.3)
[2022-11-13] MEDS ORDERED: SODIUM CHLORIDE 0.9% 250 ML IV ONE (19:34)
--- NOTE | 2022-11-13 19:41 | XRay Report ---
SINGLE VIEW CHEST CLINICAL HISTORY: Lower extremity edema FINDINGS: An AP, portable, upright chest radiograph is compared to study dated 09/23/2022. The examin ation is degraded by portable technique and patient rotation. The heart is enlarged noting atheroscl erotic calcification of the thoracic aorta. The pulmonary vasculature is noncongested. Chronic inters titial thickening is similar to previous. Scarring/atelectasis is noted at the lung bases. No airspac e consolidation or large pleural effusion is identified. No pneumothorax is seen. The skeletal struct ures are osteopenic. The bony thorax is grossly intact. IMPRESSION: Cardiomegaly with no acute cardiopulmonary abnormality identified. ACT 112: Negative or not required by law. Electronically signed by: Pablo Yeung M.D. 11/13/2022 7:39 PM
[2022-11-13 19:49] LABS: Troponin I High Sensitivity 73.9 pg/ml (0-14)
--- NOTE | 2022-11-13 20:35 | History & Physical Report ---
Date of Service November 13, 2022 Assessment & Plan (1) Cellulitis of right lower extremity: Plan: 89yo female with history of DOMINGUEZ cirrhosis, DM, HTN, HLP and CKD IV presenting from [facility] with one day of RLE cellulitis. She has had fairly rapid progression of redness and pain which started last night 11/12/22 around 23:00. Presently afebrile, HD stable, NAD. Elevated WBC to 20.49 with high neutrophil to lymphocyte ratio, elevated procalcitonin to 25.61, CRP of 12.81 and Lactate of 4.3 She has received a dose of Ceftriaxone IM prior to arrival to [facility] ER and has received Vancomycin and Cefepime. 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 Presently compensated. 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 No ascites or encephalopathy on today's exam. Labs with stable thrombocytopenia (platelets of 35, no active bleed), Na of 127. Elevation of Alkaline phosphatase and Tbili near baseline. Normal ammonia level. -Continue Lactulose -Continue Rifaximin -Continue Bumex at home dose 1.5mg po qAM -Continue Spironolactone 50mg po TID (3) DM2 (diabetes mellitus, type 2): Plan: Patient with diabetes, on home insulin therapy. Seemingly well controlled overall with last Hgb A1C of 5.2 on 09/10/22 (A1C prior to that in June 2022 was 4.8). Blood sugar elevated today at 240. ?falsely low A1C in setting of NGHIA, anemia? -Continue Lantus 10u qHS -Insulin sliding scale -Goal blood sugar 110 - 140 (4) Elevated troponin: Plan: Troponin elevated at 73.9. She denies chest pain -Repeat troponin (5) Severe aortic stenosis: Plan: CHIDI <1cm. Patient is unlikely candidate for TAVR given medical comorbidities. -Cautious fluid and diuresis (6) Chronic diastolic CHF (congestive heart failure): Plan: Preserved EF. Compensated at present. Echo performed on 09/09/22 with normal LV size, mild concentric LVH with EF of 60-65% -Continue Bumex, Spironolactone as above (7) Benign hypertension: Plan: Blood pressures adequate at present -Monitor BP (8) Chronic kidney disease, stage IV (severe): Plan: Elevated BUN and Cr from baseline -IVF -Repeat chemistry -Avoid nephrotoxic agents -Renal dosing where needed History of Present Illness Chief Complaint: RLE cellulitis Primary Care Provider: [facility] Cecily Berman is an 89yo female with history of DOMINGUEZ cirrhosis, HTN, well controlled DM, HLP, severe aortic stenosis, CKD-IV presenting from [facility] with RLE cellulitis. Patient was in her usual state of health yesterday. Her daughter visited her and they went for a walk around the building without difficulty. Around 23:00 last night she developed some RLE pain and redness that has progressed. She has been having increased pain with ambulation and redness of the RLE. Denies fever, chills, rigors, nausea, vomiting, diarrhea or constipation. No complaint of chest pain, cough, SOB, nausea, vomiting, diarrhea or constipation. Daughter states that patient was a little sleepy this afternoon, thought to be secondary to pain medication given at [facility]. Patient has chronic bilateral LE at baseline. She has her legs wrapped daily at [facility]. Her daughter states that her dressings are wet at the end of the day. Patient offers no complaints at this time. In the ER she is afebrile, HD stable, nontoxic in appearance. Dressings placed on bilateral LE. ER Course: Ceftriaxone IM given at [facility] NSS 250mL Vancomycin 1250mg Cefepime 2gm Allergies Allergy/AdvReac Type Severity Reaction Status Date / Time Fish Containing Products Allergy Severe Anaphylaxis Verified 11/13/22 19:37 fish derived Allergy Severe Anaphylaxis Verified 11/13/22 19:37 fish oil Allergy Severe Anaphylaxis Verified 11/13/22 19:37 shellfish derived Allergy Severe ANAPHYLAXIS Verified 11/13/22 19:37 AGGIE Inhibitors AdvReac Intermediate Cough Verified 11/13/22 19:37 alendronate sodium AdvReac Intermediate dizziness Verified 11/13/22 19:37 ALL CREATURES THAT LIVE IN Allergy Severe ANAPHYLAXIS Uncoded 11/13/22 19:37 WATER Home Medications Medication Instructions Recorded Confirmed Type cholecalciferol (vitamin D3) 125 125 mcg PO QAM 10/12/21 11/13/22 History mcg (5,000 unit) tablet (Vitamin D3) insulin aspart U-100 100 unit/mL 4 unit subcut TIDM 10/12/21 11/13/22 History (3 mL) subcutaneous pen (Novolog Flexpen U-100 Insulin aspart) lidocaine 4 % topical patch 1 patch topical .EVERY 24 HOURS 09/09/22 11/13/22 History (Lidocaine Pain Relief) PRN .mod-sever pain [id number]-[id number]-minerals 1 tab PO QAM 09/09/22 11/13/22 History insulin glargine 100 unit/mL (3 10 unit (0.1 mL) subcut HS #15 mL 09/13/22 11/13/22 Rx mL) subcutaneous pen (Lantus Solostar U-100 Insulin) rifaximin 550 mg tablet (Xifaxan) 550 mg PO BID #60 tabs 10/04/22 11/13/22 Rx bumetanide 1 mg tablet 1.5 mg PO QAM 11/13/22 11/13/22 History ceftriaxone 1 gram solution for 1 g IM QAM 11/13/22 11/13/22 History injection coQ10 (ubiquinol) 200 mg capsule 200 mg PO QAM 11/13/22 11/13/22 History diclofenac sodium 1 % topical gel 4 g topical BID 11/13/22 11/13/22 History lactulose 20 gram/30 mL oral 10 g PO QDL 11/13/22 11/13/22 History solution lactulose 20 gram/30 mL oral 20 g PO AMPM 11/13/22 11/13/22 History solution lidocaine (PF) 10 mg/mL (1 %) 0 mg IM QAM 11/13/22 11/13/22 History injection solution magnesium oxide 500 mg tablet 500 mg PO QAM 11/13/22 11/13/22 History nutritional supplements 1 ea PO QAM PROMOTING WOUND HEALING 11/13/22 11/13/22 History spironolactone 50 mg tablet 50 mg PO TID 11/13/22 11/13/22 History tramadol 50 mg tablet 50 mg PO Q4H PRN Pain 11/13/22 11/13/22 History triamcinolone acetonide 0.1 % 1 applic topical BID PRN RASH ON 11/13/22 11/13/22 History topical cream BUTTOCKS Past Med/Surg History Medical History Benign hypertension (02/28/12) Breast mass CHF (congestive heart failure) Chronic kidney disease, stage IV (severe) Compression fracture of L1 lumbar vertebra DM2 (diabetes mellitus, type 2) Hyperlipidemia (02/28/12) 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 Osteoporosis (02/28/12) Ovarian mass Pleural effusion Rib fractures Severe aortic stenosis Thrombocytopenia Surgical History History of bilateral tubal ligation Family History Denies family history of Liver disease Social History Smoking Status: Never smoker Second Hand Exposure: No; Hx Alcohol Use: No Hx Substance Use: No Preferred Language: Turkmen Communication Ability: Effective Bowling Ball Molder Required: No Beliefs That Will Affect Care: Episcopalian marital status: Current Living Situation: [facility] Current Living Situation Comment: was in Independent living at [facility] ([facility]) current occupational status: retired 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 / [employer] How many Children do You have: 3 Feels Safe at Home: Yes Assistive Devices: Walker Review of Systems Review of Systems: All systems reviewed & are unremarkable except as noted in HPI & below Physical Exam Physical Exam: General: patient resting comfortably, NAD, non-toxic in appearance, slightly hard of hearing, answers questions appropriately and follows commands Skin: warm, dry, intact, RLE redness of the foot to knee, no crepitus/bullae or lymphangitis HEENT: NC/AT, PERRL, EOMI, anicteric sclera, conjunctiva without injection, external ear normal to inspection and nontender, nares patent, moist mucus membranes, dentition intact, no oropharyngeal lesions, neck supple, trachea midline, no LAD, no thyromegaly, no JVD Heart: +S1/S2, regular, no m/r/g Lungs: equal air entry bilaterally, coarse breath sounds in left anterior lung field, cleared with coughing, no wheezing Abd: +BS, soft, NT/ND, no masses/organomegaly/ascites Ext: warm, 2+ pulses in UE/LE bilaterally, no clubbing/cyanosis, 1+ pitting edema of bilateral LE, dressings in place c/d/i, cellulitis of right foot and lateral leg appreciated, tender to palpation, some onychomycosis as well as fissures between toes Neuro: nonfocal, patient AA&O x 4, speech intact, no facial droop, moving all extremities on command with equal strength 5/5, no asterixis Results & Data Results & Data ([facility]) Vital Signs (Past 12 Hours) Vital Signs Temp Pulse Resp BP Pulse Ox O2 Del Method 11/13/22 18:47 36.4 C L 85 18 109/61 98 Room Air Laboratory Results Laboratory Results WBC 20.49 K/ul (4.8-10.8) H 11/13/22 18:55 RBC 3.74 M/uL (3.93-5.22) L 11/13/22 18:55 Hgb 11.6 g/dl (12.0-16.0) L 11/13/22 18:55 Hct 34.0 % (34.1-44.9) L 11/13/22 18:55 MCV 90.9 fL (80.0-100.0) 11/13/22 18:55 MCH 31.0 pg (25.0-34.0) 11/13/22 18:55 MCHC 34.1 g/dL (32.0-36.0) 11/13/22 18:55 RDW Std Deviation 53.1 fL (36.4-46.3) H 11/13/22 18:55 RDW Coeff of Jacqueline 16.1 % (11.5-14.5) H 11/13/22 18:55 Plt Count 35 K/uL (130-400) L 11/13/22 18:55 MPV 11.9 fL (9.4-12.3) 11/13/22 18:55 Immature Gran % (Auto) 1.1 % 11/13/22 18:55 Neut % (Auto) 93.1 % 11/13/22 18:55 Lymph % (Auto) 2.2 % 11/13/22 18:55 Moore % (Auto) 3.5 % 11/13/22 18:55 Eos % (Auto) 0.0 % 11/13/22 18:55 Baso % (Auto) 0.1 % 11/13/22 18:55 Neut # (Auto) 19.07 K/uL (1.4-6.5) H 11/13/22 18:55 Lymph # (Auto) 0.45 K/uL (1.2-3.4) L 11/13/22 18:55 Moore # (Auto) 0.71 K/uL (0.24-0.82) 11/13/22 18:55 Eos # (Auto) 0.00 K/uL (0-0.50) 11/13/22 18:55 Baso # (Auto) 0.03 K/uL (0-0.2) 11/13/22 18:55 Immature Gran # (Auto) 0.23 K/uL (0.00-0.02) H 11/13/22 18:55 PT 20.4 Seconds (9.0-12.0) H 11/13/22 18:55 INR 2.0 (0.9-1.1) H 11/13/22 18:55 Sodium 127 mmol/L (136-145) L 11/13/22 18:55 Potassium 5.0 mmol/L (3.5-5.1) 11/13/22 18:55 Chloride 95 mmol/L (98-107) L 11/13/22 18:55 Carbon Dioxide 23 mmol/L (21-32) 11/13/22 18:55 Anion Gap 9 (3-11) 11/13/22 18:55 BUN 54 mg/dl (6-23) H 11/13/22 18:55 Creatinine 1.86 mg/dl (0.6-1.2) H 11/13/22 18:55 Est Cr Clr Drug Dosing 17.5 ml/min 11/13/22 18:55 Est GFR ( Amer) 27.3 ml/min 11/13/22 18:55 Est GFR (Non-Af Amer) 23.6 ml/min 11/13/22 18:55 BUN/Creatinine Ratio 29.0 (10-20) H 11/13/22 18:55 Glucose 240 mg/dl (70-99(Fasting)) H 11/13/22 18:55 Lactate 4.3 mmol/L (0.4-2.0) H* 11/13/22 18:55 Calcium 9.6 mg/dl (8.5-10.1) 11/13/22 18:55 Total Bilirubin 4.0 mg/dl (0.2-1.0) H 11/13/22 18:55 AST 23 U/L (13-39) 11/13/22 18:55 ALT 19 U/L (7-52) 11/13/22 18:55 Alkaline Phosphatase 119 U/L (34-104) H 11/13/22 18:55 Ammonia 40.0 umol/L (18-72) 11/13/22 18:55 Troponin I High Sens 73.9 pg/ml (0-14) H* 11/13/22 18:55 C-Reactive Protein 12.81 mg/dl (0-0.5) H 11/13/22 18:55 B-Natriuretic Peptide 414 pg/ml (0-100) H 11/13/22 18:55 Total Protein 5.5 gm/dl (6.0-8.3) L 11/13/22 18:55 Albumin 2.3 gm/dl (3.4-5.0) L 11/13/22 18:55 Globulin 3.2 gm/dl (2.5-4.0) 11/13/22 18:55 Albumin/Globulin Ratio 0.7 (0.9-2) L 11/13/22 18:55 Lipase 31 U/L (11-82) 11/13/22 18:55 Procalcitonin 25.61 ng/ml (0-0.5) H 11/13/22 18:55 SARS-CoV-2, RNA, NAAT NEGATIVE (NEGATIVE) 11/13/22 18:53 Impressions Chest X-Ray 11/13/22 18:36 SINGLE VIEW CHEST CLINICAL HISTORY: Lower extremity edema FINDINGS: An AP, portable, upright chest radiograph is compared to study dated 09/23/2022. The examination is degraded by portable technique and patient rotation. The heart is enlarged noting atherosclerotic calcification of the thoracic aorta. The pulmonary vasculature is noncongested. Chronic interstitial thickening is similar to previous. Scarring/atelectasis is noted at the lung bases. No airspace consolidation or large pleural effusion is identified. No pneumothorax is seen. The skeletal structures are osteopenic. The bony thorax is grossly intact. IMPRESSION: Cardiomegaly with no acute cardiopulmonary abnormality identified. ACT 112: Negative or not required by law. Electronically signed by: Pablo Yeung M.D. 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
[2022-11-14] MEDS ORDERED: CARBOHYDRATES FOR HYPOGLYCEMIA PO PRN (00:19)
[2022-11-14] MEDS ORDERED: VANCOMYCIN CONSULT ACTIVE PRN (00:19)
[2022-11-14] MEDS ORDERED: LACTATED RINGER'S 1,000 ML IV SCH (00:19)
[2022-11-14] MEDS ORDERED: DEXTROSE 50% 50 ML SYRINGE IV PRN (00:19)
[2022-11-14] MEDS ORDERED: GLUCOSE 40% GEL 15 GM TUBE PO PRN (00:19)
[2022-11-14] MEDS ORDERED: GLUCOSE 10 TAB/TUBE PO PRN (00:19)
[2022-11-14] MEDS ORDERED: VANCOMYCIN HCL 1,000 MG in SODIUM CHLORIDE 0.9% 250 ML IV SCH (00:19)
[2022-11-14] MEDS ORDERED: traMADol HCL 50 MG TABLET PO PRN (00:19)
[2022-11-14] MEDS ORDERED: GLUCAGON FOR INJ 1 MG VIAL SQ PRN (00:19)
[2022-11-14] MEDS ORDERED: ACETAMINOPHEN 325 MG TAB PO PRN (00:19)
[2022-11-14] MEDS ORDERED: LIDOCAINE 5% 1 PATCH TD PRN (00:44)
[2022-11-14] MEDS: SPIRONOLACTONE 25 MG TAB PO SCH ×4 (00:51→21:01)
[2022-11-14] MEDS: LACTULOSE SYRUP 20 GM/30 ML UDC PO SCH ×5 (00:51→21:05)
[2022-11-14] MEDS: rifAXIMin 550 MG TABLET PO SCH ×3 (00:51→21:03)
[2022-11-14] MEDS: DICLOFENAC SOD 1% GEL 100 GM TUBE EXT SCH ×3 (00:51→21:03)
[2022-11-14] MEDS: LANTUS PER UNIT CHARGE SQ SCH ×2 (01:09→21:18)
[2022-11-14] MEDS: INSULIN ASPART PER UNIT SC SCH ×5 (01:09→21:18)
[2022-11-14 01:27] LABS: Magnesium 1.6 mg/dl (1.7-2.4); Phosphorus 4.1 mg/dl (2.5-4.9)
[2022-11-14] MEDS ORDERED: MAGNESIUM SULFATE / D5W 1 GM/100 ML BAG IV ONE (01:52)
[2022-11-14 08:08] LABS: Creatinine Clr Calc Pharmacy 18.8 ml/min; Est GFR (African American) 29.8 ml/min; Est GFR (Non-African American) 25.7 ml/min
[2022-11-14 08:19] LABS: Troponin I High Sensitivity 53.5 pg/ml (0-14)
[2022-11-14] MEDS ORDERED: VANCOMYCIN HCL 1,000 MG in SODIUM CHLORIDE 0.9% 250 ML IV ONE (09:45)
[2022-11-14] MEDS: ENOXAPARIN INJ 30 MG/0.3 ML SYR SQ SCH (09:49)
[2022-11-14] MEDS: BUMETANIDE 1 MG TAB PO SCH (09:49)
--- NOTE | 2022-11-14 09:50 | Pharmacy Report ---
Pharmacy PK ABX Note - Date of Service November 14, 2022 - Assessment and Plan Assessment 89 year old F receiving vancomycin and cefepime for treatment of RLE cellulitis. Pertinent microbiologic data includes: 2/2 blood cultures pending, patient resides in [facility]. Patient is CKD stage IV and is also noted to be in NGHIA upon admission. Day # 1 of antimicrobial therapy. Plan Vancomycin * Loading dose: 1250 mg IV x 1 * Maintenance dose: To be determined by lab-drawn random level; 11.7 mcg/mL @ 11/14/22 today, dose given as 1000mg IV x1 (~15 mg/kg). * Regimen is predicted to achieve target AUC/JENNIFER of 400-600 mg/L.hr * Random level ordered for: 11/15/22 with AM labs to assist with further dosing. Pharmacy will continue to follow and will adjust dose/frequency as necessary. Thank you. Pharmacy has transitioned to AUC monitoring for vancomycin. AUC/JENNIFER is the preferred PK/PD target and is associated with decreased risk of nephrotoxicity compared to traditional trough targets.
--- NOTE | 2022-11-14 11:07 | Electrocardiogram Report ---
Test Reason : Blood Pressure : / mmHG Vent. Rate : 084 BPM Atrial Rate : 102 BPM P-R Int : 000 ms QRS Dur : 092 ms QT Int : 358 ms P-R-T Axes : 000 -09 101 degrees QTc Int : 423 ms Atrial fibrillation Moderate voltage criteria for LVH, may be normal variant Cannot rule out Septal infarct (cited on or before 13-NOV-2022) Abnormal ECG When compared with ECG of 01-OCT-2022 06:50, Premature ventricular complexes are no longer Present Confirmed by Bo Kerns ([id number]) on 11/14/2022 11:07:10 AM Referred By: Irvin Gardner Confirmed By:Bo Kerns
--- NOTE | 2022-11-14 12:43 | Hospitalist Progress Note ---
Date of Service November 14, 2022 Assessment & Plan (1) Cellulitis of right lower extremity: Plan: Currently on vancomycin and cefepime. Wound care nurse consultation requested. White blood cell count 20,000 on admission. Will follow. Pain control measures. 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 Serial labs (3) DM2 (diabetes mellitus, type 2): Plan: ADA diet. Sliding scale coverage. Continue Lantus therapy. Hgb A1C of 5.2 on 09/10/22. (4) Elevated troponin: Plan: Troponin elevated at 73.9 on admission. She denies chest pain. No evidence of acute coronary syndrome (5) Severe aortic stenosis: Plan: CHIDI <1cm. Patient is unlikely candidate for TAVR given medical comorbidities. (6) Chronic diastolic CHF (congestive heart failure): Plan: Preserved EF. Compensated at present. Echo performed on 09/09/22 with normal LV size, mild concentric LVH with EF of 60-65%. Continue Bumex, Spironolactone (7) Benign hypertension: Plan: Blood pressures adequate at present. Continue current medication (8) Chronic kidney disease, stage IV (severe): Plan: Monitor intake and output. Serial lab studies. Avoid nephrotoxic agents. Plan If creatinine rises. She may need intravenous fluids. Sodium remains low however. Continue vancomycin and cefepime for now Admission and Anticipated Discharge Date Admission Date: November 13, 2022 Subjective Alert and oriented. She is on vancomycin and cefepime. INR 2.0 on admission and will be monitored daily. She has evidence of acute on chronic kidney disease with creatinine 1.8 on admission and now 1.7. Serum osmolarity 295. Hopefully sodium will improve with IV fluids. Wound care nurse consult requested. INR 2.0 on admission and will be followed daily. Review of Systems Review of Systems: Constitutional-no fever or chills ENT-no blurred vision, no double vision, no epistaxis, no sore throat Respiratory-no cough, no wheezing, no shortness of breath Cardiac-no palpitations, no chest pain, no syncope GI-no nausea, vomiting, diarrhea, melena, hematochezia -no urinary retention, no urinary incontinence, no dysuria, no hematuria Musculoskeletal-no joint pain, no muscle tenderness Skin-erythema/tenderness/induration/right lower extremity surrounding the chronic ulceration Neuro-no isolated weakness, no paresthesia, no weakness Psych-no depression, no anxiety Physical Exam Physical Exam: General-alert and oriented x3, no fevers, no chills HEENT-head atraumatic and normocephalic, pupils equal and reactive to light, extraocular muscles intact Neck-no lymphadenopathy or thyromegaly, trachea midline Chest-clear to auscultation percussion. No rales wheezing or rhonchi Cardiac-regular rate and rhythm, normal S1 and S2 Abdomen-normal bowel sounds, nontender, no hepatosplenomegaly Extremities-right lower extremity cellulitis surrounding a chronic appearing ulceration on the right pretibial region. Neuro-cranial nerves II through XII intact, motor and sensory function within normal limits, strength symmetrical 5/5, no focal deficits Psych-normal affect, normal mood Results & Data Results & Data ([facility]) Vital Signs (Past 12 Hours) Vital Signs Temp Pulse Pulse Resp BP Pulse Ox O2 Del Method 11/14/22 12:07 36.5 C 87 13 108/72 98 Room Air 11/14/22 08:01 36.4 C L 83 16 120/78 98 Room Air 11/14/22 07:42 37.0 C 81 16 115/69 98 Room Air 11/14/22 00:37 36.8 C 82 18 121/74 94 Room Air Laboratory Results 11/13/22 18:55 11/14/22 07:29 PG Care Time/CCT Total # of Minutes Spent Total Time Spent with Patient: Total time spent is greater than 50% in coordination of care (as documented) at patient's floor/unit and/or counseling patient: Coding Level of Care Code 36802 SUB INP/OBS CARE 3/50MIN Diagnoses Cellulitis of right lower extremity L03.115 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
[2022-11-14 13:52] LABS: Appearance Urine Clear (Clear); Bilirubin Urine Negative (Negative); Blood Urine Negative (Negative); Color Urine Dark Yellow; Glucose Urine UA Negative (Negative); Ketones Urine Trace (Negative); Leukocyte Esterase Urine Negative (Negative); Nitrite Urine Negative (Negative); Protein Urine Negative (Negative); Specific Gravity Urine 1.015 (1.000-1.030); Urobilinogen Urine Negative (Negative)
[2022-11-14] MEDS: SODIUM CHLORIDE 0.9% 1000ML 1,000 ML IV SCH (14:54)
[2022-11-14] MEDS ORDERED: CEFEPIME 1,000 MG in SYRINGE 0 ML IV SCH (20:00)
[2022-11-15] MEDS: SODIUM CHLORIDE 0.9% 1000ML 1,000 ML IV SCH ×2 (04:35→16:01)
[2022-11-15 06:49] LABS: Influenza A virus by PCR Negative (Neg); Influenza B virus by PCR Negative (Neg); RSV by PCR Negative (Neg)
[2022-11-15 07:14] LABS: SARS CoV2 RNA(COVID-19) Ceph POSITIVE (Negative)
--- NOTE | 2022-11-15 08:08 | Hospitalist Progress Note ---
Date of Service November 15, 2022 Assessment & Plan (1) COVID-19: Plan: Patient was initially + 10/26/22 She is day #20 and no need for isolation (2) Cellulitis of right lower extremity: Plan: Culture + Citrobacter werkmanii and was intermediate to Cefepime. Changed Cefepime to Ertapenem. Currently on vancomycin and ertapenem. Wound care nurse consultated and placed pictures in chart. White blood cell count improving to 14, down from 20. Pain control measures Continue to monitor Per wound care notes - clean with saline, cover with saline moistened Aquacel AG and secure with Optifoam. 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 Serial labs (4) DM2 (diabetes mellitus, type 2): Plan: ADA diet. Sliding scale coverage. Continue Lantus therapy. Hgb A1C of 5.2 on 09/10/22. (5) Elevated troponin: Plan: Troponin elevated at 73.9 on admission. She denies chest pain. No evidence of acute coronary syndrome (6) Chronic diastolic CHF (congestive heart failure): Plan: Preserved EF. Compensated at present. Echo performed on 09/09/22 with normal LV size, mild concentric LVH with EF of 60-65%. Continue Bumex, Spironolactone (7) Benign hypertension: Plan: Blood pressures adequate at present. Continue current medication (8) Chronic kidney disease, stage IV (severe): Plan: Monitor intake and output. Serial lab studies. Avoid nephrotoxic agents. (9) Severe aortic stenosis: Plan: CHIDI <1cm. Patient is unlikely candidate for TAVR given medical comorbidities. Admission and Anticipated Discharge Date Admission Date: November 13, 2022 Subjective Alert and oriented. Patient was found to have a + COVID (she was initially + 10/26/22. She is day #20 with Covid and no need for isolation. She was on vancomycin and cefepime. The wound culture and sensitivity was intermediate to Cefepime and was changed to ertapenem. Patient has no complaints today except pain in her right lower leg. Review of Systems Review of Systems: Patient denies any chest pain, SOB. She admits to a mild cough. She denies any hemoptysis, fevers or chills. She denies any abdominal pains, nausea or vomiting. She admits to right lower leg swelling and pain. All other ROS negative. Physical Exam Constitutional: WD/WN, vitals as above Neck: trachea midline, no thyromegaly Respiratory: normal respiratory effort, + cough and able to speak in complete sentences; no labored breathing equal air expansion with mild upper airway congestion that clears with cough Cardiovascular: Rate/Rhythm: regular rate and regular rhythm Heart Sounds: + murmur (Systolic murmur ) Gastrointestinal (Abdomen): normal bowel sounds, soft, nontender, no hepatosplenomegaly small reducible abdominal umbilical hernia Skin: cellulitis and lesions lower extremity bilateral see wound care pictures in chart Neurologic: PERRL, EOMI, accommodation nl, no face palsy, no dysarthria Psychiatric: A+Ox3, euthymic affect Results & Data Results & Data ([facility]) Vital Signs (Past 12 Hours) Vital Signs Temp Pulse Resp BP Pulse Ox O2 Del Method 11/15/22 07:41 36.6 C 91 H 16 122/70 97 Room Air 11/14/22 23:00 36.5 C 20 119/80 95 Room Air 11/14/22 21:43 Room Air Laboratory Results Abnormal lab results 11/14/22 11/14/22 11/15/22 Range/Units 16:55 20:58 07:52 WBC 14.78 H (4.8-10.8) K/ul RBC 3.73 L (3.93-5.22) M/uL Hgb 11.6 L (12.0-16.0) g/dl RDW Std Deviation 54.4 H (36.4-46.3) fL RDW Coeff of Jacqueline 15.9 H (11.5-14.5) % Plt Count 47 L (130-400) K/uL MPV 12.6 H (9.4-12.3) fL Neut # (Auto) 13.40 H (1.4-6.5) K/uL Lymph # (Auto) 0.50 L (1.2-3.4) K/uL Immature Gran # (Auto) 0.15 H (0.00-0.02) K/uL PT (9.0-12.0) Seconds INR (0.9-1.1) Sodium (136-145) mmol/L BUN (6-23) mg/dl Creatinine (0.6-1.2) mg/dl BUN/Creatinine Ratio (10-20) Glucose (70-99(Fasting)) mg/dl POC Glucose 177 H 194 H (70-99) mg/dl SARS-CoV-2 (PCR) (Negative) 11/15/22 11/15/22 11/15/22 Range/Units 07:52 07:52 08:15 WBC (4.8-10.8) K/ul RBC (3.93-5.22) M/uL Hgb (12.0-16.0) g/dl RDW Std Deviation (36.4-46.3) fL RDW Coeff of Jacqueline (11.5-14.5) % Plt Count (130-400) K/uL MPV (9.4-12.3) fL Neut # (Auto) (1.4-6.5) K/uL Lymph # (Auto) (1.2-3.4) K/uL Immature Gran # (Auto) (0.00-0.02) K/uL PT 15.2 H (9.0-12.0) Seconds INR 1.5 H (0.9-1.1) Sodium 131 L (136-145) mmol/L BUN 59 H (6-23) mg/dl Creatinine 1.67 H (0.6-1.2) mg/dl BUN/Creatinine Ratio 35.3 H (10-20) Glucose 179 H (70-99(Fasting)) mg/dl POC Glucose 179 H (70-99) mg/dl SARS-CoV-2 (PCR) (Negative) 11/15/22 11/15/22 Range/Units 12:11 Unknown WBC (4.8-10.8) K/ul RBC (3.93-5.22) M/uL Hgb (12.0-16.0) g/dl RDW Std Deviation (36.4-46.3) fL RDW Coeff of Jacqueline (11.5-14.5) % Plt Count (130-400) K/uL MPV (9.4-12.3) fL Neut # (Auto) (1.4-6.5) K/uL Lymph # (Auto) (1.2-3.4) K/uL Immature Gran # (Auto) (0.00-0.02) K/uL PT (9.0-12.0) Seconds INR (0.9-1.1) Sodium (136-145) mmol/L BUN (6-23) mg/dl Creatinine (0.6-1.2) mg/dl BUN/Creatinine Ratio (10-20) Glucose (70-99(Fasting)) mg/dl POC Glucose 164 H (70-99) mg/dl SARS-CoV-2 (PCR) POSITIVE A* (Negative) PG Care Time/CCT Total # of Minutes Spent Total Time Spent with Patient: Total time spent is greater than 50% in coordination of care (as documented) at patient's floor/unit and/or counseling patient: Coding Level of Care Code 59625 SUB INP/OBS CARE 2/35MIN Diagnoses COVID-19 U07.1 Cellulitis of right lower extremity L03.115 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
[2022-11-15 08:15] LABS: Hematocrit (blood only) 34.6 % (34.1-44.9); Hemoglobin 11.6 g/dl (12.0-16.0); Mean Corpuscular Hemoglobin 31.1 pg (25.0-34.0); Mean Corpuscular Hgb Conc 33.5 g/dL (32.0-36.0); Mean Corpuscular Volume 92.8 fL (80.0-100.0); Mean Platelet Volume 12.6 fL (9.4-12.3); Platelet Count 47 K/uL (130-400); RDW Coefficient of Variation 15.9 % (11.5-14.5); RDW Standard Deviation 54.4 fL (36.4-46.3); Red Blood Count 3.73 M/uL (3.93-5.22); White Blood Count 14.78 K/ul (4.8-10.8)
[2022-11-15 08:25] LABS: INR 1.5 (0.9-1.1); Prothrombin Time 15.2 Seconds (9.0-12.0)
[2022-11-15 08:40] LABS: Basophils # (auto) 0.02 K/uL (0-0.2); Basophils % (auto) 0.1 %; Echinocytes 1+; Immature Granulocytes # (auto) 0.15 K/uL (0.00-0.02); Lymphocytes % (auto) 3.4 %; Monocytes # (auto) 0.71 K/uL (0.24-0.82); Monocytes % (auto) 4.8 %; Neutrophils % (auto) 90.7 %
[2022-11-15 09:38] LABS: BUN Creatinine Ratio 35.3 (10-20); Calcium 9.2 mg/dl (8.5-10.1); Creatinine Clr Calc Pharmacy 19.5 ml/min; Est GFR (African American) 31.1 ml/min; Est GFR (Non-African American) 26.8 ml/min; Potassium 4.6 mmol/L (3.5-5.1)
[2022-11-15] MEDS: rifAXIMin 550 MG TABLET PO SCH ×2 (09:51→20:50)
[2022-11-15] MEDS: BUMETANIDE 1 MG TAB PO SCH (09:51)
[2022-11-15] MEDS: SPIRONOLACTONE 25 MG TAB PO SCH ×3 (09:52→20:51)
[2022-11-15] MEDS: ENOXAPARIN INJ 30 MG/0.3 ML SYR SQ SCH (09:52)
[2022-11-15] MEDS: DICLOFENAC SOD 1% GEL 100 GM TUBE EXT SCH ×2 (09:52→20:51)
[2022-11-15] MEDS: LACTULOSE SYRUP 20 GM/30 ML UDC PO SCH ×3 (09:53→20:49)
--- NOTE | 2022-11-15 09:56 | Pharmacy Report ---
Pharmacy Vanc AUC Short Note - Date of Service November 15, 2022 - Assessment & Plan Assessment Assessment 89 year old F receiving vancomycin and cefepime for treatment of RLE cellulitis. Prelim blood cultures are negative, leukocytosis improving more this morning, p atient afebrile. Day # 3 of antimicrobial therapy. Plan Vancomycin * Random vancomycin level this AM ~13 mcg/ml - will redose again with vancomycin 1000 mg x 1 for now to maintain level ~15-20 mcg/ml * Scr slightly improving since yesterday, however still elevated from baseline * Will continue to dose by levels for now. Will order another vancomycin level tomorrow AM to assist with further dosing Pharmacy has transitioned to AUC monitoring for vancomycin. AUC/JENNIFER is the preferred PK/PD target and is associated with decreased risk of nephrotoxicity compared to traditional trough targets.
[2022-11-15] MEDS ORDERED: VANCOMYCIN HCL 1,000 MG in SODIUM CHLORIDE 0.9% 250 ML IV ONE (10:00)
[2022-11-15] MEDS: INSULIN ASPART PER UNIT SC SCH ×4 (10:11→21:00)
[2022-11-15] MEDS: ERTAPENEM SODIUM 500 MG in SYRINGE 0 ML IV SCH (16:00)
[2022-11-15] MEDS: LANTUS PER UNIT CHARGE SQ SCH (21:01)
[2022-11-16] MEDS: SODIUM CHLORIDE 0.9% 1000ML 1,000 ML IV SCH (04:22)
[2022-11-16] MEDS: BUMETANIDE 1 MG TAB PO SCH (08:13)
[2022-11-16] MEDS: DICLOFENAC SOD 1% GEL 100 GM TUBE EXT SCH (08:14)
[2022-11-16] MEDS: ENOXAPARIN INJ 30 MG/0.3 ML SYR SQ SCH (08:14)
[2022-11-16] MEDS: LACTULOSE SYRUP 20 GM/30 ML UDC PO SCH ×2 (08:14→12:16)
[2022-11-16] MEDS: SPIRONOLACTONE 25 MG TAB PO SCH ×2 (08:15→14:07)
[2022-11-16] MEDS: rifAXIMin 550 MG TABLET PO SCH (08:15)
--- NOTE | 2022-11-16 08:18 | Hospitalist Progress Note ---
Date of Service November 16, 2022 Assessment & Plan (1) COVID-19: Plan: Patient was initially + 10/26/22 She is day #20 and no need for isolation Saturating on RA at 96% Mild lingering cough CXR 11/13/22 normal (2) Cellulitis of right lower extremity: Plan: Culture + Citrobacter werkmanii and was intermediate to Cefepime. Changed Cefepime to Ertapenem. Currently on vancomycin and ertapenem. Wound care nurse consultated and placed pictures in chart. White blood cell count improving to 14, down from 20. Pain control measures Continue to monitor Per wound care notes - clean with saline, cover with saline moistened Aquacel AG and secure with Optifoam. 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 Chronic thrombocytopenia likely secondary to splenomegaly related to the cirrhosis. Serial labs (4) DM2 (diabetes mellitus, type 2): Plan: ADA diet. Continue Lantus therapy with sliding scale Hgb A1C of 5.2 on 09/10/22. (5) Elevated troponin: Plan: Troponin elevated at 73.9 on admission and trending down Continues to have no chest pain or SOB No evidence of acute coronary syndrome (6) Chronic diastolic CHF (congestive heart failure): Plan: Preserved EF and compensated at present. Echo performed on 09/09/22 with normal LV size, mild concentric LVH with EF of 60-65%. Continue Bumex, Spironolactone (7) Benign hypertension: Plan: Blood pressures adequate at present. Continue current medication (8) Chronic kidney disease, stage IV (severe): Plan: Monitor intake and output. Serial lab studies. Avoid nephrotoxic agents. (9) Severe aortic stenosis: Plan: CHIDI <1cm. Patient is unlikely candidate for TAVR given medical comorbidities. Admission and Anticipated Discharge Date Admission Date: November 13, 2022 Physical Exam Constitutional: WD/WN, vitals as above Neck: trachea midline, no thyromegaly Respiratory: normal respiratory effort, + cough and able to speak in complete sentences; no labored breathing Cardiovascular: Rate/Rhythm: regular rate and regular rhythm Heart Sounds: + murmur (Systolic murmur ) Gastrointestinal (Abdomen): normal bowel sounds, soft, nontender, no h epatosplenomegaly Neurologic: PERRL, EOMI, accommodation nl, no face palsy, no dysarthria Psychiatric: A+Ox3, euthymic affect Results & Data Results & Data ([facility]) Vital Signs (Past 12 Hours) Vital Signs Temp Pulse Pulse Resp BP Pulse Ox O2 Del Method 11/16/22 07:15 36.6 C 92 H 17 117/69 96 Room Air 11/15/22 21:40 36.6 C 91 H 17 127/72 99 Room Air 11/15/22 21:34 Room Air PG Care Time/CCT Total # of Minutes Spent Total Time Spent with Patient: Total time spent is greater than 50% in coordination of care (as documented) at patient's floor/unit and/or counseling patient: Coding Diagnoses COVID-19 U07.1 Cellulitis of right lower extremity L03.115 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
[2022-11-16] MEDS: INSULIN ASPART PER UNIT SC SCH ×2 (09:05→12:52)
[2022-11-16 10:19] LABS: Basophils # (auto) 0.01 K/uL (0-0.2); Basophils % (auto) 0.1 %; Hemoglobin 11.4 g/dl (12.0-16.0); Immature Granulocytes # (auto) 0.07 K/uL (0.00-0.02); Immature Granulocytes % (auto) 0.9 %; Lymphocytes # (auto) 0.51 K/uL (1.2-3.4); Lymphocytes % (auto) 6.6 %; Mean Corpuscular Hemoglobin 31.5 pg (25.0-34.0); Mean Corpuscular Hgb Conc 33.5 g/dL (32.0-36.0); Mean Corpuscular Volume 93.9 fL (80.0-100.0); Mean Platelet Volume 11.3 fL (9.4-12.3); Monocytes # (auto) 0.51 K/uL (0.24-0.82); Monocytes % (auto) 6.6 %; Neutrophils # (auto) 6.64 K/uL (1.4-6.5); Neutrophils % (auto) 85.8 %; Platelet Count 38 K/uL (130-400); RDW Coefficient of Variation 15.6 % (11.5-14.5); RDW Standard Deviation 53.5 fL (36.4-46.3); Red Blood Count 3.62 M/uL (3.93-5.22); White Blood Count 7.74 K/ul (4.8-10.8)
[2022-11-16 10:30] LABS: INR 1.4 (0.9-1.1); Prothrombin Time 14.6 Seconds (9.0-12.0)
[2022-11-16 11:02] LABS: BUN Creatinine Ratio 35.2 (10-20); Calcium 9.2 mg/dl (8.5-10.1); Creatinine Clr Calc Pharmacy 22.9 ml/min; Est GFR (African American) 37.9 ml/min; Est GFR (Non-African American) 32.7 ml/min
--- NOTE | 2022-11-16 11:27 | Pharmacy Report ---
Pharmacy Vanc AUC Short Note - Date of Service November 16, 2022 - Assessment & Plan Assessment Assessment 89 year old F receiving vancomycin for treatment of RLE cellulitis. Prelim blood cultures are negative, leukocytosis resolved this morning, patient afebrile. Wo und culture from 11/13 with citrobacter - cefepime changed to ertapenem to provide adequate coverage Day #4 of antimicrobial therapy. Plan Vancomycin * Random vancomycin level this AM ~15 mcg/ml - will redose again with vancomycin 1000 mg x 1 for now to maintain level ~15-20 mcg/ml * Scr slightly improving since yesterday, however still elevated from baseline * Will continue to dose by levels for now. Will order another vancomycin level tomorrow AM to assist with further dosing Pharmacy has transitioned to AUC monitoring for vancomycin. AUC/JENNIFER is the preferred PK/PD target and is associated with decreased risk of nephrotoxicity compared to traditional trough targets.
[2022-11-16] MEDS ORDERED: VANCOMYCIN HCL 1,000 MG in SODIUM CHLORIDE 0.9% 250 ML IV ONE (11:30)
--- NOTE | 2022-11-16 15:15 | Discharge Summary ---
Date of Service November 16, 2022 Admission HPI Per Admitting Provider Cecily Berman is an 89yo female with history of DOMINGUEZ cirrhosis, HTN, well controlled DM, HLP, severe aortic stenosis, CKD-IV presenting from [facility] with RLE cellulitis. Patient was in her usual state of health yesterday. Her daughter visited her and they went for a walk around the building without difficulty. Around 23:00 last night she developed some RLE pain and redness that has progressed. She has been having increased pain with ambulation and redness of the RLE. Denies fever, chills, rigors, nausea, vomiting, diarrhea or constipation. No complaint of chest pain, cough, SOB, nausea, vomiting, diarrhea or constipation. Daughter states that patient was a little sleepy this afternoon, thought to be secondary to pain medication given at [facility]. Patient has chronic bilateral LE at baseline. She has her legs wrapped daily at [facility]. Her daughter states that her dressings are wet at the end of the day. Patient offers no complaints at this time. In the ER she is afebrile, HD stable, nontoxic in appearance. Dressings placed on bilateral LE. ER Course: Ceftriaxone IM given at [facility] NSS 250mL Vancomycin 1250mg Cefepime 2gm Admission Exam Per Admitting Provider General: patient resting comfortably, NAD, non-toxic in appearance, slightly hard of hearing, answers questions appropriately and follows commands Skin: warm, dry, intact, RLE redness of the foot to knee, no crepitus/bullae or lymphangitis HEENT: NC/AT, PERRL, EOMI, anicteric sclera, conjunctiva without injection, external ear normal to inspection and nontender, nares patent, moist mucus membranes, dentition intact, no oropharyngeal lesions, neck supple, trachea midline, no LAD, no thyromegaly, no JVD Heart: +S1/S2, regular, no m/r/g Lungs: equal air entry bilaterally, coarse breath sounds in left anterior lung field, cleared with coughing, no wheezing Abd: +BS, soft, NT/ND, no masses/organomegaly/ascites Ext: warm, 2+ pulses in UE/LE bilaterally, no clubbing/cyanosis, 1+ pitting edema of bilateral LE, dressings in place c/d/i, cellulitis of right foot and lateral leg appreciated, tender to palpation, some onychomycosis as well as fiss ures between toes Neuro: nonfocal, patient AA&O x 4, speech intact, no facial droop, moving all extremities on command with equal strength 5/5, no asterixis Principal Diagnosis cellulitis right lower leg Discharge Exam Constitutional WD/WN, vitals as above ENMT external ear and nose normal, oropharynx normal Neck trachea midline, no thyromegaly Respiratory normal respiratory effort, + cough and able to speak in complete sentences; no labored breathing Auscultation: lungs clear to auscultation bilaterally and + bronchial breath sounds Cardiovascular Rate/Rhythm: regular rate and regular rhythm Heart Sounds: + murmur Extremities: + edema Gastrointestinal (Abdomen) small reducible abdominal hernia Skin right lower extremity much less erythema and swelling dressing over left lower leg also with much less swelling Neurologic PERRL, EOMI, accommodation nl, no face palsy, no dysarthria Psychiatric A+Ox3, euthymic affect Discharge Data Allergies Allergy/AdvReac Type Severity Reaction Status Date / Time Fish Containing Products Allergy Severe Anaphylaxis Verified 11/13/22 19:37 fish derived Allergy Severe Anaphylaxis Verified 11/13/22 19:37 fish oil Allergy Severe Anaphylaxis Verified 11/13/22 19:37 shellfish derived Allergy Severe ANAPHYLAXIS Verified 11/13/22 19:37 AGGIE Inhibitors AdvReac Intermediate Cough Verified 11/13/22 19:37 alendronate sodium AdvReac Intermediate dizziness Verified 11/13/22 19:37 ALL CREATURES THAT LIVE IN Allergy Severe ANAPHYLAXIS Uncoded 11/13/22 19:37 WATER Consultations 11/13/22 19:47 ED Decision to Admit Stat Hospital Course (1) COVID-19: Patient was initially + 10/26/22 She is day #20 and no need for isolation Saturating on RA at 96% Mild lingering cough CXR 11/13/22 normal (2) Cellulitis of right lower extremity: Culture + Citrobacter werkmanii and was intermediate to Cefepime. Changed Cefepime to Ertapenem. Currently on vancomycin and ertapenem. Wound care nurse consulted and placed pictures in chart. White blood cell count improved to normal today, down from 20. 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 Chronic thrombocytopenia likely secondary to splenomegaly related to the cirrhosis. (4) DM2 (diabetes mellitus, type 2): ADA diet. Continue Lantus therapy with sliding scale Hgb A1C of 5.2 on 09/10/22. (5) Elevated troponin: Troponin elevated at 73.9 on admission and trending down Continues to have no chest pain or SOB No evidence of acute coronary syndrome (6) Chronic diastolic CHF (congestive heart failure): Preserved EF and compensated at present. Echo performed on 09/09/22 with normal LV size, mild concentric LVH with EF of 60-65%. Continue Bumex, Spironolactone (7) Benign hypertension: Blood pressures adequate at present. Continue current medication (8) Chronic kidney disease, stage IV (severe): Monitor intake and output. Serial lab studies. Avoid nephrotoxic agents. (9) Severe aortic stenosis: CHIDI <1cm. Patient is unlikely candidate for TAVR given medical comorbidities. Total Time Total Time Spent Total Time Spent (In Minutes): 40 minutes Discharge Plan Discharge Items Patient Disposition: Transfer Halfway Fac Reason For Visit: CELLULITIS (LEG) Discharge Diagnosis: cellulitis Condition on Discharge: Fair Activity: Resume your previous activity Lifting: Gradually increase as tolerated Weightbearing: Full weightbearing Non-emergency contact: Primary Care Provider Call non-emergency contact if: your symptoms worsen Follow-up/Referrals: Irvin Gardner [Primary Care Provider] - Diet: Carb Consistent or DM2 and Low Sodium (2gm) Addtl Attending Provider Instructions: You were admitted with swelling and pain in your lower extremties and were found to have cellulitis which is s kin infection. The wound was cultured to find the bacteria and appropriate antibiotics were started. You were given antibiotics through the IV and will be discharged on 12 more days of oral antibiotics. Bactrim DS one pill 2 x per day for 12 days. You will need blood work next week. You will need a BMP to be drawn Saturday. Per wound care- Pressure sores buttocks - clean area dust with stoma powder. brush off. cover with sensicare ointment reapply as needed To left lower leg - clean with saline. cover with Optifoam Change every 3 days or as needed for drainage to right medial lower leg clean with saline cover with moistened Aquacel Ag and secure with Optifoam change every 3 days as needed Patient has been getting PT/OT while admitted and would benefit from continued therapy Pateint should also follow up with her primary care physician in 1-2 weeks to recheck the cellulitis Pending Studies at Discharge: No Stand-Alone Forms: My [facility] Skilled Items Patient informed of condition?: Yes DNR: No Discharge Level of Care: Skilled Communicable Disease: No Discharge Prognosis: Stable Lines: None Urinary Catheter: No Medications and DC Order Prescriptions: New sulfamethoxazole-trimethoprim [Bactrim DS] 800-160 mg tablet 1 tab PO BID Qty: 24 0RF Continued insulin aspart U-100 [Novolog FlexPen U-100 Insulin] 100 unit/mL (3 mL) insulin pen 4 unit SUBCUT TIDM Rx Instructions: HOLD if BSG <200 cholecalciferol (vitamin D3) [Vitamin D3] 125 mcg (5,000 unit) Tablet 125 mcg PO QAM Xifaxan 550 mg Tablet 550 mg PO BID Qty: 60 0RF tramadol 50 mg Tablet 50 mg PO Q4H PRN (Reason: Pain) triamcinolone acetonide 0.1 % Cream 1 applic TOPICAL BID PRN (Reason: RASH ON BUTTOCKS) nutritional supplements Powder 1 ea PO QAM magnesium oxide 500 mg Tablet 500 mg PO QAM bumetanide 1 mg tablet 1.5 mg PO QAM spironolactone 50 mg tablet 50 mg PO TID lidocaine (PF) 10 mg/mL (1 %) solution 0 mg IM QAM Rx Instructions: START 11/13/22. INJECT 1 DOSE IM IN THE MORNING FOR CELLULITIS RLE FOR 3 DAYS. diclofenac sodium 1 % Gel 4 g TOPICAL BID Rx Instructions: RIGHT KNEE coQ10 (ubiquinol) 200 mg Capsule 200 mg PO QAM lactulose 20 gram/30 mL Solution 20 g PO AMPM lactulose 20 gram/30 mL solution 10 g PO QDL lidocaine [Lidocaine Pain Relief] 4 % Adhesive Patch,Medicated 1 patch TOPICAL .EVERY 24 HOURS MDD 1 patch PRN (Reason: .mod-sever pain) Rx Instructions: remove after 12 hours [id number]-Cf-bnsi-minerals Tablet 1 tab PO QAM insulin glargine [Lantus Solostar U-100 Insulin] 100 unit/mL (3 mL) insulin pen 10 unit subcut HS Qty: 15 0RF Discontinued ceftriaxone 1 gram Recon Soln 1 g IM QAM Rx Instructions: START 11/13/22 FOR 3 DAYS. Discharge Orders: Discharge Order (Routine); Ordered 11/16/22 Ordered By: Gosia Andres Admission Data Admit Date/Time: 11/13/22 20:34 Attending Provider: Jose Gleason Admit Provider: Cari Anaya Primary Care Provider: Irvin Gardner Other Providers: Cari Anaya Other Interventions: Discharge Summary Assessment (RN) Last Done: 11/16/22 15:12 Supervising Physician Co-Signing Physician Notes Patient seen and examined at bedside. During face to face encounter, I obtained a history of her hospital stay, and obtained a physical examination. I discussed discharge plan with patient and CHUCK Andres. I reviewed above note and agree with it. Patient was seen and examined for cellulitis. Patient was treated with IV antibiotics and this was transitioned to PO antibiotics. 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
[2022-11-16] MEDS: ERTAPENEM SODIUM 500 MG in SYRINGE 0 ML IV SCH (15:43)
== END 2022-11-16 16:58 | DRG 603 ==
LOC: ED 18:17 → SUATTDRO 20:34 → 3W 20:34